=== PATIENT | male | born 1955 | race Caucasian/White ===

== ENCOUNTER 2017-09-19 06:15 | Inpatient (IN) | payer MEDICAID ==
--- NOTE | 2016-12-07 23:18 | NUR ---
PATIENT PULLING AT IV'S AND TRACH TUBING, MITTENS WERE PLACED ON PATIENT AND THE PATIENT AND CONTINUED TO REMOVE THE MITTENS.
[2017-09-19] VITALS (48 sets, daily range): BP systolic 52–162; BP diastolic 26–112
[~2017-09-19] VITALS: Ht 182.9 cm; Wt 149.9 kg
--- NOTE | 2017-09-19 06:19 | NUR ---
PT PLACED IN BED 11 BY EMS.
--- NOTE | 2017-09-19 06:20 | NUR ---
PATIENT PRESENTS TO ED WITH SOB/DIFF. BREATHING . PER EMS VISIT TO HOUSE S/P FALL PT DENIED MEDICAL TX, 3HOURS AFTER EMS CALLED PT IN SAME CONDITION ACCOMPANIED BY SOB . DENIES N/V/D; SKIN IS PINK/COOL/DRY; AAOX4 ; LUNGS COURSE ON INSPIRATION AND EXPIRATION; PT DENIES ANY FEVER, OR CP; PATIENT DENIES ANY PAIN AT THIS TIME; PATIENT POSITIONED FOR COMFORT; HOB ELEVATED; BEDRAILS UP X2; BED DOWN. ER MD MADE AWARE OF PT STATUS.
--- NOTE | 2017-09-19 06:20 | NUR ---
Dr. Moore at bedside.
[2017-09-19] MEDS ORDERED: ALBUTEROL 0.083% 2.5 MG/3 ML NEBU INH ONE (06:35)
[2017-09-19] MEDS ORDERED: ALBUTEROL SULFATE/IPRATROPIU 3 ML SOL IH ONE (06:35)
--- NOTE | 2017-09-19 06:40 | NUR ---
RECEIVED PT ON 100% NON [id number] MASK WITH LABORED BREATHING PLACED PT ON BIPAP PER DR MINA IPAP [address] 14 FIO2 .50 PT AWAKE ALERT TULIO BIPAP OK AT THIS TIME ABG DRAWN BREATH SOUND PRESENT BILAT COARSE WILL CONTINUE TO MONITOR PT
[2017-09-19] MEDS ORDERED: MORPHINE SULFATE 4 MG/ML SYR IVP ONE (06:45)
[2017-09-19 06:47] LABS: HEMATOCRIT 50.9 % (36-52); HEMOGLOBIN 16.3 g/dL (12.0-18.0); MEAN CORPUSCULAR HEMOGLOBIN 36 pg (27-31); MEAN CORPUSCULAR HGB CONC 32 g/dL (33-37); MEAN CORPUSCULAR VOLUME 113 fL (80-94); PLATELET COUNT (AUTO) 189 K/uL (140-450); RED BLOOD CELL COUNT(AUTO) 4.53 MIL/uL (4.20-6.10); RED CELL DISTRIBUTION WIDTH 16.1 % (11.6-13.7); WHITE BLOOD COUNT (AUTO) 9.4 K/uL (4.8-10.8)
[2017-09-19 06:59] LABS: ANION GAP 6.9 (8-16); CREATININE 0.8 mg/dL (0.7-1.3); LYMPHOCYTES % (MANUAL) 6 % (20-46); MONOCYTES % (MANUAL) 9 % (5-12); POTASSIUM 3.9 mmol/L (3.5-5.1)
[2017-09-19 07:04] LABS: APPEARANCE,URINE SL CLOUDY (CLEAR); BILIRUBIN,URINE 2+ (NEGATIVE); COLOR,URINE BROWN (YELLOW); LEUKOCYTE ESTERASE ,URINE NEGATIVE (NEGATIVE); NITRITE, URINE POSITIVE (NEGATIVE); PH,URINE 5.5 (5.0-9.0); UGLUCOSE TRACE (NEGATIVE)
[2017-09-19 07:05] LABS: ALBUMIN 3.6 g/dL (3.4-5.0); TOTAL BILIRUBIN 2.3 mg/dL (0.0-1.0)
[2017-09-19 07:10] LABS: PROTHROMBIN TIME 13.3 secs (10.8-13.4)
[2017-09-19 07:15] LABS: RBC,URINE 3-10 (FEW) /HPF (0-5)
[2017-09-19 07:16] LABS: BLOOD, URINE 1+ (NEGATIVE); WBC,URINE 0-5 (RARE) /HPF (0-5)
--- NOTE | 2017-09-19 07:22 | NUR ---
REPORT GIVEN TO ROMERO VIEYRA
--- NOTE | 2017-09-19 07:23 | NUR ---
XRAY at bedside.
--- NOTE | 2017-09-19 07:26 | NUR ---
POST ABG RESULTS BIPAP CHANGES CHARTED PER DR KRISHNA WILL CONTINUE TO MONITOR PT ON BIPAP
--- NOTE | 2017-09-19 07:28 | NUR ---
PT RESTING ON BED;W/ BPAP;RT AT BEDSIDE.ALL MONITORS IN PLACED;WILL CONTINUE TO MONITOR PT.
--- NOTE | 2017-09-19 07:39 | NUR ---
RT AT BEDSIDE.
[2017-09-19] MEDS ORDERED: FUROSEMIDE 40 MG/4 ML VIAL IVP ONE (07:40)
[2017-09-19] MEDS ORDERED: NACL 0.9% 1,000 ML IV ONE ×2 (07:50→09:05)
[2017-09-19] MEDS ORDERED: VANCOMYCIN 1,000 MG in DEXTROSE 5% 250 ML IV ONE (07:50)
[2017-09-19] MEDS ORDERED: AMIODARONE 150 MG in DEXTROSE 5% 100 ML IV ONE (07:55)
[2017-09-19] MEDS ORDERED: AMIODARONE 150 MG/3 ML VIAL IV ONE (08:09)
[2017-09-19] MEDS ORDERED: VANCOMYCIN 1,000 MG VIAL ONE (08:27)
[2017-09-19] MEDS ORDERED: ACETAMINOPHEN 325 MG TAB PO PRN (08:35)
[2017-09-19] MEDS ORDERED: DOCUSATE SODIUM 100 MG GELCAP PO PRN (08:35)
[2017-09-19] MEDS ORDERED: HYDROcodone/APAP 7.5/325 MG 1 TAB PO PRN (08:35)
[2017-09-19] MEDS ORDERED: ZOLPIDEM 5 MG TAB PO PRN (08:35)
[2017-09-19] MEDS ORDERED: ONDANSETRON 4 MG/2 ML VIAL IM/IVP PRN (08:35)
[2017-09-19] MEDS ORDERED: LORazepam 0.5 MG TAB PO PRN (08:35)
[2017-09-19] MEDS ORDERED: MORPHINE SULFATE 2 MG/ML SYR IVP PRN (08:35)
[2017-09-19] MEDS ORDERED: ALBUTEROL SULFATE/IPRATROPIU 3 ML SOL IH PRN ×3 (08:45→11:45)
[2017-09-19] MEDS ORDERED: LEVOFLOXACIN 750 MG/D5W PREMIX 150 ML IV SCH ×2 (08:50→12:00)
[2017-09-19] MEDS: LACTOBACILLUS RHAMNOSUS GG 1 EACH CAP PO SCH (09:00)
--- NOTE | 2017-09-19 09:01 | NUR ---
Patient will be admitted to care of DR PEREZ. Admited to ICU. Will go to [facility] 1. Belongings list completed. Report to DANNA VIEYRA.
--- NOTE | 2017-09-19 09:08 | NUR ---
PATIENT HAS BEEN SCREENED AND CATEGORIZED HIGH NUTRITION RISK. PATIENT WILL BE SEEN WITHIN 1-2 DAYS OF ADMISSION. 09/19/17-09/20/[address]
[2017-09-19 09:18] LABS: CHOL/HDL RATIO 3.9 (1-4.5); FREE T4 (FREE THYROXINE) 0.82 ng/dL (0.76-1.46); MAGNESIUM 2.3 mg/dL (1.8-2.4); PHOSPHORUS 3.9 mg/dL (2.5-4.9); THYROID STIMULATING HORMONE 5.63 uIU/mL (0.34-3.74)
--- NOTE | 2017-09-19 09:44 | NUR ---
PT ARRIVED VIA GURNEY FROM ER. PT IS AAOX2, LETHARGIC, FOLLOWS SIMPLE COMMANDS. A. FIB ON MONITOR. PT IS ON BIPAP I/E: 16/7, FIO2 50%. NO SOB OR ACUTE DISTRESS AT THIS TIME. BILATERAL RHONCHI AUSCULTATED. ABDOMEN SOFT, ROUND, NON-TENDER. BOWEL SOUNDS PRESENT. PERIPHERAL IV #20G TO LEFT HAND PATENT AND INTACT, INFUSING ORDERED IV FLUID. SKIN TEAR TO LEFT FOREARM NOTED. DRESSING APPLIED. SCAB TO RIGHT FOREARM NOTED. BUE/ BLE EDEMA AND SCROTAL EDEMA NOTED. DRYNESS TO BILATERAL LOWER EXTREMITIES NOTED. ACOSTA CATH IN PLACE FLOWING URINE TO GRAVITY DRAINAGE BAG. ADMISSION ASSESSMENT COMPLETE. MRSA SWAB OBTAINED. FLACC 0. SAFETY MEASURES ENSURE. CALL LIGHT WITHIN REACH. WILL CONTINUE TO MONITOR.
--- NOTE | 2017-09-19 09:53 | NUR ---
PT TRANSPORTED TO ICU BED 3 VIA I00% NONBREATHING MASK PLACED PT ON BIPAP WITH SETTIHGS CHARTED WILL CONT TO MONITOR PT ON BIPAP
[2017-09-19] MEDS ORDERED: HEPARIN PER PHARMACY MC PRN ×2 (10:05→15:00)
[2017-09-19 10:47] LABS: BARBITURATE, URINE NEG. ng/ml (NEG <=200); BENZODIAZEPINE, URINE NEG. ng/mL (NEG <=200); CANNABINOID, URINE NEG. ng/mL (NEG <=50); COCAINE, URINE NEG. ng/mL (NEG <=300); OPIATE, URINE NEG. ng/mL (NEG <=2000); PHENCYCLIDINE SCREEN,URINE NEG. ng/mL (NEG <=25)
[2017-09-19] MEDS: NACL 0.9% 1,000 ML IV SCH ×2 (11:00→13:07)
[2017-09-19] MEDS ORDERED: METOPROLOL SUCCINATE 50 MG TABER PO SCH (11:00)
--- NOTE | 2017-09-19 11:00 | NUR ---
LIMITED ECHO DONE
[2017-09-19] MEDS: hePARIN / DEXT 5% PREMIX 250 ML IV SCH ×2 (11:22→18:33)
--- NOTE | 2017-09-19 11:30 | NUR ---
DECREASED FI02 TO .50 RN AWARE
--- NOTE | 2017-09-19 11:39 | NUR ---
PT TOLERATING THE BIPAP WELL. NO DISTRESS NOTED AT THIS TIME. NURSES AT BEDSIDE. WILL CONTINUE TO MONITOR.
--- NOTE | 2017-09-19 12:00 | NUR ---
UNABLE TO ADMINISTER PO METOPROLOL PT IS NOT AWAKE ENOUGH TO SAFELY SWALLOW. RECOMMENDED IV ROUTE FOR MEDS TO DR. GARCIA, WILL FOLLOW UP ON ORDERS.
[2017-09-19] MEDS: CLINDAMYCIN 600 MG in DEXTROSE 5% 50 ML IV SCH ×3 (12:09→23:55)
--- NOTE | 2017-09-19 12:35 | NUR ---
PT'S DAUGHTER LUKASZ CALLED. UPDATED ON PT'S CONDITION.
[2017-09-19] MEDS: ALBUTEROL SULFATE/IPRATROPIU 3 ML SOL IH SCH ×2 (13:00→19:29)
[2017-09-19] MEDS ORDERED: ALBUTEROL SULFATE/IPRATROPIU 3 ML SOL IH SCH (13:00)
[2017-09-19] MEDS: LEVOFLOXACIN 750 MG/D5W PREMIX 150 ML IV SCH (13:22)
--- NOTE | 2017-09-19 13:30 | NUR ---
PT BEING PRERRED FO INTUBATION
[2017-09-19] MEDS ORDERED: HYDROmorphone 1 MG/ML AMP IVP SCH (13:55)
[2017-09-19] MEDS ORDERED: ETOMIDATE 20 MG/10 ML VIAL IVP ONE ×2 (14:05→14:09)
[2017-09-19] MEDS ORDERED: ETOMIDATE 20 MG/10 ML VIAL IVP SCH (14:10)
--- NOTE | 2017-09-19 14:10 | NUR ---
DR. GIMENEZ CAME IN TO SEE PT. WILL FOLLOW UP WITH NEW ORDERS.
[2017-09-19] MEDS ORDERED: SUCCINYLCHOLINE CHLORIDE 200 MG/10 ML VIAL IVP SCH (14:15)
[2017-09-19] MEDS ORDERED: ROCURONIUM 50 MG/5 ML VIAL IV SCH (14:15)
--- NOTE | 2017-09-19 14:15 | NUR ---
PT INTUBATED ORDERED BY DR GARCIA PT INTUBATED BY DR KRISHNA ER PT PLACED ON VENT WITH SETTINGS CHARTED BREATH SOUNDS PRESENT BILAT COARSE SXN PT FOE C&S VENT PLUGGED INTO RED OUTLET X RAY DONE
--- NOTE | 2017-09-19 14:18 | NUR ---
PT WAS INTUBATED BY ER PHYSICIAN, DR. KRISHNA. RESPIRATORY THERAPISTS PRESENT AT BEDSIDE.
[2017-09-19] MEDS ORDERED: DEXTROSE 50% 50 ML SYR IVP PRN (14:20)
--- NOTE | 2017-09-19 14:26 | NUR ---
DR. GARCIA IN TO SEE PT. WILL FOLLOW UP ON ORDERS.
[2017-09-19] MEDS ORDERED: DILTIAZEM 25 MG/5 ML VIAL IVP SCH (14:30)
[2017-09-19] MEDS ORDERED: hePARIN / DEXT 5% PREMIX 250 ML IV SCH (15:00)
[2017-09-19] MEDS: PROPOFOL 1000 MG/100 ML PREMIX 100 ML IV PRN ×3 (15:03→22:48)
[2017-09-19] MEDS ORDERED: NACL 0.9% 1,000 ML IV SCH ×2 (15:10→15:30)
--- NOTE | 2017-09-19 15:20 | NUR ---
INCREASED FIO2 TO .80 RN AWARE
--- NOTE | 2017-09-19 15:21 | NUR ---
CHECKED BP: 52/38, NOTIFIED DR. GARCIA.
--- NOTE | 2017-09-19 15:28 | NUR ---
NEW ORDERS RECEIVED, RECHECKED BP: 117/71. WILL CONTINUE TO MONITOR.
[2017-09-19] MEDS ORDERED: COMMUNICATION ORDER MC SCH ×2 (15:45)
--- NOTE | 2017-09-19 16:00 | NUR ---
PT WISHES TO BE EXTUBATED, DR. GARCIA AT BEDSIDE TO ASSESS PT'S MENTAL STATUS TO MAKE HIS OWN DECISIONS. PT'S DAUGHTER, LUKASZ, NOTIFIED.
--- NOTE | 2017-09-19 16:17 | NUR ---
PER DR. GARCIA, PT TO REMAIN INTUBATED AFTER CONSULTING WITH DR. GIMENEZ PT MAY STILL BE CONFUSED DUE TO MEDICAL CONDITION. PT'S DAUGHTER, LUKASZ, UPDATED ON PT'S STATUS.
[2017-09-19] MEDS: BLOOD GLUCOSE MONITORING 1 DEV DEV FS SCH ×2 (16:30→21:41)
[2017-09-19] MEDS ORDERED: LORazepam 2 MG/ML VIAL IVP SCH (16:46)
--- NOTE | 2017-09-19 16:49 | NUR ---
PER DR. GARCIA, HOLD OGT INSERTION UNTIL AFTER CENTRAL LINE INSERTION.
--- NOTE | 2017-09-19 17:15 | NUR ---
CONTINUED TO MONITOR PT ON VENT WITH SETTINGS CHARTED BREATH SOUNDS PRESNT BILAT COARSE SXN PT WITH MIN TO MOD AMT OF WHITE SECS VENT PLUGGED INTO RED OUTLET AMBU BAG AT BEDSIDE
--- NOTE | 2017-09-19 17:20 | NUR ---
CENTRAL LINE INSERTION BEING PERFORMED BY DR. GARCIA. TIME OUT CALLED.
--- NOTE | 2017-09-19 17:40 | NUR ---
DR. REYNOLDS IN TO SEE PT. WILL FOLLOW UP ON ORDERS.
[2017-09-19] MEDS ORDERED: DILTIAZEM 60 MG TAB PO SCH (18:00)
--- NOTE | 2017-09-19 18:00 | NUR ---
NGT INSERTED TO LEFT NARE AND SECURED. CONFIRMED PLACEMENT WITH AUSCULTATION OF AIR BOLUS.
[2017-09-19] MEDS: FUROSEMIDE 40 MG/4 ML VIAL IVP SCH (18:01)
--- NOTE | 2017-09-19 18:02 | NUR ---
CHECKED BP: 80/51, NOTIFIED DR. GARCIA THAT LASIX WAS HELD.
--- NOTE | 2017-09-19 18:41 | NUR ---
NOTIFIED DR. GARCIA REGARDING HEMATURIA NOTED IN ACOSTA BAG.
[2017-09-19] MEDS: ACETYLCYSTEINE 10% (100 MG/ML) 100 MG/ML VIAL INH SCH ×2 (19:00→23:00)
--- NOTE | 2017-09-19 19:30 | NUR ---
REPORT GIVEN TO TITLE I PARAPROFESSIONAL RN FOR CONTINUITY OF CARE. PT IS ETT TO VENT, ON PROPOFOL AND HEPARIN DRIPS. NO ACUTE DISTRESS AT THIS TIME.
--- NOTE | 2017-09-19 19:30 | NUR ---
RECEIVED REPORT FROM AZALIA ESCOBAR AT BEDSIDE, PT IS SEDATED, RASS -3, ETT TO VENT WITH FIO2 100, RR 14, TV 650, PEEP 5. RHONCHI LUNG SOUNDS, NGT PLACED ON LEFT NARES, POSITIVE PLACEMENT WITH 30ML RESIDUES NOTED, CENTRAL LINE PLACED ON RIGHT IJ WITH TLC, NO BLOOD RETURN FROM EACH LUMEN, NOT CONFIRMED BY X-RAY, DR. GIMENEZ AT BEDSIDE, WILL REPLACE ANOTHER ONE. Fredrick FIB ON DIGITAL PRINT OPERATOR. LARGE SOFT ROUND ABDOMEN WITH ACTIVE BOWEL SOUNDS, ACOSTA CATHETER IN PLACE WITH LIGHT RED COLORED URINE NOTED, SCROTAL EDEMA NOTED. GENERALIZED WEAKNESS NOTED, GENERALIZED +3 PITTING EDEMA NOTED, PERIPHERAL IV LINE TO RIGHT FOREARM #22GA, RUNNING PROPOFOL AT 15MCG/MIN, IV LINE TO RIGHT UPPER ARM #22GA, RUNNING WITH NS @150ML/HR AND HEPARIN DRIP @ 1500 UNITS, SKIN IS WARM AND WEEPING, SKIN TEAR NOTED TO LEFT FOREARM AND SCAR WITH SCAB NOTED TO RIGHT FOREARM. SCD'S PLACED ON BLE FOR DVT PREVENTION. SAFETY MEASURE IN PLACE, HOB ELEVATED TO 30 DEGREES, WILL CONTINUE TO MONITOR. Addendum: 09/19/17 at 2312 by Terra Maldonado RN RESTRAIN ON CELESTINA. WRIST FOR PREVENTION OF PULLING TUBINGS.
--- NOTE | 2017-09-19 19:30 | NUR ---
RECIEVED REPORT FROM AZALIA LYNN AT BEDSIDE, PT ARRIVED VIA GURNEY FROM ER. PT IS AAOX2, LETHARGIC, FOLLOWS SIMPLE COMMANDS. A. FIB ON MONITOR. PT IS ON BIPAP I/E: 08/06, FIO2 50%. NO SOB OR ACUTE DISTRESS AT THIS TIME. BILATERAL RHONCHI AUSCULTATED. ABDOMEN SOFT, ROUND, NON-TENDER. BOWEL SOUNDS PRESENT. PERIPHERAL IV #20G TO LEFT HAND PATENT AND INTACT, INFUSING ORDERED IV FLUID. SKIN TEAR TO LEFT FOREARM NOTED. DRESSING APPLIED. SCAB TO RIGHT FOREARM NOTED. BUE/ BLE EDEMA AND SCROTAL EDEMA NOTED. DRYNESS TO BILATERAL LOWER EXTREMITIES NOTED. ACOSTA CATH IN PLACE FLOWING URINE TO GRAVITY DRAINAGE BAG. ADMISSION ASSESSMENT COMPLETE. MRSA SWAB OBTAINED. FLACC 0. SAFETY MEASURES ENSURE. CALL LIGHT WITHIN REACH. WILL CONTINUE TO MONITOR. Addendum: 09/19/17 at 2245 by Terra Maldonado RN WRONG DOCUMENTATION.
--- NOTE | 2017-09-19 19:45 | NUR ---
CONSENT SIGNED BY LUKASZ, PT'S DAUGHTER FOR CENTRAL LINE INSERTION.
--- NOTE | 2017-09-19 20:00 | NUR ---
TIME OFF FOR CENTRAL LINE PLACEMENT, DR. CHARLES AND DR. GIMENEZ WILL PROFORM THE PROCEDURE, AZALIA WATTS AT BEDSIDE FOR ASSISTANCE. Addendum: 09/20/17 at 0341 by Terra Maldonado RN TIME OUT NOT TIME OFF
[2017-09-19] MEDS ORDERED: NOREPINEPHRINE 4 MG/4 ML VIAL IV ONE (20:13)
[2017-09-19] MEDS: NOREPINEPHRINE 4 MG in DEXTROSE 5% 250 ML IV PRN (20:27)
[2017-09-19] MEDS: METOPROLOL 25 MG TAB PO SCH (21:00)
[2017-09-19] MEDS ORDERED: DOCUSATE SODIUM 100 MG GELCAP PO SCH (21:00)
[2017-09-19] MEDS: DEXT 5% /NACL 0.9% 1,000 ML IV SCH (21:30)
--- NOTE | 2017-09-19 21:30 | NUR ---
DR. GIMENEZ AND DR. CHARLES TRIED TWO TIMES TO INSERT CENTRAL LINE ON RIGHT IJ OR LEFT IJ, COULD NOT GET IT SUCCESSIVELY, EXPLAINED TO FAMILY MEMBER, LUKASZ, BY DR. GIMENEZ.
[2017-09-19] MEDS: PANTOPRAZOLE 40 MG INJ VIAL IVP SCH (21:41)
--- NOTE | 2017-09-19 22:14 | NUR ---
[address] TOBIN IN DOING A BRONCOSCOPY.
[2017-09-20] VITALS (82 sets, daily range): BP systolic 64–138; BP diastolic 26–92
--- NOTE | 2017-09-20 | NUR ---
NO CHANGE OF CONDITION AT THIS TIME, STILL ON PROPOFOL DRIP AND LEVOPHED DRIP, RASS -4.
--- NOTE | 2017-09-20 00:25 | NUR ---
0005 ATTEMPTED TO DO ABG. UNABLE TO GET AT THIS TIME. WILL TRY LATER
[2017-09-20] MEDS: ALBUTEROL SULFATE/IPRATROPIU 3 ML SOL IH SCH ×4 (01:00→19:00)
--- NOTE | 2017-09-20 01:26 | NUR ---
0125 UNABLE TO GIVE HHNTX HEART RATE IS ELAVATED 125HR
[2017-09-20] MEDS: PROPOFOL 1000 MG/100 ML PREMIX 100 ML IV PRN ×2 (02:48→06:39)
[2017-09-20] MEDS: METOPROLOL 25 MG TAB PO SCH ×3 (05:00→21:29)
[2017-09-20] MEDS: DEXT 5% /NACL 0.9% 1,000 ML IV SCH ×4 (05:20→23:15)
[2017-09-20] MEDS: CLINDAMYCIN 600 MG in DEXTROSE 5% 50 ML IV SCH ×3 (05:23→18:09)
--- NOTE | 2017-09-20 05:25 | NUR ---
POST ABG WAS DISCUSSED W/ DR. CHARLES, INCREASED RR TO 16BPM, INCREASED VT-650ML
[2017-09-20] MEDS: hePARIN / DEXT 5% PREMIX 250 ML IV SCH ×3 (06:38→22:03)
[2017-09-20] MEDS: BLOOD GLUCOSE MONITORING 1 DEV DEV FS SCH ×4 (06:43→21:30)
[2017-09-20 06:48] LABS: T4 (THYROXINE) 4.7 ug/dL (4.5-12.0)
[2017-09-20] MEDS: NOREPINEPHRINE 4 MG in DEXTROSE 5% 250 ML IV PRN (06:54)
[2017-09-20] MEDS: ACETYLCYSTEINE 10% (100 MG/ML) 100 MG/ML VIAL INH SCH ×3 (06:55→19:00)
--- NOTE | 2017-09-20 06:55 | NUR ---
REC'D PT ON CARESCAPE VENT SETTINGS AC16 VT 650 PEEP 10 FIO2 70% ALARMS ON AND FUNCTIONING PROPERLY, AMBU BAG AT SIDE OF VENT AND VENTILATOR IS PLUGGED INTO RED OUTLET, NO BREATHING TX GIVEN DUE TO HIGH HEART RATE OF 120 AND MUCOMYST IS NOT AVAILABLE, B\S ARE CRACKLES BILATERALLY, SXN PT MODERATE AMT OF THICK YELLOW SECRETIONS, PT IS ORALLY INTUBATED WITH 8.0 ET TUBE SECURED WITH ANCHOR FAST AT 23CM AT MIDLINE AND SKIN INTEGRITY IN INTACT, CUFF PRESSURE IS 30 CM H2O
[2017-09-20] MEDS ORDERED: NOREPINEPHRINE 4 MG/4 ML VIAL IV ONE (06:56)
[2017-09-20 07:03] LABS: HEMOGLOBIN 14.6 g/dL (12.0-18.0); MEAN CORPUSCULAR HEMOGLOBIN 37 pg (27-31); MEAN CORPUSCULAR HGB CONC 33 g/dL (33-37); MEAN CORPUSCULAR VOLUME 112 fL (80-94); PLATELET COUNT (AUTO) 151 K/uL (140-450); RED CELL DISTRIBUTION WIDTH 15.8 % (11.6-13.7); WHITE BLOOD COUNT (AUTO) 10.5 K/uL (4.8-10.8)
--- NOTE | 2017-09-20 07:23 | NUR ---
REPORT GIVEN TO AZALIA MANSFIELD AT BEDSIDE FOR CONTINUE OF CARE, PT IS IN STABLE CONDITION AT THIS TIME.
--- NOTE | 2017-09-20 07:30 | NUR ---
RECEIVED REPORT FROM AZALIA VILLANUEVA AT BEDSIDE, PT IS INTUBATED WITH PROPOFOL, ETT TO VENT WITH AC MODE FIO2 70, RR 16, TV 700, PEEP 10. RHONCHI LUNG SOUNDS, NGT PLACED ON LEFT NARES. A. FIB ON ACCOUNTS PAYABLE OR RECEIVABLE CLERK HEART RATE 123 WITH LEVOPHED. LARGE SOFT ROUND ABDOMEN WITH HYPOACTIVE BOWEL SOUNDS, ACOSTA CATHETER IN PLACE WITH BRIGHT ORANGE COLORED URINE NOTED, GENERALIZED +3 PITTING EDEMA NOTED, PERIPHERAL IV LINE TO RIGHT FOREARM #22GA, RUNNING PROPOFOL AT 19.99MCG/MIN,LEVOPHED 5MCG/MIN, IV LINE TO RIGHT UPPER ARM #22GA, RUNNING HEPARIN 1500UNIT/HR, D5NS 150ML/H. SKIN IS DRY, SCABS IN BILATERAL LOWER EXT.
[2017-09-20 07:40] LABS: ANION GAP 5.9 (8-16); CARBON DIOXIDE 34.7 mmol/L (21-32); CREATININE 0.7 mg/dL (0.7-1.3); POTASSIUM 3.6 mmol/L (3.5-5.1)
[2017-09-20 08:26] LABS: EOSINOPHILS % (MANUAL) 3 % (0-4); LYMPHOCYTES % (MANUAL) 4 % (20-46); MONOCYTES % (MANUAL) 4 % (5-12)
[2017-09-20] MEDS: PANTOPRAZOLE 40 MG INJ VIAL IVP SCH ×2 (08:54→21:30)
[2017-09-20] MEDS: FUROSEMIDE 40 MG/4 ML VIAL IVP SCH ×2 (08:54→16:44)
--- NOTE | 2017-09-20 08:57 | NUR ---
VENT CHECK, NO SXN REQUIRED AT THIS TIME, AIRWAY IS PATENT AND PT IS RESTING WITH NO SIGNS OF DISTRESS NOTED
[2017-09-20] MEDS ORDERED: METOPROLOL SUCCINATE 50 MG TABER PO SCH (09:00)
[2017-09-20] MEDS: LACTOBACILLUS RHAMNOSUS GG 1 EACH CAP PO SCH (09:14)
--- NOTE | 2017-09-20 09:41 | NUR ---
PT SEEN BY AND IN BEDSIDE. ORDER RECEIVED DECREASE LEVOPHED 3MCG/MIN.
[2017-09-20] MEDS ORDERED: DOCUSATE 100 MG/10 ML UDC GT SCH (10:30)
[2017-09-20] MEDS ORDERED: LEVOFLOXACIN 750 MG/D5W PREMIX 150 ML IV SCH (10:30)
--- NOTE | 2017-09-20 10:40 | NUR ---
PT SEEN BY ,. RECEIVED D/C LEVOPHED, D/C PROPOFOL ORDER NOTED.
--- NOTE | 2017-09-20 11:17 | NUR ---
VENT CHECK, SXN PT SMALL AMT OF YELLOW SECRETIONS, AIRWAY IS PATENT
--- NOTE | 2017-09-20 12:03 | NUR ---
*09/20/17 RD INITIAL ASSESSMENT COMPLETED. PLEASE REFER TO NUTRITIONAL ASSESSMENT UNDER CARE ACTIVITY FOR ESTIMATED NUTRITIONAL NEEDS. RD RECOMMENDATIONS: 1- RECOMMEND CONTINUE NPO DIET UNTIL PT IS MEDICALLY CLEARED FOR NUTRITION SUPPORT. 2- F/U 2-3 DAYS; HIGH RISK. IVETTE GRAHAM MBA, RD
--- NOTE | 2017-09-20 12:17 | NUR ---
VENT CHECK, I\L TX GIVEN WITH DUONEB 3ML AND 1CC 10% MUCOMYST WITH NO ADVERSE REACTION POST TX
[2017-09-20] MEDS: LEVOFLOXACIN 750 MG/D5W PREMIX 150 ML IV SCH ×2 (13:00→13:57)
[2017-09-20] MEDS ORDERED: fentaNYL 1 MG in NACL 0.9% 80 ML IV PRN (13:40)
--- NOTE | 2017-09-20 14:00 | NUR ---
PT SEEN BY AND IN BEDSIDE. ORDER RECEIVED, NACL 0.9% 500ML BOLUS 1TIME NOTED. OBTAINED TELEPHONE CONSENT BY WITNESS BY RN FROM FAMILY MEMBER LUKASZ SHAFFER.
[2017-09-20] MEDS ORDERED: NACL 0.9% 500 ML IV SCH (14:20)
[2017-09-20] MEDS ORDERED: NACL 0.9% 500 ML IV ONE (14:20)
--- NOTE | 2017-09-20 14:20 | NUR ---
TALKED TO LISHA FOR INSERTION OF PICC LINE
--- NOTE | 2017-09-20 14:30 | NUR ---
RECEIVED TELEPHONE ORDER FROM STAT CHEST X-RAY NOTED.
--- NOTE | 2017-09-20 14:58 | NUR ---
VENT CHECK, NO SXN REQUIRED AT THIS TIME, AIRWAY IS PATENT PT RESTING
--- NOTE | 2017-09-20 16:45 | NUR ---
VENT CHECK, SXN PT SMALL AMT OF YELLOW SECRETIONS, AIRWAY IS PATENT AND PT IS RESTING
--- NOTE | 2017-09-20 18:45 | NUR ---
VENT CK DONE, UNABLE TO GAVE PT TX, NOT ONLY HR WAS 142 TO 149, BUT PT HAVE A PROCEDURE DONE AT BED SIDE
--- NOTE | 2017-09-20 19:30 | NUR ---
REPORT RECEIVED FROM MORNING NURSEDONAL RN. EYES CLOSED AND PERRL. PICC LINE NURSE IS AT BED SIDE PERFORMING PICC LINE INSERTION. THE PT IS SEDATED WITH ATIVAN DRIP AND ETT TO VENT DUE TO RESPIRATORY FAILURE. VENT SETTING AC 16. FIO2 70, TV 650, PEEP 100. BILATERAL LUNG SOUNDS WITH RHOCHI. HEPARIN DRIP FOR INCREASED TROPONIN LEVELS AND NEW AFIB WITH RVR. ON CONTINUOUS CARDIAC MONITORING. PERIPHERAL IV LINES TO RIGHT FOREARM 22g AND RIGHT UPPER ARM 22g. ALL IV LINES PATENT AND ASYMPTOMATIC. ACOSTA CATHETER DRAINING VIA GRAVITY WITH CLEAR YELLOW URINE. BOWEL SOUNDS ACTIVE. ENLARGED SCROTUM SWELLING AND EDEMA NOTED. SKIN TEAR NOTED TO LEFT FOREARM AND SCATTERED DRY SCABS TO RIGHT FOREARM AND BILATERAL LOWER LEGS. SKIN IS WARM BUT VERY MOIST. NOTED FLUIDS SIPPING OUT OF BILATERAL UPPER EXTREMITIES. PLACED EXTRA LINENS AND PILLOWS UNDER THE ARMS. +3 PITTING EDEMA NOTED TO UPPER AND LOWER EXTREMITIES. OFF LOADED HEELS WITH PILLOWS. BILATERAL SOFT WRIST RESTRAINTS NOTED. OPEN AND RELEASED FOR SKIN CHECK AND CIRCULATION. PT NOTED TRYING TO REACH THE ETT TUBE WITH HANDS. REORIENTATIONS AND DISTRACTIONS PROVIDED. UNSUCCESSFUL. PLACED THE SOFT WRIST RESTRAINTS BACK ON. WILL CONTINUE TO MONITOR. Addendum: 09/21/17 at 0117 by Cassia Tavares RN ALL SAFETY PRECAUTIONS ARE IN PLACE. CALL LIGHT IN REACH. BED IS TO THE LOWEST POSITION.
--- NOTE | 2017-09-20 19:38 | NUR ---
DR. CHARLES MADE AWARE OF THE PICC LINE INSERTION BY THE PICC LINE NURSE AND XRAY TAKEN. WILL FOLLOW UP WITH ANY ORDERS.
--- NOTE | 2017-09-20 20:20 | NUR ---
DR. CHARLES AT BED SIDE AT THIS TIME.
[2017-09-20 20:25] LABS: PROTHROMBIN TIME 15.9 secs (10.8-13.4)
--- NOTE | 2017-09-20 20:25 | NUR ---
DAUGHTER AT BED SIDE.
--- NOTE | 2017-09-20 20:40 | NUR ---
aPTT RESULT=81.5. HEPARIN DRIP RATE ADJUSTED PER PROTOCOL.
[2017-09-20] MEDS: DOCUSATE 100 MG/10 ML UDC GT SCH (21:30)
[2017-09-21] VITALS (59 sets, daily range): BP systolic 79–153; BP diastolic 44–110
[2017-09-21] MEDS: CLINDAMYCIN 600 MG in DEXTROSE 5% 50 ML IV SCH ×5 (00:06→23:42)
--- NOTE | 2017-09-21 00:23 | NUR ---
ABG ORDER BY DR ARACELI DEAN, UNABLE TO OBTAIN, ATTEMPTED THREE TIMES, RN AT BED SIDE..
--- NOTE | 2017-09-21 00:25 | NUR ---
DR. CHARLES MADE AWARE OF UNSUCCESSFUL ABG BY RT.
[2017-09-21] MEDS: ALBUTEROL SULFATE/IPRATROPIU 3 ML SOL IH SCH ×4 (01:20→19:38)
[2017-09-21] MEDS: ACETYLCYSTEINE 10% (100 MG/ML) 100 MG/ML VIAL INH SCH ×4 (01:21→19:38)
--- NOTE | 2017-09-21 01:30 | NUR ---
VENT CK DONE, HHN IN LINE WITH DUONEB AND 10% MUCOMIST IN LINE WITH THE VENT, STEEL HR IN HIGH, NO DISTRESS NOTED
--- NOTE | 2017-09-21 01:53 | NUR ---
PT CONTINUING WITH CONTINUOS CARDIAC MONITORING. ON ATIVAN DRIP WITH RASS -4 AND HEPARIN DRIP PER PROTOCOL. ETT TO VENT AC16. FIO2 60, TV 650, PEEP 10. NO ACUTE DISTRESS NOTED. ALL SAFETY PRECAUTIONS IN PLACE. WILL CONTINUE TO MONITOR.
[2017-09-21] MEDS: METOPROLOL 25 MG TAB PO SCH ×3 (05:13→21:04)
--- NOTE | 2017-09-21 05:38 | NUR ---
EVARISTO DONE, DR NOTIFIED, HE WILL CALL VICK IF HE WANTS TO CHANGE SETTINGS. CHANGED HME AND OSULLIVAN, SX MOD CLOUDY WITH PINK SECRETION,
[2017-09-21] MEDS: DEXT 5% /NACL 0.9% 1,000 ML IV SCH ×2 (05:49→14:59)
--- NOTE | 2017-09-21 06:05 | NUR ---
DR. GARCIA AT BED SIDE. UPDATED HIM WITH THE PT'S CONDITION. WILL FOLLOW UP WITH ANY ORDERS.
--- NOTE | 2017-09-21 06:53 | NUR ---
RECEIVED PT ON CARESCAPE ON A/C 16 VT650 PEEP 10 FIO2 60 ALARMS ARE ON AND FUNCTIONAL PTS ET TUBE SIZE 8.0 IS SECURE ANCHOR FAST IN PLACE 23CM CUFF PRESSURE 22 CM BS COARSE I\L LAVAGE AND SX LG YELLOW HHN GIVEN I\L WITH 3 MG DUONEB AND 1ML MUCOMYST BMV HOB PT IN HF ASLEEP VENT PLUGGED INTO RED OUTLET Addendum: 09/21/17 at 0739 by Dafne Armenta RT 10% MUCOMYST
[2017-09-21 07:00] LABS: HEMATOCRIT 43.2 % (36-52); HEMOGLOBIN 14.3 g/dL (12.0-18.0); MEAN CORPUSCULAR HEMOGLOBIN 37 pg (27-31); MEAN CORPUSCULAR HGB CONC 33 g/dL (33-37); MEAN CORPUSCULAR VOLUME 111 fL (80-94); PLATELET COUNT (AUTO) 133 K/uL (140-450); RED CELL DISTRIBUTION WIDTH 15.5 % (11.6-13.7); WHITE BLOOD COUNT (AUTO) 9.6 K/uL (4.8-10.8)
[2017-09-21 07:13] LABS: ANION GAP 6.9 (8-16); CARBON DIOXIDE 39.2 mmol/L (21-32); CREATININE 0.8 mg/dL (0.7-1.3); POTASSIUM 3.1 mmol/L (3.5-5.1)
--- NOTE | 2017-09-21 07:16 | NUR ---
REPORT GIVEN TO THE MORNING RNLAWANDA FOR CONTINUITY OF CARE. VS STABLE AT THIS TIME. ALL SAFETY PRECAUTIONS ARE IN PLACE.
[2017-09-21] MEDS: BLOOD GLUCOSE MONITORING 1 DEV DEV FS SCH ×4 (07:30→21:03)
--- NOTE | 2017-09-21 07:30 | NUR ---
REPORT RECEIVED FROM NIGHT NURSE, AZALIA GARZA. PT EYES CLOSED AND PERRL. THE PT IS SEDATED WITH ATIVAN DRIP AND ETT TO VENT DUE TO RESPIRATORY FAILURE. VENT SETTING AC 16. FIO2 60, TV 650, PEEP 10.LEFT LUNG SOUNDS WITH CLEAR AND RIGHT SIDE WITH RHONCHI. HEPARIN DRIP FOR INCREASED TROPONIN LEVELS AND AFIB. ON CONTINUOUS CARDIAC MONITORING. PICC LINE ON RIGHT UPPER ARM WITH 3 LUMENS. ACOSTA CATHETER DRAINING VIA GRAVITY WITH DARK ORANGE COLOR URINE. BOWEL SOUNDS ACTIVE. ENLARGED SCROTUM EDEMA NOTED. SKIN TEAR NOTED TO RIGHT FOREARM AND SCATTERED DRY SCABS BILATERAL LOWER LEGS. SKIN IS WARM AND MOIST. NOTED FLUIDS SIPPING OUT OF BILATERAL UPPER EXTREMITIES. PLACED EXTRA LINENS AND PILLOWS UNDER THE ARMS. +3 PITTING EDEMA NOTED TO UPPER AND LOWER EXTREMITIES.
[2017-09-21 08:01] LABS: BASOPHILS % (MANUAL) 0 % (0-2); EOSINOPHILS % (MANUAL) 3 % (0-4); LYMPHOCYTES % (MANUAL) 10 % (20-46); MONOCYTES % (MANUAL) 6 % (5-12)
--- NOTE | 2017-09-21 08:31 | NUR ---
VENT CHECK BS COARSE I\L LAVAGE AND WSX MOD YELLOW PT HANDS RESTRAINED
--- NOTE | 2017-09-21 09:05 | NUR ---
DR MCDONNELL AND DR GARCIA EVALUATING PT AT BEDSIDE. MADE DR. MCDONNELL AWARE OF TROPONIN I: 0.110 RESULT WAS THREADING DOWN FROM PREVIOUS RESULT
[2017-09-21] MEDS: DOCUSATE 100 MG/10 ML UDC GT SCH ×2 (09:10→21:04)
[2017-09-21] MEDS: PANTOPRAZOLE 40 MG INJ VIAL IVP SCH ×2 (09:11→21:04)
[2017-09-21] MEDS: FUROSEMIDE 40 MG/4 ML VIAL IVP SCH ×2 (09:12→17:32)
[2017-09-21] MEDS: LACTOBACILLUS RHAMNOSUS GG 1 EACH CAP PO SCH (09:13)
--- NOTE | 2017-09-21 10:26 | NUR ---
DR. SCHROEDER, DR. MCDONNELL, AND DR. GARCIA ROUNDED ON PT. INFORMED TO DR. GARCIA THAT DUE 0800 PTT: 45.2. PER DR. GARCIA, HE WILL ORDER NEXT PTT PER HEPARIN PROTOCOL.
[2017-09-21] MEDS ORDERED: KCL 20 MEQ/WATER INJ PREMIX 200 ML IV SCH (10:30)
--- NOTE | 2017-09-21 10:56 | NUR ---
VENT CHECK BS COARSE I\L LAVAGE AND SX LG YELLOW
[2017-09-21] MEDS ORDERED: PROBIOTIC SCREEN 1 EA MISC MC PRN (11:35)
--- NOTE | 2017-09-21 12:30 | NUR ---
PT ON CONTINUOS CARDIAC MONITORING, ON ATIVAN, FENTANYL DRIPS WITH RASS -4. NO ACUTE DISTRESS NOTED. ETT TO VENT WITH AC MODE RATE 16, VT 650, FIO2 60, PEEP 10 SETTING. HEPARIN DRIP PER PROTOCOL. ALL SAFETY PRECAUTIONS IN PLACE. CONTINUE TO MONITOR.
--- NOTE | 2017-09-21 12:49 | NUR ---
VENT CHECK BS COARSE I\L LAVAGE AND SX SM YELLOW HHN WITHHELD DUE TO HIGH PULSE
--- NOTE | 2017-09-21 14:30 | NUR ---
RECEIVED PHONE CALL FROM DAUGHTER, EXPLAINED ABOUT PT'S CONDITION. SHE TOLD ME SHE WILL COME TONIGHT. PT IS SEDATED WITH RASS -4 ON ATIVAN AND FENTANYL DRIPS. ORAL CARE GIVEN EVERY 4HRS. NO ACUTE DISTRESS NOTED
--- NOTE | 2017-09-21 14:51 | NUR ---
VENT CHECK BS COARSE AIRWAY IS PATENT
--- NOTE | 2017-09-21 15:03 | NUR ---
DR. GIMENEZ IN TO SEE PT. UPDATED TO DR. GIMENEZ WITH PT'S CURRENT STATUS AND CONDITION. NO NEW ORDERS AT THIS TIME.
[2017-09-21] MEDS: hePARIN / DEXT 5% PREMIX 250 ML IV SCH (15:37)
[2017-09-21] MEDS: LORazepam 50 MG in NACL 0.9% 25 ML IV PRN (15:42)
[2017-09-21 15:48] LABS: PROTHROMBIN TIME 16.7 secs (10.8-13.4)
--- NOTE | 2017-09-21 17:03 | NUR ---
VENT CHECK BS COARSE I\L LAVAGE AND SX SM YELLOW
--- NOTE | 2017-09-21 18:30 | NUR ---
AT BEDSIDE AT THIS TIME, CHECKING PT'S CONDITION AND IV DRIPS.
[2017-09-21] MEDS: LEVOFLOXACIN 750 MG/D5W PREMIX 150 ML IV SCH (18:32)
--- NOTE | 2017-09-21 19:30 | NUR ---
REPORT GIVEN TO EARTH SCIENCE PROFESSOR RNKAYLA FOR CONTINUITY CARE. VS IS STABLE, NO ACUTE DISTRESS AT THIS TIME. ALL SAFETY PRECAUTIONS ARE IN PLACE.
--- NOTE | 2017-09-21 19:30 | NUR ---
RECEIVED REPORT FROM MORNING NURSE, LAWANDA RN. PT EYES CLOSED AND SEDATED WITH ATIVAN AND FETANYL DRIPS WITH RASS -4. HEPARIN DRIP PER PROTOCOL. NEXT PTT SCHEDULED FOR 2029. ETT TO VENT AC16 FIO2 60, TV 650, PEEP 10. BILATERAL LUNG SOUNDS DIMINISHED. PICC LINE WITH 2 LUMENS ON THE RIGHT UPPER ARM. PATENT AND ASYMPTOMATIC. NG TUBE TO THE LEFT NOSTRIL. NOTED NPO EXCEPT MEDS. PLACEMENT CHECKED. NO GASTRIC RESIDUAL NOTED. HYPO BOWEL SOUNDS HEARD FROM ALL QUADS. BILATERAL SOFT WRIST RESTRAINTS ARE IN PLACE AT THIS TIME. RELEASED TO CHECK THE CIRCULATION AND SKIN INTEGRITY. SWOLLEN SCROTUM NOTED WITH ACOSTA CATHETER DRAINING VIA GRAVITY WITH CLEAR LIGHT LUKASZ COLOR URINE. PT SKIN NOTED WARM AND MOIST. NOTED BILATERAL UPPER AND LOWER EXTREMITIES +3 PITTING EDEMA. AFIB NOTED ON THE MONITOR WITH NO ACUTE DISTRESS. FLACC=0. CALL LIGHT IN REACH. BED IS TO THE LOWEST. ALL SAFETY PRECAUTIONS ARE IN PLACE. WILL CONTINUE TO MONITOR.
--- NOTE | 2017-09-21 19:45 | NUR ---
VENT CK DONE, HHN WITH DUONEB AND MUCOMIST IN LINE OF VENT, SX MOD CLOUDY ZAMAN TICK SECRETION, BS ARE BILAT DIMINISHED, HR IS HIGH BEFORE AND AFTER TX.
--- NOTE | 2017-09-21 23:00 | NUR ---
PT VS STABLE AND NO ACUTE DISTRESS NOTED. CONTINUING WITH CARDIAC MONITORING AND HEPARIN, ATIVAN, AND FENTANYL DRIP WITH RASS OF -4. ALL SAFETY PRECAUTIONS ARE IN PLACE. WILL CONTINUE TO MONITOR.
[2017-09-22] VITALS (86 sets, daily range): BP systolic 71–116; BP diastolic 31–92
[2017-09-22] MEDS: ALBUTEROL SULFATE/IPRATROPIU 3 ML SOL IH SCH ×4 (00:40→18:46)
[2017-09-22] MEDS: ACETYLCYSTEINE 10% (100 MG/ML) 100 MG/ML VIAL INH SCH ×4 (00:40→18:50)
--- NOTE | 2017-09-22 02:12 | NUR ---
VS STABLE AND NO S/SX OF ACUTE DISTRESS NOTED. ALL SAFETY PRECAUTIONS ARE IN PLACE. WILL CONTINUE TO MONITOR.
--- NOTE | 2017-09-22 03:20 | NUR ---
VENT CK DONE, SPUTUM ORDER AND COLLECTED AND GAVE TO THE RN
--- NOTE | 2017-09-22 04:30 | NUR ---
PT SEDATED WITH RASS -4. V/S STABLE. NO ACUTE DISTRESS NOTED AT THIS TIME. ALL SAFETY PRECAUTIONS IN PLACE. WILL CONTINUE TO MONITOR.
[2017-09-22] MEDS: METOPROLOL 25 MG TAB PO SCH ×2 (05:11→12:46)
[2017-09-22] MEDS: CLINDAMYCIN 600 MG in DEXTROSE 5% 50 ML IV SCH ×4 (05:11→23:47)
[2017-09-22] MEDS: DEXT 5% /NACL 0.9% 1,000 ML IV SCH (05:12)
--- NOTE | 2017-09-22 05:18 | NUR ---
VENT CK DONE, NO DISTRESS NOTED AT THIS TIME
[2017-09-22] MEDS: LORazepam 50 MG in NACL 0.9% 25 ML IV PRN ×2 (05:22→17:10)
[2017-09-22 05:45] LABS: BASOPHILS # (AUTO) 0.2 K/uL (0.00-0.22); BASOPHILS % (AUTO) 1.6 % (0.0-2.0); EOSINOPHILS # (AUTO) 0.5 K/uL (0-0.4); EOSINOPHILS % (AUTO) 5.1 % (0.0-4.0); HEMATOCRIT 42.3 % (36-52); HEMOGLOBIN 13.8 g/dL (12.0-18.0); LYMPHOCYTES # (AUTO) 0.6 K/uL (2.0-11.5); LYMPHOCYTES % (AUTO) 6.5 % (20.5-51.1); MEAN CORPUSCULAR HEMOGLOBIN 36 pg (27-31); MEAN CORPUSCULAR HGB CONC 33 g/dL (33-37); MEAN CORPUSCULAR VOLUME 110 fL (80-94); MONOCYTES # (AUTO) 0.9 K/uL (0.8-1.0); MONOCYTES % (AUTO) 8.9 % (1.7-9.3); NEUTROPHILS # (AUTO) 7.6 K/uL (1.8-7.7); NEUTROPHILS % (AUTO) 77.9 % (42.2-75.2); PLATELET COUNT (AUTO) 125 K/uL (140-450); RED BLOOD CELL COUNT(AUTO) 3.84 MIL/uL (4.20-6.10); RED CELL DISTRIBUTION WIDTH 15.7 % (11.6-13.7); WHITE BLOOD COUNT (AUTO) 9.8 K/uL (4.8-10.8)
--- NOTE | 2017-09-22 05:50 | NUR ---
DR. GARCIA AT BED SIDE. WILL FOLLOW UP WITH ANY ORDERS.
[2017-09-22 06:51] LABS: ANION GAP 8.2 (8-16); CARBON DIOXIDE 38.8 mmol/L (21-32); CREATININE 0.8 mg/dL (0.7-1.3)
[2017-09-22] MEDS: BLOOD GLUCOSE MONITORING 1 DEV DEV FS SCH ×4 (06:54→23:49)
--- NOTE | 2017-09-22 06:58 | NUR ---
REC'D PT ON CARESCAPE VENT SETTINGS AC16 VT 650 PEEP 10 FIO2 60% ALARMS ON AND FUNCTIONING PROPERLY AMBU BAG AT SIDE OF VENT AND VENTILATOR IS PLUGGED INTO RED OUTLET, I\L TX GIVEN WITH DUONEB 3ML AND 1CC MUCOMYST 10% WITH NO ADVERSE REACTION POST TX, B\S ARE COARSE BILATERALLY, SXN PT MODERATE AMT OF THICK CREAM COLOR SECRETIONS, PT IS ORALLY INTUBATED WITH 8.0 ET TUBE SECURED WITH ANCHOR FAST AT 23 CM AT MIDLINE AND CUFF PRESSURE 22 CM H20 PT IS RESTING WITH NO SIGNS OF DISTRESS NOTED PT IS RESTRAINED BY BOTH WRIST WITH SOFT RESTRAINS
--- NOTE | 2017-09-22 07:10 | NUR ---
REPORT GIVEN TO AZALIA CHILDRESS FOR CONTINUITY OF CARE. V/S STABLE AND NO ACUTE DISTRESS NOTED. ALL PRECAUTIONS ARE IN PLACE.
--- NOTE | 2017-09-22 07:30 | NUR ---
RECEIVED A REPORT FROM KAYLA ARTEAGA RN. PT CLOSED EYES AND SEDATED, NONVERBAL AND UNABLE TO FOLLOW COMMANDS. ETT TO VENT AND SETTING AT FiO2 60, TV 650, AC 16, PEEP 10. A-FIB ON THE MONITOR. ABDOMEN SOFT AND ROUND, NONTENDER. ACOSTA CATHETER DRAINING BLOODY URINE. NGT IN PLACE, PATENT AND INTACT. PICC LINE TO RT UPPER ARM [id number], PATENT AND INTACT. GENERALIZED BODY EDEMATOUS, SKIN WARM TO TOUCH. ON CONTINUOUS DRIP OF HEPARIN, FENTANYL AND ATIVAN ORDERED PER PROTOCOL. SAFETY PRECAUTION, BED IN LOW POSITION, CALL LIGHT WITHIN REACH. WILL CONTINUE TO MONITOR.
[2017-09-22] MEDS: fentaNYL 1 MG in NACL 0.9% 80 ML IV PRN ×2 (07:42→15:28)
--- NOTE | 2017-09-22 08:00 | NUR ---
RESIDENT GROUP IN TO SEE PT AND AWARE OF HEMATURIA AND EPISODES OF DECREASING SBP 80-90. WILL FOLLOW UP ON ORDERS.
--- NOTE | 2017-09-22 08:10 | NUR ---
PT'S DAUGHTER, LUKASZ CALLED AND WAS UPDATED OF PT'S CURRENT CONDITION. SHE STATED THAT SHE WILL BE IN TO VISIT THE PT TODAY.
[2017-09-22] MEDS: DOCUSATE 100 MG/10 ML UDC GT SCH ×2 (08:14→20:18)
[2017-09-22] MEDS: LACTOBACILLUS RHAMNOSUS GG 1 EACH CAP PO SCH (08:14)
[2017-09-22] MEDS: PANTOPRAZOLE 40 MG INJ VIAL IVP SCH ×2 (08:14→20:18)
[2017-09-22] MEDS: FUROSEMIDE 100 MG/10 ML VIAL IV SCH (08:17)
[2017-09-22] MEDS: hePARIN / DEXT 5% PREMIX 250 ML IV SCH (08:40)
--- NOTE | 2017-09-22 09:00 | NUR ---
PT TOLERATED MEDICATIONS WELL. WILL CONTINUE TO MONITOR.
[2017-09-22 09:18] LABS: PROTHROMBIN TIME 14.4 secs (10.8-13.4)
--- NOTE | 2017-09-22 09:18 | NUR ---
VENT CHECK, NO SXN REQUIRED AT THIS TIME AIRWAY IS PATENT PT IS RESTING
--- NOTE | 2017-09-22 09:40 | NUR ---
DR. COBB IN TO SEE PT. WILL FOLLOW UP ON ORDERS.
--- NOTE | 2017-09-22 09:41 | NUR ---
STARTED AMIODARONE DOSE ORDERED PER PROTOCOL. WILL CONTINUE TO MONITOR
[2017-09-22] MEDS ORDERED: AMIODARONE 150 MG in DEXTROSE 5% 100 ML IV SCH (09:45)
[2017-09-22] MEDS: AMIODARONE 450 MG in DEXTROSE 5% 250 ML IV SCH ×2 (10:02→18:17)
--- NOTE | 2017-09-22 10:37 | NUR ---
DR. GARCIA AWARE OF SODIUM LEVEL 149 AND POTASSIUM LEVEL 3.0 TODAY. WILL FOLLOW UP ON ORDERS.
--- NOTE | 2017-09-22 10:40 | NUR ---
DR. GARCIA WAS INFORMED OF DECREASING BP 80/55 AND MAP 71 NOTED AT THIS TIME AND PER DR. GARCIA, CONTINUE TO MONITOR FOR THE LOW BP HOWEVER LET HIM KNOW IF MAP IS BELOW 65. WILL FOLLOW UP ON ORDERS.
[2017-09-22] MEDS: DEXT 5% / NACL 0.45% 1,000 ML IV SCH ×2 (10:53→20:38)
[2017-09-22] MEDS ORDERED: KCL 20 MEQ/WATER INJ PREMIX 200 ML IV SCH (11:00)
--- NOTE | 2017-09-22 11:18 | NUR ---
VENT CHECK, SXN PT MODERATE AMT OF CREAM COLOR SECRETIONS AIRWAY IS PATENT
--- NOTE | 2017-09-22 11:20 | NUR ---
BP 85/44 [address] GARCIA[address] WILL FOLLOW UP ON ORDERS
[2017-09-22] MEDS ORDERED: NACL 0.9% 500 ML IV SCH (11:30)
--- NOTE | 2017-09-22 11:58 | NUR ---
DR. GIMENEZ IN TO SEE PT. WILL FOLLOW UP ON ORDERS. STARTED ON NS 550ML BOLUS ORDERED AND BP 88/51, MAP 69 NOTED AT THIS TIME
--- NOTE | 2017-09-22 12:04 | NUR ---
PT'S SISTER, THOMSA CALLED AND WAS UPDATED OF PT'S MEDICAL CONDITION.
--- NOTE | 2017-09-22 12:23 | NUR ---
09/22/17 RD FOLLOW-UP ASSESSMENT COMPLETED PLEASE REFER TO NUTRITION ASSESSMENT UNDER CARE ACTIVITY FOR ESTIMATED NUTRITIONAL NEEDS. 1. IF PATIENT TO REMAIN INTUBATED CONSIDER INITIATING ENTERAL NUTRITION SUPPORT VIA NGT - FIBERSOURCE HN TO START AT 30 ML/HR, ADVANCE 10 ML Q8H TO A GOAL RATE OF 75 ML/HR + PROSOURCE BID. IF NEEDED, 200 ML FREE WATER Q6H. (THIS WILL PROVIDE 2280 KCAL, 127G PROTEIN, 2254 ML FREE WATER - MEETS 100% KCAL + 85% PROTEIN ESTIMATED NEEDS) 2. RD TO FOLLOW-UP 2-3 DAYS, HIGH RISK KATHRYN KRISHNA RD
--- NOTE | 2017-09-22 12:54 | NUR ---
PT STABLE AND NO S/SX OF ACUTE RESPIRATORY DISTRESS NOTED. WILL CONTINUE TO MONITOR.
--- NOTE | 2017-09-22 12:56 | NUR ---
INFORMED DR. GARCIA ABOUT RD RECOMMENDATION. WILL FOLLOW UP ON ORDERS.
--- NOTE | 2017-09-22 13:14 | NUR ---
VENT CHECK, SXN PT SMALL AMT OF CREAM COLOR SECRETIONS, B\S ARE COARSE AND AIRWAY IS PATENT NO BREATHING TXS GIVEN DUE TO HIGH HEART RATE OF 123 BPM AND AZALIA REAL NOTIFIED Addendum: 09/22/17 at 1340 by Windy Mendieta RT 10% MUCOMYST 1 CC WASTED DUE TO HIGH HEART RATE
--- NOTE | 2017-09-22 14:50 | NUR ---
DR. REYNOLDS IN TO SEE PT AND STATED THAT CONTINUE TO MONITOR FOR LOW BP FAR MAP IS ABOVE 60. WILL FOLLOW UP ON ORDERS.
--- NOTE | 2017-09-22 14:52 | NUR ---
DR. GARCIA IN TO SEE PT AND AWARE OF NO BM FOR LAST 3DAYS(LAST BM ON 09/19/17). NO NEW ORDER AT THIS TIME DUE TO PT HAS BEEN ON NPO. PER DR. GARCIA , INFORM HIM IF MAP IS BELOW 60. WILL FOLLOW UP ON ORDERS.
--- NOTE | 2017-09-22 15:15 | NUR ---
VENT CHECK SXN PT SMALL AMT OF CREAM COLOR SECRETIONS, AIRWAY IS PATENT
[2017-09-22] MEDS: LEVOFLOXACIN 750 MG/D5W PREMIX 150 ML IV SCH (15:23)
--- NOTE | 2017-09-22 16:30 | NUR ---
FLACC 0 AND NO S/SX OF ACUTE RESPIRATORY DISTRESS NOTED. WILL CONTINUE TO MONITOR.
[2017-09-22] MEDS ORDERED: WARFARIN 5 MG TAB NG SCH (17:00)
[2017-09-22] MEDS ORDERED: WARFARIN 5 MG TAB PO SCH (17:00)
--- NOTE | 2017-09-22 17:00 | NUR ---
STARTED TUBE FEEDING VIA NGT ORDERED. NO RESIDUAL NOTED. WILL CONTINUE TO MONITOR
--- NOTE | 2017-09-22 17:12 | NUR ---
VENT CHECK, NO SXN REQUIRED AT THIS TIME, AIRWAY IS PATENT INCREASED FIO2 TO 80% DUE TO LOW SAT OF 90%
--- NOTE | 2017-09-22 18:12 | NUR ---
PT STABLE. CONTINUE ON ATIVAN DRIP, FENTANYL DRIP AND AMIODARONE DRIP ORDERED PER PROTOCOL. WILL CONTINUE TO MONITOR.
--- NOTE | 2017-09-22 19:15 | NUR ---
RECEIVED REPORT FROM MORNING NURSEMONROE. PT IS IN BED SEDATED WITH ATIVAN DRIP WITH RASS -4. NGT TO TUBE FEEDING. TUBE IN PLACE AND PATENT. GASTRIC RESIDUAL NOTED 10ML. ETT TO VENT AC16, FIO2 80, TV 650, PEEP 10. PICC LINE TO RIGHT UPPER ARM WITH 2 LUMENS. LEFT HAND 20G. PATENT AND ASYMPTOMATIC. LUNG SOUNDS DIMINISHED ON THE LOWER LOBES. NOTED GENERALIZED EDEMA IN THE BODY. BILATERAL UPPER ARMS NOTED WITH PITTING EDEMA +3. BOWEL SOUNDS HEARD FROM ALL QUADS. SCABS AND SKIN TEARS NOTED ON THE UPPER ARMS. SCATTERED DRY SCABS NOTED ON THE LOWER EXTREMITIES. SCROTAL EDEMA NOTED. ACOSTA CATH DRAINING VIA GRAVITY WITH LUKASZ COLOR URINE. FLACC=0. ON CONTINUOUS CARDIAC MONITORING AND ON AMIODARONE DRIP. CALL LIGHT IN REACH AND HOB ELEVATED TO 30 DEGREES. BED IS TO THE LOWEST POSITION. WILL CONTINUE TO MONITOR.
--- NOTE | 2017-09-22 19:23 | NUR ---
REPORT GIVEN AND ENDORSED CARE TO KAYLA ARTEAGA RN. PT STABLE.
[2017-09-22] MEDS: FUROSEMIDE 40 MG/4 ML VIAL IVP SCH (20:19)
--- NOTE | 2017-09-22 22:12 | NUR ---
DR. CHARLES AT BED SIDE AT THIS TIME.
[2017-09-23] VITALS (105 sets, daily range): BP systolic 64–130; BP diastolic 32–79
--- NOTE | 2017-09-23 | NUR ---
MED ADMINISTERED ORDERED. PICC LINE TO MOE WITH 2 LUMENS ALL PATENT AND ASYMPTOMATIC. FLACC=0. NO ACUTE DISTRESS NOTED. ALL SAFETY PRECAUTIONS ARE IN PLACE. WILL CONTINUE TO MONITOR.
[2017-09-23] MEDS: ALBUTEROL SULFATE/IPRATROPIU 3 ML SOL IH SCH ×4 (00:24→18:52)
[2017-09-23] MEDS: ACETYLCYSTEINE 10% (100 MG/ML) 100 MG/ML VIAL INH SCH ×4 (01:00→18:52)
--- NOTE | 2017-09-23 02:16 | NUR ---
PT NOTED WITH RASS -3. INCREASED ATIVAN DRIP TO 5.5 MG/HR TO MEET RASS -4. FLACC=1 NOTED. INCREASED FENTANYL TO 20.5 MCG/KG/HR. WILL CONTINUE MONITOR AND RE-EVALUATE THE EFFECTIVENESS. ALL SAFETY PRECAUTIONS ARE IN PLACE AT THIS TIME.
--- NOTE | 2017-09-23 03:00 | NUR ---
PT RASS -4. NO ACUTE DISTRESS NOTED. ALL SAFETY PRECAUTIONS ARE IN PLACE. WILL CONTINUE TO MONITOR.
--- NOTE | 2017-09-23 05:00 | NUR ---
PT NOTED WITH RASS -3. INCREASED ATIVAN DRIP TO 6 MG/HR. NO ACUTE DISTRESS NOTED. WILL RE-EVALUATE THE EFFECTIVENESS.
[2017-09-23] MEDS: BLOOD GLUCOSE MONITORING 1 DEV DEV FS SCH ×3 (05:12→18:02)
[2017-09-23] MEDS: CLINDAMYCIN 600 MG in DEXTROSE 5% 50 ML IV SCH ×3 (05:12→18:03)
--- NOTE | 2017-09-23 05:30 | NUR ---
RASS -4. CONTINUING WITH ATIVAN DRIP 6 MG/HR. NO ACUTE DISTRESS NOTED. WILL CONTINUE TO MONITOR.
[2017-09-23 05:40] LABS: HEMATOCRIT 24.3 % (36-52); MEAN CORPUSCULAR HEMOGLOBIN 31 pg (27-31); MEAN CORPUSCULAR HGB CONC 33 g/dL (33-37); MEAN CORPUSCULAR VOLUME 94 fL (80-94); PLATELET COUNT (AUTO) 343 K/uL (140-450); RED BLOOD CELL COUNT(AUTO) 2.59 MIL/uL (4.20-6.10); RED CELL DISTRIBUTION WIDTH 15.9 % (11.6-13.7); WHITE BLOOD COUNT (AUTO) 8.3 K/uL (4.8-10.8)
[2017-09-23] MEDS: LORazepam 50 MG in NACL 0.9% 25 ML IV PRN ×3 (05:46→21:57)
[2017-09-23 05:49] LABS: CREATININE 0.6 mg/dL (0.7-1.3)
[2017-09-23 05:53] LABS: PROTHROMBIN TIME 9.8 secs (10.8-13.4)
--- NOTE | 2017-09-23 05:55 | NUR ---
DR. GARCIA AT BED SIDE AT THIS TIME.
[2017-09-23 06:41] LABS: EOSINOPHILS % (MANUAL) 5 % (0-4); LYMPHOCYTES % (MANUAL) 14 % (20-46); MONOCYTES % (MANUAL) 7 % (5-12)
--- NOTE | 2017-09-23 06:42 | NUR ---
RECEIVED PT ON [place] ON A/C16 VT650 PEEP 10 FIO2 80 ALARMS ARE ON AND FUNCTIONAL BMV HOB PTS EET TUBE IS SECURE 23 CM ANCH[address] FAST IN PLACE BS COARSE I\L LAVAGE AND SX MOD CREAMY PT IN HF QUIET VENT PLUGGED INTO RED OUTLET HHN GIVEN I\L NO APPARENT DISTRESS Addendum: 09/23/17 at 1710 by Dafne Armenta RT CUFF PRESSURE 24 CM H20
[2017-09-23] MEDS: DEXT 5% / NACL 0.45% 1,000 ML IV SCH ×2 (07:07→16:02)
--- NOTE | 2017-09-23 07:25 | NUR ---
GAVE REPORT TO MORNING NURSELUZ FOR CONTINUITY OF CARE. VS STABLE AND ALL SAFETY PRECAUTIONS ARE IN PLACE.
--- NOTE | 2017-09-23 07:26 | NUR ---
RECEIVED REPORT FROM AZALIA GARZA. NO SIGNS OF ACUTE DISTRESS AT THIS TIME, FLACC 0. PT IS SEDATED ON FENTANYL DRIP. PICC LINE TO RIGHT UPPER ARM X2 LUMEN. PT IS ON ATIVAN AND AMIODARONE DRIPS. PT IS ETT TO VENT. FIO2: 80%, AC: 16, TV: 650, PEEP: 10. NGT TO LEFT NARE TO TUBE FEEDING, NO RESIDUAL NOTED. SKIN TEAR TO LEFT FOREARM AND RIGHT FOREARM WITH SCAB TO RIGHT FOREARM, DRESSING DRY AND INTACT. DRY SCABS TO BILATERAL LOWER EXTREMITIES. ACOSTA CATHETER IN PLACE DRAINING TO GRAVITY DRAINAGE BAG. SCROTAL EDEMA NOTED. PT IS CURRENTLY A FIB ON THE MONITOR. ACOSTA CATHETER IN PLACE DRAINING TO GRAVITY DRAINAGE BAG. SAFETY PRECAUTIONS IN PLACE WITH BED IN LOWEST POSITION AND SIDE RAILS UP X2. CALL LIGHT WITHIN REACH. WILL CONTINUE TO MONITOR.
--- NOTE | 2017-09-23 07:45 | NUR ---
DR. SCHROEDER' GROUP IN TO SEE PT. WILL FOLLOW UP ON ORDERS.
[2017-09-23] MEDS: DOCUSATE 100 MG/10 ML UDC GT SCH ×2 (08:13→21:32)
[2017-09-23] MEDS: LACTOBACILLUS RHAMNOSUS GG 1 EACH CAP PO SCH (08:14)
[2017-09-23] MEDS: PANTOPRAZOLE 40 MG INJ VIAL IVP SCH ×2 (08:14→21:33)
[2017-09-23] MEDS: FUROSEMIDE 100 MG/10 ML VIAL IV SCH (08:14)
--- NOTE | 2017-09-23 08:23 | NUR ---
PT TOLERATED MEDS WELL.
--- NOTE | 2017-09-23 09:45 | NUR ---
DR. COBB IN TO SEE PT. WILL FOLLOW UP ON ORDERS.
--- NOTE | 2017-09-23 09:45 | NUR ---
HELIX COIL WINDER, RICH, IN TO SEE PT.
[2017-09-23] MEDS: AMIODARONE 450 MG in DEXTROSE 5% 250 ML IV SCH (10:13)
[2017-09-23] MEDS ORDERED: SKINTEGRITY HYDROGEL TP PRN (10:40)
[2017-09-23] MEDS ORDERED: HYDRAGUARD CREAM TP PRN (10:40)
--- NOTE | 2017-09-23 11:02 | NUR ---
VENT CHECK BS DIMINISHED I\L LAVAGE AND SX SM CREAMY DECREASED FIO2 TO 70
--- NOTE | 2017-09-23 11:10 | NUR ---
DR. GIMENEZ IN TO SEE PT. WILL FOLLOW UP ON ORDERS.
--- NOTE | 2017-09-23 11:13 | NUR ---
DR. REYNOLDS IN TO SEE PT. WILL FOLLOW UP ON ORDERS.
--- NOTE | 2017-09-23 11:45 | NUR ---
CHECKED BP: 79/53. NOTIFIED DR. GARCIA, INFORMED TO MAINTAIN MAP ABOVE 60. WILL CONTINUE TO MONITOR
[2017-09-23] MEDS ORDERED: NACL 0.9% 500 ML IV SCH (11:50)
[2017-09-23] MEDS ORDERED: CLINDAMYCIN 600 MG in DEXTROSE 5% 50 ML IV SCH (12:00)
[2017-09-23] MEDS: HYDRAGUARD CREAM TP SCH (12:11)
[2017-09-23] MEDS: SKINTEGRITY HYDROGEL TP SCH (12:11)
[2017-09-23 12:18] LABS: HEMATOCRIT 40.6 % (36-52); HEMOGLOBIN 13.3 g/dL (12.0-18.0); MEAN CORPUSCULAR HEMOGLOBIN 36 pg (27-31); MEAN CORPUSCULAR HGB CONC 33 g/dL (33-37); MEAN CORPUSCULAR VOLUME 109 fL (80-94); PLATELET COUNT (AUTO) 96 K/uL (140-450); RED BLOOD CELL COUNT(AUTO) 3.72 MIL/uL (4.20-6.10); RED CELL DISTRIBUTION WIDTH 15.7 % (11.6-13.7); WHITE BLOOD COUNT (AUTO) 10.1 K/uL (4.8-10.8)
--- NOTE | 2017-09-23 12:37 | NUR ---
PT TOLERATED MEDS WELL.
--- NOTE | 2017-09-23 12:37 | NUR ---
CHECKED BP: 95/53, WILL CONTINUE TO MONITOR.
--- NOTE | 2017-09-23 13:10 | NUR ---
VENT CHECK BS DIMINISHED HHN GIVEN I\L I\L SX MOD CREAMY Addendum: 09/23/17 at 1322 by Dafne Armenta RT DECREASE FIO2 TO 65 SPO2 95
--- NOTE | 2017-09-23 13:22 | NUR ---
WOUND CARE EVALUATION NOTES: REASON FOR EVALUATION: MULTIPLE WOUNDS PT. WAS SEEN THIS AM WITH COMPLETE SKIN ASSESSMENT DONE ON THIS 62 Y/O MALE PATIENT TO [facility], WITH INITIAL DIAGNOSIS OF SOB. PAST MEDICAL HISTORY INCLUDE ASTHMA, DIABETES, HYPERTENSION AND MORBIDLY OBESITY. ALL ABOVE INFORMATION WAS OBTAINED FROM THE ADMISSION H&P. LABS ARE WBC 8.3, H/H 8.0/24.3, GLUCOSE 100, ALBUMIN 3.6, RT/INR 9.8/1.0 PTT 50.3. CURRENT MEDS INCLUDE LEVOFLOXACIN, AMIODARONE, WARFARIN AND FUROSEMIDE. PATIENT IS SEDATED. SKIN WARM TO TOUCH, THICKENED TOENAILS, +3EDEMA, NO HAIR GROWTH AND BILATERAL PEDAL PULSES UNABLE TO ASSESS DUE TO EDEMA . RIGHT I J CENTRAL LINE PATENT AND INTACT. PLAN OF CARE DISCUSSED WITH PRIMARY RN. INTEGUMENTARY: TRACH. STOMA SITE MOIST AND CLEAN UPPER EXTREMITIES SKIN IS THIN, FRAGILE AND MOIST, WEEPING WITH ERYTHREDEMA, MULTIPLE SKIN TEAR WITH LARGEST MEASURES 2X4CM ON RIGHT UPPER ARM AND SMALLEST ON LEFT ELBOW 1X1.5CM AREAS ARE CLEAN RIGHT FOREARM OPEN WOUND CELLULITIS LIKE 9X8CM PERIWOUND WARM AND RED, SMALL AMOUNT SANGUINOUS DRAINAGE SCROTAL EDEMA LOWER EXTREMITIES SKIN IS WARM AND FLAKY DRY WITH REDNESS AND +3 EDEMA BILATERAL HEELS BLANCHABLE REDNESS RECOMMENDATIONS: -CLEANSE MULTIPLE SKIN TEARS TO BUE WITH NS. PAT DRY, APPLY ADAPTIC DRESSING AND COVER WITH DRY DRESSING AND KERLIX CHANGE QD AND PRN IF SOILING -CLEANSE RIGHT FOREARM ARM CELLULITIS LIKE OPEN WOUND WITH NS. PAT DRY, APPLY HYDROGEL AND ADAPTIC DRESSING AND COVER WITH DRY DRESSING AND KERLIX CHANGE QD AND PRN IF SOILING -APPLY HYDRAGUARD TO BLE DRYNESS AREA BID AND CAMP[place] -CLEANSE SCROTAL EDEMA WITH SOAP AND WATER, PAT DRY, QD SUPPORT/ ELEVATED WITH PILLOW CASE -TURN AND REPOSITION PATIENT Q2H TO LEFT AND RIGHT SIDE ONLY TO OFFLOAD SACRALCOCCYX -ASSESS AND MONITOR SKIN CONDITION DURING POSITION CHANGE, PLEASE PAY ATTENTION TO SACRALCOCCYX AND HEELS -OFFLOAD BILATERAL HEELS BY PLACING PILLOWS UNDER CALVES AT ALL TIMES, UNLESS OTHERWISE CONTRAINDICATED -PRESSURE REDISTRIBUTION SURFACE THERAPY -VENOUS AND ARTERIAL DOPPLER U/S RESULT PENDING -KEEP SKIN CLEAN AND DRY AT ALL TIMES. RECOMMENDATIONS DISCUSSED WITH PRIMARY RN AND DR. GARCIA WILL FOLLOW UP PATIENT Q 7 -10 DAYS AND PRN. PLEASE CONTACT WOUND CARE NURSE FOR ANY CONCERNS AND CHANGES IN WOUND CONDITION
[2017-09-23 13:37] LABS: EOSINOPHILS % (MANUAL) 6 % (0-4); LYMPHOCYTES % (MANUAL) 15 % (20-46); MONOCYTES % (MANUAL) 4 % (5-12)
--- NOTE | 2017-09-23 14:15 | NUR ---
PT SEDATED, NO ACUTE DISTRESS NOTED, CHECKED BP 96/50, PROVIDED SUCTION SMALL AMOUNT CLEAR SECRETION NOTED, CONTINUE TO MONITOR.
--- NOTE | 2017-09-23 15:21 | NUR ---
VENT CHECK BS DIMINISHED I\L LAVAGE AND SX SM CREAMY DECREASE FIO2 TO 60
[2017-09-23] MEDS: fentaNYL 1 MG in NACL 0.9% 80 ML IV PRN (15:45)
[2017-09-23] MEDS: LEVOFLOXACIN 750 MG/D5W PREMIX 150 ML IV SCH (16:01)
--- NOTE | 2017-09-23 16:15 | NUR ---
PT SEDATED WITH NO ACUTE DISTRESS, CHECKED BP 129, BP 93/52. PROVIDED ORAL CARE TOLERATED WELL, STARTED ABX BY IVPB TOLERATED WELL. WILL CONTINUE TO MONITOR.
--- NOTE | 2017-09-23 17:05 | NUR ---
VENT CHECK BS DIMINISHED AIRWAY IS PATENT
[2017-09-23] MEDS: WARFARIN 5 MG TAB PO SCH (17:34)
--- NOTE | 2017-09-23 18:15 | NUR ---
PT SEDATED WITH NO ACUTE DISTRESS, CHECKED HR116, BP70/47. THE DAUGHTER IS BED SIDE AT THIS TIME, NURSE LET HER KNOW THE PT'S CONDITION , STARTED ABX BY IVPB TOLERATED WELL. INCREASED FEEDING RATE TO 60ML/HR TOLERATED WELL. WILL CONTINUE TO MONITOR.
--- NOTE | 2017-09-23 19:15 | NUR ---
GAVE REPORT TO OIL PAINT SHADER NURSERICH FOR CONTINUITY OF CARE. VS STABLE AND ALL SAFETY PRECAUTIONS ARE IN PLACE.
--- NOTE | 2017-09-23 19:16 | NUR ---
RECEIVED REPORT FROM AZALIA SANDOVAL AND LUZ RN AT BEDSIDE, PT IS SEDATED, RASS -3, ETT TO VENT WITH FIO2 60, RR 16, TV 650, PEEP 10, RHONCHI LUNG SOUNDS, NGT PLACED ON LEFT NARES, POSITIVE PLACEMENT WITH 0ML RESIDUES NOTED, FEEDING WITH FIBERSOURCE AT 60ML/HR. A. FIB ON MEDICAID BUSINESS ANALYST. LARGE SOFT ROUND ABDOMEN WITH ACTIVE BOWEL SOUNDS, ACOSTA CATHETER IN PLACE WITH LUKASZ COLORED URINE NOTED, SCROTAL EDEMA NOTED. GENERALIZED WEAKNESS NOTED, GENERALIZED +3 PITTING EDEMA NOTED, PICC LINE TO RIGHT UPPER ARM WITH DOUBLE LUMEN WITH GOOD BLOOD RETURN, RUNNING D51/2NS AT 100ML/HR, ATIVAN AT 6MG/HR, FENTANYL AT 50MCG/MIN, AMIODARON DRIP AT 0.5MG/MIN, PERIPHERAL IV LINE TO LEFT HAND #20GA, PATENT AND SL. SKIN IS WARM AND WEEPING ON CELESTINA. FOREARM, SKIN TEAR NOTED TO CELESTINA. FOREARM AND SCAR WITH SCAB NOTED TO RIGHT FOREARM, DRY SKIN TO BLE. SAFETY MEASURE IN PLACE, HOB ELEVATED TO 30 DEGREES, WILL CONTINUE TO MONITOR.
--- NOTE | 2017-09-23 19:40 | NUR ---
PT'S BP DROP TO 66/47, STARTED LEVOPHED DRIP ORDERED.
[2017-09-23] MEDS: NOREPINEPHRINE 4 MG in DEXTROSE 5% 250 ML IV PRN (19:41)
[2017-09-23] MEDS ORDERED: NOREPINEPHRINE 4 MG/4 ML VIAL IV ONE (19:45)
[2017-09-23] MEDS ORDERED: AMIODARONE 200 MG TAB PO SCH (21:00)
[2017-09-23] MEDS: FUROSEMIDE 40 MG/4 ML VIAL IVP SCH (21:33)
--- NOTE | 2017-09-23 22:00 | NUR ---
NO CHANGE OF CONDITION AT THIS TIME, VSS, POSITION CHANGED FOR OFF LOAD PRESSURE.
[2017-09-24] VITALS (102 sets, daily range): BP systolic 65–135; BP diastolic 33–97
--- NOTE | 2017-09-24 | NUR ---
NO S/S OF DISTRESS, VSS, ORAL CARE PROVIDED, POSITION CHANGED FOR OFF LOAD PRESSURE.
[2017-09-24] MEDS: ALBUTEROL SULFATE/IPRATROPIU 3 ML SOL IH SCH ×4 (00:21→19:22)
[2017-09-24] MEDS: ACETYLCYSTEINE 10% (100 MG/ML) 100 MG/ML VIAL INH SCH ×4 (00:23→19:22)
[2017-09-24] MEDS: DEXT 5% / NACL 0.45% 1,000 ML IV SCH ×3 (00:38→22:59)
[2017-09-24] MEDS: BLOOD GLUCOSE MONITORING 1 DEV DEV FS SCH ×4 (00:38→17:37)
[2017-09-24] MEDS: CLINDAMYCIN 600 MG in DEXTROSE 5% 50 ML IV SCH ×5 (00:38→23:58)
--- NOTE | 2017-09-24 02:00 | NUR ---
NO CHANGE OF CONDITION AT THIS TIME, VSS, POSITION CHANGED FOR OFF LOAD PRESSURE.
[2017-09-24] MEDS: NOREPINEPHRINE 4 MG in DEXTROSE 5% 250 ML IV PRN ×3 (02:32→23:02)
[2017-09-24] MEDS ORDERED: NOREPINEPHRINE 4 MG/4 ML VIAL IV ONE (02:34)
[2017-09-24] MEDS: AMIODARONE 450 MG in DEXTROSE 5% 250 ML IV SCH (02:34)
--- NOTE | 2017-09-24 04:00 | NUR ---
PT IS WAKING UP BY PULLING TUBES,INCREASED FENTANYL DRIP. AM CARE PROVIDED, ACOSTA CATHETER CARE PROVIDED, ORAL CARE PROVIDED, POSITION CHANGED FOR OFF LOAD PRESSURE.
[2017-09-24 05:12] LABS: HEMATOCRIT 41.2 % (36-52); HEMOGLOBIN 13.6 g/dL (12.0-18.0); MEAN CORPUSCULAR HEMOGLOBIN 36 pg (27-31); MEAN CORPUSCULAR HGB CONC 33 g/dL (33-37); MEAN CORPUSCULAR VOLUME 109 fL (80-94); PLATELET COUNT (AUTO) 121 K/uL (140-450); RED BLOOD CELL COUNT(AUTO) 3.77 MIL/uL (4.20-6.10); RED CELL DISTRIBUTION WIDTH 15.4 % (11.6-13.7); WHITE BLOOD COUNT (AUTO) 10.3 K/uL (4.8-10.8)
[2017-09-24 05:31] LABS: EOSINOPHILS % (MANUAL) 3 % (0-4); LYMPHOCYTES % (MANUAL) 6 % (20-46); MONOCYTES % (MANUAL) 6 % (5-12)
[2017-09-24 05:45] LABS: ALBUMIN 2.3 g/dL (3.4-5.0); BILIRUBIN,DIRECT 1.4 mg/dL (0.0-0.3); TOTAL BILIRUBIN 2.4 mg/dL (0.0-1.0)
[2017-09-24 05:54] LABS: ANION GAP 6.3 (8-16); CARBON DIOXIDE 38.8 mmol/L (21-32); CREATININE 0.9 mg/dL (0.7-1.3); POTASSIUM 3.1 mmol/L (3.5-5.1)
--- NOTE | 2017-09-24 06:00 | NUR ---
NO CHANGE OF CONDITION AT THIS TIME, VSS, POSITION CHANGED FOR OFF LOAD PRESSURE.
--- NOTE | 2017-09-24 07:23 | NUR ---
REPORT GIVEN TO AZALIA SANDOVAL AND LUZ RN AT BEDSIDE FOR CONTINUE OF CARE, PT IS IN STABLE CONDITION, VSS.
--- NOTE | 2017-09-24 07:30 | NUR ---
RECEIVED REPORT FROM AZALIA VILLANUEVA .PT SEDATED WITH FENTANYL, ATIVAN DRIPS. RASS-4. NO ACUTE DISTRESS NOTED, PICC LINE TO RIGHT UPPER ARM X2 LUMENS, PATENT AND INTACT. PT IS ON AMIODARONE, LEVOPHED DRIPS. PT IS ETT TO VENT. FIO2:60%, AC:16, VT:650, PEEP:10. NGT TO LEFT NARE TO TUBE FEEDING, NO RESIDUAL AND TUBE IS IN PLACE NOTED. SKIN TEAR TO LEFT AND RIGHT FOREARMS, SCAB TO RIGHT FOREARM, DRESSING DRY AND INTACT. DRY SCABS TO BILATERAL LOWER LEGS. ACOSTA CATH IN PLACE DRAINING TO GRAVITY DRAINAGE BAG. SCROTAL EDEMA NOTED. A FIB ON THE MONITOR. SAFETY PRECAUTIONS IN PLACE WITH SIDE RAILS UP, PT IS ON MITTENS TO PREVENT PULLING OUT THE TUBES. CALL LIGHT WITHIN REACH. WILL CONTINUE TO MONITOR.
[2017-09-24] MEDS ORDERED: KCL 20 MEQ/WATER INJ PREMIX 200 ML IV SCH (08:15)
[2017-09-24] MEDS: LORazepam 50 MG in NACL 0.9% 25 ML IV PRN ×2 (08:21→15:09)
[2017-09-24] MEDS: FUROSEMIDE 100 MG/10 ML VIAL IV SCH (08:39)
[2017-09-24] MEDS: DOCUSATE 100 MG/10 ML UDC GT SCH ×2 (08:39→20:50)
[2017-09-24] MEDS: PANTOPRAZOLE 40 MG INJ VIAL IVP SCH ×2 (08:40→20:49)
[2017-09-24] MEDS: LACTOBACILLUS RHAMNOSUS GG 1 EACH CAP PO SCH (08:40)
[2017-09-24] MEDS: AMIODARONE 200 MG TAB PO SCH ×2 (08:40→20:50)
--- NOTE | 2017-09-24 08:40 | NUR ---
STARTED KCL DRIP, PT TOLERATED WELL. NO ACUTE DISTRESS NOTED.
[2017-09-24] MEDS: fentaNYL 1 MG in NACL 0.9% 80 ML IV PRN ×2 (09:14→23:41)
--- NOTE | 2017-09-24 09:25 | NUR ---
GIVEN MEDICATIONS BY NGT ORDERED.PT TOLERATED WELL. NO RESIDUAL NOTED, NGT IN PLACE. DR. COBB HERE TO CHECK THE PT, WILL FOLLOW UP WITH ORDER.
--- NOTE | 2017-09-24 09:59 | NUR ---
DROPPED PEEP TO 8. PATIENT WAS TOLERATING FINE. SATING 96% Addendum: 09/24/17 at 1002 by Omer Ramey RT PLACED BACK ON PEEP OF 10. WILL CONSULT DR GIMENEZ FOR ANY CHANGES.
--- NOTE | 2017-09-24 11:07 | NUR ---
CHANGED ANCHORFAST WITH NO INCIDENCE.
--- NOTE | 2017-09-24 12:30 | NUR ---
GIVEN MEDICATION AND WOUND TX, PT TOLERATED WELL. NO ACUTE DISTRESS NOTED.
[2017-09-24] MEDS: HYDRAGUARD CREAM TP SCH (12:33)
[2017-09-24] MEDS: SKINTEGRITY HYDROGEL TP SCH (12:33)
--- NOTE | 2017-09-24 13:20 | NUR ---
TITRATED FI02 TO 50%. TOLERATING WELL. SATING 96%. PATIENT IS STABLE
--- NOTE | 2017-09-24 14:15 | NUR ---
PT SEDATED WITH ATIVAN, FENTANYL DRIPS RASS -4. NO ACUTE DISTRESS, VITAL SIGNS STABLE NOTED. WILL CONTINUE TO MONITOR.
--- NOTE | 2017-09-24 15:14 | NUR ---
TITRATING PATIENTS FI02 TO 45%. PATIENT TOLERATING WELL. 02 SAT IS 95%.
--- NOTE | 2017-09-24 16:10 | NUR ---
DR. GIMENEZ WAS HERE TO CHECK THE PT'S CONDITION. WILL FOLLOW UP WITH ORDERS. GIVEN IV ABX, PT TOLERATED WELL, NO ACUTE DISTRESS NOTED.
[2017-09-24] MEDS: LEVOFLOXACIN 750 MG/D5W PREMIX 150 ML IV SCH (16:19)
[2017-09-24] MEDS: WARFARIN 5 MG TAB PO SCH (17:30)
--- NOTE | 2017-09-24 17:31 | NUR ---
CHECKED THE INR 1.4, PER TATA PRADO TO GIVE COUMADIN.
--- NOTE | 2017-09-24 18:10 | NUR ---
PT SEDATED, GIVEN IV ABX, NO ACUTE DISTRESS NOTED. GIVEN ORAL CARE WITH SMALL AMOUNT OF CLEAR SECRETION NOTED. WILL CONTINUE TO MONITOR.
--- NOTE | 2017-09-24 19:12 | NUR ---
GAVE REPORT TO CLINICAL DATA ABSTRACTOR NURSERICH FOR CONTINUITY OF CARE. VS STABLE AND ALL SAFETY PRECAUTIONS ARE IN PLACE.
--- NOTE | 2017-09-24 19:20 | NUR ---
RECEIVED REPORT FROM MORNING RNJAIME/LUZ FOR CONTINUITY OF CARE. VS STABLE. FLACC 0. PT SEDATED. AFIB ON MONITOR. ETT TO VENT AC16, FIO2 50, TV 650. NO S/S ACUTE DISTRESS. RHONCHI IN ALL BLAKE OF LUNGS. NO COUGHING NOTED. NGT TO FEEDING PUMP RUNNING AT 75ML/HR CONTINUOUSLY. CONFIRMED PLACEMENT. NGT SECURED IN PLACE. NO RESIDUAL NOTED. TOLERATING FEEDING WELL. MOE PICC LINE FLUSHED AND PATENT. D5W 0.45 NS RUNNING AT 100ML/HR, LEVOPHED AT 6MCG/MIN, ATIVAN 6MG/HR, AND ATIVAN 6MG/HR. PICC LINE DRESSING DRY AND INTACT. BUE DRESSING CHANGED. LINENS CHANGED. ACOSTA CATHETER DRAINING BY GRAVITY. URINE YELLOW, CLEAR, NO ODOR NOTED. ACOSTA CATHETER SECURED WITH STATLOCK. SAFETY PRECAUTION IN PLACE. WILL CONTINUE TO MONITOR PT.
[2017-09-24] MEDS: FUROSEMIDE 40 MG/4 ML VIAL IVP SCH (20:50)
--- NOTE | 2017-09-24 20:55 | NUR ---
SCHEDULED MEDICATIONS FOR 2100 ADMINISTERED. PT TOLERATED WELL. NO RESIDUAL FROM NGT. PICC LINE FLUSHING WELL AND PATENT. DRESSING STILL INTACT. HOB KEPT AT 30 DEGREES. SAFETY PRECAUTION IN PLACE. WILL CONTINUE TO MONITOR.
--- NOTE | 2017-09-24 21:39 | NUR ---
INCREASED FIO2 TO 60%.
--- NOTE | 2017-09-24 22:05 | NUR ---
PT TURNED AND REPOSITIONED. NO SOB NOTED. VS CURRENTLY STABLE. AFIB ON MONITOR. NO SOB NOTED. FEEDING RUNNING AT 75ML/HR. TOLERATING WELL. HOB AT 30 DEGREES. ATIVAN, LEVOPHED AND FENTANYL DRIPS RUNNING CONTINUOUSLY. SAFETY PRECAUTION IN PLACE. CALL LIGHT WITHIN REACH. WILL CONTINUE TO MONITOR.
[2017-09-25] VITALS (106 sets, daily range): BP systolic 78–131; BP diastolic 23–93
[2017-09-25] MEDS: BLOOD GLUCOSE MONITORING 1 DEV DEV FS SCH ×5 (00:07→23:39)
--- NOTE | 2017-09-25 00:17 | NUR ---
NO CHANGE OF CONDITION. VS STABLE. AFIB ON MONITOR. ORAL CARE PROVIDED. PT TOLERATED WELL. SCHEDULED MEDICATIONS ADMINISTERED. SAFETY PRECAUTIONS IN PLACE. WILL CONTINUE TO MONITOR.
[2017-09-25] MEDS: LORazepam 50 MG in NACL 0.9% 25 ML IV PRN ×3 (00:32→16:34)
--- NOTE | 2017-09-25 00:32 | NUR ---
PT SEDATED. NEW ATIVAN BAG HANGED. RASS SCORE -4. NO CHANGE IN CONDITION NOTED. VS STABLE. NO SOB. FIO2 CURRENTLY AT 60%. TOLERATING FEEDING WELL. HOB ELEVATED AT 30 DEGREES. ACOSTA CATHETER DRAINING BY GRAVITY. SAFETY PRECAUTION IN PLACE.
[2017-09-25] MEDS: ACETYLCYSTEINE 10% (100 MG/ML) 100 MG/ML VIAL INH SCH ×4 (01:21→18:59)
[2017-09-25] MEDS: ALBUTEROL SULFATE/IPRATROPIU 3 ML SOL IH SCH ×4 (01:21→18:56)
--- NOTE | 2017-09-25 02:15 | NUR ---
VS CURRENTLY STABLE. FIO2 AT 60%. NO SOB NOTED. PT ON LEVOPHED, ATIVAN, AND FENTANYL DRIP. RASS -4. ACOSTA CATHETER EMPTIED AND CURRENT OUTPUT 2700ML. NO GRIMACING NOTED. HOB ELEVATED AT LEAST 30 DEGREES. PT TURNED AND REPOSITIONED. WILL CONTINUE TO MONITOR.
--- NOTE | 2017-09-25 03:05 | NUR ---
PT'S DAUGHTER, LUKASZ, CALLED AND SPOKE WITH SENIOR SYSTEMS PROGRAMMER TO GET AN UPDATE REGARDING PT CURRENT STATE.
--- NOTE | 2017-09-25 03:30 | NUR ---
NEW FEEDING BAG HANG. RUNNING AT 75ML/HR. FLUSH SET AT 200ML EVERY 6 HOURS. PT TOLERATING WELL. NO RESIDUAL NOTED. KEPT HOB AT 30 DEGREES. CALL LIGHT WITHIN REACH. BED AT LOW POSITION.
--- NOTE | 2017-09-25 04:16 | NUR ---
ACOSTA CATHETER CARE PROVIDED. PT EYES CLOSED. NO GRIMACING NOTED. RASS -4. ORAL CARE PROVIDED. AFEBRILE. TURNED AND REPOSITIONED. PADS CHANGED. SAFETY PRECAUTION IN PLACE.
[2017-09-25] MEDS: CLINDAMYCIN 600 MG in DEXTROSE 5% 50 ML IV SCH ×4 (05:15→23:32)
--- NOTE | 2017-09-25 05:27 | NUR ---
SCHEDULED MEDICATIONS ADMINISTERED. PT EYES CLOSED. NO S/S DISTRESS NOTED. VS STABLE. NO SOB NOTED. O2 SAT ABOVE 90%. CALL LIGHT WITHIN REACH. BED AT LOWEST. SAFETY PRECAUTION IN PLACE. WILL CONTINUE TO MONITOR.
--- NOTE | 2017-09-25 05:30 | NUR ---
DR. FIGUEROA AT BEDSIDE ASSESSING PT.
--- NOTE | 2017-09-25 06:17 | NUR ---
PT EYES CLOSED. NOT NOTED WITH ANY DISTRESS. ACOSTA CATHETER EMPTIED. NO FOUL ODOR NOTED. URINE YELLOW AND CLEAR. BLOOD SUGAR 121. NO S/S HYPO/HYPERGLYCEMIA. CURRENTLY TOLERATING FEEDING WELL. IV FLUID D5W 0.45 NS RUNNING AT 100ML/HR. ON LEVOPHED, ATIVAN, AND FENTANYL DRIP. VS WNL. AFEBRILE. MAP BETWEEN 60S TO 70S. NO GRIMACING OR GUARDING NOTED. RASS -4. SAFETY PRECAUTION IN PLACE. CALL LIGHT WITHIN REACH.
--- NOTE | 2017-09-25 07:11 | NUR ---
GAVE REPORT TO MORNING RNMONROE, FOR CONTINUITY OF CARE. VS STABLE. NO S/S DISTRESS NOTED.
--- NOTE | 2017-09-25 07:20 | NUR ---
RECEIVED A REPORT FROM AZALIA THOMPSON. PT SEDATED RASS -4 WITH ATIVAN DRIP AND FENTANYL DRIP ORDERED PER PROTOCOL. FLACC 0. ETT TO VENT AND SETTING AT FiO2 60, TV 650, AC 16, PEEP 10. A-FIB ON THE MONITOR. ON CONTINUOUS DRIP FOR LEVOPHED FOR LOW BP, NGT IN PLACE WITH FIBERSOURCE AT 75ML/H. ACOSTA CATHETER DRAINING CLEAR YELLOW URINE. PICC LINE TO RT UPPER ARM, PATENT AND INTACT. SKIN WARM TO TOUCH AND GENERALIZED BODY EDEMATOUS NOTED. WILL CONTINUE TO MONITOR. SAFETY PRECAUTION, BED IN LOW POSITION, CALL LIGHT WITHIN REACH. RESIDENT GROUP IN TO SEE PT. WILL FOLLOW UP ON ORDERS. Addendum: 09/25/17 at 1434 by Terry Gómez RN DRESSING IN PLACE TO RIGHT, LEFT ARMS AND RIGHT KNEE.
--- NOTE | 2017-09-25 07:30 | NUR ---
ZOEY, DAUGHTER OF PT CALLED AND WAS UPDATED OF PT'S CONDITION.
[2017-09-25] MEDS: PANTOPRAZOLE 40 MG INJ VIAL IVP SCH ×2 (08:05→20:35)
[2017-09-25] MEDS: FUROSEMIDE 100 MG/10 ML VIAL IV SCH (08:05)
[2017-09-25] MEDS: LACTOBACILLUS RHAMNOSUS GG 1 EACH CAP PO SCH (08:06)
[2017-09-25] MEDS: AMIODARONE 200 MG TAB PO SCH ×2 (08:06→20:35)
[2017-09-25] MEDS: DEXT 5% / NACL 0.45% 1,000 ML IV SCH ×2 (08:40→12:00)
[2017-09-25] MEDS: DOCUSATE 100 MG/10 ML UDC GT SCH ×2 (08:41→20:35)
--- NOTE | 2017-09-25 08:41 | NUR ---
PT TOLERATED MEDICATIONS WELL. WILL CONTINUE TO MONITOR
--- NOTE | 2017-09-25 09:14 | NUR ---
DR. COBB IN TO SEE PT. WILL FOLLOW UP ON ORDERS
[2017-09-25 09:42] LABS: HEMATOCRIT 42.2 % (36-52); HEMOGLOBIN 13.7 g/dL (12.0-18.0); MEAN CORPUSCULAR HEMOGLOBIN 36 pg (27-31); MEAN CORPUSCULAR HGB CONC 33 g/dL (33-37); MEAN CORPUSCULAR VOLUME 109 fL (80-94); PLATELET COUNT (AUTO) 125 K/uL (140-450); RED BLOOD CELL COUNT(AUTO) 3.86 MIL/uL (4.20-6.10); RED CELL DISTRIBUTION WIDTH 15.4 % (11.6-13.7); WHITE BLOOD COUNT (AUTO) 9.4 K/uL (4.8-10.8)
[2017-09-25 09:55] LABS: LYMPHOCYTES % (MANUAL) 11 % (20-46); MONOCYTES % (MANUAL) 6 % (5-12)
[2017-09-25 09:56] LABS: EOSINOPHILS % (MANUAL) 8 % (0-4)
[2017-09-25 09:58] LABS: ALBUMIN 2.3 g/dL (3.4-5.0); ANION GAP 7.1 (8-16); CARBON DIOXIDE 36.1 mmol/L (21-32); CREATININE 0.8 mg/dL (0.7-1.3); MAGNESIUM 1.6 mg/dL (1.8-2.4); POTASSIUM 3.2 mmol/L (3.5-5.1)
[2017-09-25] MEDS: NOREPINEPHRINE 4 MG in DEXTROSE 5% 250 ML IV PRN ×2 (10:30→21:16)
[2017-09-25 10:33] LABS: PROTHROMBIN TIME 16.5 secs (10.8-13.4)
--- NOTE | 2017-09-25 10:34 | NUR ---
PT STABLE. FLACC O, NO S/SX OF ACUTE RESPIRATORY DISTRESS NOTED. WILL CONTINUE TO MONITOR.
--- NOTE | 2017-09-25 10:54 | NUR ---
OBTAINED LAB RESULT AND RECEIVED ORDERS FOR POTASSIUM 3.2 AND MG 1.6. WILL FOLLOW UP ON ORDERS.
[2017-09-25] MEDS ORDERED: KCL 20 MEQ/WATER INJ PREMIX 200 ML IV SCH (11:00)
--- NOTE | 2017-09-25 11:36 | NUR ---
DR. GIMENEZ IN TO SEE PT AND WAS INFORMED OF LAST BM ON 09/19/17, PT IS ON COLACE ROUTINELY. PT EYES CLOSED AND NONVERBAL, RESPONDS TO SIMPLE COMMANDS AT TIMES TO DR. GIMENEZ. SLIGHTLY SEDATED, RASS -2 WITH ATIVAN DRIP. PER DR. GIMENEZ, CONTINUE TO MONITOR FOR BM AND NO NEED TO INCREASE ATIVAN DRIP AT THIS TIME DUE TO PT IS CALM. WILL CONTINUE TO MONITOR AND FOLLOW UP ON ORDERS.
--- NOTE | 2017-09-25 11:45 | NUR ---
PER DR. GIMENEZ PT DOES NOT NEED DAILY SEDATION VACATION TODAY.
[2017-09-25] MEDS: fentaNYL 1 MG in NACL 0.9% 80 ML IV PRN (12:20)
--- NOTE | 2017-09-25 12:45 | NUR ---
09/25/17 RD FOLLOW UP ASSESSMENT COMPLETED PLEASE REFER TO NUTRITION ASSESSMENT UNDER CARE ACTIVITY FOR ESTIMATED NUTRITIONAL NEEDS. 1. CONTINUE NUTRITION SUPPORT FIBERSOURCE HN AT 75 ML/HR TOLERATED, WITH 200 ML FREE WATER FLUSH Q6H WITH PROSOURCE BID VIA NGTUBE. 2. SHOULD PT NOT BE ABLE TO BE WEANED FROM VENTILATOR SUPPORT, CONSIDER GTUBE PLACEMENT FOR FPC NUTRITION NEEDS 3. SHOULD PT BE ABLE TO BE WEANED FROM VENTILATOR SUPPORT CONSIDER ADVANCING DIET TO REGULAR DIET TOLERATED. 4. RD TO FOLLOW-UP 2-3 DAYS, HIGH RISK PAUL MARR RD
[2017-09-25] MEDS: HYDRAGUARD CREAM TP SCH (13:00)
[2017-09-25] MEDS: SKINTEGRITY HYDROGEL TP SCH (13:00)
--- NOTE | 2017-09-25 13:00 | NUR ---
PT'S WOUND REASSESSED AND MULTIPLE SKIN TEARS TO RIGHT, LEFT ARM AND RIGHT KNEE NOTED. SPOKE TO WOUND CARE NURSE FOR THE REASSESSMENT.
--- NOTE | 2017-09-25 14:47 | NUR ---
PT SEDATED, RASS -3. APPLIED BILATERAL SOFT MITTENS FOR SAFETY PRECAUTION DUE TO EPISODES OF ATTEMPTING TO MOVE HIS HANDS TO THE INVASIVE DEVICE(SUCH ETT TO VENT, NGT). NO S/SX OF ACUTE RESPIRATORY DISTRESS AND FLACC 0. DR. GIMENEZ AWARE OF IT AND WILL CONTINUE TO MONITOR.
[2017-09-25] MEDS: LEVOFLOXACIN 750 MG/D5W PREMIX 150 ML IV SCH (15:17)
--- NOTE | 2017-09-25 15:23 | NUR ---
INFORMED DR. FIGUEROA ABOUT RD RECOMMENDATION. WILL FOLLOW UP ON ORDERS
[2017-09-25] MEDS ORDERED: MAG SULF 2000 MG/WATER PREMIX 50 ML IV SCH (16:00)
[2017-09-25] MEDS: WARFARIN 5 MG TAB PO SCH (16:44)
--- NOTE | 2017-09-25 17:05 | NUR ---
PT STABLE AND TOLERATED MEDICATION WELL. CHECK RESIDUAL PRIOR TO ADMINISTERED MEDICATION AND 130ML NOTED. RESUMED NGT FEEDING ORDERED AND WILL CONTINUE TO MONITOR.
--- NOTE | 2017-09-25 17:40 | NUR ---
PT'S SISTER, KELSEY CALLED AND GAVE A UPDATE OF PT'S CONDITION.
--- NOTE | 2017-09-25 18:07 | NUR ---
PT'S DAUGHTER, ZOEY CALLED AND GAVE A UPDATE OF PT'S CONDITION.
--- NOTE | 2017-09-25 19:08 | NUR ---
REPORT GIVEN AND ENDORSED CARE TO AZALIA MOORE. PT STABLE.
--- NOTE | 2017-09-25 19:10 | NUR ---
RECEIVED REPORT FROM MONROE RN AT BEDSIDE, PT IS SEDATED, RASS -3, ETT TO VENT WITH FIO2 60, RR 16, TV 650, PEEP 10, RHONCHI LUNG SOUNDS, NGT PLACED ON LEFT NARES, POSITIVE PLACEMENT WITH 30ML RESIDUES NOTED, FEEDING WITH FIBERSOURCE AT 75ML/HR. A. FIB ON BREAD ICER. LARGE SOFT ROUND ABDOMEN WITH ACTIVE BOWEL SOUNDS, ACOSTA CATHETER IN PLACE WITH LUKASZ COLORED URINE NOTED, SCROTAL EDEMA NOTED. GENERALIZED WEAKNESS NOTED, GENERALIZED +3 PITTING EDEMA NOTED, PICC LINE TO RIGHT UPPER ARM WITH DOUBLE LUMEN WITH GOOD BLOOD RETURN, RUNNING D51/2NS AT 100ML/HR, ATIVAN AT 6MG/HR, FENTANYL AT 80 MCG/MIN, LEVOPHED AT 6MCG/MIN. SKIN IS WARM AND WEEPING ON CELESTINA. FOREARM, SKIN TEAR NOTED TO CELESTINA. FOREARM AND SCAR WITH SCAB NOTED TO RIGHT FOREARM, DRY SKIN TO BLE. VSS, FLACC 0. SAFETY MEASURE IN PLACE, HOB ELEVATED TO 30 DEGREES, WILL CONTINUE TO MONITOR.
--- NOTE | 2017-09-25 20:00 | NUR ---
NO CHANGE OF CONDITION, VSS, POSITION CHANGED FOR OFF LOAD PRESSURE, ORAL CARE PROVIDED, PT TOLERATED WELL.
[2017-09-25] MEDS: FUROSEMIDE 40 MG/4 ML VIAL IVP SCH (20:35)
--- NOTE | 2017-09-25 22:00 | NUR ---
PT IS AWAKE, TRYING TO PULL OUT THE TUBES WITH HANDS, EXPLAINED THE RISK AND BENEFIT OF NGT AND ETT, PT WAS CALM, AND RELAXED. RT AT BEDSIDE, POSITION CHANGED FOR OFF LOAD PRESSURE. VSS.
[2017-09-26] VITALS (107 sets, daily range): BP systolic 77–139; BP diastolic 44–91
--- NOTE | 2017-09-26 | NUR ---
NO S/S OF DISTRESS, POSITION CHANGED FOR OFF LOAD PRESSURE, ORAL CARE PROVIDED. VSS.
[2017-09-26] MEDS: DEXT 5% / NACL 0.45% 1,000 ML IV SCH ×3 (00:52→23:45)
[2017-09-26] MEDS: LORazepam 50 MG in NACL 0.9% 25 ML IV PRN ×3 (00:53→18:40)
[2017-09-26] MEDS: fentaNYL 1 MG in NACL 0.9% 80 ML IV PRN ×3 (00:57→18:42)
[2017-09-26] MEDS: ALBUTEROL SULFATE/IPRATROPIU 3 ML SOL IH SCH ×4 (01:06→18:46)
[2017-09-26] MEDS: ACETYLCYSTEINE 10% (100 MG/ML) 100 MG/ML VIAL INH SCH ×4 (01:06→18:48)
--- NOTE | 2017-09-26 02:00 | NUR ---
NO CHANGE OF CONDITION AT THIS TIME, POSITION CHANGED FOR OFF LOAD PRESSURE. VSS.
--- NOTE | 2017-09-26 04:00 | NUR ---
VSS, AM CARE PROVIDED, ORAL CARE PROVIDED, ACOSTA CATHETER CARE PROVIDED, POSITION CHANGED FOR OFF LOAD PRESSURE, PT IS AWAKE, TRYING TO PULL OUT THE TUBES, INCREASED FENTANYL DOSAGE, WILL CONTINUE TO MONITOR.
[2017-09-26 04:59] LABS: BASOPHILS # (AUTO) 0.1 K/uL (0.00-0.22); BASOPHILS % (AUTO) 1.3 % (0.0-2.0); EOSINOPHILS # (AUTO) 0.6 K/uL (0-0.4); EOSINOPHILS % (AUTO) 5.3 % (0.0-4.0); HEMATOCRIT 42.6 % (36-52); HEMOGLOBIN 13.8 g/dL (12.0-18.0); LYMPHOCYTES # (AUTO) 0.5 K/uL (2.0-11.5); LYMPHOCYTES % (AUTO) 4.4 % (20.5-51.1); MEAN CORPUSCULAR HEMOGLOBIN 36 pg (27-31); MEAN CORPUSCULAR HGB CONC 32 g/dL (33-37); MEAN CORPUSCULAR VOLUME 110 fL (80-94); MONOCYTES # (AUTO) 1.3 K/uL (0.8-1.0); MONOCYTES % (AUTO) 11.7 % (1.7-9.3); NEUTROPHILS # (AUTO) 8.7 K/uL (1.8-7.7); NEUTROPHILS % (AUTO) 77.3 % (42.2-75.2); PLATELET COUNT (AUTO) 108 K/uL (140-450); RED BLOOD CELL COUNT(AUTO) 3.86 MIL/uL (4.20-6.10); RED CELL DISTRIBUTION WIDTH 16.2 % (11.6-13.7); WHITE BLOOD COUNT (AUTO) 11.2 K/uL (4.8-10.8)
[2017-09-26 05:15] LABS: ANION GAP 4.7 (8-16); CARBON DIOXIDE 38.1 mmol/L (21-32); CREATININE 0.8 mg/dL (0.7-1.3); POTASSIUM 3.8 mmol/L (3.5-5.1)
[2017-09-26 05:19] LABS: MAGNESIUM 1.9 mg/dL (1.8-2.4); PHOSPHORUS 3.1 mg/dL (2.5-4.9)
[2017-09-26] MEDS: CLINDAMYCIN 600 MG in DEXTROSE 5% 50 ML IV SCH ×4 (05:26→23:45)
[2017-09-26] MEDS: BLOOD GLUCOSE MONITORING 1 DEV DEV FS SCH ×4 (05:34→23:45)
--- NOTE | 2017-09-26 06:00 | NUR ---
NO CHANGE OF CONDITION AT THIS TIME, VSS, RASS -3, POSITION CHANGED FOR OFF LOAD PRESSURE.
--- NOTE | 2017-09-26 07:22 | NUR ---
RECIVED PT ON VENT WITH SETTINGS CHARTED BREATH SOUNDS PRESENT BLAT COARSE SXN PT WITH MIN AMT OFF WHITE SECS AMBU BAG AT BEDSIDE
--- NOTE | 2017-09-26 07:26 | NUR ---
RECEIVED REPORT FROM LINE LOCATOR RN. PT IS SEDATED WITH ATIVAN AND FENTANYL DRIPS ORDERED. CURRENTLY RASS -4. A. FIB ON MONITOR. PT IS ETT TO VENT: AC 16, FIO2 60%, VT 650, PEEP 10. LUNGS CLEAR BILATERALLY. PICC LINE TO RIGHT UPPER ARM PATENT AND INTACT. PT ALSO ON LEVOPHED DRIP FOR LOW BP. NGT IN PLACE, RECEIVING FIBERSOURCE AT 75 ML/HR. GENERALIZED EDEMA NOTED. ACOSTA CATH IN PLACE GRAINING URINE TO GRAVITY DRAINAGE BAG. BED IN LOW POSITION AND CALL LIGHT WITHIN REACH. WILL CONTINUE TO MONITOR.
--- NOTE | 2017-09-26 07:28 | NUR ---
REPORT GIVEN TO AZALIA PHELPS AT BEDSIDE FOR CONTINUE OF CARE, PT IS IN STABLE CONDITION AT THIS TIME.
--- NOTE | 2017-09-26 07:30 | NUR ---
DR. SCHROEDER AND RESIDENT GROUP IN TO SEE PT. WILL FOLLOW UP ON ORDERS.
--- NOTE | 2017-09-26 08:14 | NUR ---
RECEIVED A CALL FROM DAUGHTER LUKASZ. GAVE UPDATE ON PT.
--- NOTE | 2017-09-26 08:20 | NUR ---
PT'S DAUGHTER, ZOEY, CALLED AND WAS UPDATED ON PT.
[2017-09-26] MEDS: FUROSEMIDE 40 MG/4 ML VIAL IVP SCH ×2 (08:29→21:11)
[2017-09-26] MEDS: PANTOPRAZOLE 40 MG INJ VIAL IVP SCH ×2 (08:29→21:11)
[2017-09-26] MEDS: DOCUSATE 100 MG/10 ML UDC GT SCH ×2 (08:36→21:11)
[2017-09-26] MEDS: AMIODARONE 200 MG TAB PO SCH ×2 (08:36→21:12)
[2017-09-26] MEDS: LACTOBACILLUS RHAMNOSUS GG 1 EACH CAP PO SCH (08:36)
[2017-09-26] MEDS ORDERED: FUROSEMIDE 100 MG/10 ML VIAL IV SCH (09:00)
[2017-09-26] MEDS: NOREPINEPHRINE 4 MG in DEXTROSE 5% 250 ML IV PRN ×2 (09:04→18:17)
--- NOTE | 2017-09-26 09:28 | NUR ---
DR. COBB IN TO SEE PT. WILL FOLLOW UP ON ORDERS.
--- NOTE | 2017-09-26 09:30 | NUR ---
PT TOLERATED MEDICATIONS WELL. WILL CONTINUE TO MONITOR.
--- NOTE | 2017-09-26 09:45 | NUR ---
RASS -4. DECREASED ATIVAN DRIP RATE FROM 6 MG/HR TO 5.5 MG/HR. WILL CONTINUE TO MONITOR.
[2017-09-26] MEDS ORDERED: methylPREDNISolone SS 125 MG/2 ML VIAL IVP SCH (09:55)
--- NOTE | 2017-09-26 10:52 | NUR ---
DR. GIMENEZ CAME IN TO SEE PT. PER DR. GIMENEZ, PT DOES NOT NEED SEDATION VACATION TODAY. CURRENTLY AT PASS -4. WILL FOLLOW UP WITH NEW ORDERS.
--- NOTE | 2017-09-26 11:45 | NUR ---
CURRENT RASS IS -4. DECREASED ATIVAN DRIP RATE FROM 5.5 MG/HR TO 5 MG/HR. WILL CONTINUE TO MONITOR.
--- NOTE | 2017-09-26 12:00 | NUR ---
PT IS STABLE. FLACC 0. NO SIGNS OF ACUTE DISTRESS NOTED AT THIS TIME. SAFETY MEASURES ENSURE. WILL CONTINUE TO MONITOR.
--- NOTE | 2017-09-26 13:00 | NUR ---
WOUND ASSESSMENT DONE. MULTIPLE SKIN TEARS TO BILATERAL UPPER EXTREMITIES AND RIGHT KNEE NOTED. DRESSING TO SACROCOCCYX AREA CLEAN, DRY AND INTACT.
[2017-09-26] MEDS: HYDRAGUARD CREAM TP SCH (13:45)
[2017-09-26] MEDS: SKINTEGRITY HYDROGEL TP SCH (13:46)
--- NOTE | 2017-09-26 13:56 | NUR ---
DR. REYNOLDS IN TO SEE PT. PER DR. REYNOLDS, MONITOR BP AND KEEP MAP ABOVE 60. NOTED AND WILL FOLLOW UP WITH NEW ORDERS.
[2017-09-26] MEDS ORDERED: ZOLPIDEM 5 MG TAB PO PRN (14:45)
[2017-09-26] MEDS ORDERED: HYDROcodone/APAP 7.5/325 MG 1 TAB PO PRN (14:45)
[2017-09-26] MEDS ORDERED: LORazepam 0.5 MG TAB PO PRN (14:45)
--- NOTE | 2017-09-26 14:45 | NUR ---
ORDERS FOR FENTANYL AND ATIVAN DRIPS WERE DISCONTINUED, AND NEW ORDERS FOR SAME DRIPS WERE PUT IN. PHARMACY MADE AWARE.
[2017-09-26] MEDS: LEVOFLOXACIN 750 MG/D5W PREMIX 150 ML IV SCH (15:50)
--- NOTE | 2017-09-26 16:00 | NUR ---
PT'S RASS IS -4. DECREASED ATIVAN DRIP RATE FROM 5 MG/HR TO 4.5 MG/HR. NO SIGNS OF ACUTE DISTRESS NOTED. WILL CONTINUE TO MONITOR.
[2017-09-26] MEDS ORDERED: WARFARIN 5 MG, WARFARIN 2 MG PO SCH ×2 (17:00)
--- NOTE | 2017-09-26 17:16 | NUR ---
CONTINUED TO MONITOR PT ON VENT WITH SETTINGS CHARTED BREATH SOUNDS PRESENT BILAT DIMINISHED SXN PT WITH MIN AMT OFF WHITE SECS VENT PLUGGED INTO RED OUTLET AMBU BAG AT BEDSIDE
--- NOTE | 2017-09-26 17:30 | NUR ---
NO CHANGE OF CONDITION AT THIS TIME. VS STABLE. NO S/SX OF ACUTE DISTRESS NOTED. HOB 30 DEGREES. BED IN LOW POSITION AND CALL LIGHT WITHIN REACH. WILL CONTINUE TO MONITOR.
--- NOTE | 2017-09-26 19:11 | NUR ---
REPORT GIVEN TO BIOMETRICS CONSULTANT RN FOR CONTINUITY OF CARE. PT IN STABLE CONDITION.
--- NOTE | 2017-09-26 19:30 | NUR ---
assumed care of pt.initial assessment completed,pt sedated.afib on monitor.with picc line to bita intact with good blood return to both ports.infusing ordered ivf.ativan drip at 4.5ml/hr;fentanyl drip at 120mcg/hr and levophed drip 4mg in 250ml d5w at 8mcg/min.w/ngt to lt nares intact.placement checked.30ml residuals noted.on fibersource at 75ml/hr with 200ml q6hrs water flush.w/multiple skin tears to bue and rle.with dressing in place.w/martinez catheter to bsd draining adequate amt of yellow urine.flacc 0.on rotating bed.
--- NOTE | 2017-09-26 20:00 | NUR ---
oral care using vap kit rendered/pt on daily protonix for gi prophylaxis and coumadin for dvt prophylaxis.repositioned.
--- NOTE | 2017-09-26 23:56 | NUR ---
DR. SIU INFORMED THAT PATIENT IS AGITATED, AWAKE, HR ON 130-138, KEEPS ON MOVING BUE, INFORMED THAT ATIVAN DRIP IS ALREADY ON 6 MG/HR, FENTANYL DRIP ON 135 MCG/HR, DR. SIU TO PUT IN NEW ORDER.
[2017-09-27] VITALS (105 sets, daily range): BP systolic 88–140; BP diastolic 40–96
[2017-09-27] MEDS ORDERED: MORPHINE SULFATE 4 MG/ML SYR IVP SCH
[2017-09-27] MEDS ORDERED: MORPHINE SULFATE 4 MG/ML SYR ONE (00:25)
[2017-09-27] MEDS: ALBUTEROL SULFATE/IPRATROPIU 3 ML SOL IH SCH ×4 (01:05→18:49)
[2017-09-27] MEDS: ACETYLCYSTEINE 10% (100 MG/ML) 100 MG/ML VIAL INH SCH (01:07)
--- NOTE | 2017-09-27 01:30 | NUR ---
phone call from pts daughter Jovana; updated on pts present condition.questions answered.
--- NOTE | 2017-09-27 01:33 | NUR ---
pt appears calm at this time.hr 90.flacc 0.
[2017-09-27] MEDS: NOREPINEPHRINE 4 MG in DEXTROSE 5% 250 ML IV PRN (02:03)
[2017-09-27] MEDS ORDERED: NOREPINEPHRINE 4 MG/4 ML VIAL IV ONE (02:06)
--- NOTE | 2017-09-27 03:17 | NUR ---
pts condition remains unchanged.still on levophed; fentany and ativan drips.ett to vent same vent settings.flacc 0
[2017-09-27] MEDS: fentaNYL 1 MG in NACL 0.9% 80 ML IV PRN ×3 (03:29→19:36)
--- NOTE | 2017-09-27 05:00 | NUR ---
pt asleep;no signs of distress noted.flacc 0.
[2017-09-27] MEDS: CLINDAMYCIN 600 MG in DEXTROSE 5% 50 ML IV SCH ×4 (05:28→23:25)
[2017-09-27] MEDS: BLOOD GLUCOSE MONITORING 1 DEV DEV FS SCH ×4 (05:28→23:25)
[2017-09-27] MEDS: LORazepam 50 MG in NACL 0.9% 25 ML IV PRN ×2 (05:32→14:39)
[2017-09-27 06:00] LABS: PROTHROMBIN TIME 18.2 secs (10.8-13.4)
--- NOTE | 2017-09-27 06:56 | NUR ---
RECIVED PT ON VENT WITH SETTINGS CHARTED BREATH SOUNDS PRESENT BILAT COARSE SXN PT WITH MIN AMT WHITE SECS VENT PLUGGED INTO RED OUTLET AMBU BAG AT BEDSIDE
--- NOTE | 2017-09-27 07:20 | NUR ---
RECEIVED REPORT FROM YOUTH LIAISON OFFICER RN. PT IS SEDATED. Sandy. FIB ON MONITOR. PT IS ETT TO VENT. VENT SETTING: AC 16, FIO2 60%, VT 650, PEEP 10. BILATERAL RHONCHI AUSCULTATED. PICC LINE TO RIGHT UPPER ARM PATENT AND INTACT WITH GOOD BLOOD RETURN, FLOWING ORDERED IV FLUID, ATIVAN DRIP AT 6 MCG/HR, FENTANYL AT 135 MCG/HR, AND LEVOPHED AT 8 MCG/MIN. NGT TO LEFT NARE INTACT, RECEIVING TUBE FEEDING OF FIBERSOURCE AT 75 ML/HR AND WATER FLUSH 200 ML Q6HR. ABDOMEN ROUND, SOFT, BOWEL SOUNDS PRESENT. ACOSTA CATH IN PLACE DRAINING URINE TO GRAVITY DRAINAGE BAG. BLE/BUE AND SCROTAL EDEMA NOTED. PT IS ON ROTATING BED. BED IN LOW POSITION AND CALL LIGHT WITHIN REACH. WILL CONTINUE TO MONITOR.
[2017-09-27] MEDS: methylPREDNISolone SS 125 MG/2 ML VIAL IVP SCH (08:28)
[2017-09-27] MEDS: PANTOPRAZOLE 40 MG INJ VIAL IVP SCH ×2 (08:28→20:41)
[2017-09-27] MEDS: DOCUSATE 100 MG/10 ML UDC GT SCH ×2 (08:28→20:40)
[2017-09-27] MEDS: FUROSEMIDE 40 MG/4 ML VIAL IVP SCH ×2 (08:29→20:41)
[2017-09-27] MEDS: AMIODARONE 200 MG TAB PO SCH ×2 (08:29→20:40)
[2017-09-27] MEDS: LACTOBACILLUS RHAMNOSUS GG 1 EACH CAP PO SCH (08:29)
--- NOTE | 2017-09-27 08:47 | NUR ---
MEDS ADMINISTERED. PT TOLERATED WELL.
[2017-09-27 10:32] LABS: BASOPHILS # (AUTO) 0.3 K/uL (0.00-0.22); BASOPHILS % (AUTO) 2.9 % (0.0-2.0); EOSINOPHILS # (AUTO) 0.6 K/uL (0-0.4); EOSINOPHILS % (AUTO) 5.9 % (0.0-4.0); HEMATOCRIT 42.5 % (36-52); HEMOGLOBIN 13.7 g/dL (12.0-18.0); LYMPHOCYTES # (AUTO) 0.6 K/uL (2.0-11.5); LYMPHOCYTES % (AUTO) 6.1 % (20.5-51.1); MEAN CORPUSCULAR HEMOGLOBIN 35 pg (27-31); MEAN CORPUSCULAR HGB CONC 32 g/dL (33-37); MEAN CORPUSCULAR VOLUME 109 fL (80-94); MONOCYTES # (AUTO) 0.3 K/uL (0.8-1.0); MONOCYTES % (AUTO) 3.2 % (1.7-9.3); NEUTROPHILS # (AUTO) 7.8 K/uL (1.8-7.7); NEUTROPHILS % (AUTO) 81.9 % (42.2-75.2); PLATELET COUNT (AUTO) 130 K/uL (140-450); RED BLOOD CELL COUNT(AUTO) 3.89 MIL/uL (4.20-6.10); RED CELL DISTRIBUTION WIDTH 15.6 % (11.6-13.7)
[2017-09-27 10:45] LABS: WHITE BLOOD COUNT (AUTO) 9.6 K/uL (4.8-10.8)
[2017-09-27 10:49] LABS: ANION GAP 7.2 (8-16); CARBON DIOXIDE 34.6 mmol/L (21-32); CREATININE 0.8 mg/dL (0.7-1.3); POTASSIUM 3.8 mmol/L (3.5-5.1)
--- NOTE | 2017-09-27 11:00 | NUR ---
DR. COBB IN TO SEE PT. WILL FOLLOW UP ON ORDERS.
[2017-09-27] MEDS: NOREPINEPHRINE 8 MG in DEXTROSE 5% 250 ML IV PRN (11:18)
[2017-09-27] MEDS: DEXT 5% / NACL 0.45% 1,000 ML IV SCH ×2 (11:30→20:40)
--- NOTE | 2017-09-27 11:50 | NUR ---
DAUGHTER, LUKASZ, CALLED AND WAS UPDATED ON PT. LUKASZ REQUESTS TO SPEAK WITH DR. GIMENEZ WHEN HE COMES.
--- NOTE | 2017-09-27 11:52 | NUR ---
09/27/17 RD FOLLOW UP COMPLETED REFER TO NUTRITION PROGRESS NOTE UNDER CARE ACTIVITY FOR ESTIMATED NEEDS. RD RECOMMENDATIONS: 1. CONTINUE NUTRITION SUPPORT FIBERSOURCE HN AT 75 ML/HR TOLERATED, WITH 200 ML FREE WATER FLUSH Q6H WITH PROSOURCE BID VIA NG-TUBE. 2. SHOULD PT NOT BE ABLE TO BE WEANED FROM VENTILATOR SUPPORT, CONSIDER PEG-TUBE PLACEMENT FOR BORDER MEASURER AND CUTTER NUTRITION NEEDS. 3. MAY NEED TO CONSIDER ADDING A MORE AGGRESSIVE BOWEL REGIMEN IF PT CONTINUES WITHOUT BM. LAST BM NOTED ON 09/[address] TO FOLLOW-UP 2-3 DAYS, HIGH RISK ASHOK NDIAYE RD
--- NOTE | 2017-09-27 12:00 | NUR ---
DR. ERIVN MADE AWARE THAT PT HAD ONLY ONE BOWEL MOVEMENT ON 09/22/17 SINCE ADMISSION. WILL FOLLOW UP ON ORDERS.
[2017-09-27] MEDS: INSULIN LISPRO SLIDING SCALE 100 UNITS/ML VIAL SUBQ PRN ×3 (12:34→23:27)
[2017-09-27] MEDS: SKINTEGRITY HYDROGEL TP SCH (13:00)
[2017-09-27] MEDS: HYDRAGUARD CREAM TP SCH (13:00)
--- NOTE | 2017-09-27 13:00 | NUR ---
KUB DONE. PT BECOMES RESTLESS WHEN STIMULATED. VITAL SIGNS STABLE. WILL CONTINUE TO MONITOR.
--- NOTE | 2017-09-27 15:10 | NUR ---
CHECKED ON PT. NO SOB OR OTHER SIGNS OF ACUTE DISTRESS NOTED AT THIS TIME. VS STABLE. FLACC 0. HOB 30 DEGREES. BED IN LOW POSITION AND CALL LIGHT WITHIN REACH. WILL CONTINUE TO MONITOR.
[2017-09-27] MEDS ORDERED: SIMETHICONE 40 MG/0.6 ML PO PRN (15:20)
[2017-09-27] MEDS: LEVOFLOXACIN 750 MG/D5W PREMIX 150 ML IV SCH (15:34)
--- NOTE | 2017-09-27 16:12 | NUR ---
LEVOPHED DRIP RATE DECREASED FROM 8 MCG/MIN TO 5 MCG/MIN. BP 136/82. WILL CONTINUE TO MONITOR.
[2017-09-27] MEDS ORDERED: WARFARIN 2.5 MG TAB PO SCH (17:00)
--- NOTE | 2017-09-27 18:15 | NUR ---
DR. MOTT CAME TO SEE PT. WILL FOLLOW UP ON ORDERS. MADE DR. MOTT AWARE THAT PT'S DAUGHTER, LUKASZ, REQUESTED TO TALK TO HER.
--- NOTE | 2017-09-27 19:28 | NUR ---
REPORT GIVEN TO DIGITAL STRATEGY DIRECTOR RN FOR CONTINUITY OF CARE. PT IS IN STABLE CONDITION.
--- NOTE | 2017-09-27 19:30 | NUR ---
RT DRAWN BLOOD FOR ABG. HANG NEW GT FEEDING BAG AND WATER . FENTANIL DRIP HANG ORDER.
--- NOTE | 2017-09-27 19:30 | NUR ---
RECEIVED PT FROM AM SHIFT , PT IS SEDATED. RESPOND TO PAIN. CONT ON ETT TO VENT. VENT SETTING IS PRESSURE CONTROL 18,RESP 14, FIO2 60. NO S/S OF RESP DISTRESS,NO SOB AT THIS TIME. HOB UP 30-45 DEGREE AT ALL THE TIMES. RHONCHI TO CELESTINA LUNGS. 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 PICC LINE TO MOE DOUBLE LUMEN ,PORT INTACT WELL.NO REDNESS NOTED ON AREA. CONT ON IV D5 IN 1/2 NS AT 100 CC/HR,ON CONTINUOS DRIPS ATIVAN AT 6MCG/HR,FENTANIL AT 135 MCG/HR AND LEVOPHED AT 5 MCG/HR. NGT TO LEFT NARES WITH POSITIVE PLACEMENT. RESIDUAL 5 CC NOTED. ON FIBERSOURCE AT 75 CC/HR AND H2O AT 200 CC Q 6 HRS TULIO WELL. NO NAUSEA/VOMITING NOTED. SKIN NON INTACT BUE SKIN TEAR,RIGHT KNEE SKIN TEAR,EDEMA TO BUE AND BLE PITTING +3, AND EDEMA TO SCROTAL AREA NON PITTING.F/C INPLACE WITH YELLOW CLEAR URINE DRAIN BY GRAVITY.PT ON ROTATING BED. KEPT CLEAN AND DRY. CALL LIGHT BETWEEN REACH. Addendum: 09/28/17 at 0605 by Yi Marquis RN ATIVAN DRIP IS 6 MG/HR AND LEVOPHED 5 MCG/MIN
--- NOTE | 2017-09-27 21:00 | NUR ---
NIGHT MED GIVEN ANS ORDER. LEVOPHED TITRATE TO 4 CC/HR CONT TO MONITOR PT CLOSELY.
--- NOTE | 2017-09-27 22:00 | NUR ---
NO S/S OF RESP DISTRESS,NO SOB.PT IS SEDATED RASS -4.
[2017-09-28] VITALS (106 sets, daily range): BP systolic 74–127; BP diastolic 46–95
[2017-09-28] MEDS: DEXT 5% / NACL 0.45% 1,000 ML IV SCH ×3 (00:09→23:10)
--- NOTE | 2017-09-28 00:19 | NUR ---
CLEOCIN ABT GIVEN ORDER. BLOOD SUGAR CHECK DONE WITH RESULT 180, 2 UNITS INSULIN GIVEN SUBCUTANEOUSLY TO LEFT ARM. URINARY BAG EMPTIED WITH 2200 ML OF YELLOW CLEAR URINE NOTED. HANG NEW BAG OF IV DEX 5 % IN 1/2 NS ORDER. KEPT PT CLEAN AND DRY.
[2017-09-28] MEDS: LORazepam 50 MG in NACL 0.9% 25 ML IV PRN ×4 (00:51→23:27)
[2017-09-28] MEDS: ALBUTEROL SULFATE/IPRATROPIU 3 ML SOL IH SCH ×4 (01:30→18:57)
--- NOTE | 2017-09-28 02:00 | NUR ---
PT SEDATED.NO S/S OF RESP.DISTRESS,NO SOB.KEPT CLEAN AND DRY.
[2017-09-28] MEDS: fentaNYL 1 MG in NACL 0.9% 80 ML IV PRN ×3 (02:26→16:42)
--- NOTE | 2017-09-28 04:00 | NUR ---
NO S/S OF PAIN,NO RESP DISTRESS,NO SOB.PT SEDATED. CONTINUE ON ATIVAN, FENTANIL AND LEVOPHED DRIPS TOLERATED WELL. RASS -4.
[2017-09-28] MEDS: CLINDAMYCIN 600 MG in DEXTROSE 5% 50 ML IV SCH ×4 (05:01→23:25)
[2017-09-28] MEDS: BLOOD GLUCOSE MONITORING 1 DEV DEV FS SCH ×4 (05:01→23:32)
--- NOTE | 2017-09-28 05:21 | NUR ---
IV ABT CLEOCIN GIVEN ORDER.BLOOD SUGAR 134 NO INSULIN COVERAGE NEEDED. URINE 300 CC DARK YELLOW COLOR. F/C CARE GIVEN. AM CARE GIVEN.KEPT CLEAN AND DRY.
--- NOTE | 2017-09-28 06:01 | NUR ---
BLOOD DRAWN FROM PICC LINE FOR PT/INR,CBC AND BMP.
[2017-09-28 06:11] LABS: BASOPHILS # (AUTO) 0.1 K/uL (0.00-0.22); BASOPHILS % (AUTO) 0.6 % (0.0-2.0); EOSINOPHILS % (AUTO) 0.3 % (0.0-4.0); HEMATOCRIT 42.6 % (36-52); HEMOGLOBIN 13.7 g/dL (12.0-18.0); LYMPHOCYTES # (AUTO) 0.4 K/uL (2.0-11.5); LYMPHOCYTES % (AUTO) 3.9 % (20.5-51.1); MEAN CORPUSCULAR HEMOGLOBIN 35 pg (27-31); MEAN CORPUSCULAR HGB CONC 32 g/dL (33-37); MEAN CORPUSCULAR VOLUME 109 fL (80-94); MONOCYTES # (AUTO) 0.7 K/uL (0.8-1.0); MONOCYTES % (AUTO) 6.5 % (1.7-9.3); NEUTROPHILS # (AUTO) 10.2 K/uL (1.8-7.7); NEUTROPHILS % (AUTO) 88.7 % (42.2-75.2); PLATELET COUNT (AUTO) 147 K/uL (140-450); RED BLOOD CELL COUNT(AUTO) 3.93 MIL/uL (4.20-6.10); RED CELL DISTRIBUTION WIDTH 15.5 % (11.6-13.7)
[2017-09-28 06:17] LABS: ANION GAP 5.7 (8-16); CARBON DIOXIDE 36.5 mmol/L (21-32); CREATININE 0.7 mg/dL (0.7-1.3); POTASSIUM 4.2 mmol/L (3.5-5.1)
[2017-09-28 06:35] LABS: WHITE BLOOD COUNT (AUTO) 11.4 K/uL (4.8-10.8)
[2017-09-28 07:08] LABS: PROTHROMBIN TIME 16.8 secs (10.8-13.4)
--- NOTE | 2017-09-28 07:15 | NUR ---
REPORT GIVEN TO AM SHIFT. PT IS SEDATED,NO S/S OF RESP DISTRESS,NO SBO.
--- NOTE | 2017-09-28 07:21 | NUR ---
RECEIVED PT STABLE ON VENT SUPPORT AT DOCUMENTED SETTINGS, SXN'D SCANT CLEAR WHITE THIN SECRETIONS, NO RESP DISTRESS OR SOB NOTED, 8.0 ETT SECURED WITH ANCHORFAST AT 24 CM AT THE LIP, ALARMS SET AND AUDIBLE, VENT PLUGGED INTO RED OUTLET, AMBU BAG BEDSIDE, WILL CONTINUE TO MONITOR
--- NOTE | 2017-09-28 07:26 | NUR ---
RECEIVED REPORT FROM ANTENNA ENGINEER RN. PT IS SEDATED. RASS -4 AT THIS TIME. FLACC 0. A. FIB ON MONITOR. ETT TO VENT. VENT SETTING IS PRESSURE CONTROL 18, FIO2 60%, RR 14, PEEP 10, I TIME 1.1. NO SOB NOTED. BILATERAL LUNGS CLEAR UPON AUSCULTATION. HOB AT 30 DEGREES. PICC LINE TO RIGHT UPPER ARM PATENT AND INTACT, RECEIVING IV FLUID ORDERED. ALSO ON CONTINUOUS DRIPS OF ATIVAN AT 6 MCG/ HR, FENTANYL AT 135 MCG/HR, LEVOPHED AT 5 MCG/MIN. NGT IN PLACE, ON TUBE FEEDING OF FIBERSOURCE AT 75 ML/HR AND H2O FLUSH 200 ML Q6HR,, RESIDUAL 10 ML NOTED. ABD SOFT, ROUND, NONTENDER. SKIN TEAR TO BLUE, RIGHT KNEE- DRESSING CLEAN AND INTACT. EDEMA TO ALL EXTREMITIES AND SCROTAL AREA NOTED. ACOSTA CATH IN PLACE DRAINING CLEAR YELLOW URINE TO GRAVITY DRAINAGE BAG. BED IN LOW POSITION AND CALL LIGHT WITHIN REACH. PT IS ON ROTATING BED. WILL CONTINUE TO MONITOR.
--- NOTE | 2017-09-28 07:45 | NUR ---
DR. ERVIN IN TO SEE PT AND SPOKE WITH DAUGHTER, LUKASZ. WILL FOLLOW UP ON ORDERS.
--- NOTE | 2017-09-28 08:19 | NUR ---
SPOKE WITH DAUGHTER, ZOEY, AND GAVE UPDATE ON PT.
[2017-09-28] MEDS: PANTOPRAZOLE 40 MG INJ VIAL IVP SCH ×2 (08:29→20:52)
[2017-09-28] MEDS: methylPREDNISolone SS 125 MG/2 ML VIAL IVP SCH (08:29)
[2017-09-28] MEDS: DOCUSATE 100 MG/10 ML UDC GT SCH ×2 (08:29→20:52)
[2017-09-28] MEDS: FUROSEMIDE 40 MG/4 ML VIAL IVP SCH ×2 (08:29→20:52)
[2017-09-28] MEDS: AMIODARONE 200 MG TAB PO SCH ×2 (08:29→20:52)
[2017-09-28] MEDS: LACTOBACILLUS RHAMNOSUS GG 1 EACH CAP PO SCH (08:30)
--- NOTE | 2017-09-28 09:00 | NUR ---
MEDICATIONS ADMINISTERED. PT TOLERATED WELL.
--- NOTE | 2017-09-28 10:00 | NUR ---
TUBE FEEDING HELD PER DR. MORRISON.
[2017-09-28] MEDS ORDERED: BISACODYL 10 MG SUPP RC SCH (10:15)
--- NOTE | 2017-09-28 11:22 | NUR ---
DR. REYNOLDS IN TO SEE PT. WILL FOLLOWUP ON ORDERS.
[2017-09-28] MEDS: NOREPINEPHRINE 8 MG in DEXTROSE 5% 250 ML IV PRN (11:25)
--- NOTE | 2017-09-28 12:05 | NUR ---
DR. COBB IN TO SEE PT. WILL FOLLOW UP ON ORDERS.
--- NOTE | 2017-09-28 12:15 | NUR ---
ABDOMINAL X-RAY TAKEN. PT TOLERATED WELL.
--- NOTE | 2017-09-28 12:40 | NUR ---
DR. VILLARREAL CAME IN TO SEE PT. SPOKE WITH DAUGHTER, LUKASZ AND OBTAINED CONSENT FOR TRACH PLACEMENT. PER DR. VILLARREAL, HOLD COUMADIN FROM NOW ON. DR. ERVIN MADE AWARE. WILL FOLLOW UP ON ORDERS.
[2017-09-28] MEDS: HYDRAGUARD CREAM TP SCH (13:00)
[2017-09-28] MEDS: SKINTEGRITY HYDROGEL TP SCH (13:00)
[2017-09-28] MEDS ORDERED: HEPARIN PER PHARMACY MC PRN (13:35)
[2017-09-28] MEDS ORDERED: MINERAL OIL 135 ML ENEM RC SCH (14:50)
[2017-09-28] MEDS: hePARIN / DEXT 5% PREMIX 250 ML IV SCH (15:34)
--- NOTE | 2017-09-28 15:34 | NUR ---
FLEET ENEMA GIVEN. PT TOLERATED WELL. WILL CONTINUE TO MONITOR.
--- NOTE | 2017-09-28 16:30 | NUR ---
PT IS STABLE. NO CHANGE OF CONDITION. FLACC 0. NO SOB OR S/SX ACUTE DISTRESS NOTED AT THIS TIME. HOB 30 DEGREES. SAFETY MEASURES ENSURE. WILL CONTINUE TO MONITOR.
[2017-09-28] MEDS: LEVOFLOXACIN 750 MG/D5W PREMIX 150 ML IV SCH (16:32)
--- NOTE | 2017-09-28 18:10 | NUR ---
CHECKED ON PT. VS STABLE. NO SIGNS OF ACUTE DISTRESS. WILL CONTINUE TO MONITOR.
--- NOTE | 2017-09-28 18:10 | NUR ---
DR. ERVIN AND DR. SIU IN TO SEE AND EXAMINE PT. WILL FOLLOW UP ON ORDERS.
[2017-09-28] MEDS ORDERED: MAGNESIUM CITRATE 300 ML BTL GT SCH (18:40)
--- NOTE | 2017-09-28 18:45 | NUR ---
DR. MOTT IN TO SEE PT. WILL FOLLOW UP ON ORDERS.
--- NOTE | 2017-09-28 19:30 | NUR ---
REPORT GIVEN TO INSIDE TESTER RN FOR CONTINUITY OF CARE. PT IS STABLE.
--- NOTE | 2017-09-28 19:30 | NUR ---
RECEIVED REPORT FROM AZALIA PHELPS AT BEDSIDE, PT IS SEDATED, RASS -3, ETT TO VENT WITH FIO2 55, RR 14, TV 650, PEEP 10, RHONCHI LUNG SOUNDS, NGT PLACED ON LEFT NARES, POSITIVE PLACEMENT WITH 0ML RESIDUES NOTED, FEEDING HELD AT THIS TIME ORDERED. 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 LARGE SOFT ROUND ABDOMEN WITH ACTIVE BOWEL SOUNDS, ACOSTA CATHETER IN PLACE WITH LUKASZ COLORED URINE NOTED, GENERALIZED +3 PITTING EDEMA NOTED AND SCROTAL EDEMA NOTED, BEDBOUND. PICC LINE TO RIGHT UPPER ARM WITH DOUBLE LUMEN WITH GOOD BLOOD RETURN, RUNNING D51/2NS AT 100ML/HR, ATIVAN AT 6MG/HR, FENTANYL AT 135MCG/MIN, HEPARIN DRIP AT 1500 UNIT/HR. SKIN IS WARM AND WEEPING ON CELESTINA. FOREARM, SKIN TEAR NOTED TO BACK AND CELESTINA. FOREARM, CELLULITIS TO BLE WITH SCAB. VSS, FLACC 0. SAFETY MEASURE IN PLACE, HOB ELEVATED TO 30 DEGREES, WILL CONTINUE TO MONITOR.
--- NOTE | 2017-09-28 20:00 | NUR ---
NO CHANGE OF CONDITION, VSS, POSITION CHANGED FOR OFF LOAD PRESSURE, ORAL CARE PROVIDED.
--- NOTE | 2017-09-28 22:00 | NUR ---
NO S/S OF DISTRESS, VSS, FLACC 0, POSITION CHANGED FOR OFF LOAD PRESSURE.
[2017-09-28 22:07] LABS: PROTHROMBIN TIME 16.6 secs (10.8-13.4)
--- NOTE | 2017-09-28 23:00 | NUR ---
LAB RESULT OF APTT 60.9, WITHIN THERAPEUTIC LEVEL, NO CHANGE OF HEPARIN DRIP AT THIS TIME, WILL CONTINUE TO MONITOR.
[2017-09-28] MEDS: INSULIN LISPRO SLIDING SCALE 100 UNITS/ML VIAL SUBQ PRN (23:38)
--- NOTE | 2017-09-28 23:48 | NUR ---
ACCU CHECK WITH RESULT 160MG/DL, GIVE 2 UNITS OF HUMALOG ORDERED.
[2017-09-29] VITALS (83 sets, daily range): BP systolic 78–141; BP diastolic 27–97
[2017-09-29] MEDS: ALBUTEROL SULFATE/IPRATROPIU 3 ML SOL IH SCH ×4 (01:12→18:38)
[2017-09-29] MEDS: fentaNYL 1 MG in NACL 0.9% 80 ML IV PRN ×3 (01:31→16:55)
--- NOTE | 2017-09-29 02:00 | NUR ---
NO CHANGE OF CONDITION AT THIS TIME, VSS, POSITION CHANGED FOR OFF LOAD PRESSURE.
--- NOTE | 2017-09-29 04:00 | NUR ---
VSS, AM CARE PROVIDED, ORAL CARE PROVIDED, ACOSTA CATHETER CARE PROVIDED, POSITION CHANGED FOR OFF LOAD PRESSURE, PT TOLERATED WELL. STILL NO BM AT THIS TIME.
[2017-09-29 05:06] LABS: BASOPHILS # (AUTO) 0.1 K/uL (0.00-0.22); BASOPHILS % (AUTO) 0.6 % (0.0-2.0); EOSINOPHILS % (AUTO) 0.3 % (0.0-4.0); HEMATOCRIT 40.4 % (36-52); HEMOGLOBIN 13.2 g/dL (12.0-18.0); LYMPHOCYTES # (AUTO) 0.5 K/uL (2.0-11.5); LYMPHOCYTES % (AUTO) 4.9 % (20.5-51.1); MEAN CORPUSCULAR HEMOGLOBIN 35 pg (27-31); MEAN CORPUSCULAR HGB CONC 33 g/dL (33-37); MEAN CORPUSCULAR VOLUME 108 fL (80-94); MONOCYTES % (AUTO) 10.3 % (1.7-9.3); NEUTROPHILS % (AUTO) 83.9 % (42.2-75.2); PLATELET COUNT (AUTO) 156 K/uL (140-450); RED BLOOD CELL COUNT(AUTO) 3.72 MIL/uL (4.20-6.10); RED CELL DISTRIBUTION WIDTH 15.3 % (11.6-13.7); WHITE BLOOD COUNT (AUTO) 9.6 K/uL (4.8-10.8)
[2017-09-29 05:24] LABS: ANION GAP 3.5 (8-16); CARBON DIOXIDE 38.5 mmol/L (21-32); CREATININE 0.8 mg/dL (0.7-1.3)
[2017-09-29 05:29] LABS: MAGNESIUM 2.4 mg/dL (1.8-2.4); PHOSPHORUS 3.4 mg/dL (2.5-4.9)
[2017-09-29] MEDS: BLOOD GLUCOSE MONITORING 1 DEV DEV FS SCH ×4 (05:49→23:35)
[2017-09-29] MEDS: CLINDAMYCIN 600 MG in DEXTROSE 5% 50 ML IV SCH ×4 (05:50→23:29)
--- NOTE | 2017-09-29 05:50 | NUR ---
LAB RESULT OF APTT 65.0, WITHIN THERAPEUTIC LEVEL, NO CHANGE OF HEPARIN DRIP AT THIS TIME, WILL CONTINUE TO MONITOR.
--- NOTE | 2017-09-29 06:00 | NUR ---
ACCU CHECK WITH RESULT OF 122 MG/DL, NO INSULIN COVERAGE AT THIS TIME, VSS, POSITION CHANGED FOR OFF LOAD PRESSURE.
--- NOTE | 2017-09-29 07:15 | NUR ---
REPORT GIVEN TO AZALIA SANDOVAL AND AZALIA MANSFIELD AT BEDSIDE FOR CONTINUE OF CARE, PT IS IN STABLE CONDITION AT THIS TIME.
--- NOTE | 2017-09-29 07:26 | NUR ---
RECEIVED INTUBATED PT WITH 8.0 ETT @24 TEETH/GUM ON VENT. SETTINGS PC PINSP 18, R 14, PEEP 10, I TIME 1.1 AND FIO2 50%. PT SUCTIONED OBTAINED SMALL AMOUNT OF THICK YELLOW SECRETIONS, AIRWAY IS PATENT ETT IS SECURE. NO BITING OR KINKING OF ETT. VENT IS PLUGGED INTO RED OUTLET WITH ALARMS ON AND FUNCTIONING. WILL CONTINUE TO MONITOR.
--- NOTE | 2017-09-29 07:30 | NUR ---
RECEIVED REPORT FROM VP STRATEGY RICH VIEYRA. PT IS SEDATED. RASS -4 AT THIS TIME. FLACC 0. A. FIB ON MONITOR. ETT TO VENT. VENT SETTING PRESSURE CONTROL 18, FIO2 50%, RR 14, PEEP 10, NO SOB NOTED. BILATERAL LUNGS CLEAR UPON AUSCULTATION. HOB AT 30 DEGREES. PICC LINE TO RIGHT UPPER ARM PATENT AND INTACT, RECEIVING IV CONTINUOUS DRIPS OF ATIVAN AT 6 ML/HR, FENTANYL AT 135 MCG/HR, LEVOPHED AT 3MCG/MIN AND D5 1/2NS 100ML/HR. NGT IN PLACE, NO RESIDUAL NOTED. ABD SOFT, ROUND, NONTENDER. SKIN TEAR TO BLUE AND RIGHT KNEE- DRESSING CLEAN AND INTACT. EDEMA TO ALL EXTREMITIES AND SCROTAL AREA NOTED. ACOSTA CATH IN PLACE DRAINING LUKASZ COLORED URINE TO GRAVITY DRAINAGE BAG. BED IN LOW POSITION AND CALL LIGHT WITHIN REACH. PT IS ON ROTATING BED. WILL CONTINUE TO MONITOR.
--- NOTE | 2017-09-29 08:30 | NUR ---
IN BEDSIDE TO CHECK THE PT. WILL FOLLOW THE ORDER. ORAL CARE PROVIDED, PT TOLERATED WELL. CLEAR SECRETION NOTED. NO ACUTE DISTRESS NOTED.
[2017-09-29] MEDS: hePARIN / DEXT 5% PREMIX 250 ML IV SCH (08:37)
[2017-09-29] MEDS ORDERED: CLINICAL MONITORING MC SCH (09:00)
[2017-09-29] MEDS: PANTOPRAZOLE 40 MG INJ VIAL IVP SCH (09:21)
[2017-09-29] MEDS: methylPREDNISolone SS 125 MG/2 ML VIAL IVP SCH (09:21)
[2017-09-29] MEDS: FUROSEMIDE 40 MG/4 ML VIAL IVP SCH ×2 (09:22→20:21)
[2017-09-29] MEDS: LACTOBACILLUS RHAMNOSUS GG 1 EACH CAP PO SCH (09:22)
[2017-09-29] MEDS: DOCUSATE 100 MG/10 ML UDC GT SCH (09:22)
[2017-09-29] MEDS: LORazepam 50 MG in NACL 0.9% 25 ML IV PRN ×2 (09:27→23:28)
[2017-09-29] MEDS: AMIODARONE 200 MG TAB PO SCH ×2 (09:27→20:21)
--- NOTE | 2017-09-29 09:30 | NUR ---
GIVEN MEDICATIONS TOLERATED WELL. NO ACUTE DISTRESS NOTED. PT SEDATED RASS -4 WITH ATIVAN, FENTANYL DRIPS.
[2017-09-29] MEDS: DEXT 5% / NACL 0.45% 1,000 ML IV SCH ×2 (11:22→17:10)
--- NOTE | 2017-09-29 12:00 | NUR ---
GIVEN ABX IVPB, TOLERATED WELL. NO ACUTE DISTRESS NOTED.
--- NOTE | 2017-09-29 12:30 | NUR ---
FIO2 INCREASED TO 60% DUE TO PT DESATURATING TO 88%-89% SPO2. WILL CONTINUE TO MONITOR.
[2017-09-29] MEDS: SKINTEGRITY HYDROGEL TP SCH (13:00)
--- NOTE | 2017-09-29 13:50 | NUR ---
IS AT BEDSIDE AT THIS TIME TO CHECK PT, WILL FOLLOW THE ORDER. PROVIDED WOUND CARE, CHANGED DRESSING, MINIMAL SEROUS DRAINAGE FROM BILATERAL ARMS SKIN TEARS NOTED. CONTINUE TO MONITOR.
[2017-09-29] MEDS: HYDRAGUARD CREAM TP SCH (13:59)
[2017-09-29] MEDS ORDERED: PANTOPRAZOLE 40 MG INJ VIAL IVP SCH (14:00)
--- NOTE | 2017-09-29 14:00 | NUR ---
TALK TO LUKASZ ON THE PHONE SHE WILL COME TO SIGN THE CONSENT TOMORROW AT 11AM.
--- NOTE | 2017-09-29 14:16 | NUR ---
VENT CHECK COMPLETED. ETT REMAINS SECURE. PT SUCTIONED OBTAINED SMALL AMOUNT OF THICK SECRETIONS, AIRWAY IS PATENT. WILL CONTINUE TO MONITOR.
--- NOTE | 2017-09-29 16:00 | NUR ---
GIVEN ABX IVPB, PT TOLERATED WELL. PROVIDED ORAL CARE, CLEAR SECRETION NOTED. PT SEDATED RASS -4 WITH ATIVAN 4.5ML/HR AND FENTANYL 11.5ML/HR. VS STABLE. NO ACUTE DISTRESS NOTED.
[2017-09-29] MEDS: LEVOFLOXACIN 750 MG/D5W PREMIX 150 ML IV SCH (16:07)
[2017-09-29] MEDS: METOCLOPRAMIDE 10 MG/2 ML INJ VIAL IVP SCH (16:46)
[2017-09-29] MEDS: SENNA 8.6 MG TAB PO SCH (17:37)
--- NOTE | 2017-09-29 17:52 | NUR ---
LUKASZ IS UNABLE TO COME TO SIGN THE CONSENT , TELEPHONE CONSENT OBTAINED,
--- NOTE | 2017-09-29 17:54 | NUR ---
PT REMAINS ON DOCUMENTED SETTINGS, NO CHANGES MADE AT THIS TIME. PT IS IN BED RESTING NO SOB AND NO RESPIRATORY DISTRESS NOTED AT THIS TIME. VENT ALARMS REMAIN ON AND FUNCTIONING. PT SUCTIONED OBTAINED SCANT AMOUNT OF THICK SECRETIONS. AIRWAY IS PATENT AND TRACH IS SECURE.
--- NOTE | 2017-09-29 18:00 | NUR ---
BS CHECKED 142 NOTED, NO INSULIN COVERAGE NEEDED. IV ABX GIVEN, TOLERATED WELL. NO ACUTE DISTRESS NOTED. VS SIGNS IS STABLE. CONTINUE TO MONITOR.
--- NOTE | 2017-09-29 19:00 | NUR ---
REPORT GIVEN TO AZALIA GARZA AT BEDSIDE FOR CONTINUE OF CARE, PT IS IN STABLE CONDITION AT THIS TIME.
--- NOTE | 2017-09-29 19:30 | NUR ---
REPORT RECEIVED FROM MORNING NURSE, AZALIA RODRIGES. PT IS SEDATED WITH ATIVAN DRIP WITH RASS -4. ALSO NOTED ON HEPARIN DRIP AND FENTANYL DRIP ORDERED. REPORT RECEIVED THAT LEVOPHED WAS DISCONTINUED IN THE PRIOR SHIFT. PT ETT TO VENT: PRESSURE CONTROL 18, RR 14, FIO2 60, PEEP 5. NG-TUBE TO LEFT NOSTRIL AND TUBE FEEDING IS BOLUS. NEXT SCHEDULED AT 2200. PT WILL HAVE TRACHEOSTOMY SURGERY TOMORROW MORNING @0830 SO NPO AFTER MIDNIGHT AND HEPARIN TO STOP @2200 TONIGHT. VERBAL CONSENT SIGNED BY 2 RNS DUE TO LUKASZ, DAUGHTER UNABLE TO COME AND SIGN BEFORE THE SCHEDULE SURGERY TIME TOMORROW. BILATERAL LUNGS SOUND DIMINISHED AND BOWEL SOUNDS ACTIVE X4 QUADS. SKIN NOTED PITTING EDEMA +3 TO BUE AND BLE. BUE NOTED VERY MOIST AND FLUID SEEPING OUT OF THE SKIN. MULTIPLE SKIN TEARS NOTED ON THE BUE, R KNEE, AND THE BACK. EDEMATOUS SCROTUM NOTED. ACOSTA CATHETER DRAINING CLEAR YELLOW URINE VIA GRAVITY. RFA PICC LINE WITH 2 LUMENS. ALL PATENT AND ASYMPTOMATIC. ON CONTINUOS CARDIAC MONITORING AND PT HAS NO ACUTE DISTRESS. FLACC=0. CALL LIGHT IN REACH AND BED IS KEPT TO THE LOWEST. WILL CONTINUE TO MONITOR.
[2017-09-29] MEDS: MIDODRINE 5 MG TAB PO SCH (19:35)
--- NOTE | 2017-09-29 19:40 | NUR ---
DR. VILLARREAL AT BED SIDE AND ORDERED TO STOP HEPARIN DRIP AT 2200 TODAY AND TO OBTAIN PTT @0600 TOMORROW IN PREPARATION OF TRACHEOSTOMY OPERATION TOMORROW.
--- NOTE | 2017-09-29 20:05 | NUR ---
DR. SOLANO, ANESTHESIOLOGIST CALLED AND ORDERED TO DO THE STAT EKG, NPO AFTER MIDNIGHT EXCEPT MEDS IN PREPARATION OF TRACH SURGERY TOMORROW MORNING. NOTIFIED DR. SOLANO THAT DR. VILLARREAL ALREADY ORDERED TO STOP HEPARIN DRIP AT 2200 TONIGHT. WILL CARRY OUT THE ORDERS
--- NOTE | 2017-09-29 20:26 | NUR ---
EKG IS BEING TAKEN AT BED SIDE.
--- NOTE | 2017-09-29 22:00 | NUR ---
HEPARIN DRIP STOPPED AT THIS TIME ORDERED.
[2017-09-30] VITALS (56 sets, daily range): BP systolic 79–113; BP diastolic 51–80
--- NOTE | 2017-09-30 | NUR ---
PT NPO EXCEPT MEDS AT THIS TIME. NG TUBE DISCONNECTED FROM THE FEEDING FORMULA. GASTRIC RESIDUAL NOTED 5ML. CONTINUING WITH ATIVAN AND FENTANYL DRIPS WITH RASS -4. NO ACUTE DISTRESS NOTED. ALL SAFETY PRECAUTIONS ARE IN PLACE. WILL CONTINUE TO MONITOR.
[2017-09-30] MEDS: ALBUTEROL SULFATE/IPRATROPIU 3 ML SOL IH SCH ×4 (01:11→18:50)
--- NOTE | 2017-09-30 02:00 | NUR ---
NO ACUTE DISTRESS NOTED. CONTINUING WITH ATIVAN DRIP AND FENTANYL DRIP. FLACC=0. WILL CONTINUE TO MONITOR.
[2017-09-30] MEDS: fentaNYL 1 MG in NACL 0.9% 80 ML IV PRN ×2 (02:20→16:59)
--- NOTE | 2017-09-30 04:08 | NUR ---
PT NOTED WITH SMALL SOFT BOWEL MOVEMENT. INCONTINENCE CARE AND SKIN CARE PROVIDED. PT TOLERATED FAIRLY.
[2017-09-30 04:45] LABS: BASOPHILS # (AUTO) 0.1 K/uL (0.00-0.22); BASOPHILS % (AUTO) 0.7 % (0.0-2.0); EOSINOPHILS # (AUTO) 0.1 K/uL (0-0.4); EOSINOPHILS % (AUTO) 0.9 % (0.0-4.0); HEMATOCRIT 39.6 % (36-52); HEMOGLOBIN 12.8 g/dL (12.0-18.0); LYMPHOCYTES # (AUTO) 0.4 K/uL (2.0-11.5); LYMPHOCYTES % (AUTO) 5.2 % (20.5-51.1); MEAN CORPUSCULAR HEMOGLOBIN 35 pg (27-31); MEAN CORPUSCULAR HGB CONC 32 g/dL (33-37); MEAN CORPUSCULAR VOLUME 109 fL (80-94); MONOCYTES # (AUTO) 0.9 K/uL (0.8-1.0); MONOCYTES % (AUTO) 12.6 % (1.7-9.3); NEUTROPHILS # (AUTO) 5.9 K/uL (1.8-7.7); NEUTROPHILS % (AUTO) 80.6 % (42.2-75.2); PLATELET COUNT (AUTO) 172 K/uL (140-450); RED BLOOD CELL COUNT(AUTO) 3.64 MIL/uL (4.20-6.10); RED CELL DISTRIBUTION WIDTH 15.3 % (11.6-13.7)
[2017-09-30] MEDS: CLINDAMYCIN 600 MG in DEXTROSE 5% 50 ML IV SCH ×4 (05:27→23:22)
[2017-09-30 05:34] LABS: CREATININE 0.8 mg/dL (0.7-1.3)
[2017-09-30] MEDS: BLOOD GLUCOSE MONITORING 1 DEV DEV FS SCH ×4 (05:34→23:22)
[2017-09-30] MEDS: LEVOTHYROXINE 0.075 MG TAB PO SCH (05:36)
[2017-09-30 05:38] LABS: MAGNESIUM 2.6 mg/dL (1.8-2.4); PHOSPHORUS 3.7 mg/dL (2.5-4.9)
[2017-09-30 05:43] LABS: ANION GAP 7.4 (8-16); CARBON DIOXIDE 35.7 mmol/L (21-32); POTASSIUM 4.1 mmol/L (3.5-5.1)
--- NOTE | 2017-09-30 05:45 | NUR ---
DR. FIGUEROA AT BED SIDE. WILL FOLLOW UP WITH ANY ORDERS.
[2017-09-30] MEDS: MIDODRINE 5 MG TAB PO SCH ×3 (06:10→18:35)
[2017-09-30 06:26] LABS: WHITE BLOOD COUNT (AUTO) 7.4 K/uL (4.8-10.8)
--- NOTE | 2017-09-30 06:36 | NUR ---
RECEIVED PT ON [place] ON PCV 18 ITIME 1:1 RR 14 FIO2 60 PEEP 10 BS DIMINISHED I\LL LAVAGE AND SX SM WHITE PT IN HF ASLEEP CUFF PRESSURE IS 28 CM H20 NO APPARENT DISTRESS VENT PLUGGED INTO RED OUTLET HHN GIVEN I\L WITH 3 MG DUONEB
--- NOTE | 2017-09-30 07:00 | NUR ---
LUKASZ, DAUGHTER MADE AWARE THAT THE PT IS GOING TO BE TRANSFERRED TO OR FOR TRACHEOSTOMY SURGERY ANY TIME SOON THIS MORNING.
--- NOTE | 2017-09-30 07:10 | NUR ---
REPORT RECEIVED FROM MORNING NURSE, AZALIA GARZA. PT IS SEDATED WITH ATIVAN DRIP WITH RASS -4. ALSO NOTED ON FENTANYL DRIP ORDERED. PT ETT TO VENT: PRESSURE CONTROL 18, RR 14, FIO2 60, PEEP 5. NG-TUBE TO LEFT NOSTRIL AND TUBE FEEDING IS HOLD FOR TRACHEOSTOMY PLACEMENT. THE SURGERY SCHEDULED THIS MORNING. NPO FROM YESTERDAY MIDNIGHT AND HEPARIN TO STOP @2200 09/29/17. BILATERAL LUNGS SOUND DIMINISHED AND BOWEL SOUNDS HYPOACTIVE X4 QUADS. SKIN NOTED PITTING EDEMA +3 TO BILATERAL UPPER AND LOWER EXTREMITIES. MULTIPLE SKIN TEARS NOTED ON THE RIGHT FOREARM, UPPERARM AND LEFT FOREARM, RIGHT KNEE, AND THE BACK. EDEMATOUS SCROTUM NOTED. ACOSTA CATHETER DRAINING LUKASZ COLORED URINE VIA GRAVITY. RFA PICC LINE WITH 2 LUMENS, INTACT AND PATENT. ON CONTINUOS CARDIAC MONITORING WITH A FIB. PT HAS NO ACUTE DISTRESS. FLACC=0. WILL CONTINUE TO MONITOR. Addendum: 09/30/17 at 0821 by Steve Tavares RN VENT SETTING PRESSURE CONTROL 18, RR14 FIO2 60%, PEEP 10. CHARTING MISTAKE.
--- NOTE | 2017-09-30 07:17 | NUR ---
REPORT GIVEN TO MORNING NURSE, LAWANDA RN FOR CONTINUITY OF CARE. PT HAS NO ACUTE DISTRESS NOTED. ALL SAFETY PRECAUTIONS ARE IN PLACE.
[2017-09-30] MEDS: METOCLOPRAMIDE 10 MG/2 ML INJ VIAL IVP SCH ×3 (07:29→16:27)
--- NOTE | 2017-09-30 07:37 | NUR ---
UNABLE TO OBTAIN ABG ATTEMPTED BY 2 RTS
--- NOTE | 2017-09-30 07:45 | NUR ---
AND RESIDENTS HERE AT THE BEDSIDE TO EVALUATE THE PT. WILL FOLLOW THE ORDER.
[2017-09-30] MEDS ORDERED: ESMOLOL 100 MG/10 ML VIAL IV ONE (08:23)
[2017-09-30] MEDS ORDERED: HYDROGEN PEROXIDE 3% 240 ML BTL TP ONE (08:29)
--- NOTE | 2017-09-30 08:30 | NUR ---
HERE TO CHECK THE PT BEFORE THE TRACHEOSTOMY SURGERY. WILL FOLLOW THE ORDER.
--- NOTE | 2017-09-30 08:31 | NUR ---
VENT CHECK BS DIMINISHED AIRWAY IS PATENT
[2017-09-30] MEDS ORDERED: LIDOCAINE 1% 50 ML ONE (08:44)
[2017-09-30] MEDS ORDERED: BUPIVACAINE-MPF 0.25% 30 ML VIAL INJ ONE (08:45)
--- NOTE | 2017-09-30 08:53 | NUR ---
PT TRANSPORTED TO OR W\O INCIDENT VIA BMV FIO2 [address] AT 10
[2017-09-30] MEDS ORDERED: KETAMINE 500 MG/5 ML VIAL ONE (08:55)
--- NOTE | 2017-09-30 08:55 | NUR ---
PT TRANSFER TO OR WITH RT AND PRIMARY NURSE, OR NURSE IN STABLE CONDITION.
[2017-09-30] MEDS ORDERED: methylPREDNISolone SS 40 MG/ML VIAL IVP SCH (09:00)
[2017-09-30] MEDS: AMIODARONE 200 MG TAB PO SCH ×2 (09:00→21:10)
[2017-09-30] MEDS: methylPREDNISolone SS 40 MG/ML VIAL IVP SCH (09:00)
[2017-09-30] MEDS: SPIRONOLACTONE 25 MG TAB PO SCH (09:00)
[2017-09-30] MEDS: SENNA 8.6 MG TAB PO SCH ×3 (09:00→16:31)
[2017-09-30] MEDS: PANTOPRAZOLE 40 MG INJ VIAL IVP SCH (09:00)
[2017-09-30] MEDS: FUROSEMIDE 40 MG/4 ML VIAL IVP SCH (09:00)
[2017-09-30] MEDS: LACTOBACILLUS RHAMNOSUS GG 1 EACH CAP PO SCH (09:00)
--- NOTE | 2017-09-30 09:14 | NUR ---
SCHEDULED MORNING MEDICATIONS ARE NOT GIVEN AT THIS TIME DUE TO PT IN OR FOR PROCEDURE.
--- NOTE | 2017-09-30 10:23 | NUR ---
PT RETURNED FROM OR PLACED ON CARESCAPE WITH PREVIOUS SETTINGS SIZE [address] SECURE
--- NOTE | 2017-09-30 10:30 | NUR ---
PT CAME BACK TO ICU BED 3 FROM OR WITH TRACHEOSTOMY SIZE 8 SHILEY XLT CUFFED. RECEIVED REPORT FROM OR NURSE TO BEN. VIEYRA AND YOOSEOB. VIEYRA. PT'S VS IS STABLE. NO ACUTE RESPIRATORY DISTRESS NOTED. TRACH CARE PROVIDED BY RT. MINIMAL BLEEDING FROM TRACH NOTED. NO FEVER, FLACC 0. A FIB ON CORPORATE LAW ASSISTANT
--- NOTE | 2017-09-30 10:40 | NUR ---
VENT CHECK BS DIMINISHED ICE LAVAGE PLACED AT BEDSIDE I\L LAVAGE AND SX LG BLOODY SECRETION SHILEY 8 XLT IS SECURE
--- NOTE | 2017-09-30 11:45 | NUR ---
AT BEDSIDE TO CHECK THE PT, WILL FOLLOW THE ORDER.
--- NOTE | 2017-09-30 11:50 | NUR ---
AT BEDSIDE TO CHECK THE PT, WILL FOLLOW THE ORDER.
--- NOTE | 2017-09-30 12:10 | NUR ---
GIVEN IV ABX, PT SEDATED, NO ACUTE DISTRESS NOTED. ORAL CARE PROVIDED, TOLERATED WELL. SMALL AMOUNT OF BLOODY SECRETION NOTED. CONTINUE TO MONITOR.
--- NOTE | 2017-09-30 12:40 | NUR ---
09/30/17 RD INITIAL ASSESSMENT COMPLETED PLEASE REFER TO NUTRITION ASSESSMENT UNDER CARE ACTIVITY FOR ESTIMATED NUTRITIONAL NEEDS. RD RECOMMENDATIONS: 1. CONSIDER NUTRITION SUPPORT: NUTREN PULMONARY AT 60 ML/HR WITH PROSOURCE TID WHEN APPROPRIATE TO ADVANCE TUBE FEEDINGS. --THIS WILL PROVIDE 100% OF PT ESTIMATED KCAL AND PROTEIN NEEDS 2. RD TO FOLLOW-UP 2-3 DAYS, HIGH RISK PAUL MARR, AURA
--- NOTE | 2017-09-30 13:13 | NUR ---
VENT CHECK BS DIMINISHED I\L LAVAGE AND SX SM BLOODY SECRETIONS HHN GIVEN I\L WITH 3 MG DUONEB FIO2 DECREASED TO 55 DR MOTT AT BEDSIDE
[2017-09-30] MEDS: FUROSEMIDE 20 MG/2 ML VIAL IVP SCH ×2 (13:41→21:10)
[2017-09-30] MEDS: HYDRAGUARD CREAM TP SCH (13:53)
[2017-09-30] MEDS: SKINTEGRITY HYDROGEL TP SCH (13:54)
--- NOTE | 2017-09-30 14:00 | NUR ---
AT BEDSIDE TO CHECK THE PT, WILL FOLLOW THE ORDERS. PT SEDATED, RASS -4, ON ATIVAN AND FENTANYL DRIPS. NO ACUTE DISTRESS NOTED.
--- NOTE | 2017-09-30 16:00 | NUR ---
GIVEN IV ABX, TOLERATED WELL. TP SEDATED, RASS -4 ON ATIVAN AND FENTANYL DRIPS. ORAL CARE PROVIDED, SMALL AMOUNT BLOODY SECRETION NOTED. NO ACUTE DISTRESS NOTED. CONTINUE TO MONITOR.
[2017-09-30] MEDS: LEVOFLOXACIN 750 MG/D5W PREMIX 150 ML IV SCH (16:27)
[2017-09-30] MEDS: LORazepam 50 MG in NACL 0.9% 25 ML IV PRN ×2 (16:52→19:55)
--- NOTE | 2017-09-30 17:14 | NUR ---
VENT CHECK BS DIMINISHED AIRWAY IS PATENT
--- NOTE | 2017-09-30 18:52 | NUR ---
RECEIVED PT ON THE SAME VENT SETTINGS, PC 18, PEEP 10, FIO2 55%, PT JUST HAVE TRACH DONE TODAY. SX SMALL AMOUNT OF BLOOD, PT SEDATED DUE TO PROCEDURE, VITALS STABLE, NO DISTRESS NOTED
--- NOTE | 2017-09-30 19:10 | NUR ---
REPORT GIVEN TO RENDERING EQUIPMENT TENDER NURSE, AZALIA PANTOJA FOR CONTINUITY OF CARE. PT HAS NO ACUTE DISTRESS NOTED. ALL SAFETY PRECAUTIONS ARE IN PLACE
--- NOTE | 2017-09-30 19:30 | NUR ---
RECEIVED PT FROM AM SHIFT. PT IS SEDATED.PT S/P TRACHEOSTOMY. MILD SMALL AMOUNT BLOOD NOTED ON TRACH AREA.TRACH SIZE 8 SHILEY EXTRA LENGHT TO VENT WITH SETTING PRESSURE CONTROL 18,RATE 14,FIO2 55%,PEEP 10 .NO DISTRESS,NO SOB NOTED AT THIS TIME. GENERALIZED EDEMA.EDEMA TO BUE +3 PITTING AND BLE +3 PITTING.SKIN TEAR TO BUE COVERED WITH DRESSING ,SKIN TEAR TO RIGHT KNEE DRESSING INTACT WELL.PICC LINE TO MOE WITH DOUBLE LUMEN,INTACT WELL. CONT ON IV D5 1/2 NS AT 10 CC/HR. CONTINUE ON FENTANYL DRIP AT 85MCG/MIN TOLERATED WELL.ABD SOFT NON DISTENDED,POSITIVE BOWEL SOUNDS TO ALL QUADRANTS. NGT TO LEFT NARES. FEEDING NUTREN PULMONARY AT 150 CC Q 4HRS AND H2O AT 20 CC Q 4HRS VIA NGT. NO RESIDUAL NOTED. PER AM SHIFT LAST GIVEN AT 5 PM. F/C IN PLACE WITH DARK LUKASZ COLOR DRAIN BY GRAVITY TO URINARY BAG.
--- NOTE | 2017-09-30 19:45 | NUR ---
DR.CALDERILLA VILLEDA IS AT BED SIDE.PER TO CONT THE ATIVAN DRIPS.
--- NOTE | 2017-09-30 19:54 | NUR ---
START ATIVAN DRIP ORDERED
--- NOTE | 2017-09-30 21:20 | NUR ---
NIGHT MEDICATION GIVEN VIA NGT TOLERATED WELL.
--- NOTE | 2017-09-30 22:00 | NUR ---
NGT TO TUBE FEEDING,FEEDING WAS GIVEN 150 CC NUTREN PULMONARY AND 20 CC H2O TOLERATED WELL.
[2017-10-01] VITALS (57 sets, daily range): BP systolic 81–112; BP diastolic 51–79
--- NOTE | 2017-10-01 | NUR ---
IV ABT GIVEN ORDER. BLOOD SUGAR IS 85 NO NEED COVERAGE AT THIS TIME. 800 ML DARK LUKASZ COLOR URINE NOTED.
[2017-10-01] MEDS: ALBUTEROL SULFATE/IPRATROPIU 3 ML SOL IH SCH ×4 (01:23→20:00)
--- NOTE | 2017-10-01 01:30 | NUR ---
ATIVAN INCREASE TO 2 MG/HR D/T RESTLESS MEDICATION TOLERATED WELL.
--- NOTE | 2017-10-01 02:25 | NUR ---
NUTREN PULMONARY 150 CC AND H2O 20 CC GIVEN ORDER EVERY 4HRS AND TOLERATING WELL,NO RESIDUAL NOTED.
--- NOTE | 2017-10-01 03:25 | NUR ---
VENT CK DONE, CHANGED HME, OSULLIVAN, TRACH CARE DONE, SX SMALL BLOODY SECRETION, NO DISTRESS NOTED
--- NOTE | 2017-10-01 04:00 | NUR ---
AM CARE GIVEN,NO S/S OF RESP DISTRESS,NO SOB. TRACH CARE DONE BY RT.PICC LINE DRESSING CHANGE DONE TO MOE PICC LINE DOUBLE LUMEN,NO S/S OF INFECTION ON THE SITE,PORT INTACT WELL.
[2017-10-01] MEDS: FUROSEMIDE 20 MG/2 ML VIAL IVP SCH ×3 (05:07→23:56)
[2017-10-01] MEDS: CLINDAMYCIN 600 MG in DEXTROSE 5% 50 ML IV SCH (05:07)
[2017-10-01] MEDS: BLOOD GLUCOSE MONITORING 1 DEV DEV FS SCH ×3 (05:09→17:39)
--- NOTE | 2017-10-01 05:50 | NUR ---
ABG WAS DONE AWARE THE RESULT.
[2017-10-01] MEDS: fentaNYL 1 MG in NACL 0.9% 80 ML IV PRN ×2 (05:54→18:15)
[2017-10-01] MEDS: LEVOTHYROXINE 0.075 MG TAB PO SCH (05:54)
--- NOTE | 2017-10-01 05:57 | NUR ---
ABG DONE, PH 7.512, CO2 38.6, PO2 63.2, HCO3 30.3, BE 6.9, SO2 92.5, DR FIGUEROA COME IN THE MORNING AND HE WAS TOLD ABOUT ABG.
--- NOTE | 2017-10-01 05:58 | NUR ---
AM MEDS GIVEN TOLERATED WELL
--- NOTE | 2017-10-01 06:38 | NUR ---
REC'D PT ON CARESCAPE VENT SETTINGS AC\PC 18 RR 14 ITIME 1.1 PEEP 10 FIO2 55% ALARMS ON AND FUNCTIONING PROPERLY, AMBU BAG AT SIDE OF VENTILATOR AND VENTILATOR IS PLUGGED INTO RED OUTLET, I\L TX GIVEN WITH DUONEB 3ML WITH NO ADVERSE REACTION, B\S ARE DIMINISHED BILATERALLY, PT IS TRACH WITH SHILEY XLT 8 WITH STITCHES STILL IN PLACED ON BOTH SIDES OF TRACH, SXN PT SMALL AMT OF [place] SECRETIONS, PT IS RESTING WITH NO SIGNS OF DISTRESS NOTED AT THIS TIME
--- NOTE | 2017-10-01 07:17 | NUR ---
REPORT GIVEN TO MONROE VIEYRA AM SHIFT,PT IS STABLE AT THIS TIME,NO S/S OF RESP.DISTRESS,NO SOB.
--- NOTE | 2017-10-01 07:25 | NUR ---
RECEIVED A REPORT FROM AZALIA PANTOJA. PT CLOSED EYES AND NONVERBAL, UNABLE TO FOLLOW COMMANDS. FLACC 0. NO S/SX OF RESPIRATORY DISTRESS NOTED. TRACH TO VENT AND SETTING AT [id number], AC 14, PEEP 10. A-FIB ON THE MONITOR. SKIN WARM TO TOUCH. ON ATIVAN DRIP AND FENTANYL DRIP ORDERED PER PROTOCOL. PICC LINE X2 LUMENS TO RT UPPER ARM, PATENT AND INTACT. NGT IN PLACE AND ACOSTA CATHETER DRAINING CLEAR YELLOW URINE. GENERALIZED BODY EDEMATOUS AND MULTIPLE DRESSING IN PLACE TO SKIN TEAR AREA NOTED. SAFETY PRECAUTION, BED IN LOW POSITION, CALL LIGHT WITHIN REACH. WILL CONTINUE TO MONITOR.
[2017-10-01] MEDS: MIDODRINE 5 MG TAB PO SCH ×3 (07:40→18:14)
[2017-10-01] MEDS: METOCLOPRAMIDE 10 MG/2 ML INJ VIAL IVP SCH ×3 (07:40→16:21)
[2017-10-01] MEDS: DEXT 5% / NACL 0.45% 1,000 ML IV SCH (07:53)
--- NOTE | 2017-10-01 08:00 | NUR ---
RESIDENT GROUP IN TO SEE PT AND INFORMED DR. TATE ABOUT PT IS NOT ON ANY ANTICOAGULANT TX. WILL FOLLOW UP ON ORDERS. Addendum: 10/01/17 at 1112 by Terry Gómez RN PER PHARMACIST, CLINDAMYCIN AND LEVAQUIN ANTIBIOTIC ORDERS AND INFORMED DR. TATE.
[2017-10-01] MEDS: PANTOPRAZOLE 40 MG INJ VIAL IVP SCH (08:09)
[2017-10-01] MEDS: LACTOBACILLUS RHAMNOSUS GG 1 EACH CAP PO SCH (08:10)
[2017-10-01] MEDS: SENNA 8.6 MG TAB PO SCH ×3 (08:10→16:21)
[2017-10-01] MEDS: AMIODARONE 200 MG TAB PO SCH ×2 (08:10→20:51)
[2017-10-01] MEDS: methylPREDNISolone SS 40 MG/ML VIAL IVP SCH (08:10)
[2017-10-01] MEDS: SPIRONOLACTONE 25 MG TAB PO SCH (08:11)
[2017-10-01] MEDS: LORazepam 50 MG in NACL 0.9% 25 ML IV PRN (08:21)
--- NOTE | 2017-10-01 08:27 | NUR ---
PT TOLERATED MEDICATIONS WELL. WILL CONTINUE TO MONITOR.
[2017-10-01] MEDS ORDERED: HEPARIN PER PHARMACY MC PRN (08:40)
--- NOTE | 2017-10-01 08:45 | NUR ---
LUKASZ, DAUGHTER OF THE PT CALLED AND WAS GIVEN AN UPDATED OF PT'S CONDITION.
--- NOTE | 2017-10-01 09:53 | NUR ---
DR. COBB IN TO SEE PT. WILL FOLLOW UP ON ORDERS.
[2017-10-01 09:58] LABS: BASOPHILS # (AUTO) 0.1 K/uL (0.00-0.22); BASOPHILS % (AUTO) 1.4 % (0.0-2.0); EOSINOPHILS # (AUTO) 0.4 K/uL (0-0.4); EOSINOPHILS % (AUTO) 4.4 % (0.0-4.0); HEMOGLOBIN 12.9 g/dL (12.0-18.0); LYMPHOCYTES # (AUTO) 0.8 K/uL (2.0-11.5); LYMPHOCYTES % (AUTO) 8.7 % (20.5-51.1); MEAN CORPUSCULAR HEMOGLOBIN 35 pg (27-31); MEAN CORPUSCULAR HGB CONC 33 g/dL (33-37); MEAN CORPUSCULAR VOLUME 107 fL (80-94); MONOCYTES # (AUTO) 1.1 K/uL (0.8-1.0); MONOCYTES % (AUTO) 12.1 % (1.7-9.3); NEUTROPHILS # (AUTO) 6.7 K/uL (1.8-7.7); NEUTROPHILS % (AUTO) 73.4 % (42.2-75.2); PLATELET COUNT (AUTO) 176 K/uL (140-450); RED BLOOD CELL COUNT(AUTO) 3.66 MIL/uL (4.20-6.10); RED CELL DISTRIBUTION WIDTH 15.3 % (11.6-13.7); WHITE BLOOD COUNT (AUTO) 9.1 K/uL (4.8-10.8)
[2017-10-01 10:00] LABS: ANION GAP 6.5 (8-16); CREATININE 0.9 mg/dL (0.7-1.3); POTASSIUM 3.5 mmol/L (3.5-5.1)
--- NOTE | 2017-10-01 10:03 | NUR ---
PER DR. BARRON, HOLD NGT FEEDING FROM NOW FOR PEG PLACEMENT THIS AFTERNOON. WILL FOLLOW UP ON ORDERS.
--- NOTE | 2017-10-01 10:08 | NUR ---
PER DR. FIGUEROA, HOLD FEEDING EXCEPT MEDICATIONS FOR PEG PLACEMENT THIS AFTERNOON.
--- NOTE | 2017-10-01 10:52 | NUR ---
DR. REYNOLDS IN TO SEE PT. WILL FOLLOW UP ON ORDERS Addendum: 10/01/17 at 1059 by Terry Gómez RN PER DR. REYNOLDS, START COUMADIN INSTEAD OF HEPARIN.
[2017-10-01] MEDS ORDERED: hePARIN / DEXT 5% PREMIX 250 ML IV SCH (11:00)
--- NOTE | 2017-10-01 11:00 | NUR ---
INFORMED DR. LEDBETTER ABOUT CALCIUM LEVEL 7.[address] REYNOLDS'S STATEMENT REGARDING COUMADIN ORDER.
--- NOTE | 2017-10-01 11:11 | NUR ---
VENT CHECK NO SX REQUIRED AT THIS TIME, PT RESTING COMFORTABLY ON PREVIOUS SETTING WITHOUT ANY DISTRESS NOTED AT THIS TIME.
--- NOTE | 2017-10-01 11:13 | NUR ---
PER DR. FIGUEROA, NO ORDER FOR LOW CALCIUM LEVEL AND WILL CONTINUE TO MONITOR AT THIS TIME.
--- NOTE | 2017-10-01 11:28 | NUR ---
WOUND CARE RE-EVAL. PENDING, PT HAS ON GOING BEDSIDE PROCEDURE, WILL REVISIT WHEN PT. CONDITION STABLE.
[2017-10-01] MEDS ORDERED: MIDAZOLAM 2 MG/2 ML VIAL ONE (11:44)
[2017-10-01] MEDS ORDERED: fentaNYL 0.05 MG/ML VIAL ONE (11:44)
--- NOTE | 2017-10-01 11:47 | NUR ---
DR. BARRON WITH EGD TEAM HERE FOR PEG PLACEMENT AT BEDSIDE.
[2017-10-01 12:18] LABS: PROTHROMBIN TIME 13.9 secs (10.8-13.4)
--- NOTE | 2017-10-01 12:20 | NUR ---
PER DR. BARRON, IT WAS UNSUCCESSFUL TO PUT PEG PLACEMENT AT THIS TIME AND RESUME PREVIOUS NGT FEEDING ORDER.
--- NOTE | 2017-10-01 12:25 | NUR ---
DR. MOTT IN TO SEE PT AND CHANGED FiO2 TO [address] MOTT, ONCE PT IS STABLE, CHANGE BACK TO 55% AND RT AWARE OF IT. WILL FOLLOW UP ON ORDERS.
--- NOTE | 2017-10-01 12:35 | NUR ---
INFORMED DR. LEDBETTER IF DR. FIGUEROA CAN CALL PT'S FAMILY MEMBER TO UPDATE OF UNSUCCESSFUL PEG PLACEMENT PER FAMILY REQUEST.
--- NOTE | 2017-10-01 13:00 | NUR ---
LUKASZ AND ZOEY(DAUGHTER OF THE PT) CALLED AND GAVE AN UPDATE OF PT'S CONDITION. PER DR. FIGUEROA, HE WILL CALL THEM TO GIVE AN UPDATE EITHER.
[2017-10-01] MEDS: HYDRAGUARD CREAM TP SCH (13:23)
[2017-10-01] MEDS: SKINTEGRITY HYDROGEL TP SCH (13:24)
[2017-10-01] MEDS ORDERED: fentaNYL 0.05 MG/ML VIAL IVP ONE (13:30)
[2017-10-01] MEDS ORDERED: MIDAZOLAM 2 MG/2 ML VIAL IVP ONE (13:30)
--- NOTE | 2017-10-01 13:49 | NUR ---
PT STABLE AND TOLERATES TUBE FEEDING WELL. FLACC 0 AND NO S/SX OF RESPIRATORY DISTRESS, CHANGED FiO2 TO 55% BY RT.
--- NOTE | 2017-10-01 16:16 | NUR ---
CONTINUE ON ATIVAN DRIP AND FENTANYL DRIP ORDERED PER PROTOCOL. PT STABLE AND RASS -3. SAME SETTING OF VENTILATOR AND NO S/SX OF ACUTE RESPIRATORY FAILURE.
--- NOTE | 2017-10-01 17:08 | NUR ---
PT RESTING COMFORTABLY WITHOUT DISTRESS NOTED AT THIS TIME.
--- NOTE | 2017-10-01 17:42 | NUR ---
ON NGT FEEDING ORDERED AND TOLERATING WELL. NOTED WITH NO RESIDUAL PRIOR TO FEEDING STARTED. WILL CONTINUE TO MONITOR.
[2017-10-01] MEDS ORDERED: WARFARIN 2.5 MG TAB PO SCH (18:07)
--- NOTE | 2017-10-01 19:06 | NUR ---
REPORT GIVEN AND ENDORSED CARE TO AZALIA ESCOBAR. PT LEON.
--- NOTE | 2017-10-01 19:20 | NUR ---
RECEIVED REPORT FROM AZALIA CHILDRESS. PT EYES CLOSED. LAYING COMFORTABLE IN BED. AFEBRILE. TRACH TO VENT. NO SOB NOTED. NO SIGNS OF DISTRESS. MOE PICC LINE WITH D5W 0.45 NS AT 10ML/HR. PICC LINE DRESSING LAST CHANGED 10/01/17. DRESSING DRY AND INTACT. ATIVAN RUNNING AT 2MLS/HR AND FENTANYL AT 8.5 MLS/HR. VS STABLE AT THIS TIME. AFIB ON MONITOR. NGT SECURED. PLACEMENT CONFIRMED. ACOSTA CATHETER IN PLACE. DRAINING VIA GRAVITY. URINE YELLOW AND CLEAR. NO ODOR NOTED. CALL LIGHT WITHIN REACH. SAFETY PRECAUTION IN PLACE. WILL CONTINUE TO MONITOR PT.
--- NOTE | 2017-10-01 20:25 | NUR ---
RECEIVED PT ON VENT, PIP 20[AZALIA ESCOBAR CALL ME TO ASK , WHY IS PIP 20}, AND I NEVER SAW NO NOTES FOR CHANGE, AND IN THE MORNING REPORT THE ABG TO AM STUFF AND REPORTED TO THE RESIDENT FOR DECREASED THE PIP TO 16 FROM 18 ,DUE TO PCO2 LOW OF 38.6, PH 7.51, AND, AT 1930 PM , PT WAS IN [address] SYKES FOR VERIFIED AND WE CHANGED THE PIP TO 16, PEEP 8, DUE TO VT HIGH OVER 900. PT IS STABLE AT THIS TIME.
--- NOTE | 2017-10-01 21:06 | NUR ---
SCHEDULED MEDICATION ADMINISTERED. PT TOLERATED WELL. NGT CONNECTED TO FEEDING 150ML AND TO RUN FOR ONE HOUR. HOB KEPT AT 30 DEGREES. NO SIGNS OF DISTRESS NOTED. SAFETY PRECAUTIONS IN PLACE. WILL CONTINUE TO MONITOR.
--- NOTE | 2017-10-01 22:03 | NUR ---
A-FIB ON MONITOR. PT REPOSITIONED. FEET ELEVATED. VITAL SIGNS STABLE AT THIS TIME. HOB ELEVATED AT 30 DEGREES. SAFETY PRECAUTIONS IN PLACE. CALL LIGHT WITHIN REACH. NO SIGNS OF DISTRESS NOTED. WILL CONTINUE TO MONITOR PT.
[2017-10-01] MEDS: MORPHINE SULFATE 4 MG/ML SYR IVP PRN (22:40)
--- NOTE | 2017-10-01 22:45 | NUR ---
DR. SIU AT BEDSIDE. INFORMED REGARDING FLUCTUATING HEART RATE. PER DR. SIU, PT HAD AN EPISODE LIKE THIS BEFORE. WILL CONTINUE TO MONITOR PT. ALL SAFETY PRECAUTIONS IN PLACE.
[2017-10-02] VITALS (46 sets, daily range): BP systolic 61–129; BP diastolic 44–77
[2017-10-02] MEDS: BLOOD GLUCOSE MONITORING 1 DEV DEV FS SCH ×4 (00:03→17:22)
--- NOTE | 2017-10-02 00:05 | NUR ---
PT TURNED AND REPOSITIONED. TOLERATED WELL. NGT SECURED. ACOSTA CATHETER DRAINING WELL. NO CHANGE IN ATIVAN AND FENTANYL DRIP RATE. RASS -3. AFIB ON MONITOR AT THIS TIME. WILL CONTINUE TO MONITOR FOR LOW BLOOD PRESSURE. ALL SAFETY PRECAUTION IN PLACE.
--- NOTE | 2017-10-02 01:00 | NUR ---
PT NGT CONNECTED TO FEEDING. FEEDING 150ML TO RUN FOR ONE HOUR. PT TOLERATING WELL. ALL SAFETY PRECAUTIONS IN PLACE.
[2017-10-02] MEDS: ALBUTEROL SULFATE/IPRATROPIU 3 ML SOL IH SCH ×4 (01:22→18:55)
--- NOTE | 2017-10-02 02:10 | NUR ---
PT IN BED. EYES CLOSED AND APPEARS TO BE COMFORTABLE. NO GRIMACING OR GUARDING NOTED. PT GIVEN SPONGE BATH AND LINENS CHANGED. PT TURNED AND REPOSITIONED. DRESSING ON LEFT ARM CHANGED. TOLERATED BEING TURNED WELL. FEET ELEVATED. HOB KEPT AT 30 DEGREES. SAFETY PRECAUTIONS IN PLACE. WILL CONTINUE TO MONITOR PT.
--- NOTE | 2017-10-02 03:34 | NUR ---
NO CHANGE IN CONDITION AT THIS TIME. PT EYES CLOSED. DOES NOT APPEAR TO BE IN ANY PAIN. FLACC 0. NO GRIMACING NOTED. NO SIGNS OF DISTRESS. CALL LIGHT WITHIN REACH. SAFETY PRECAUTION IN PLACE. WILL CONTINUE TO MONITOR.
--- NOTE | 2017-10-02 04:00 | NUR ---
FENTANYL DRIP DECREASED. NO SIGNS OF DISTRESS NOTED. CALL LIGHT WITHIN REACH. ALL SAFETY PRECAUTIONS IN PLACE. WILL CONTINUE TO MONITOR.
--- NOTE | 2017-10-02 04:34 | NUR ---
phone call to dr Plummer; updated on pts present condition.low bp since morphine was given last night.81/50 at tis time.MAP 63.no new orders, will continue to closely monitor pt.
[2017-10-02 05:04] LABS: HEMATOCRIT 38.9 % (36-52); HEMOGLOBIN 12.9 g/dL (12.0-18.0); MEAN CORPUSCULAR HEMOGLOBIN 36 pg (27-31); MEAN CORPUSCULAR HGB CONC 33 g/dL (33-37); MEAN CORPUSCULAR VOLUME 107 fL (80-94); PLATELET COUNT (AUTO) 168 K/uL (140-450); RED BLOOD CELL COUNT(AUTO) 3.63 MIL/uL (4.20-6.10); RED CELL DISTRIBUTION WIDTH 15.3 % (11.6-13.7); WHITE BLOOD COUNT (AUTO) 12.6 K/uL (4.8-10.8)
--- NOTE | 2017-10-02 05:05 | NUR ---
PT NGT CONNECTED TO FEEDING OF 150ML AND TO RUN FOR ONE HOUR. TOLERATING FEEDING WELL. HOB ELEVATED AT 30 DEGREES. NO SOB NOTED. VS STABLE AT THIS TIME. CALL LIGHT WITHIN REACH. SAFETY PRECAUTION IN PLACE. WILL CONTINUE TO MONITOR PT.
[2017-10-02 05:18] LABS: ANION GAP 9.8 (8-16); CARBON DIOXIDE 30.9 mmol/L (21-32); CREATININE 0.8 mg/dL (0.7-1.3); POTASSIUM 3.7 mmol/L (3.5-5.1)
[2017-10-02 05:20] LABS: EOSINOPHILS % (MANUAL) 5 % (0-4); LYMPHOCYTES % (MANUAL) 12 % (20-46); MONOCYTES % (MANUAL) 8 % (5-12)
[2017-10-02 05:21] LABS: MAGNESIUM 2.3 mg/dL (1.8-2.4); PHOSPHORUS 4.1 mg/dL (2.5-4.9)
[2017-10-02 05:23] LABS: PROTHROMBIN TIME 12.4 secs (10.8-13.4)
--- NOTE | 2017-10-02 05:45 | NUR ---
VENT CK DONE, NO CHANGED VENT SETTING DURING THE NIGHT. BLOOD PRESSURE LOW UNDER 90/50, CHANGED DRESING, HME AND OSULLIVAN, NO RESP DISTRESS NOTED
--- NOTE | 2017-10-02 05:50 | NUR ---
DR. FIGUEROA AT BEDSIDE TO SEE PT. WILL FOLLOW UP WITH NEW ORDERS.
[2017-10-02] MEDS: FUROSEMIDE 20 MG/2 ML VIAL IVP SCH ×3 (06:00→17:25)
--- NOTE | 2017-10-02 06:10 | NUR ---
phone call made to dr pa, made aware that lasix not given; pt has low bp.no new orders
[2017-10-02] MEDS: LEVOTHYROXINE 0.075 MG TAB PO SCH (06:16)
[2017-10-02] MEDS: MIDODRINE 5 MG TAB PO SCH ×3 (06:17→17:25)
[2017-10-02] MEDS: METOCLOPRAMIDE 10 MG/2 ML INJ VIAL IVP SCH ×3 (06:36→16:31)
--- NOTE | 2017-10-02 07:08 | NUR ---
REPORT GIVEN TO AZALIA CHILDRESS FOR CONTINUITY OF CARE. VITAL SIGNS STABLE AT THIS TIME. NO SIGNS OF DISTRESS NOTED ON PT.
--- NOTE | 2017-10-02 07:10 | NUR ---
RECEIVED A REPORT FROM AZALIA THOMPSON. PT CLOSED EYES AND SEDATED WITH ATIVAN DRIP. UNABLE TO FOLLOW UP COMMANDS AND RASS -3 AT THIS TIME. FLACC 0 WITH FENTANYL DRIP. TRACH TO VENT AND SETTING AT AC/PC FiO2 55%, PEEP 8. NO S/SX OF ACUTE RESPIRATORY DISTRESS. A-FIB ON THE MONITOR. NGT IN PLACE AND ACOSTA CATHETER DRAINING CLEAR YELLOW URINE. GENERALIZED BODY EDEMATOUS AND SKIN WARM TO TOUCH. PICC LINE [id number] TO RT UPPER ARM, PATENT AND INTACT. WILL CONTINUE TO MONITOR. SAFETY PRECAUTION, BED IN LOW POSITION, CALL LIGHT WITHIN REACH.
[2017-10-02] MEDS: fentaNYL 1 MG in NACL 0.9% 80 ML IV PRN ×2 (07:14→18:42)
--- NOTE | 2017-10-02 07:15 | NUR ---
RECEIVED PT STABLE ON VENT SUPPORT AT DOCUMENTED SETTINGS, SXN'D SMALL THIN CLEAR WHITE BLOOD TINGED SECRETIONS, HHN TX GIVEN, TOLERATED WELL, NO RESP DISTRESS OR SOB NOTED, SHILEY 8 XLT TRACH SECURED/MIDLINE/PATENT, ALARMS SET AND AUDIBLE, VENT PLUGGED INTO RED OUTLET, AMBU BAG AT BEDSIDE, WILL CONTINUE TO MONITOR.
[2017-10-02] MEDS: DEXT 5% / NACL 0.45% 1,000 ML IV SCH (07:30)
--- NOTE | 2017-10-02 07:50 | NUR ---
RESIDENT GROUP IN TO SEE PT AND AWARE OF LOW SBP 70-80's. PER DR. TATE, RESUME METOPROLOL AND ALDACTONE SCHEDULED IN THE MORNING LONG MAP IS ABOVE 60. WILL FOLLOW UP ON ORDERS.
[2017-10-02] MEDS ORDERED: HEPARIN PER PHARMACY MC PRN (08:05)
[2017-10-02] MEDS: AMIODARONE 200 MG TAB PO SCH ×2 (08:14→20:21)
[2017-10-02] MEDS: SPIRONOLACTONE 50 MG TAB PO SCH (08:14)
[2017-10-02] MEDS: methylPREDNISolone SS 40 MG/ML VIAL IVP SCH (08:14)
[2017-10-02] MEDS: SENNA 8.6 MG TAB PO SCH ×3 (08:14→16:31)
[2017-10-02] MEDS: METOPROLOL 25 MG TAB PO SCH ×3 (08:15→16:31)
[2017-10-02] MEDS: PANTOPRAZOLE 40 MG INJ VIAL IVP SCH (08:15)
[2017-10-02] MEDS: LACTOBACILLUS RHAMNOSUS GG 1 EACH CAP PO SCH (08:16)
--- NOTE | 2017-10-02 08:38 | NUR ---
PT TOLERATED MEDICATIONS WELL. WILL CONTINUE TO MONITOR
[2017-10-02] MEDS ORDERED: POTASSIUM CHLORIDE 20% 40 MEQ/15 ML UDC GT SCH (09:00)
--- NOTE | 2017-10-02 09:10 | NUR ---
RECEIVED AN ORDER FOR DC ATIVAN DRIP AND CHANGED TO ATIVAN IVP PRN. STARTED TITRATING ATIVAN DOSE BY 0.5MG/HR. APPLIED BILATERAL MITTENS FOR SAFETY PRECAUTION AT THIS TIME AND WILL CONTINUE TO MONITOR CLOSELY.
--- NOTE | 2017-10-02 09:47 | NUR ---
DR. COBB IN TO SEE PT. WILL FOLLOW UP ON ORDERS
--- NOTE | 2017-10-02 10:40 | NUR ---
COMPLETED ATIVAN DRIP ORDERED AT THIS TIME. PT STABLE AND CALM. NONVERBAL, UNABLE TO FOLLOW COMMANDS. NO S/SX OF RESPIRATORY DISTRESS NOTED. WILL CONTINUE TO MONITOR.
--- NOTE | 2017-10-02 11:05 | NUR ---
PT IS AWAKE AND ABLE TO FOLLOW SIMPLE COMMANDS. CALM AND DENIES ANY PAIN AT THIS TIME. WILL CONTINUE TO MONITOR
--- NOTE | 2017-10-02 12:00 | NUR ---
PT'S DAUGHTER, LUKASZ CALLED AND GIVEN AN UPDATE OF PT'S CONDITION.
[2017-10-02] MEDS: SKINTEGRITY HYDROGEL TP SCH (12:21)
[2017-10-02] MEDS: HYDRAGUARD CREAM TP SCH (12:21)
--- NOTE | 2017-10-02 12:37 | NUR ---
PT TOLERATED MEDICATIONS WELL. WILL CONTINUE TO MONITOR.
--- NOTE | 2017-10-02 13:07 | NUR ---
PT'S DAUGHTER, ZOEY CALLED AND GIVEN AN UPDATED OF PT'S CONDITION.
--- NOTE | 2017-10-02 13:51 | NUR ---
DR. MOTT IN TO SEE PT AND DECREASED FENTANYL TO 70MCG/HR AND FiO2 [address] MOTT[address] WILL CONTINUE TO MONITOR.
--- NOTE | 2017-10-02 13:54 | NUR ---
DR MOTT AT BEDSIDE, TITRATED FIO2 TO 45%, IF TOLERATING WELL TITRATE PEEP TO PEEP OF [address] MOTT, WILL CONTINUE TO MONITOR
--- NOTE | 2017-10-02 15:05 | NUR ---
DR. REYNOLDS IN TO SEE PT. WILL FOLLOW UP ON ORDERS. PT STABLE AND CALM. FLACC O
--- NOTE | 2017-10-02 15:45 | NUR ---
DR. FIGUEROA IN TO SEE PT. WILL FOLLOW UP ON ORDERS. NO CHANGE OF CONDITION AT THIS TIME.
--- NOTE | 2017-10-02 16:00 | NUR ---
PT'S DAUGHTER, LUKASZ CALLED AND GIVEN AN UPDATE OF PT'S CONDITION.
--- NOTE | 2017-10-02 16:55 | NUR ---
PT TOLERATED MEDICATIONS WELL. CONTINUE ON FENTANYL DRIP AND FLACC 0. CALM AND UNABLE TO FOLLOW COMMANDS AT THIS TIME. RESUME SAME SETTING OF VENTILATOR AND NO S/SX OF ACUTE RESPIRATORY DISTRESS NOTED. WILL CONTINUE TO MONITOR.
[2017-10-02] MEDS ORDERED: WARFARIN 2.5 MG TAB PO SCH (17:00)
[2017-10-02] MEDS: INSULIN LISPRO SLIDING SCALE 100 UNITS/ML VIAL SUBQ PRN (17:26)
--- NOTE | 2017-10-02 18:12 | NUR ---
DECREASED FENTANYL DRIP TO 60MCG/HR AND FLACC 0. PT CALM AND STABLE. UNABLE TO FOLLOW COMMANDS AT THIS TIME. WILL CONTINUE TO MONITOR.
--- NOTE | 2017-10-02 19:08 | NUR ---
REPORT GIVEN AND ENDORSED CARE TO AZALIA MOORE. PT STABLE.
--- NOTE | 2017-10-02 19:10 | NUR ---
RECEIVED REPORT FROM MONROE RN AT BEDSIDE, PT IS SEDATED, RASS -3, TRACH TO VENT WITH FIO2 45, RR 14, PEEP 8, WHEEZING LUNG SOUNDS, NGT PLACED ON LEFT NARES, POSITIVE PLACEMENT WITH 0ML RESIDUES NOTED, FEEDING WITH NUTREN PULMONARY AT 150ML Q4HR AT THIS TIME ORDERED. A. FIB ON LEVELER HELPER. LARGE SOFT ROUND ABDOMEN WITH ACTIVE BOWEL SOUNDS, ACOSTA CATHETER IN PLACE WITH YELLOW COLORED URINE NOTED, GENERALIZED +2 PITTING EDEMA NOTED AND SCROTAL EDEMA NOTED, BEDBOUND. PICC LINE TO RIGHT UPPER ARM WITH DOUBLE LUMEN WITH GOOD BLOOD RETURN, RUNNING D51/2NS AT 10ML/HR, FENTANYL AT 60MCG/MIN. SKIN IS WARM AND WEEPING ON CELESTINA. FOREARM, SKIN TEAR NOTED TO BACK AND CELESTINA. FOREARM, CELLULITIS TO BLE WITH SCAB. VSS, FLACC 0. SAFETY MEASURE IN PLACE, HOB ELEVATED TO 30 DEGREES, WILL CONTINUE TO MONITOR.
--- NOTE | 2017-10-02 20:00 | NUR ---
PT IS COUGHING, SUCTION PROVIDED, WHITE CREAMY MUCOUS NOTED. ORAL CARE PROVIDED, POSITION CHANGED FOR OFF LOAD PRESSURE.
[2017-10-02] MEDS: LACTULOSE 20 GM/30 ML UDC PO SCH (20:21)
[2017-10-02] MEDS: POTASSIUM CHLORIDE 20% 40 MEQ/15 ML UDC GT SCH (20:21)
--- NOTE | 2017-10-02 22:00 | NUR ---
PT IS AWAKE AND COUGHING, SUCTION PROVIDED, POSITION CHANGED FOR OFF LOAD PRESSURE.
[2017-10-02] MEDS: MORPHINE SULFATE 4 MG/ML SYR IVP PRN (22:32)
--- NOTE | 2017-10-02 22:40 | NUR ---
PT IS AWAKE, COUGHING, WAVE ARMS, SUCTION PROVIDED, ASKED PT IF HE IS IN PAIN, PT KNOCKED HEAD YES, MORPHINE GIVEN. VSS. WILL CONTINUE TO MONITOR.
[2017-10-03] VITALS (29 sets, daily range): BP systolic 73–138; BP diastolic 42–91
--- NOTE | 2017-10-03 | NUR ---
VSS, NO CHANGE OF CONDITION AT THIS TIME, POSITION CHANGED FOR OFF LOAD PRESSURE, ORAL CARE PROVIDED.
[2017-10-03] MEDS: ALBUTEROL SULFATE/IPRATROPIU 3 ML SOL IH SCH ×4 (01:01→19:48)
[2017-10-03] MEDS: FUROSEMIDE 20 MG/2 ML VIAL IVP SCH ×5 (01:11→23:48)
--- NOTE | 2017-10-03 02:00 | NUR ---
NO CHANGE OF CONDITION AT THIS TIME, POSITION CHANGED FOR OFF LOAD PRESSURE.
--- NOTE | 2017-10-03 04:00 | NUR ---
AM CARE PROVIDED, ORAL CARE PROVIDED, ACOSTA CARE PROVIDED, POSITION CHANGED FOR OFF LOAD PRESSURE. VSS.
[2017-10-03] MEDS: MORPHINE SULFATE 4 MG/ML SYR IVP PRN ×2 (05:11→19:51)
--- NOTE | 2017-10-03 05:11 | NUR ---
PT IS AWAKE, RESTLESSNESS, AGITATED, ELEVATED HR, MORPHINE GIVEN, WILL CONTINUE TO MONITOR.
--- NOTE | 2017-10-03 06:00 | NUR ---
PT IS STILL RESTLESSNESS, ATIVAN GIVEN, DR. FIGUEROA MADE AWARE. VSS, POSITION CHANGED FOR OFF LOAD PRESSURE.
[2017-10-03] MEDS: LEVOTHYROXINE 0.075 MG TAB PO SCH (06:03)
[2017-10-03] MEDS: BLOOD GLUCOSE MONITORING 1 DEV DEV FS SCH ×5 (06:04→23:47)
[2017-10-03] MEDS: METOCLOPRAMIDE 10 MG/2 ML INJ VIAL IVP SCH ×3 (06:34→16:14)
[2017-10-03] MEDS: MIDODRINE 5 MG TAB PO SCH ×3 (06:34→18:28)
[2017-10-03] MEDS: LORazepam 2 MG/ML VIAL IVP PRN ×4 (06:39→21:33)
--- NOTE | 2017-10-03 06:59 | NUR ---
RECEIVED TRACH PT ON VENT EQUIPPED WITH SHILEY 8 XLT. VENT SETTINGS PC Pinsp 16, R 14, PEEP 5, 1.1 Tinsp AND FIO2 45%. PT SUCTIONED OBTAINED SCANT AMOUNT OF THIN CLEAR SECRETIONS. AIRWAY IS PATENT AND TRACH IS SECURE WITH SUTURES. PT IS NOT SOB AND NOT IN RESPIRATORY DISTRESS AT THIS TIME. VENT ALARMS ARE ON AND FUNCTIONING. VENT IS PLUGGED INTO RED OUTLET. WILL CONTINUE TO MONITOR.
--- NOTE | 2017-10-03 07:27 | NUR ---
RECEIVED REPORT FROM NIGHT NURSE. PT IS TRACH TO VENT: AC/PC 16, FIO2 45%, RR 14, PEEP 8. CLEAR LUNG SOUNDS AUSCULTATED BILATERALLY. A. FIB ON MONITOR. NGT PLACED ON LEFT NARES, POSITIVE PLACEMENT WITH LESS THAN 5 ML RESIDUALS NOTED. ON TUBE FEEDING ORDERED. PICC LINE TO RIGHT UPPER ARM PATENT AND INTACT, RUNNING ORDERED IV FLUID AND FENTANYL AT 60 MCG/ HR. ABDOMEN SOFT, ROUND, NONTENDER, WITH ACTIVE BOWEL SOUNDS. ACOSTA CATH IN PLACE, DRAINING URINE TO GRAVITY DRAINAGE BAG. BLE/ BUE EDEMA 2+ AND SCROTAL EDEMA NOTED. FLACC 0, RASS -3. VS STABLE. HOB 30 DEGREES AND BED IN LOW POSITION, CALL LIGHT WITHIN REACH. WILL CONTINUE TO MONITOR. Addendum: 10/03/17 at 1046 by Isabella Tena RN NGT TO RIGHT NARES
--- NOTE | 2017-10-03 07:29 | NUR ---
REPORT GIVEN TO AZALIA ALVARADO AT BEDSIDE FOR CONTINUE OF CARE, PT IS IN STABLE CONDITION AT THIS TIME, VSS.
--- NOTE | 2017-10-03 08:05 | NUR ---
DR. SCHROEDER AND RESIDENT GROUP IN TO SEE PT. WILL FOLLOW UP ON ORDERS.
[2017-10-03] MEDS: PANTOPRAZOLE 40 MG INJ VIAL IVP SCH (08:31)
[2017-10-03] MEDS: LACTULOSE 20 GM/30 ML UDC PO SCH ×2 (08:31→21:17)
[2017-10-03] MEDS: POTASSIUM CHLORIDE 20% 40 MEQ/15 ML UDC GT SCH ×2 (08:31→21:17)
[2017-10-03] MEDS: SPIRONOLACTONE 50 MG TAB PO SCH (08:32)
[2017-10-03] MEDS: LACTOBACILLUS RHAMNOSUS GG 1 EACH CAP PO SCH (08:32)
[2017-10-03] MEDS: METOPROLOL 25 MG TAB PO SCH ×2 (08:33→21:17)
[2017-10-03] MEDS: SENNA 8.6 MG TAB PO SCH ×3 (08:33→16:14)
--- NOTE | 2017-10-03 09:25 | NUR ---
ADMINISTERED MEDS ORDERED. PT TOLERATED WELL. WILL CONTINUE TO MONITOR.
--- NOTE | 2017-10-03 09:30 | NUR ---
DR. COBB IN TO SEE PT. WILL FOLLOW UP ON ORDERS.
--- NOTE | 2017-10-03 10:00 | NUR ---
WOUND CARE RE-EVALUATION NOTES: REASON FOR EVALUATION: MULTIPLE WOUNDS PT. WAS SEEN THIS AM WITH COMPLETE SKIN ASSESSMENT DONE ON THIS 62 Y/O MALE PATIENT TO [facility], WITH INITIAL DIAGNOSIS OF SOB. PAST MEDICAL HISTORY INCLUDE ASTHMA, DIABETES, HYPERTENSION AND MORBIDLY OBESITY. ALL ABOVE INFORMATION WAS OBTAINED FROM THE ADMISSION H&P. LABS ARE WBC 12.6, H/H 12.9/38.9, GLUCOSE 104, ALBUMIN 2.3 RT/INR 11.0/1.1. CURRENT MEDS INCLUDE AMIODARONE, WARFARIN AND FUROSEMIDE. TF WITH FWF ORDERED, PATIENT IS SEDATED. SKIN WARM TO TOUCH, THICKENED TOENAILS, +3EDEMA, NO HAIR GROWTH AND BILATERAL PEDAL PULSES PRESENT. RIGHT UPPER ARM PICC LINE PATENT AND INTACT. PLAN OF CARE DISCUSSED WITH PRIMARY RN. INTEGUMENTARY: TRACH. STOMA SITE MOIST AND CLEAN UPPER EXTREMITIES SKIN IS THIN, FRAGILE WITH MULTIPLE OLD SKIN TEARS, LARGEST MEASURES 1X3CM ON RIGHT UPPER ARM AND LEFT ELBOW OLD SKIN TEAR HEALED RIGHT FOREARM OPEN WOUND CELLULITIS LIKE 3X4CM, 100% GRANULATING TISSUE, PERIWOUND PINK, SMALL AMOUNT SANGUINOUS DRAINAGE SCROTAL EDEMA LOWER EXTREMITIES SKIN IS WARM AND FLAKY DRY WITH REDNESS AND +3 EDEMA BILATERAL HEELS BLANCHABLE REDNESS RECOMMENDATIONS: -CLEANSE MULTIPLE DRY SKIN TEARS TO BUE AND KNEES WITH NS. PAT DRY, APPLY ADAPTIC DRESSING AND COVER WITH DRY DRESSING AND KERLIX CHANGE QD AND PRN IF SOILING -CLEANSE RIGHT FOREARM ARM CELLULITIS LIKE OPEN WOUND WITH NS. 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 RECOMMENDATIONS DISCUSSED WITH PRIMARY RN WILL FOLLOW UP PATIENT Q 7 -10 DAYS AND PRN. PLEASE CONTACT WOUND CARE NURSE FOR ANY CONCERNS AND CHANGES IN WOUND CONDITION Addendum: 10/03/17 at 1115 by Teodoro Almonte RN (Grace) POSTERIOR SKIN ASSESSMENT NOT DONE AT THIS TIME, PER PRIMARY RN AND CHARGE NURSES , NO NEW SKIN PROBLEMS, AND OLD SKIN TEARS HEALING IN PROGRESS. Addendum: 10/03/17 at 1146 by Teodoro Almonte RN (Grace) POSTERIOR SKIN ASSESSMENT DONE, NO REDNESS, NO NEW SKIN TEARS, UPPER BACK ST HEALED, MILD BACK OLD ST DRY, NO S/S OF INFECTION. SACRALCOCCYX BLANCHABLE REDNESS. ALL AREAS OPTIFORM IN PLACE CDI PREVENTIVE MEASUREMENT.
--- NOTE | 2017-10-03 10:00 | NUR ---
PT'S DAUGHTER, LUKASZ, CALLED AND WAS UPDATED ON PT.
--- NOTE | 2017-10-03 10:05 | NUR ---
RECEIVED A CALL FROM DAUGHTER, ZOEY. GAVE UPDATE ON PT.
--- NOTE | 2017-10-03 10:45 | NUR ---
NGT TO RIGHT CEBALLOS Addendum: 10/03/17 at 1047 by Isabella Tena RN NO RESIDUALS NOTED.
--- NOTE | 2017-10-03 12:20 | NUR ---
DR. FIGUEROA MADE AWARE OF PT'S BP 74/56 (MAP 62). PER DR. FIGUEROA, HOLD THE LASIX FOR 12:00.
[2017-10-03] MEDS: HYDRAGUARD CREAM TP SCH (12:36)
[2017-10-03] MEDS: SKINTEGRITY HYDROGEL TP SCH (12:36)
[2017-10-03] MEDS: DEXT 5% / NACL 0.45% 1,000 ML IV SCH ×2 (12:40→16:14)
--- NOTE | 2017-10-03 13:09 | NUR ---
10/03/17 RD FOLLOW UP COMPLETED PLEASE REFER TO NUTRITION PROGRESS NOTE UNDER CARE ACTIVITY FOR ESTIMATED NUTRITION NEEDS. 1. CONTINUE CURRENT NUTRITION SUPPORT REGIMEN OF NUTREN PULMONARY AT 150 ML Q4H VIA NGTUBE PER MD ORDERS. -- NOTE THIS ONLY PROVIDES 74% OF ESTIMATED KCAL NEEDS AND 45% OF ESTIMATED PROTEIN NEEDS 2. CONSIDER NUTRITION SUPPORT TO NUTREN PULMONARY AT 60 ML/HR WITH PROSOURCE TID WHEN APPROPRIATE TO ADVANCE TUBE FEEDINGS. --THIS WILL PROVIDE 100% OF PT ESTIMATED KCAL AND PROTEIN NEEDS 3. RD TO FOLLOW-UP 2-3 DAYS, HIGH RISK APUL MARR RD
--- NOTE | 2017-10-03 13:10 | NUR ---
DR. FIGUEROA IN ICU, MADE AWARE OF LOW BP 79/47 (MAP 59). ICU DIRECTOR CLARIFIED ORDER FOR LOPRESSOR PARAMETERS WITH DR. FIGUEROA. PER DR. FIGUEROA, TO HOLD LOPRESSOR IF MAP LESS THAN 60 AND/OR HR LESS THAN 60. NEW ORDER NOTED.
--- NOTE | 2017-10-03 13:43 | NUR ---
VENT CHECK COMPLETED. PT REMAINS ON DOCUMENTED SETTINGS. PT SUCTIONED OBTAINED SMALL AMOUNT OF THICK SECRETIONS. AIRWAY IS PATENT TRACH REMAINS SECURE WITH SUTURES. SMALL BLOOD TINGED DRAINAGE FROM AROUND STOMA CLEANED.
[2017-10-03] MEDS ORDERED: HYDROcodone/APAP 7.5/325 MG 1 TAB PO PRN (14:10)
[2017-10-03] MEDS ORDERED: MORPHINE SULFATE 4 MG/ML SYR IVP PRN (14:10)
--- NOTE | 2017-10-03 14:30 | NUR ---
FENTANYL TITRATED DOWN AND DISCONTINUED PER ORDER. WILL CONTINUE TO MONITOR.
--- NOTE | 2017-10-03 14:35 | NUR ---
DR. BARRON IN TO SEE PT. WILL FOLLOW UP ON ORDERS.
--- NOTE | 2017-10-03 15:10 | NUR ---
DR. MOTT IN TO SEE PT. WILL FOLLOW UP WITH NEW ORDERS.
--- NOTE | 2017-10-03 15:42 | NUR ---
FIO2 DECREASED TO 40%. STOMA SITE CLEANED, SWELLING AND REDNESS PRESENT. WILL CONTINUE TO MONITOR PT.
--- NOTE | 2017-10-03 15:50 | NUR ---
PT IS AWAKE AND ABLE TO FOLLOW SIMPLE COMMANDS. CALM AND DENIES PAIN AT THIS TIME. WILL CONTINUE TO CLOSELY MONITOR.
--- NOTE | 2017-10-03 17:02 | NUR ---
NO CHANGE OF CONDITION AT THIS TIME. VS STABLE. NO SIGNS OF ACUTE DISTRESS NOTED AT THIS TIME. SAFETY MEASURES ENSURE. WILL CONTINUE TO MONITOR.
--- NOTE | 2017-10-03 17:49 | NUR ---
VENT CHECK COMPLETED. PT REMAINS ON DOCUMENTED SETTINGS NO CHANGES MADE AT THIS TIME. PT IS AWAKE AND NOT IN RESPIRATORY DISTRESS. VENT ALARMS REMAIN ON AND FUNCTIONING. TRACH REMAIN SECURE WITH SUTURES. AREA AROUND STOMA CLEANED AND NEW DRESSING PLACED AROUND TRACH.
--- NOTE | 2017-10-03 18:00 | NUR ---
PT'S DAUGHTER, LUKASZ CALLED AND WAS UPDATED ON PT.
[2017-10-03] MEDS ORDERED: HALOPERIDOL IM 5 MG/ML VIAL IM SCH (19:15)
--- NOTE | 2017-10-03 19:27 | NUR ---
REPORT GIVEN TO NIGHT NURSE. PT IS AWAKE AND MOVES BOTH ARMS. NO S/SX OF ACUTE DISTRESS AT THIS TIME.
--- NOTE | 2017-10-03 19:30 | NUR ---
RECEIVED REPORT FROM AZALIA JARAMILLO AT BEDSIDE, PT IS AWAKE, NON-VERBAL, NOT ABLE TO FOLLOW COMMANDS, TRACH TO VENT WITH FIO2 40, RR 14, PEEP 5, CLEAR LUNG SOUNDS, NGT PLACED ON RIGHT NARES, POSITIVE PLACEMENT WITH 0ML RESIDUES NOTED, FEEDING WITH NUTREN PULMONARY AT 150ML Q4HR ORDERED. A. FIB ON SEWER HEAD. LARGE SOFT ROUND ABDOMEN WITH ACTIVE BOWEL SOUNDS, ACOSTA CATHETER IN PLACE WITH CLEAR YELLOW URINE NOTED, GENERALIZED +1 PITTING EDEMA NOTED AND SCROTAL EDEMA NOTED, BEDBOUND. PICC LINE TO RIGHT UPPER ARM WITH DOUBLE LUMEN WITH GOOD BLOOD RETURN, RUNNING D51/2NS AT 10ML/HR. SKIN IS WARM AND DRY TO TOUCH. SKIN TEAR NOTED TO BACK AND CELESTINA. FOREARM, CELLULITIS TO BLE WITH SCAB. VSS, FLACC 7. SAFETY MEASURE IN PLACE, HOB ELEVATED TO 30 DEGREES, WILL CONTINUE TO MONITOR.
--- NOTE | 2017-10-03 19:48 | NUR ---
RECEIVED ON A [employer] R860 VENTILATOR PLUGGED INTO RED OUTLET TOLERATING WELL WITHOUT ADVERSE REACTIONS NOTED TO A FLOLEY XLT #8 AIRWAY SECURED WITH A SUKUMAR TRACH TIE CUFF PRESSURE CHECKED AMBU BAG NOTED AT HOB LOC AWAKE SLIGHTLY AGITATED RN AWARE BREATH SOUNDS DIMINISHED BILATERAL WITH GOOD CHEST RISE AIRWAY PATENT
--- NOTE | 2017-10-03 19:50 | NUR ---
PT IS WAVING ARMS, TRYING TO SITTING UP, KICKING LEGS, NON-VERBAL, NOT FOLLOW COMMANDS, VSS, MORPHINE GIVEN, WILL CONTINUE TO MONITOR. PT REFUSED ORAL CARE AT THIS TIME.
--- NOTE | 2017-10-03 21:17 | NUR ---
AWAKE NO DISTRESS NOTED BREATH SOUNDS INSP CLEAR RIGHT SIDE TO DIMINISHED INSP/EXP LEFT SIDE CUFF PRESSURE CHECKED VIA MICK CUFFLATOR
--- NOTE | 2017-10-03 21:30 | NUR ---
PT IS AWAKE, KICKING, WAVING ARMS, VSS, ATIVAN GIVEN.
--- NOTE | 2017-10-03 22:30 | NUR ---
PT'S DAUGHTER, LUKASZ CALLED TO ASK PT'S CONDITION, INFORMATION GIVEN. ALSO SHE WOULD LIKE TO TALK TO THE DOCTOR, DR. SIU MADE AWARE, SHE SAID SHE WOULD CALL THE DAUGHTER.
--- NOTE | 2017-10-03 23:24 | NUR ---
ASLEEP RESTING COMFORTABLY NO EVIDENCE OF PULMONARY DISTRESS NOTED GOOD CHEST RISE DEEP TRACHEAL SUCTION FOR SMALL THIN BLOOD TINGE SECRETIONS SUCTIONED SMALL SEMI THICK BLOOD TINGE SECRETIONS FROM STOMA SITE SUTURES REMAIN INTACT AT TRACHEOSTOMY SITE
[2017-10-04] VITALS (24 sets, daily range): BP systolic 74–126; BP diastolic 52–99
[2017-10-04] MEDS: ALBUTEROL SULFATE/IPRATROPIU 3 ML SOL IH SCH ×4 (01:09→19:14)
--- NOTE | 2017-10-04 01:10 | NUR ---
NO SOB NOTED TOLERATING VENTILATORY SUPPORT WELL WITHOUT INCIDENT GOOD CHEST RISE
--- NOTE | 2017-10-04 02:00 | NUR ---
PT HAD A LARGE SOFT STOOL, KATELYN CARE PROVIDED, AM CARE PROVIDED, ACOSTA CATHETER CARE PROVIDED, PT TOLERATED WELL, VSS.
--- NOTE | 2017-10-04 03:01 | NUR ---
AWAKE STABLE NO APPARENT PULMONARY DISTRESS NOTED BREATH SOUNDS DECREASED BILATERAL GOOD CHEST RISE DEEP TRACHEAL SECRETIONS FOR SMALL THIN BROWNISH SECRETIONS AIRWAY PATENT
[2017-10-04] MEDS: MORPHINE SULFATE 4 MG/ML SYR IVP PRN ×2 (03:26→20:59)
--- NOTE | 2017-10-04 04:00 | NUR ---
NO CHANGE OF CONDITION AT THIS TIME, POSITION CHANGED FOR OFF LOAD PRESSURE.
[2017-10-04 04:50] LABS: HEMATOCRIT 40.8 % (36-52); HEMOGLOBIN 13.5 g/dL (12.0-18.0); MEAN CORPUSCULAR HEMOGLOBIN 36 pg (27-31); MEAN CORPUSCULAR HGB CONC 33 g/dL (33-37); MEAN CORPUSCULAR VOLUME 107 fL (80-94); PLATELET COUNT (AUTO) 195 K/uL (140-450); RED BLOOD CELL COUNT(AUTO) 3.81 MIL/uL (4.20-6.10); RED CELL DISTRIBUTION WIDTH 15.3 % (11.6-13.7); WHITE BLOOD COUNT (AUTO) 12.6 K/uL (4.8-10.8)
[2017-10-04 04:55] LABS: ANION GAP 3.4 (8-16); CARBON DIOXIDE 37.6 mmol/L (21-32); CREATININE 0.8 mg/dL (0.7-1.3)
[2017-10-04 05:32] LABS: PHOSPHORUS 4.9 mg/dL (2.5-4.9)
[2017-10-04] MEDS: LEVOTHYROXINE 0.075 MG TAB PO SCH (05:37)
[2017-10-04] MEDS: FUROSEMIDE 20 MG/2 ML VIAL IVP SCH ×3 (05:37→18:41)
[2017-10-04] MEDS: BLOOD GLUCOSE MONITORING 1 DEV DEV FS SCH ×3 (05:38→18:34)
--- NOTE | 2017-10-04 05:38 | NUR ---
NO EVIDENCE OF PULMONARY DISTRESS NOTED BREATH SOUNDS CLEAR BILATERAL WITH GOOD CHEST RISE AND AERATION AIRWAY PATENT SATURATION 95% ON FIO2 OF 40% TITRATED FIO2 TO 35% RICH/RN NOTIFIED
[2017-10-04 05:54] LABS: EOSINOPHILS % (MANUAL) 10 % (0-4); LYMPHOCYTES % (MANUAL) 9 % (20-46); MONOCYTES % (MANUAL) 2 % (5-12)
--- NOTE | 2017-10-04 06:00 | NUR ---
REST IN BED, VSS, NO S/S OF DISTRESS, POSITION CHANGED FOR OFF LOAD PRESSURE.
[2017-10-04] MEDS: MIDODRINE 5 MG TAB PO SCH ×3 (06:38→18:41)
[2017-10-04] MEDS: METOCLOPRAMIDE 10 MG/2 ML INJ VIAL IVP SCH ×3 (06:39→16:57)
--- NOTE | 2017-10-04 06:47 | NUR ---
RECEIVED PT ON CARESCAPE ON PC16 RR14 ITIME 1:1 PEEP5 FIO2 35 ALARMS ARE ON AND FUNCTIONAL PTS TRACH SHILEY XLT SIZE 8 IS SECURE BS DIMINISHED PT IN HF ASLEEP NO APPARENT DISTRESS HHN GIVEN I\L WITH 3 MG DUONEB VENT PLUGGED INTO RED OUTLET CUFF PRESSURE IS 24 CM H20
--- NOTE | 2017-10-04 07:10 | NUR ---
REPORT GIVEN TO SHANE RN AT BEDSIDE FOR CONTINUE OF CARE, PT IS IN STABLE CONDITION AT THIS TIME, VSS.
--- NOTE | 2017-10-04 07:30 | NUR ---
RECEIVED REPORT FROM RICH. RN AT BEDSIDE, PT IS IN SLEEP, NON-VERBAL, NOT ABLE TO FOLLOW COMMANDS, TRACH TO VENT WITH FIO2 35, RR 14, PEEP 5, LUNG SOUNDS ARE BILATERAL WHEEZING, NGT PLACED ON RIGHT NARES, POSITIVE PLACEMENT WITH NO RESIDUES NOTED, FEEDING WITH NUTREN PULMONARY AT 150ML Q4HR ORDERED. A. FIB ON HEMATOLOGIST ONCOLOGIST. LARGE SOFT ROUND ABDOMEN WITH ACTIVE BOWEL SOUNDS FROM ALL 4 QUADRANTS, 16FR ACOSTA CATHETER IN PLACE WITH CLEAR YELLOW URINE NOTED, GENERALIZED +1 PITTING EDEMA NOTED AND SCROTAL EDEMA NOTED, BEDBOUND. PICC LINE TO RIGHT UPPER ARM WITH DOUBLE LUMEN WITH GOOD BLOOD RETURN. PT ON D51/2NS AT 10ML/HR. SKIN IS WARM AND DRY TO TOUCH. NO FEVER NOTED. SKIN TEAR NOTED TO BILATERAL FOREARMS, LEFT UPPER BACK AND RIGHT KNEE, CELLULITIS TO BLE WITH SCAB. VITAL SIGNS ARE WITHIN NORMAL RANGE, FLACC 0, NO ACUTE DISTRESS AT THIS TIME. SAFETY MEASURE IN PLACE, HOB ELEVATED TO 30 DEGREES, WILL CONTINUE TO MONITOR. Addendum: 10/04/17 at 0816 by Steve Tavares RN NO CELLULITIS ON BLE, EDEMA ON BLE WITH DRY SCAB.
--- NOTE | 2017-10-04 09:03 | NUR ---
VENT CHECK BS DIMINISHED I\L LAVAGE AND SX SM YELLOW SECRETIONS PT WEARING SOFT MITTENS
[2017-10-04] MEDS: POTASSIUM CHLORIDE 20% 40 MEQ/15 ML UDC GT SCH ×2 (09:11→20:48)
[2017-10-04] MEDS: PANTOPRAZOLE 40 MG INJ VIAL IVP SCH (09:11)
[2017-10-04] MEDS: LACTOBACILLUS RHAMNOSUS GG 1 EACH CAP PO SCH (09:15)
[2017-10-04] MEDS: METOPROLOL 25 MG TAB PO SCH (09:15)
[2017-10-04] MEDS: SPIRONOLACTONE 50 MG TAB PO SCH (09:15)
[2017-10-04] MEDS: SENNA 8.6 MG TAB PO SCH ×3 (09:16→16:58)
--- NOTE | 2017-10-04 09:30 | NUR ---
GIVEN MEDICATIONS VIA NGT, TOLERATED WELL. NGT IS IN PLACE, NO RESIDUAL NOTED. 150ML Q4HR NUTREN PULMONARY TUBE FEEDING STARTED AT 0900. NO ACUTE DISTRESS NOTED.
[2017-10-04] MEDS: LACTULOSE 20 GM/30 ML UDC PO SCH ×2 (09:36→20:48)
--- NOTE | 2017-10-04 11:00 | NUR ---
PT'S DAUGHTER, LUKASZ CALLED AND GIVEN AN UPDATE OF PT'S CONDITION. NO ACUTE DISTRESS NOTED. CALL LIGHT WITHIN REACH. CONTINUE TO MONITOR.
--- NOTE | 2017-10-04 11:26 | NUR ---
VENT CHECK BS RHONCI I\L LAVAGE AND SX LG YELLOW SECRETIONS
--- NOTE | 2017-10-04 12:00 | NUR ---
PT AWAKE, OPEN HIS EYES, NON VERBAL, UNABLE TO FOLLOW COMMEND, MOVING HIS HANDS SLOWLY. NO EPISODE OF PULLING OUT THE TUBING. NO ACUTE DISTRESS NOTED. PROVIDED ORAL CARE, TOLERATED WELL, SMALL AMOUNT OF YELLOW THIN SECRETIONS SUCTIONED.
--- NOTE | 2017-10-04 12:52 | NUR ---
VENT CHECK BS RHONCI I\L LAVAGE AND SX LG YELLOW I\L HHN GIVEN WITH 3MG DUONEB
[2017-10-04] MEDS: HYDRAGUARD CREAM TP SCH (13:00)
[2017-10-04] MEDS: SKINTEGRITY HYDROGEL TP SCH (13:00)
--- NOTE | 2017-10-04 14:00 | NUR ---
PT IS AWAKE, NON VERBAL, UNABLE TO FOLLOW COMMEND. PT MOVES HIS ARMS SLOWLY. NO EPISODE OF TRYING TO FULL OUT THE TUBING. NO ACUTE DISTRESS NOTED.
--- NOTE | 2017-10-04 15:18 | NUR ---
VENT CHECK BS DIMINISHED CHANGE PT TO A/C14 VT650 PEEP5 FIO2 35 PT IRRITABLE INVERSE RATIOS ON PC PT AWAKE WEARING SOFT MITTENS
[2017-10-04] MEDS: DEXT 5% / NACL 0.45% 1,000 ML IV SCH (15:57)
--- NOTE | 2017-10-04 16:05 | NUR ---
AT BEDSIDE TO CHECK THE PT, WILL FOLLOW THE ORDER. ORAL CARE PROVIDED, TOLERATED WELL. NO ACUTE RESPIRATORY DISTRESS NOTED. CONTINUE TO MONITOR.
--- NOTE | 2017-10-04 16:45 | NUR ---
VEBT CHECK BS DIMINISHED AIRWAY IS PATENT
--- NOTE | 2017-10-04 17:30 | NUR ---
PT AWAKE, NON VERBAL, ABLE TO FOLLOW SIMPLE COMMEND. TRYING TO MOVE HIS ARMS AND UPPER BODY NOTED. NO ACUTE DISTRESS NOTED. NO EPISODE OF FULLING OUT THE TUBING.
--- NOTE | 2017-10-04 18:50 | NUR ---
HERE AT BEDSIDE AT THIS TIME, WILL FOLLOW THE ORDER. GIVEN MEDICATION, TOLERATED WELL. BS CHECKED, NO COVERAGE NEEDED. PT IS AWAKE, ABLE TO FOLLOW SIMPLE COMMANDS. NON VERBAL. TRYING TO MOVE UPPER BODY, NO EPISODE OF PULLING OUT THE TUBING. NO ACUTE DISTRESS NOTED.
--- NOTE | 2017-10-04 19:30 | NUR ---
RECEIVED REPORT FROM JAIME RN AND LUZ RN AT BEDSIDE, PT IS AWAKE, AGITATED, NON-VERBAL, NOT ABLE TO FOLLOW COMMANDS, WAVING ARMS, RESTLESSNESS, ATIVAN GIVEN. TRACH TO VENT WITH FIO2 35, RR 14, TV 650, PEEP 5, CLEAR LUNG SOUNDS, NGT PLACED ON RIGHT NARES, POSITIVE PLACEMENT WITH 0ML RESIDUES NOTED, FEEDING WITH NUTREN PULMONARY AT 250ML Q6HR ORDERED. A. 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 LARGE SOFT ROUND ABDOMEN WITH ACTIVE BOWEL SOUNDS, ACOSTA CATHETER IN PLACE WITH CLEAR YELLOW URINE NOTED, GENERALIZED +1 PITTING EDEMA NOTED AND SCROTAL EDEMA NOTED, BEDBOUND. PICC LINE TO RIGHT UPPER ARM WITH DOUBLE LUMEN WITH GOOD BLOOD RETURN, SL. SKIN IS WARM AND DRY TO TOUCH WITH SKIN TEAR NOTED TO BACK AND CELESTINA. FOREARM, CELLULITIS TO BLE WITH SCAB. VSS, FLACC 7. SAFETY PRECAUTION IN PLACE, HOB ELEVATED TO 30 DEGREES, ORAL CARE PROVIDED, POSITION CHANGED FOR OFF LOAD PRESSURE, WILL CONTINUE TO MONITOR.
--- NOTE | 2017-10-04 19:30 | NUR ---
REPORT GIVEN TO FINISHED CIGAR MAKER NURSE RICH. RN. PT'S VITAL SIGNS ARE STABLE. NO ACUTE DISTRESS.
[2017-10-04] MEDS: LORazepam 2 MG/ML VIAL IVP PRN (19:35)
[2017-10-04] MEDS: FAMOTIDINE 20 MG TAB PO SCH (20:48)
--- NOTE | 2017-10-04 22:00 | NUR ---
NO S/S OF DISTRESS, PT IS CLAM AND ASLEEP IN BED, VSS, POSITION CHANGED FOR OFF LOAD PRESSURE.
[2017-10-05] VITALS (24 sets, daily range): BP systolic 81–121; BP diastolic 35–72
--- NOTE | 2017-10-05 | NUR ---
NO CHANGED OF CONDITION AT THIS TIME, VSS, REFUSED ORAL CARE, POSITION CHANGED FOR OFF LOAD PRESSURE.
[2017-10-05] MEDS: BLOOD GLUCOSE MONITORING 1 DEV DEV FS SCH ×5 (00:18→23:10)
[2017-10-05] MEDS: FUROSEMIDE 20 MG/2 ML VIAL IVP SCH ×5 (00:19→23:03)
[2017-10-05] MEDS: ALBUTEROL SULFATE/IPRATROPIU 3 ML SOL IH SCH ×4 (01:17→19:14)
--- NOTE | 2017-10-05 02:00 | NUR ---
NO CHANGE OF CONDITION AT THIS TIME, VSS, POSITION CHANGED FOR OFF LOAD PRESSURE.
[2017-10-05] MEDS: LORazepam 2 MG/ML VIAL IVP PRN ×2 (02:35→19:59)
--- NOTE | 2017-10-05 04:00 | NUR ---
AM CARE AND ACOSTA CATHETER CARE PROVIDED, PT HAD A LARGE BROWN SOFT STOOL, KATELYN CARE PROVIDED, ORAL CARE PROVIDED, POSITION CHANGED FOR OFF LOAD PRESSURE.
[2017-10-05 05:21] LABS: HEMATOCRIT 42.2 % (36-52); HEMOGLOBIN 13.8 g/dL (12.0-18.0); MEAN CORPUSCULAR HEMOGLOBIN 35 pg (27-31); MEAN CORPUSCULAR HGB CONC 33 g/dL (33-37); MEAN CORPUSCULAR VOLUME 107 fL (80-94); PLATELET COUNT (AUTO) 209 K/uL (140-450); RED BLOOD CELL COUNT(AUTO) 3.96 MIL/uL (4.20-6.10); RED CELL DISTRIBUTION WIDTH 15.1 % (11.6-13.7); WHITE BLOOD COUNT (AUTO) 11.9 K/uL (4.8-10.8)
[2017-10-05 05:34] LABS: ANION GAP 8.5 (8-16); CARBON DIOXIDE 35.6 mmol/L (21-32); CREATININE 0.7 mg/dL (0.7-1.3); POTASSIUM 4.1 mmol/L (3.5-5.1)
[2017-10-05 05:38] LABS: PHOSPHORUS 4.1 mg/dL (2.5-4.9)
[2017-10-05 05:44] LABS: EOSINOPHILS % (MANUAL) 4 % (0-4); LYMPHOCYTES % (MANUAL) 12 % (20-46); MONOCYTES % (MANUAL) 5 % (5-12)
--- NOTE | 2017-10-05 06:00 | NUR ---
NO S/S OF DISTRESS, CLAM AND REST IN BED, VSS, POSITION CHANGED FOR OFF LOAD PRESSURE.
[2017-10-05] MEDS: LEVOTHYROXINE 0.075 MG TAB PO SCH (06:02)
[2017-10-05] MEDS: MIDODRINE 5 MG TAB PO SCH ×3 (06:02→18:40)
--- NOTE | 2017-10-05 06:39 | NUR ---
REC'D PT ON CARESCAPE VENT SETTINGS AC14 VT 650 PEEP 5 FIO2 35% ALARMS ON AND FUNCTIONING PROPERLY AMBU BAG AT SIDE OF VENT AND VENTILATOR IS PLUGGED INTO RED OUTLET, I\L TX GIVEN WITH DUONEB 3ML WITH NO ADVERSE REACTION POST TX, B\S WHEEZING BILATERALLY, SNX PT MODERATE AMT OF YELLOW SECRETIONS, SXN PT AROUND STOMA THICK WHITE SECRETIONS, PT'S SKIN INTEGRITY IS RED AROUND STOMA PT IS TRACH WITH SHIELY XTL 8 CUFF PRESSURE IS 30 CM H20 PT IS AGITATED AND HAS MITTENS ON BOTH HANDS.
--- NOTE | 2017-10-05 07:07 | NUR ---
REPORT GIVEN TO AZALIA SANDOVAL AT BEDSIDE, PT IS IN STABLE CONDITION AT THIS TIME, VSS.
--- NOTE | 2017-10-05 07:15 | NUR ---
RECEIVED REPORT FROM RICH. RN AT BEDSIDE, PT IS AWAKE, NON-VERBAL, ABLE TO FOLLOW SIMPLE COMMANDS, TRACH TO VENT WITH A/C MODE VT 650, FIO2 35, RR 14, PEEP 5, LUNG SOUNDS ARE BILATERAL WHEEZING, NGT PLACED ON RIGHT NARES, POSITIVE PLACEMENT WITH NO RESIDUES NOTED, FEEDING WITH NUTREN PULMONARY AT 250ML Q6HR ORDERED. 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 LARGE SOFT ROUND ABDOMEN WITH ACTIVE BOWEL SOUNDS FROM ALL 4 QUADRANTS, 16FR ACOSTA CATHETER IN PLACE WITH CLEAR YELLOW URINE NOTED, GENERALIZED +1 PITTING EDEMA NOTED AND SCROTAL EDEMA NOTED, BEDBOUND. PICC LINE TO RIGHT UPPER ARM WITH DOUBLE LUMEN WITH GOOD BLOOD RETURN. SKIN IS WARM AND DRY TO TOUCH. NO FEVER NOTED. SKIN TEAR NOTED TO BILATERAL FOREARMS, LEFT UPPER BACK AND RIGHT KNEE, BLE WITH SCAB. VITAL SIGNS ARE WITHIN NORMAL RANGE, FLACC 0, NO ACUTE DISTRESS AT THIS TIME. SAFETY MEASURE IN PLACE, HOB ELEVATED TO 30 DEGREES, WILL CONTINUE TO MONITOR.
--- NOTE | 2017-10-05 08:10 | NUR ---
ABG DRAWN ON LB WITHOUT INCIDENT AND AT [address] FIGUEROA WITH NO CHANGES MADE TO VENTILATOR
--- NOTE | 2017-10-05 08:10 | NUR ---
VENT CHECK, NO SXN REQUIRED AT THIS TIME, AIRWAY IS PATENT AND PT IS RESTING WITH NO SIGNS OF DISTRESS NOTED
--- NOTE | 2017-10-05 08:10 | NUR ---
PT AWAKE, NON VERBAL. VS STABLE. PROVIDED ORAL CARE AND ACOSTA CATH CARE. SMALL AMOUNT OF CLEAR THIN SECRETION NOTED. F/C IN PLACE, NO REDNESS, NO S/S OF INFECTION ON PERINEAL AREA. CONTINUE TO MONITOR
[2017-10-05] MEDS: METOCLOPRAMIDE 10 MG/10 ML SYRP UDC GT SCH ×3 (08:13→16:59)
[2017-10-05] MEDS: POTASSIUM CHLORIDE 20% 40 MEQ/15 ML UDC GT SCH ×2 (08:45→20:06)
[2017-10-05] MEDS: LACTULOSE 20 GM/30 ML UDC PO SCH ×2 (08:45→20:11)
[2017-10-05] MEDS: FAMOTIDINE 20 MG TAB PO SCH ×2 (08:47→20:12)
[2017-10-05] MEDS: SPIRONOLACTONE 50 MG TAB PO SCH (08:47)
[2017-10-05] MEDS: SENNA 8.6 MG TAB PO SCH ×3 (08:48→17:01)
[2017-10-05] MEDS: LACTOBACILLUS RHAMNOSUS GG 1 EACH CAP PO SCH (08:48)
--- NOTE | 2017-10-05 09:20 | NUR ---
GIVEN MEDICATIONS VIA NGT, TOLERATED WELL. NGT IS IN PLACE, NO RESIDUAL NOTED. NO ACUTE DISTRESS NOTED.
--- NOTE | 2017-10-05 10:37 | NUR ---
VENT CHECK, SXN PT LARGE AMT OF CLEAR THICK SECRETIONS FROM AROUND STOMA AND SMALL AMT FROM TRACH PT IS VERY AGITATED.
--- NOTE | 2017-10-05 11:10 | NUR ---
AT BEDSIDE TO CHECK THE PT, WILL FOLLOW THE ORDER. NUTREN PULMONARY 250ML Q6HR VIA NGT STARTED AT 1100, PT TOLERATE WELL. NO ACUTE DISTRESS AT THIS TIME. CONTINUE TO MONITOR.
[2017-10-05] MEDS ORDERED: METOPROLOL 25 MG TAB PO SCH (11:35)
--- NOTE | 2017-10-05 12:15 | NUR ---
PT AWAKE, OPEN HIS EYES, NON VERBAL, UNABLE TO FOLLOW COMMEND, MOVING HIS HANDS AND UPPER BODY. NO EPISODE OF PULLING OUT THE TUBING. NO ACUTE DISTRESS NOTED. NO AGITATION NOTED. PROVIDED ORAL CARE, TOLERATED WELL, SMALL AMOUNT OF CLEAR THIN SECRETIONS SUCTIONED.
[2017-10-05] MEDS: METOPROLOL 25 MG TAB PO SCH ×2 (13:00→17:01)
--- NOTE | 2017-10-05 13:00 | NUR ---
HELD LOPRESSOR 12.5MG VIA NGT AT 1300. LAST DOSE GIVEN AT 1200. NOTIFIED TO , HE STATED OK TO HOLD AND GIVE NEXT DOSE AT 1700.
[2017-10-05] MEDS: SKINTEGRITY HYDROGEL TP SCH (13:14)
[2017-10-05] MEDS: HYDRAGUARD CREAM TP SCH (13:14)
--- NOTE | 2017-10-05 13:42 | NUR ---
10/05/17 RD FOLLOW UP COMPLETED PLEASE REFER TO NUTRITION PROGRESS NOTE UNDER CARE ACTIVITY FOR ESTIMATED NUTRITION NEEDS. RD RECOMMENDATIONS: 1. CONTINUE NUTREN PULMONARY AT 250 ML Q6H VIA NG TUBE WITH 20 ML FREE WATER FLUSH TOLERATED AND PER MD DISCRETION. - NOTE THIS ONLY PROVIDES ~75% OF ESTIMATED KCAL NEEDS AND ~45% OF ESTIMATED PROTEIN NEEDS. 2. RECOMMEND ADDING PROSOURCE TID FOR AN ADDITIONAL 33 GM OF PROTEIN, 120 KCAL, AND 135 ML OF FLUID. -EACH PROSOUCE PROVIDES 11 GM OF PROTEIN, 40 KCAL, AND 45 ML OF FLUID. 3. CONSIDER INCREASING NUTRITION SUPPORT TO NUTREN PULMONARY AT 60 ML/HR WHEN MEDICALLY APPROPRIATE AND PER MD DISCRETION. --THIS WILL PROVIDE 100% OF PT ESTIMATED KCAL AND PROTEIN NEEDS. 4. RD WILL F/U 2-3 DAYS; HIGH RISK HARRY HARMAN, RD
--- NOTE | 2017-10-05 14:10 | NUR ---
PT IS AWAKE, NON VERBAL, UNABLE TO FOLLOW COMMEND. PT MOVES HIS ARMS AND LEGS. NO EPISODE OF TRYING TO FULL OUT THE TUBING. NO ACUTE DISTRESS NOTED. VS IS STABLE. CONTINUE TO MONITOR.
--- NOTE | 2017-10-05 15:16 | NUR ---
VENT CHECK, NO SXN REQUIRED AT THIS TIME B\S WHEEZING AND AIRWAY IS PATENT PT IS BEING REPOSITIONED AT THIS TIME
--- NOTE | 2017-10-05 15:20 | NUR ---
AT BEDSIDE TO CHECK THE PT, WILL FOLLOW THE ORDER.
--- NOTE | 2017-10-05 16:17 | NUR ---
FAMILY MEMBERS ZOEY DAUGHTER AND AT BEDSIDE TO VISIT THE PT AT THIS TIME. COMES TO EXPLAIN ABOUT PT'S CONDITION. PT IS STABLE, NO ACUTE DISTRESS NOTED.
--- NOTE | 2017-10-05 16:45 | NUR ---
VENT CHECK, SNX STOMA MODERATE AMT OF THICK WHITE SECRETIONS, B\S WHEEZING AND CHANGED TRACH AGAIN
--- NOTE | 2017-10-05 17:30 | NUR ---
GIVEN MEDICATION, TOLERATED WELL. PT AWAKE, NON VERBAL, ABLE TO FOLLOW SIMPLE COMMANDS. VS STABLE, NO ACUTE DISTRESS NOTED. CONTINUE TO MONITOR.
--- NOTE | 2017-10-05 17:45 | NUR ---
AT BEDSIDE TO CHECK THE PT, WILL FOLLOW THE ORDER.
[2017-10-05] MEDS: DEXT 5% / NACL 0.9% 500 ML IV SCH (18:51)
--- NOTE | 2017-10-05 19:00 | NUR ---
STARTED IV FLUID 500ML, D5NS 10ML/HR AT THIS TIME.
--- NOTE | 2017-10-05 19:15 | NUR ---
REPORT GIVEN AND ENDORSED KATLIN GARZA RN. PT IS IN ASLEEP. VS STABLE.
--- NOTE | 2017-10-05 19:30 | NUR ---
RECEIVED PT IN BED AWAKE AND ALERT X1. PERRL. NG TUBE TO LEFT NOSTRIL IN PLACE AND NO RESIDUAL NOTED. TRACH TO VENT AC12, FIO2-35, TV-650, PEEP-5. BILATERAL LUNG SOUNDS CLEAR. BOWEL SOUNDS HEARD FROM ALL 4 QUADS. HEART SOUNDS: S1 & S2 HEARD. PICC LINE WITH DOUBLE LUMEN TO RIGHT UPPER ARM. PATENT AND ASYMPTOMATIC. ACOSTA CATHETER DRAINING CLEAR YELLOW URINE VIA GRAVITY. SKIN TEARS TO RFA, LFA, RIGHT KNEE, AND LEFT UPPER BACK. PT ON CONTINUOS CARDIAC MONITORING. AFIB NOTED. PT DENIES PAIN OR DISCOMFORT. CALL LIGHT IN REACH. EXPLAINED THE PT HOW TO USE THE CALL LIGHT. BED IS TO THE LOWEST. WILL CONTINUE TO MONITOR. Addendum: 10/05/17 at 1953 by Cassia Tavares RN NG TUBE TO RIGHT NOSTRIL. NOT LEFT NOSTRIL.
--- NOTE | 2017-10-05 19:45 | NUR ---
DR. REYNOLDS AT BED SIDE. WILL FOLLOW UP WITH ANY ORDERS.
--- NOTE | 2017-10-05 20:00 | NUR ---
PT NOTED INCREASED AGITATION. DENIES PAIN. ASSISTED WITH REPOSITION. VS STABLE. STILL NOTED UNEASY. ATIVAN ADMINISTERED. WILL CONTINUE TO MONITOR.
--- NOTE | 2017-10-05 20:20 | NUR ---
MEDICATIONS ADMINISTERED ORDERED. NGT RESIDUAL NOTED ZERO. PT TOLERATED WELL. DENIES PAIN OR DISCOMFORT. VS STABLE. ALL SAFETY PRECAUTIONS ARE IN PLACE. WILL CONTINUE TO MONITOR.
--- NOTE | 2017-10-05 23:20 | NUR ---
MEDICATION ADMINISTERED ORDERED. PT TOLERATED WELL. FS=[id number]. NO COVERAGE NEEDED. VS STABLE. NO ACUTE DISTRESS NOTED. ALL SAFETY PRECAUTIONS ARE IN PLACE. WILL CONTINUE TO MONITOR.
[2017-10-06] VITALS (25 sets, daily range): BP systolic 87–116; BP diastolic 47–72
--- NOTE | 2017-10-06 00:08 | NUR ---
PT EYES CLOSED. EASILY ABUSABLE. VS STABLE. NO ACUTE DISTRESS NOTED. ALL SAFETY PRECAUTIONS ARE IN PLACE. WILL CONTINUE TO MONITOR.
[2017-10-06] MEDS: ALBUTEROL SULFATE/IPRATROPIU 3 ML SOL IH SCH ×4 (00:34→19:04)
--- NOTE | 2017-10-06 03:00 | NUR ---
PT EYES CLOSED AT THIS TIME. NO ACUTE DISTRESS NOTED. WILL CONTINUE TO MONITOR.
--- NOTE | 2017-10-06 04:51 | NUR ---
PT HAD LARGE BOWEL MOVEMENT. ASSISTED WITH INCONTINENCE CARE AND AM CARE. TOLERATED WELL.
--- NOTE | 2017-10-06 05:30 | NUR ---
DR. FIGUEROA AT BED SIDE. WILL FOLLOW UP WITH ANY ORDERS.
[2017-10-06] MEDS: LEVOTHYROXINE 0.075 MG TAB PO SCH (05:45)
[2017-10-06] MEDS: FUROSEMIDE 20 MG/2 ML VIAL IVP SCH ×4 (05:45→23:06)
[2017-10-06] MEDS: BLOOD GLUCOSE MONITORING 1 DEV DEV FS SCH ×4 (05:49→23:04)
[2017-10-06 06:36] LABS: HEMATOCRIT 40.5 % (36-52); HEMOGLOBIN 13.4 g/dL (12.0-18.0); MEAN CORPUSCULAR HEMOGLOBIN 35 pg (27-31); MEAN CORPUSCULAR HGB CONC 33 g/dL (33-37); MEAN CORPUSCULAR VOLUME 107 fL (80-94); PLATELET COUNT (AUTO) 156 K/uL (140-450); RED BLOOD CELL COUNT(AUTO) 3.79 MIL/uL (4.20-6.10); RED CELL DISTRIBUTION WIDTH 14.9 % (11.6-13.7); WHITE BLOOD COUNT (AUTO) 10.9 K/uL (4.8-10.8)
[2017-10-06 06:48] LABS: ANION GAP 9.5 (8-16); CARBON DIOXIDE 33.3 mmol/L (21-32); CREATININE 0.7 mg/dL (0.7-1.3); POTASSIUM 3.8 mmol/L (3.5-5.1)
[2017-10-06] MEDS: METOCLOPRAMIDE 10 MG/10 ML SYRP UDC GT SCH ×3 (06:53→16:38)
[2017-10-06] MEDS: MIDODRINE 5 MG TAB PO SCH ×3 (06:55→18:01)
--- NOTE | 2017-10-06 06:55 | NUR ---
RECEIVED PT ON CARESCAPE ON A/C 14 VT650 PEEP 5 FIO2 35 ALARMS ARE ON AND FUNCTIONAL BMV HOB PTS TRACH SHILEY 8 XLT IS SECURE PT HAS COPIOUS BROWN DRAINAGE FROM STOMA SITE CHANGE GAUZE BS DIMINISHED I\L LAVAGE AND SX SM BROWN PT IN HF AWOKE BRIEFLY NO APPARENT DISTRESS VENT PLUGGED INTO RED OUTLET HHN GIVEN I\L WITH 3 MG DUONEBCUFF PRESSURE IS 24 CM H20
[2017-10-06 07:00] LABS: EOSINOPHILS % (MANUAL) 5 % (0-4); LYMPHOCYTES % (MANUAL) 8 % (20-46); MONOCYTES % (MANUAL) 5 % (5-12)
--- NOTE | 2017-10-06 07:22 | NUR ---
REPORT GIVEN TO MORNING MONROE VIEYRA FOR CONTINUITY OF CARE. VS STABLE AT THIS TIME.
--- NOTE | 2017-10-06 07:30 | NUR ---
RECEIVED A REPORT FROM AZALIA GARZA. PT IS AWAKE AND NONVERBAL, ABLE TO FOLLOW SIMPLE COMMANDS. TRACH TO VENT AND SETTING AT FiO2 35, TV650, AC 14, PEEP 5. A-FIB ON THE MONITOR. FLACC 0 AND NO S/SX OF RESPIRATORY DISTRESS NOTED. NGT IN PLACE AND ACOSTA CATHETER DRAINING CLEAR YELLOW URINE. PICC LINE TO RIGHT UPPER ARM, PATENT AND INTACT. SKIN WARM TO TOUCH. SAFETY PRECAUTION, BED IN LOW POSITION, CALL LIGHT WITHIN REACH. WILL CONTINUE TO MONITOR.
--- NOTE | 2017-10-06 07:35 | NUR ---
RESIDENT GROUP IN TO SEE PT. WILL FOLLOW UP ON ORDERS.
--- NOTE | 2017-10-06 08:47 | NUR ---
VENT CHECK BS RHONCI I\L LAVAGE AND SX MOD BROWN SECRETIONS
[2017-10-06] MEDS: METOPROLOL 25 MG TAB PO SCH ×3 (08:54→16:39)
[2017-10-06] MEDS: LACTULOSE 20 GM/30 ML UDC PO SCH ×2 (08:54→20:21)
[2017-10-06] MEDS: POTASSIUM CHLORIDE 20% 40 MEQ/15 ML UDC GT SCH ×2 (08:55→20:21)
[2017-10-06] MEDS: FAMOTIDINE 20 MG TAB PO SCH ×2 (08:55→20:21)
[2017-10-06] MEDS: LACTOBACILLUS RHAMNOSUS GG 1 EACH CAP PO SCH (08:55)
[2017-10-06] MEDS: SPIRONOLACTONE 50 MG TAB PO SCH (08:55)
[2017-10-06] MEDS: SENNA 8.6 MG TAB PO SCH ×3 (08:55→16:38)
--- NOTE | 2017-10-06 09:01 | NUR ---
PT'S DAUGHTER, LUKASZ CALLED AND GIVEN AN UPDATE OF PT'S CONDITION. PT TOLERATED MEDICATIONS WELL. WILL CONTINUE TO MONITOR.
--- NOTE | 2017-10-06 10:23 | NUR ---
FAXED INQUIRY TO [facility], [facility] [place], [place], [facility] [place] AND [facility].
--- NOTE | 2017-10-06 10:57 | NUR ---
VENT CHECK BS DIMINISHED I\L LAVAGE AND SX LG YELLOW SECRETIONS
--- NOTE | 2017-10-06 11:00 | NUR ---
PT IS AWAKE AND NONVERBAL, ABLE TO FOLLOW SIMPLE COMMANDS. DENIES ANY PAIN. WILL CONTINUE TO MONITOR.
--- NOTE | 2017-10-06 12:13 | NUR ---
DR. BARRON IN TO SEE PT. WILL FOLLOW UP ON ORDERS.
[2017-10-06] MEDS: SKINTEGRITY HYDROGEL TP SCH (12:47)
[2017-10-06] MEDS: HYDRAGUARD CREAM TP SCH (12:47)
--- NOTE | 2017-10-06 12:53 | NUR ---
VENT CHECK BS RHONCI I\L LAVAGE AND SX MOD YELLOW HHN GIVEN I\L WITH 3MG DUONEB
--- NOTE | 2017-10-06 13:10 | NUR ---
VENT CHECK BS DIMINISHED I\L LAVAGE AND SX LG YELLOW\BROWN HHN GIVEN I\L WITH 3 MG DUONEB
--- NOTE | 2017-10-06 13:35 | NUR ---
RECEIVED CALL EARLIER FROM NAHID FROM [facility]. NO BEDS AT PRESENT, BUT CALL HER WHEN PATIENT IS READY FOR DISCHARGE.
--- NOTE | 2017-10-06 13:50 | NUR ---
DR. EVERETT IN TO SEE PT. WILL FOLLOW UP ON ORDERS
--- NOTE | 2017-10-06 14:10 | NUR ---
CHANGE INNER CANNULA FLOLEY XLT 8 W/O INCIDENT
--- NOTE | 2017-10-06 14:23 | NUR ---
DR. MOTT IN TO SEE PT. WILL FOLLOW UP ON ORDERS.
--- NOTE | 2017-10-06 14:25 | NUR ---
DR. MOTT PUT HIM ON CPAP/PS, FiO2 35% AT THIS TIME AND SPOKE TO ZOEY, DAUGHTER OF PT AND GAVE AN UPDATE OF PT'S CONDITION. Addendum: 10/06/17 at 1431 by Terry Gómez RN RT IS AT BEDSIDE AND AWARE OF NEW VENTILATOR SETTING BY DR. MOTT.
--- NOTE | 2017-10-06 14:25 | NUR ---
PT PLACED ON CPAP 5 PS 12 FIIO2 WEANING TRIAL BS DIMINISHED
--- NOTE | 2017-10-06 14:45 | NUR ---
PER RT, PT IS BACK ON AC SETTING AT FiO2 35, TV 500, AC 12, PEEP DUE TO RESPIRATION RATE WAS ONLY 9. WILL CONTINUE TO MONITOR.
--- NOTE | 2017-10-06 14:45 | NUR ---
PT RETURNED TO A/C WITH PREVIOUS SETTINGS RR DECREASED TO 8 ON CPAP
--- NOTE | 2017-10-06 15:17 | NUR ---
VENT CHECK BS DIMINISHED PT ASLEEP
--- NOTE | 2017-10-06 16:30 | NUR ---
PT IS SLEEPING AT THIS TIME. FLACC 0. RESPIRATION ARE EVEN AND UNLABORED. WILL CONTINUE TO MONITOR.
--- NOTE | 2017-10-06 17:17 | NUR ---
VENT CHECK BS DIMINSHED I\L LAVAGE AND SX SM YELLOW
--- NOTE | 2017-10-06 17:30 | NUR ---
RADIOLOGY DEPT CALLED AND STATED THAT PT IS OVER THE WEIGHT LIMIT FOR THE CT TABLE, MAX LIMIT IS 350LBS. NOTIFIED DR. SIU.
--- NOTE | 2017-10-06 17:46 | NUR ---
CALLED ZOEY, DAUGHTER OF THE PT AND OBTAINED THE CONSENT FOR OPEN GASTROSTOMY WITH PEG PLACEMENT.
--- NOTE | 2017-10-06 17:52 | NUR ---
LUKASZ, DAUGHTER OF THE PT CALLED AND WAS INFORMED OF NEW ORDER FOR OPEN GASTROSTOMY WITH PEG PLACEMENT.
--- NOTE | 2017-10-06 18:00 | NUR ---
PT TOLERATING NGT FEEDING WELL. WILL CONTINUE TO MONITOR.
[2017-10-06] MEDS: DEXT 5% / NACL 0.9% 500 ML IV SCH (18:20)
--- NOTE | 2017-10-06 18:48 | NUR ---
PT STABLE AND DENIES ANY PAIN AT THIS TIME. PT TOLERATED MEDICATIONS WELL. WILL CONTINUE TO MONITOR.
--- NOTE | 2017-10-06 18:52 | NUR ---
DR. REYNOLDS IN TO SEE PT. WILL FOLLOW UP ON ORDERS.
--- NOTE | 2017-10-06 18:55 | NUR ---
LUKASZ, PT'S DAUGHTER AT BEDSIDE.
--- NOTE | 2017-10-06 19:27 | NUR ---
FOUND TIDAL VOLUME AT 500ML DURING VENT CHECK, THERE WAS NO ORDER TO DECREASE TIDAL VOLUME, PLACE BACK TO 650ML PER ORDERS
--- NOTE | 2017-10-06 19:28 | NUR ---
REPORT GIVEN AND ENDORSED CARE TO AZALIA GARZA. PT LEON.
--- NOTE | 2017-10-06 19:30 | NUR ---
REPORT RECEIVED FROM MORNING RNMONROE. PT IS AWAKE AND FOLLOWING SIMPLE COMMANDS. ACCORDING TO MORNING SHIFT, THE PT WAS TRIED WITH CPAP MODE FOR WEANING TRIAL BUT COULD NOT TOLERATE AND BACK TO TRACH TO VENT AC12, FIO2 35, TV 650, PEEP 5. NG-TUBE TO RIGHT NARE, PATENT AND IN PLACE. LEFT LUNG DIMINISHED. RIGHT LUNG WITH CRACKLES. SUCTIONED AND MODERATE AMOUNT OF CLEAR AND WHITE SECRETION NOTED. PT SATING 95% AT THIS TIME. S1 AND S2 HEARD. PICC LINE TO RIGHT UPPER ARM PATENT AND ASYMPTOMATIC. ACTIVE BOWEL SOUNDS HEARD FROM ALL QUADS. PT CAN MOVE BILATERAL UPPER EXTREMITIES BUT NOTED HAVING WEAKNESS. DRESSINGS ARE DRY AND INTACT TO MULTIPLES SKIN TEARS TO RFA, R KNEE, AND THE UPPER BACK. GENERALIZED PITTING EDEMA NOTED TO +1 TO UPPER EXTREMITIES, +2 TO LOWER EXTREMITIES, AND NON PITTING EDEMA TO SCROTUM. ACOSTA CATHETER DRAINING CLEAR YELLOW URINE VIA GRAVITY. PT DENIES PAIN OF DISCOMFORT AT THIS TIME. BED KEPT TO THE LOWEST. CALL LIGHT IN REACH. ALL SAFETY PRECAUTIONS ARE IN PLACE. WILL CONTINUE TO MONITOR.
[2017-10-06] MEDS: LORazepam 2 MG/ML VIAL IVP PRN (21:35)
--- NOTE | 2017-10-06 21:40 | NUR ---
PT NOTED REACHING FOR SOMETHING THAT IS NOT THERE AND BEING ANXIOUS. WHEN ASKED, PT COULD NOT TELL WHAT IS IT. PT CLEAN AND DRY AT THIS TIME. VS STABLE. SUCTIONED AND O2 SAT STABLE. DENIES PAIN OR DISCOMFORT. ATIVAN ADMINISTERED ORDERED. WILL CONTINUE TO MONITOR.
--- NOTE | 2017-10-06 23:23 | NUR ---
MEDICATION ADMINISTERED ORDERED. TOLERATED WELL. DENIES PAIN OR DISCOMFORT. NO ACUTE DISTRESS NOTED. ALL SAFETY PRECAUTIONS ARE IN PLACE. WILL CONTINUE TO MONITOR.
[2017-10-07] VITALS (24 sets, daily range): BP systolic 89–131; BP diastolic 50–105
[2017-10-07] MEDS: NICOTINE TRANSD SYS 7 MG/24 HR PATCH TD SCH ×2 (00:20→09:26)
[2017-10-07] MEDS: ALBUTEROL SULFATE/IPRATROPIU 3 ML SOL IH SCH ×4 (01:09→18:55)
--- NOTE | 2017-10-07 01:35 | NUR ---
PT ASLEEP. NO ACUTE DISTRESS NOTED. NO S/SX OF PAIN OR DISCOMFORT NOTED. ALL SAFETY PRECAUTIONS ARE IN PLACE. WILL CONTINUE TO MONITOR.
--- NOTE | 2017-10-07 04:30 | NUR ---
PT NOTED WITH LARGE BOWEL MOVEMENT. ASSISTED WITH INCONTINENCE CARE AND SKIN CARE. TOLERATED WELL.
[2017-10-07] MEDS: BLOOD GLUCOSE MONITORING 1 DEV DEV FS SCH ×3 (05:39→17:51)
[2017-10-07] MEDS: FUROSEMIDE 20 MG/2 ML VIAL IVP SCH ×3 (05:40→18:09)
[2017-10-07] MEDS: LEVOTHYROXINE 0.075 MG TAB PO SCH (05:41)
--- NOTE | 2017-10-07 05:45 | NUR ---
DR. FIGUEROA AT BED SIDE. WILL FOLLOW UP WITH ANY ORDERS.
[2017-10-07 06:19] LABS: ANION GAP 8.5 (8-16); CARBON DIOXIDE 33.7 mmol/L (21-32); CREATININE 0.7 mg/dL (0.7-1.3); POTASSIUM 4.2 mmol/L (3.5-5.1)
[2017-10-07 06:28] LABS: MAGNESIUM 2.1 mg/dL (1.8-2.4)
[2017-10-07 06:29] LABS: HEMATOCRIT 41.7 % (36-52); HEMOGLOBIN 13.7 g/dL (12.0-18.0); MEAN CORPUSCULAR HEMOGLOBIN 36 pg (27-31); MEAN CORPUSCULAR HGB CONC 33 g/dL (33-37); MEAN CORPUSCULAR VOLUME 108 fL (80-94); PLATELET COUNT (AUTO) 228 K/uL (140-450); RED BLOOD CELL COUNT(AUTO) 3.87 MIL/uL (4.20-6.10); RED CELL DISTRIBUTION WIDTH 15.5 % (11.6-13.7); WHITE BLOOD COUNT (AUTO) 11.5 K/uL (4.8-10.8)
[2017-10-07] MEDS: MIDODRINE 5 MG TAB PO SCH ×3 (06:39→18:09)
--- NOTE | 2017-10-07 06:48 | NUR ---
REC'D PT ON CARESCAPE VENT SETTINGS AC 14 VT650 PEEP 5 FIO2 35% ALARMS ON AND FUNCTIONING PROPERLY, AMBU BAG AT SIDE OF VENT AND VENTILATOR IS PLUGGED INTO RED OUT LET, I\L TX GIVEN WITH DUONEB 3ML WITH NO ADVERSE REACTION POST TX, B\S ARE DIMINISHED BILATERALLY, SXN PT SMALL AMT OF CLEAR SECRETIONS FROM TRACH AND STOMA, SKIN INTEGRITY IS INTACT, PT IS TRACH WITH SHILEY XLT #8 CUFF PRESSURE IS 26CM H2O AND PT IS AWAKE WITH NO SIGNS OF DISTRESS NOTED AT THIS TIME
[2017-10-07 06:59] LABS: EOSINOPHILS % (MANUAL) 5 % (0-4); LYMPHOCYTES % (MANUAL) 15 % (20-46); MONOCYTES % (MANUAL) 11 % (5-12)
--- NOTE | 2017-10-07 07:22 | NUR ---
REPORT GIVEN TO MORNING NURSEMONROE RN FOR CONTINUITY OF CARE. VS STABLE AT THIS TIME.
--- NOTE | 2017-10-07 07:25 | NUR ---
RECEIVED A REPORT FROM AZALIA GARZA. PT IS AWAKE AND ABLE TO FOLLOW SIMPLE COMMANDS. DENIES ANY PAIN AND RESPIRATION ARE EVEN AND UNLABORED. TRACH TO VENT AND SETTING AT FiO2 35, TV 650, AC 14, PEEP 5. A-FIB ON THE MONITOR. SKIN WARM TO TOUCH. PICC LINE TO RT UPPER ARM, PATENT AND INTACT. NGT IN PLACE AND ACOSTA CATHETER DRAINING YELLOW URINE. SAFETY PRECAUTION, BED IN LOW POSITION, CALL LIGHT WITHIN REACH. WILL CONTINUE TO MONITOR.
--- NOTE | 2017-10-07 07:35 | NUR ---
RESIDENT GROUP IN TO SEE PT. WILL FOLLOW UP ON ORDERS.
[2017-10-07] MEDS: METOCLOPRAMIDE 10 MG/10 ML SYRP UDC GT SCH ×3 (08:10→16:50)
[2017-10-07] MEDS: POTASSIUM CHLORIDE 20% 40 MEQ/15 ML UDC GT SCH ×2 (08:10→21:14)
[2017-10-07] MEDS: LACTOBACILLUS RHAMNOSUS GG 1 EACH CAP PO SCH (08:11)
[2017-10-07] MEDS: FAMOTIDINE 20 MG TAB PO SCH ×2 (08:11→21:15)
[2017-10-07] MEDS: METOPROLOL 25 MG TAB PO SCH ×3 (08:11→16:50)
[2017-10-07] MEDS: LACTULOSE 20 GM/30 ML UDC PO SCH ×2 (08:11→21:00)
[2017-10-07] MEDS: SPIRONOLACTONE 50 MG TAB PO SCH (08:11)
[2017-10-07] MEDS: SENNA 8.6 MG TAB PO SCH ×3 (08:25→16:50)
--- NOTE | 2017-10-07 08:44 | NUR ---
VENT CHECK, NO SXN REQUIRED AT THIS TIME, B\S ARE DIMINISHED AND AIRWAY IS PATENT CHANGED VENT SETTINGS TO CPAP5 PS12 PT IS DOING GOOD ON THIS MODE AZALIA Aguilar NOTIFIED OF CHANGES MADE TO VENT
--- NOTE | 2017-10-07 09:27 | NUR ---
PT STABLE AND TOLERATED MEDICATIONS WELL. WILL CONTINUE TO MONITOR.
--- NOTE | 2017-10-07 10:50 | NUR ---
VENT CHECK, NO SXN REQUIRED AT THIS TIME, AIRWAY IS PATENT
--- NOTE | 2017-10-07 11:54 | NUR ---
PT HAD AN MEDIUM AMOUNT OF SOFT BROWN BOWEL MOVEMENT. KEPT CLEAN AND DRY. WILL CONTINUE TO MONITOR.
--- NOTE | 2017-10-07 12:04 | NUR ---
LUKASZ, DAUGHTER OF THE PT CALLED AND GIVEN AN UPDATE OF PT'S CONDITION.
--- NOTE | 2017-10-07 12:35 | NUR ---
CALLED TO ICU 3 DUE TO PT HAVING DIFFICULTLY BREATHING PLACED ON 100% FIO2 BY RN LUZ Aguilar AT [address] DELIVERY DRIVER CALLED DUE TO PT TURNING BLUE STARTED TO BAG PT WITH 100% FIO2 PT WAS HAVING LARGE AMT OF WHITE AND CLEAR SECRETIONS FROM BOTH MOUTH AND TRACH PT WAS SXN AND AFTER A FEW MINUTES COLOR RETURNED AND PT WAS PLACED BACK ON VENT WITH SETTINGS AC14 VT 650 P33P FIO2 OF 35%
--- NOTE | 2017-10-07 12:40 | NUR ---
PT FOUND TO BE IN RESPIRATORY DISTRESS. CHECKED O2 SAT: 78%, PT APPEARED TO BE CYANOTIC. SUCTIONED PT, HYPEROXYGENATED. CALLED RT AND INITIATED THE RAPID RESPONSE TEAM.
--- NOTE | 2017-10-07 12:42 | NUR ---
RT AND RAPID RESPONSE PRESENT AT BEDSIDE. PT'S SKIN IS NOW PINK AND PT IS NO LONGER IN ACUTE DISTRESS. CHECKED O2: 95%. WILL CONTINUE TO MONITOR.
--- NOTE | 2017-10-07 12:52 | NUR ---
ABG DRAWN ON RB WITHOUT INCIDENT AND RESULTS WERE GIVEN TO AZALIA Schulte Addendum: 10/07/17 at 1439 by Windy Mendieta RT AT 1340 ABG RESULTS WERE GIVEN TO DR. THOMPSON WITH NO CHANGES MADE TO VENTILATOR
[2017-10-07] MEDS: HYDRAGUARD CREAM TP SCH (13:03)
[2017-10-07] MEDS: SKINTEGRITY HYDROGEL TP SCH (13:04)
--- NOTE | 2017-10-07 13:12 | NUR ---
VENT CHECK, SXN PT MODERATE AMT OF CLEAR SECRETIONS, B\S ARE DIMINISHED I\L TX GIVEN WITH DUONEB 3ML WITH NO ADVERSE REACTION POST TX, PT HAS SOME REDNESS AROUND STOMA PT IS RESTING NOW WITH NO SIGNS OF DISTRESS NOTED AT THIS TIME
--- NOTE | 2017-10-07 13:51 | NUR ---
PT TOLERATED MEDICATIONS AND NG TUBE FEEDING WELL. CONTINUE ON SAME VENTILATOR SETTING. RESPIRATION ARE EVEN AND UNLABORED. NO S/SX OF RESPIRATORY DISTRESS NOTED. PT IS AWAKE AND ABLE TO FOLLOW SIMPLE COMMANDS. WILL CONTINUE TO MONITOR.
--- NOTE | 2017-10-07 15:19 | NUR ---
VENT CHECK, SXN PT SMALL AMT CLEAR SECRETIONS, B\S DIMINISHED PT IS RESTING
--- NOTE | 2017-10-07 16:00 | NUR ---
PT HAD LARGE AMOUNT OF SOFT BROWN BOWEL MOVEMENT. PROVIDED SKIN CARE, KEPT CLEAN AND DRY. NO S/SX OF ACUTE RESP DISTRESS NOTED. WILL CONTINUE TO MONITOR.
--- NOTE | 2017-10-07 17:26 | NUR ---
VENT CHECK, SXN PT MODERATE AMT OF CLEAR SECRETIONS, B\S ARE DIMINISHED AND TRACH CARE DONE : CHANGED TRACH GAUZE PT IS RESTING
--- NOTE | 2017-10-07 17:52 | NUR ---
PT AWAKE, NON VERBAL, ABLE TO FOLLOW COMMANDS. PROVIDED ORAL CARE, SMALL AMOUNT WHITE THIN SECRETIONS NOTED. NO S/SX OF ACUTE RESPIRATORY DISTRESS NOTED. WILL CONTINUE TO MONITOR.
[2017-10-07] MEDS: DEXT 5% / NACL 0.9% 500 ML IV SCH (18:52)
--- NOTE | 2017-10-07 18:55 | NUR ---
RECEIVED PT ON THE SAME VENT SETTINGS, MED NEB IN LINE, SX SMALL ZAMAN THIN SECRETION. PT IS AGITATED , HE WANTS TO GET UP, PULLING EVERY THING OFF.
--- NOTE | 2017-10-07 19:21 | NUR ---
REPORT GIVEN AND ENDORSED CARE TO AZALIA PAT.
--- NOTE | 2017-10-07 19:22 | NUR ---
RECEIVED REPORT FROM MONROE VIEYRA
--- NOTE | 2017-10-07 19:27 | NUR ---
PATIENT IN BED, NO SIGNS OF ACUTE DISTRESS. PATIENT ABLE TO FOLLOW SIMPLE COMMANDS. AWAKE AND ALERT. PATIENT CAN BE AGITATED AT TIMES. PATIENT DOES NOT COMPLAIN OF PAIN. NG TUBE IN PLACE IN THE RIGHT NARES. PATENT. RESPIRATION ARE EVEN AND LABORED. HARSH BREATH SOUNDS IN UPPER LUNGS BILATERALLY. DIMINISHED BREATH SOUNDS IN LOWER LOBES BILATERALLY. TRACH TO VENT AND SETTING AT FiO2 35, TV 650, RATE 14, PEEP 5. A-FIB ON THE MONITOR. ACTIVE BOWEL SOUNDS. ACOSTA CATHETER IN PLACE. PICC LINE TO RT UPPER ARM, PATENT AND INTACT, NO TENDERNESS OR SWELLING. BED IN LOW POSITION, CALL LIGHT WITHIN REACH. WILL CONTINUE TO MONITOR.
--- NOTE | 2017-10-07 21:45 | NUR ---
PATIENT HAD A LARGE LOOSE BOWEL MOVEMENT. PATIENT WAS CLEANED AND ALL LINENS WERE CHANGED.
--- NOTE | 2017-10-07 22:41 | NUR ---
PATIENT IN BED, RESTING, NO SIGN OF DISTRESS. ALL ALARMS CHECK AND VENT SETTINGS CHECKED. PATIENT VOIDED 1000ML OF YELLOW URINE.
--- NOTE | 2017-10-07 23:15 | NUR ---
PATIENT AGITATED, PLACED MITTENS ON PATIENT TO STOP HIM FROM PULLING OUT TRACHEOSTOMY.
[2017-10-08] VITALS (24 sets, daily range): BP systolic 87–136; BP diastolic 34–85
[2017-10-08] MEDS: FUROSEMIDE 20 MG/2 ML VIAL IVP SCH ×4 (00:05→20:38)
[2017-10-08] MEDS: BLOOD GLUCOSE MONITORING 1 DEV DEV FS SCH ×4 (00:09→18:21)
--- NOTE | 2017-10-08 00:12 | NUR ---
PATIENT IN BED RESTING, NO SIGNS OF DISTRESS. ALL ALARMS CHECKED
--- NOTE | 2017-10-08 00:30 | NUR ---
PATIENT HAD BOLUS TUBE FEEDING AND TOLERATED WELL. THERE WAS 0 RESIDUAL.
[2017-10-08] MEDS: LORazepam 2 MG/ML VIAL IVP PRN ×2 (01:13→08:08)
--- NOTE | 2017-10-08 01:13 | NUR ---
PATIENT GIVEN ATIVAN FOR AGITATION. PATIENT KEEPS PULING OFF MITTENS.
[2017-10-08] MEDS: ALBUTEROL SULFATE/IPRATROPIU 3 ML SOL IH SCH ×4 (01:14→18:53)
--- NOTE | 2017-10-08 01:45 | NUR ---
VENT CK DONE, MED NEB IN LINE, PT STILL AWAKE, CHANGED DRESSING, NO RESP DISTRESS NOTED
--- NOTE | 2017-10-08 01:50 | NUR ---
PATIENT PULLING AT TRACHEOSTOMY TUBING AND AGITATED.
--- NOTE | 2017-10-08 01:54 | NUR ---
SOFT WRIST RESTRAINTS INITIATED, DR. SIU WAS CALLED AND INFORMED. PATIENT WILL BE PLACED ON BILATERAL SOFT WRIST RESTRAINTS.
--- NOTE | 2017-10-08 02:30 | NUR ---
COVERING FOR PRIMARY NURSE ADILIA. PATIENT KEEPS ON SLIDING DOWN ON HIS BED, TRIED TO GET UP AND ABLE TO REMOVED SOFT RESTRAINT FROM HIS RIGHT WRIST, PATIENT TRIED TO REMOVED PULSE OXIMETER FROM HIS RIGHT INDEX FINGER AND TRIED TO REACH HIS NGT AND TRACHE. EXPLAINED TO THE PATIENT THE RISK FOR INJURY OR FALLS BUT PATIENT NOT FOLLOWING INSTRUCTIONS AT ALL. WILL MONITOR CLOSELY.
--- NOTE | 2017-10-08 03:17 | NUR ---
PATIENT ABLE TO GET HOLD OF HIS ACOSTA CATHETER TUBING AND TRIED TO PULL IT OUT, RESTRAINTS SECURED, WILL CONTINUE TO MONITOR CLOSELY.
--- NOTE | 2017-10-08 04:25 | NUR ---
PATIENT VOIDED 1400ML OF YELLOW URINE.
--- NOTE | 2017-10-08 04:30 | NUR ---
PATIENT HAD ANOTHER LARGE LOOSE BOWEL MOVEMENT. PATIENT WAS CLEANED AND ALL LINENS WERE CHANGED.
--- NOTE | 2017-10-08 04:30 | NUR ---
PATIENT CONTINUES TO TRY AND GET OUT OF BED, PATIENT KEEPS SAYING HE WANTS TO GET UP AND ATTEMPTING TO DO SO. PATIENT HAS NOT SLEPT ALL NIGHT. PATIENT WAS GIVEN MORPHINE 4MG IV.
[2017-10-08] MEDS: MORPHINE SULFATE 4 MG/ML SYR IVP PRN ×3 (04:33→14:28)
--- NOTE | 2017-10-08 05:30 | NUR ---
PATIENT HAS CALMED DOWN BUT STILL REACHES FOR TUBING. RESTRAINTS STILL IN PLACE. SKIN CHECKED, NO SKIN IMPAIRMENT UNDER RESTRAINTS
--- NOTE | 2017-10-08 05:50 | NUR ---
VENT CK DONE, TRACH CARE DONE, CHANGED HME, NO RESP DISTRESS AT THIS TIME.
[2017-10-08 05:53] LABS: ANION GAP 10.7 (8-16); CARBON DIOXIDE 33.4 mmol/L (21-32); CREATININE 0.7 mg/dL (0.7-1.3); POTASSIUM 4.1 mmol/L (3.5-5.1)
[2017-10-08 05:57] LABS: HEMATOCRIT 44.3 % (36-52); HEMOGLOBIN 14.4 g/dL (12.0-18.0); MEAN CORPUSCULAR HEMOGLOBIN 35 pg (27-31); MEAN CORPUSCULAR HGB CONC 33 g/dL (33-37); MEAN CORPUSCULAR VOLUME 107 fL (80-94); PLATELET COUNT (AUTO) 272 K/uL (140-450); RED BLOOD CELL COUNT(AUTO) 4.13 MIL/uL (4.20-6.10); RED CELL DISTRIBUTION WIDTH 14.7 % (11.6-13.7); WHITE BLOOD COUNT (AUTO) 12.4 K/uL (4.8-10.8)
[2017-10-08 05:58] LABS: MAGNESIUM 2.1 mg/dL (1.8-2.4); PHOSPHORUS 3.2 mg/dL (2.5-4.9)
--- NOTE | 2017-10-08 06:20 | NUR ---
SPOKE WITH PATIENT'S DAUGHTER LUKASZ, INFORMED THAT BILATERAL SOFT WRIST RESTRAINTS WERE INITIATED AT 0200 BECAUSE PATIENT WAS SO AGITATED, TRIED TO PULL OUT TRACHE TUBING, NGT, AND REMOVED PULSE OX AND TRIED SEVERAL TIMES TO GET OUT OF BED. LUKASZ DIDN'T VERBALIZE ANY OBJECTION ON THE RESTRAINTS APPLICATION, REASSURED THAT PATIENT WILL BE CLOSELY MONITORED TO PREVENT ANY INJURY OR FALLS.
[2017-10-08 06:21] LABS: EOSINOPHILS % (MANUAL) 5 % (0-4); LYMPHOCYTES % (MANUAL) 12 % (20-46); MONOCYTES % (MANUAL) 8 % (5-12)
--- NOTE | 2017-10-08 06:30 | NUR ---
PATIENT TOLERATED TUBE FEEDING, RESIDUAL WAS 0.
[2017-10-08] MEDS: METOCLOPRAMIDE 10 MG/10 ML SYRP UDC GT SCH ×3 (06:58→18:21)
[2017-10-08] MEDS: LEVOTHYROXINE 0.075 MG TAB PO SCH (06:59)
[2017-10-08] MEDS: MIDODRINE 5 MG TAB PO SCH ×3 (07:02→18:36)
--- NOTE | 2017-10-08 07:25 | NUR ---
DR. MOTT AT BEDSIDE EXAM PT. WILL TALK TO THE RESIDENT.
--- NOTE | 2017-10-08 07:45 | NUR ---
SEEN BY DR. TATE AND HIS RESIDENT TEAM.
[2017-10-08] MEDS: METOPROLOL 25 MG TAB PO SCH ×3 (08:08→18:23)
--- NOTE | 2017-10-08 08:08 | NUR ---
PT. AWAKE ALERT AND GETTING RESTLESS HR INCREASE TO 130/MIN MEDICATION GIVEN ORDERED.
[2017-10-08] MEDS: SENNA 8.6 MG TAB PO SCH ×3 (08:47→18:22)
[2017-10-08] MEDS: LACTOBACILLUS RHAMNOSUS GG 1 EACH CAP PO SCH (08:47)
[2017-10-08] MEDS: FAMOTIDINE 20 MG TAB PO SCH ×2 (08:49→20:36)
[2017-10-08] MEDS: LACTULOSE 20 GM/30 ML UDC PO SCH (09:00)
[2017-10-08] MEDS: SPIRONOLACTONE 50 MG TAB PO SCH (09:03)
[2017-10-08] MEDS: NICOTINE TRANSD SYS 7 MG/24 HR PATCH TD SCH (09:06)
[2017-10-08] MEDS: POTASSIUM CHLORIDE 20% 40 MEQ/15 ML UDC GT SCH ×2 (09:32→20:36)
--- NOTE | 2017-10-08 10:30 | NUR ---
SEEN BY DR GAGANDEEP CRENSHAW.
--- NOTE | 2017-10-08 12:00 | NUR ---
DR. EVERETT AT BEDSIDE HE EXAM THE PATIENT AND CALL DAUGHTER LUKASZ REGARDING GT PLACEMENT. CONSENT OBTAINED.
[2017-10-08] MEDS: HYDRAGUARD CREAM TP SCH (13:00)
[2017-10-08] MEDS: SKINTEGRITY HYDROGEL TP SCH (13:00)
--- NOTE | 2017-10-08 14:25 | NUR ---
SUTURE AT THE TRACH SITE REMOVED BY RT MADRIGAL. THERE IS UNHEAL SURGICAL WOUND ANTERIOR OF THE NECK 0.6X3.[address] FIGUEROA AWARE WILL SEE THE PATIENT.
--- NOTE | 2017-10-08 14:53 | NUR ---
PMV PLACED ON PT ON AC FOR 10 MINUTES AND CPAP X 15 MINUTES PT SEEMS TO GET IN RESP DISTRESS STOPPED PMV TRIAL FOR NOW PT ABLE TO TALK A LITTLE REMOVED STICHES FROM TRACHCOLLAR PT WITH SURGICAL WOUND ABLE TO P[LACE DRAIN SPONGE ALSO REPLACED TRACH TIE RN DONAL AWARE
--- NOTE | 2017-10-08 15:24 | NUR ---
10/08/17 RD FOLLOW UP COMPLETED PLEASE REFER TO NUTRITION PROGRESS NOTE UNDER CARE ACTIVITY FOR ESTIMATED NUTRITION NEEDS. 1. CONTINUE NUTRITION SUPPORT: NUTREN PULMONARY AT 250 ML Q6H VIA NG TUBE WITH 20 ML FREE WATER FLUSH WITH PROSOURCE TID TOLERATED AND PER MD DISCRETION. 2. SHOULD PT PASS A SWALLOW EVALUATION, CONSIDER ADVANCING DIET SLOWLY AND TOLERATED, TO CCHO 60 GM 3. SHOULD PT REQUIRE BULK SEALER OPERATOR NUTRITION SUPPORT, CONSIDER NUTREN PULMONARY AT 60 ML/HR X24 HOURS. --THIS WILL PROVIDE 100% OF PT ESTIMATED KCAL AND PROTEIN NEEDS. 4. RD WILL F/U 2-3 DAYS; HIGH RISK PAUL MARR RD
--- NOTE | 2017-10-08 16:10 | NUR ---
PT TEAM AT BED SIDE GIVE PATIENT HIS PT. PT WAS VERY SLEEPY AT THE TIME.
--- NOTE | 2017-10-08 17:02 | NUR ---
S.T. NOTES RECEIVED ORDER FOR SWALLOW EVAL AFTER PMV USE. THIS P.T. SPOKE WITH DR. DONIS THAT FROM [employer]LECTR[employer] AND [employer]SE[employer] SWALLOW EVAL IS ONLY TO BE INITIATED AFTER PT DEMONSTRATES USE OF PMV FOR AT LEAST 3 EPISODES OF 60 MINUTE USE AND EXHIBITING TOLERANCE AND NO SIGNS OF DISTRESS. COORDINATED WITH CARDIOPLUMO THEY WILL INITIATE PMV TRIAL. DR. DONIS STATES HE WILL CANCEL ORDER UNTIL PMV USE IS STABLE. NURSE MADE AWARE WELL. WHO STATED PT WILL BE POSSIBLY HAVE PEG PLACEMENT TOMORROW. PVE
[2017-10-08] MEDS: DEXT 5% / NACL 0.9% 500 ML IV SCH (18:33)
--- NOTE | 2017-10-08 19:30 | NUR ---
RECEIVED PT FROM AM SHIFT, PT IS SLEEPING AT THIS TIME, EASY TO AWAKE WHEN CALLING HIS NAME,AND TO LIGHT PAIN. PT ABLE TO GIVE SIGN YES BY NODDING HIS HEAD TO SIMPLE QUESTION.TRACH TO VENT WITH SETTING AC/VC 14, TV 650 FIO2 35 AND PEEP 5 TOLERATE WELL,NO S/S OF RESP DISTRESS,NO SOB AT THIS TIME. RHONCHI TO BILATERAL LUNGS. HOB UP 30-45 DEGREE ALL THE TIMES. A.FIB ON MONITOR. PICC LINE DOUBLE LUMEN TO MEO. INTACT WELL,NO S/S OF INFECTION. IV D5 WITH NS AT 10 CC/HR. NGT TO RIGHT NOSTRIL INTACT WELL WITH FEEDING 250 ML NUTREN PULMONARY Q 6 HRS AND WATER ORDERED. NO RESIDUAL NOTED. ACTIVE BOWEL SOUNDS TO ALL QUADRANT. ABD ROUND SOFT NON DISTENDED. EDEMA ON BUE/BLE PITTING +1. SOFT RESTRAIN TO BUE. SKIN INTACT NO DISCOLORATION NOTED.RELEASE 15 MINUTES Q 2 HRS[address] F/C INPLACE WITH YELLOW CLEAR COLOR.KEPT PT CLEAN AND DRY. CALL LIGHT BETWEEN REACH.
--- NOTE | 2017-10-08 20:15 | NUR ---
VAP ORAL CARE GIVEN TOLERATED WELL.SUCTION GIVEN PRN. SMALL WHITE THIN SECRETION NOTED.KEPT AIR WAY CLEAR.
--- NOTE | 2017-10-08 21:00 | NUR ---
NIGHT MEDS GIVEN TOLERATED WELL.
--- NOTE | 2017-10-08 22:30 | NUR ---
LUKASZ DAUGHTER CALLING,UP DATE PT STATUS TO HER.
--- NOTE | 2017-10-08 23:30 | NUR ---
GT FEEDING GIVEN PER ORDER,BLOOD SUGAR 94 NO NEED INSULIN COVER. VAP ORAL CARE GIVEN TOLERATED WELL.
[2017-10-09] VITALS (24 sets, daily range): BP systolic 84–119; BP diastolic 45–110
[2017-10-09] MEDS: BLOOD GLUCOSE MONITORING 1 DEV DEV FS SCH ×4 (00:09→17:17)
--- NOTE | 2017-10-09 00:10 | NUR ---
PT START NPO ORDER FOR PRE-PEG PLACEMENT.
[2017-10-09] MEDS: ALBUTEROL SULFATE/IPRATROPIU 3 ML SOL IH SCH ×4 (01:20→19:02)
--- NOTE | 2017-10-09 02:30 | NUR ---
SLEEP EASILY TO AWAKE . CONT NPO.
--- NOTE | 2017-10-09 04:00 | NUR ---
PT AWAKE,ALERT,ORIENTED. PT TRYING TO TALK AND TRYING TO WRITING . ABLE TO HOLD THE PEN WELL. PT DENIES PAIN. FOLLOW ALL COMMANDS. STOP THE CELESTINA SOFT WRIST RESTRAIN AT THIS TIME. NO EPISODE OF RESTLESS NOTED.WILL CONTINUE MONITOR.
[2017-10-09 04:51] LABS: BASOPHILS # (AUTO) 0.2 K/uL (0.00-0.22); EOSINOPHILS # (AUTO) 0.8 K/uL (0-0.4); LYMPHOCYTES # (AUTO) 1.2 K/uL (2.0-11.5)
--- NOTE | 2017-10-09 05:42 | NUR ---
AM CARE GIVEN,SPONGE BATH AND F/C CARE GIVEN. PICC LINE DRESSING DONE. NO S/S OF INFECTION ON THE SITE. KEPT CLEAN AND DRY.
[2017-10-09 05:54] LABS: ANION GAP 7.1 (8-16); CARBON DIOXIDE 33.1 mmol/L (21-32); CREATININE 0.8 mg/dL (0.7-1.3); POTASSIUM 4.2 mmol/L (3.5-5.1)
[2017-10-09 05:57] LABS: PHOSPHORUS 3.7 mg/dL (2.5-4.9)
[2017-10-09 06:00] LABS: BASOPHILS % (AUTO) 1.9 % (0.0-2.0); EOSINOPHILS % (AUTO) 7.9 % (0.0-4.0); HEMATOCRIT 43.4 % (36-52); LYMPHOCYTES % (AUTO) 12.3 % (20.5-51.1); MEAN CORPUSCULAR HEMOGLOBIN 34 pg (27-31); MEAN CORPUSCULAR HGB CONC 32 g/dL (33-37); MEAN CORPUSCULAR VOLUME 106 fL (80-94); MONOCYTES # (AUTO) 1.2 K/uL (0.8-1.0); MONOCYTES % (AUTO) 12.2 % (1.7-9.3); NEUTROPHILS # (AUTO) 6.3 K/uL (1.8-7.7); NEUTROPHILS % (AUTO) 65.7 % (42.2-75.2); PLATELET COUNT (AUTO) 244 K/uL (140-450); RED BLOOD CELL COUNT(AUTO) 4.08 MIL/uL (4.20-6.10); RED CELL DISTRIBUTION WIDTH 14.5 % (11.6-13.7); WHITE BLOOD COUNT (AUTO) 9.7 K/uL (4.8-10.8)
[2017-10-09] MEDS: FUROSEMIDE 20 MG/2 ML VIAL IVP SCH ×3 (06:11→20:51)
[2017-10-09] MEDS: MIDODRINE 5 MG TAB PO SCH ×3 (06:12→18:25)
[2017-10-09] MEDS: LEVOTHYROXINE 0.1 MG TAB PO SCH (06:12)
--- NOTE | 2017-10-09 06:15 | NUR ---
LUKASZ DAUGHTER CALLING AND UP DATE PT STATUS,THAT PT IS AWAKE,FOLLOW COMMANDS,WATCHING TV,NO EPISODE RESTLESS AND RESTRAIN IS OFF.
--- NOTE | 2017-10-09 06:15 | NUR ---
DR THOMPSON COME AND CHANGE THE DIFLUCAN ORDER TO IV. MED GIVEN ORDER. GT FEEDING GIVEN FOR 6 AM DIABETIC SOURCE 230 CC AND H20 ORDER TOLERATED WELL,NO RESIDUAL NOTED. Addendum: 10/09/17 at 0642 by Yi Marquis RN ERROR ENTER WRONG PT.
--- NOTE | 2017-10-09 07:14 | NUR ---
REPORT GIVEN TO MATTIE VIEYRA,PT IS AWAKE AND STABLE. PT IS NPO FOR PRE PEG TUBE PLACEMENT.
--- NOTE | 2017-10-09 07:29 | NUR ---
RECEIVED REPORT FROM NIGHT NURSE. PT IS ASLEEP, EASILY AROUSABLE TO LIGHT SHAKING. A. FIB ON MONITOR. PT IS TRACH TO VENT: AC 14, FIO2 35%, TV 650, PEEP 5. BILATERAL LUNGS SOUND CLEAR AT THIS TIME. NGT TO RIGHT NOSTRIL IN PLACE, NO RESIDUALS NOTED. PT HAS BEEN NPO AFTER MIDNIGHT. PICC LINE TO RIGHT UPPER ARM PATENT AND INTACT, RECEIVING ORDERED IV FLUID. ABDOMEN SOFT, ROUND, NONTENDER. BOWEL SOUNDS PRESENT. ACOSTA CATH IN PLACE, DRAINING CLEAR YELLOW URINE. HOB 30 DEGREES. BED IN LOW POSITION AND CALL LIGHT WITHIN REACH. NO S/SX OF ACUTE DISTRESS NOTED AT THIS TIME. WILL CONTINUE TO MONITOR.
[2017-10-09] MEDS: METOCLOPRAMIDE 10 MG/10 ML SYRP UDC GT SCH ×3 (07:30→16:45)
--- NOTE | 2017-10-09 08:13 | NUR ---
DR. SCHROEDER AND RESIDENT GROUP IN TO SEE PT. WILL FOLLOW UP ON ORDERS.
[2017-10-09] MEDS: NICOTINE TRANSD SYS 7 MG/24 HR PATCH TD SCH (08:48)
[2017-10-09] MEDS: METOPROLOL 25 MG TAB PO SCH ×3 (09:00→16:45)
[2017-10-09] MEDS: SPIRONOLACTONE 50 MG TAB PO SCH (09:00)
[2017-10-09] MEDS: FAMOTIDINE 20 MG TAB PO SCH ×2 (09:00→20:50)
[2017-10-09] MEDS: SENNA 8.6 MG TAB PO SCH ×3 (09:00→16:44)
[2017-10-09] MEDS: LACTOBACILLUS RHAMNOSUS GG 1 EACH CAP PO SCH (09:00)
[2017-10-09] MEDS: LACTULOSE 20 GM/30 ML UDC PO SCH (09:00)
[2017-10-09] MEDS: POTASSIUM CHLORIDE 20% 40 MEQ/15 ML UDC GT SCH ×2 (09:00→20:50)
--- NOTE | 2017-10-09 10:17 | NUR ---
PT IS RESTING COMFORTABLY AND WATCHING TV. NO SIGNS OF ACUTE DISTRESS OR DISCOMFORT NOTED AT THIS TIME. WILL CONTINUE TO MONITOR.
--- NOTE | 2017-10-09 11:00 | NUR ---
RECEIVED A CALL FROM DAUGHTERLUKASZ. UPDATED ON PT'S CONDITION.
[2017-10-09] MEDS: MORPHINE SULFATE 4 MG/ML SYR IVP PRN ×2 (11:02→19:23)
--- NOTE | 2017-10-09 12:05 | NUR ---
CALLED OR TO FOLLOW UP WITH SCHEDULED EGD.
--- NOTE | 2017-10-09 12:20 | NUR ---
OR STAFFS IN FOR SCHEDULED EGD. AWAITING DR. BARRON'S ARRIVAL.
[2017-10-09] MEDS ORDERED: MIDAZOLAM 2 MG/2 ML VIAL ONE ×2 (12:36→12:37)
[2017-10-09] MEDS ORDERED: fentaNYL 0.05 MG/ML VIAL ONE (12:36)
--- NOTE | 2017-10-09 12:50 | NUR ---
DR. FIGUEROA AT BEDSIDE, EXPLAINED THE PROCEDURE OF EGD WITH PEG PLACEMENT TO PT. PT AGREED TO GET PROCEDURE DONE.
[2017-10-09] MEDS: HYDRAGUARD CREAM TP SCH (13:00)
[2017-10-09] MEDS: SKINTEGRITY HYDROGEL TP SCH (13:00)
--- NOTE | 2017-10-09 13:20 | NUR ---
DR. BARRON OBTAINED TELEPHONE INFORMED CONSENT FROM DAUGHTER, LUKASZ, FOR EGD WITH PEG. WITNESSED BY TWO RNS.
--- NOTE | 2017-10-09 13:30 | NUR ---
IVETTE HELD FOR LOW BLOOD PRESSURE.
--- NOTE | 2017-10-09 14:05 | NUR ---
EGD WITH PEG PLACEMENT DONE. PT TOLERATED WELL. VS STABLE. WILL CONTINUE TO MONITOR.
--- NOTE | 2017-10-09 14:19 | NUR ---
Left a message to Chadd in [facility] regarding bed availability for Mr. Alexander.
[2017-10-09] MEDS ORDERED: diphenhydrAMINE 50 MG/ML VIAL ONE (14:24)
--- NOTE | 2017-10-09 14:26 | NUR ---
LUKASZ EMMANUEL, CALLED AND WAS UPDATED ON PT.
[2017-10-09] MEDS ORDERED: diphenhydrAMINE 50 MG/ML VIAL IVP ONE (14:30)
[2017-10-09] MEDS ORDERED: fentaNYL 0.05 MG/ML VIAL IVP ONE (14:30)
[2017-10-09] MEDS ORDERED: MIDAZOLAM 2 MG/2 ML VIAL IVP ONE (14:30)
--- NOTE | 2017-10-09 14:30 | NUR ---
Marv from [facility] called and no male bed available at this time. [facility] called and no male bed available as well.
--- NOTE | 2017-10-09 15:10 | NUR ---
CM NOTE LEONA Horta/ [facility] FROM [facility] BED PLACEMENT. PATIENT INFORMATION FAXED TO [employer] / FAX# [phone], ATTN: BRANDIE #[phone] PATIENT INFORMATION FAXED TO [facility] / FAX# [phone], ATTN: BRIGIDO #[phone]
[2017-10-09] MEDS ORDERED: FUROSEMIDE 20 MG TAB PO SCH (15:30)
--- NOTE | 2017-10-09 17:15 | NUR ---
ADMINISTERED MEDICATIONS. PT TOLERATED WELL. PT IS ALERT AND ORIENTED. FOLLOWS COMMANDS AND COOPERATIVE. ABLE TO MAKE NEEDS KNOWN. HOB 30 DEGREES AND SAFETY MEASURES ENSURED. WILL CONTINUE TO MONITOR.
[2017-10-09] MEDS: DEXT 5% / NACL 0.9% 500 ML IV SCH (17:18)
--- NOTE | 2017-10-09 17:50 | NUR ---
PT NOTES Patient s/p PEG placement around 1400 per RN, hold PT until cleared to resume by MD with new order. Nursing aware and was able to f/u with MD received new order and will re-assess tomorrow. Nursing aware.
--- NOTE | 2017-10-09 17:51 | NUR ---
DR. GIMENEZ IN TO SEE PT. WILL FOLLOW UP ON ORDERS.
--- NOTE | 2017-10-09 18:30 | NUR ---
PT IS WATCHING TV AT THIS TIME. ALERT AND ORIENTED. FOLLOWS COMMANDS. ABLE TO MAKE NEEDS KNOWN. NO C/O PAIN OR DISCOMFORT. NO SIGNS OF ACUTE DISTRESS NOTED.
--- NOTE | 2017-10-09 19:25 | NUR ---
REPORT GIVEN TO NIGHT NURSE FOR CONTINUITY OF CARE. PT IS IN STABLE CONDITION.
--- NOTE | 2017-10-09 19:26 | NUR ---
RECEIVED REPORT FROM AZALIA ALVARADO AT BEDSIDE, PT IS AAOX4, NON-VERBAL, ABLE TO FOLLOW COMMANDS. TRACH TO VENT WITH FIO2 35, RR 14, TV 650, PEEP 5, CLEAR LUNG SOUNDS, A. FIB ON LOIN PULLER. LARGE SOFT ROUND ABDOMEN WITH ACTIVE BOWEL SOUNDS, GT IN PLACE, FEEDING WITH NUTREN PULMONARY AT 250ML Q4HR ORDERED. ACOSTA CATHETER IN PLACE WITH CLEAR YELLOW URINE NOTED, ABLE TO MOVE ALL EXTREMITIES, GENERALIZED WEAKNESS NOTED. PICC LINE TO RIGHT UPPER ARM WITH DOUBLE LUMEN WITH GOOD BLOOD RETURN, SL. SKIN IS WARM AND DRY TO TOUCH WITH SKIN TEAR NOTED TO BACK AND RIGHT FOREARM, CELLULITIS TO BLE WITH SCAB. VSS, C/O PAIN TO TRACH SITE, 09/02, MORPHINE GIVEN. SAFETY PRECAUTION IN PLACE, HOB ELEVATED TO 30 DEGREES, REFUSED ORAL CARE, POSITION CHANGED FOR OFF LOAD PRESSURE, WILL CONTINUE TO MONITOR.
--- NOTE | 2017-10-09 21:00 | NUR ---
LASIX HELD DUE TO BP LOW, OTHER SCHEDULED MEDICATION GIVEN VIA GT, PT TOLERATED WELL.
--- NOTE | 2017-10-09 22:00 | NUR ---
NO CHANGE OF CONDITION AT THIS TIME, PT IS ASLEEP IN BED, VSS, POSITION CHANGED FOR OFF LOAD PRESSURE.
[2017-10-10] VITALS (23 sets, daily range): BP systolic 80–100; BP diastolic 37–63
--- NOTE | 2017-10-10 | NUR ---
PT IS ASLEEP IN BED, NO S/S OF DISTRESS, VSS, ORAL CARE PROVIDED AND POSITION CHANGED FOR OFF LOAD PRESSURE.
[2017-10-10] MEDS: BLOOD GLUCOSE MONITORING 1 DEV DEV FS SCH ×4 (00:01→17:55)
[2017-10-10] MEDS: ALBUTEROL SULFATE/IPRATROPIU 3 ML SOL IH SCH ×4 (01:04→19:29)
--- NOTE | 2017-10-10 02:00 | NUR ---
PT IS AWAKE, WATCHING TV, VSS, POSITION CHANGED FOR OFF LOAD PRESSURE.
--- NOTE | 2017-10-10 04:00 | NUR ---
AM CARE AND ACOSTA CARE PROVIDED, ORAL CARE PROVIDED, POSITION CHANGED FOR OFF LOAD PRESSURE. VSS.
[2017-10-10] MEDS: FUROSEMIDE 20 MG/2 ML VIAL IVP SCH ×3 (04:52→21:14)
--- NOTE | 2017-10-10 05:00 | NUR ---
PT'S BP 92/67, LASIX HELD DUE TO LOW BP, DR. FIGUEROA MADE AWARE. OK TO HOLD IT.
[2017-10-10 05:08] LABS: ANION GAP 9.2 (8-16); CARBON DIOXIDE 27.3 mmol/L (21-32); CREATININE 0.8 mg/dL (0.7-1.3); POTASSIUM 4.5 mmol/L (3.5-5.1)
[2017-10-10 05:11] LABS: MAGNESIUM 2.3 mg/dL (1.8-2.4); PHOSPHORUS 3.9 mg/dL (2.5-4.9)
--- NOTE | 2017-10-10 06:00 | NUR ---
PT IS AWAKE, WATCHING TV, BP IS LOW, LASIX HELD, DR. FIGUEROA MADE AWARE. POSITION CHANGED FOR OFF LOAD PRESSURE.
[2017-10-10] MEDS: LEVOTHYROXINE 0.1 MG TAB PO SCH (06:28)
[2017-10-10] MEDS: MIDODRINE 5 MG TAB PO SCH ×3 (06:28→18:07)
[2017-10-10] MEDS: METOCLOPRAMIDE 10 MG/10 ML SYRP UDC GT SCH ×3 (06:35→16:41)
[2017-10-10 07:19] LABS: HEMATOCRIT 41.1 % (36-52); HEMOGLOBIN 13.8 g/dL (12.0-18.0); MEAN CORPUSCULAR HEMOGLOBIN 35 pg (27-31); MEAN CORPUSCULAR HGB CONC 34 g/dL (33-37); MEAN CORPUSCULAR VOLUME 104 fL (80-94); PLATELET COUNT (AUTO) 254 K/uL (140-450); RED BLOOD CELL COUNT(AUTO) 3.95 MIL/uL (4.20-6.10); RED CELL DISTRIBUTION WIDTH 14.3 % (11.6-13.7); WHITE BLOOD COUNT (AUTO) 9.4 K/uL (4.8-10.8)
--- NOTE | 2017-10-10 07:25 | NUR ---
RECEIVED TRACH PT WITH SHILEY 8 XLT ON VENT. SETTINGS AC 14, VT 650, PEEP 5 AND FIO2 35%. PT SUCTIONED OBTAINED MODERATE AMOUNT OF THICK YELLOW SECRETIONS, AIRWAY IS PATENT AND TRACH IS SECURE. PT IS AWAKE WATCHING TV AND NODS TO QUESTIONS WHEN ASKED. VENT IS PLUGGED INTO RED OUTLET WITH ALARMS ARE ON AND FUNCTIONING. WILL CONTINUE TO MONITOR.
--- NOTE | 2017-10-10 07:35 | NUR ---
RECEIVED REPORT FROM NIGHT RN FOR CONTINUITY OF CARE. PATIENT IS AO X4, ABLE TO MOUTH WORDS. ON TRACH TO VENT. ABLE TO FOLLOW SIMPLE COMMANDS. SKIN WARM TO TOUCH WNL, TOENAILS WNL, NO EDEMA, WITH BROWN SCABBING NOTED ON RLE AND +2 BILATERAL PEDAL PULSES. MOE PICC LINE NOTED WITH DRESSING DRY AND INTACT RUNNING TO D5NS AT 10ML/H. LUQ G TUBE PATENT AND INTACT TO NUTREN PULMONARY 250 BOLUS Q4H, PATIENT TOLERATING FEEDING WELL. NO RESIDUAL NOTED. FC 16FR PATENT AND INTACT TO LUKASZ COLORED URINE IN MODERATE AMOUNT. MADE COMFORTABLE IN BED. CALL LIGHT WITHIN REACH.
--- NOTE | 2017-10-10 07:35 | NUR ---
REPORT GIVEN TO AZALIA CR AT BEDSIDE FOR CONTINUE OF CARE, PT IS IN STABLE CONDITION AT THIS TIME.
[2017-10-10 07:50] LABS: EOSINOPHILS % (MANUAL) 8 % (0-4); LYMPHOCYTES % (MANUAL) 19 % (20-46); MONOCYTES % (MANUAL) 13 % (5-12)
--- NOTE | 2017-10-10 07:55 | NUR ---
DR SCHROEDER AND GROUP ROUNDING ON PATIENT. WILL FOLLOW UP WITH NEW ORDERS.
--- NOTE | 2017-10-10 08:10 | NUR ---
RT AT BEDSIDE PLACING PATIENT ON PMV. PATIENT TOLERATED PROCEDURE WELL.
[2017-10-10 08:39] LABS: PROTHROMBIN TIME 11.4 secs (10.8-13.4)
[2017-10-10] MEDS: METOPROLOL 25 MG TAB PO SCH ×3 (09:00→16:42)
[2017-10-10] MEDS: NICOTINE TRANSD SYS 7 MG/24 HR PATCH TD SCH (09:00)
[2017-10-10] MEDS: LACTOBACILLUS RHAMNOSUS GG 1 EACH CAP PO SCH (09:21)
[2017-10-10] MEDS: POTASSIUM CHLORIDE 20% 40 MEQ/15 ML UDC GT SCH (09:21)
[2017-10-10] MEDS: LACTULOSE 20 GM/30 ML UDC PO SCH (09:21)
[2017-10-10] MEDS: FAMOTIDINE 20 MG TAB PO SCH ×2 (09:24→21:14)
[2017-10-10] MEDS: SENNA 8.6 MG TAB PO SCH ×3 (09:25→16:42)
--- NOTE | 2017-10-10 09:31 | NUR ---
RESIDENT PHYSICIAN, DR. FIGUEROA MADE AWARE OF PATIENT'S BLOOD PRESSURE 83/55 MMHG, WILL HOLD LOPRESSOR AT THIS TIME.
[2017-10-10] MEDS: SPIRONOLACTONE 50 MG TAB PO SCH (09:40)
[2017-10-10] MEDS: CYCLOBENZAPRINE 10 MG TAB PO SCH ×3 (10:00→16:41)
--- NOTE | 2017-10-10 11:13 | NUR ---
PATIENT IS RESTING QUIETLY AT THIS TIME. NO S/S OF DISTRESS NOTED.
[2017-10-10] MEDS: HYDRAGUARD CREAM TP SCH (13:03)
[2017-10-10] MEDS: SKINTEGRITY HYDROGEL TP SCH (13:04)
--- NOTE | 2017-10-10 13:20 | NUR ---
IVTETE HELD AT THIS TIME DUE TO LOW BP, RESIDENT PHYSICIAN DR. FIGUEROA MADE AWARE.
--- NOTE | 2017-10-10 14:02 | NUR ---
PT IN BED WATCHING TV NO SIGNS OF RESPIRATORY DISTRESS AT THIS TIME. WILL CONTINUE TO MONITOR.
--- NOTE | 2017-10-10 14:30 | NUR ---
DR. REYNOLDS IN AND SEEN PATIENT. MADE AWARE OF LOPRESSOR BEING HELD THIS MORNING. NO NEW ORDERS MADE AT THIS TIME.
--- NOTE | 2017-10-10 16:04 | NUR ---
PATIENT IS RESTING COMFORTABLE AT THIS TIME Addendum: 10/10/17 at 1605 by Samantha Cisneros RN "COMFORTABLY"
--- NOTE | 2017-10-10 16:30 | NUR ---
PM CARE, CATHETER CARE RENDERED. PATIENT TOLERATED WELL. MADE COMFORTABLE IN BED.
[2017-10-10] MEDS: WARFARIN 5 MG, WARFARIN 2.5 MG PO SCH ×2 (16:45)
[2017-10-10] MEDS ORDERED: WARFARIN 5 MG TAB PO SCH (17:00)
--- NOTE | 2017-10-10 17:10 | NUR ---
RECEIVED THE CALL FROM HIS BROTHER ROBERTO . HE SAID HE RECEIVED A CALL FROM DR. DONIS REGARDING MARIA DEL ROSARIO IN THIS HOSPITAL..HESAID HE IS UNABLE TO COME IN AT THIS TIME BECAUSE OF HIS HEALTH. WILL TRY TO SEE HIM WHEN HE IS IN BETTER HEALTH.
[2017-10-10] MEDS: DEXT 5% / NACL 0.9% 500 ML IV SCH (18:05)
--- NOTE | 2017-10-10 18:15 | NUR ---
DR BARRON IN AND SEEN PATIENT. WILL FOLLOW UP WITH NEW ORDERS.
--- NOTE | 2017-10-10 19:15 | NUR ---
RECEIVED PT ON THE SAME VR=ENT SETTINGS, VENT CK DONE, MED NEB IN LINE, SX MOD WHITE THIN SECRETION, NO DISTRESS NOTED
--- NOTE | 2017-10-10 19:20 | NUR ---
RECEIVED REPORT FROM AZALIA DUNHAM AT BEDSIDE, PT IS AAOX4, NON-VERBAL, ABLE TO FOLLOW COMMANDS. TRACH TO VENT WITH FIO2 35, RR 14, TV 650, PEEP 5, CLEAR LUNG SOUNDS, A. FIB ON DECKHAND TUNA BOAT. LARGE SOFT ROUND ABDOMEN WITH ACTIVE BOWEL SOUNDS, GT IN PLACE, FEEDING WITH NUTREN PULMONARY AT 350ML Q6HR ORDERED. ACOSTA CATHETER IN PLACE WITH CLEAR LUKASZ COLORED URINE NOTED, ABLE TO MOVE ALL EXTREMITIES, GENERALIZED WEAKNESS NOTED. PICC LINE TO RIGHT UPPER ARM WITH DOUBLE LUMEN, NO BLOOD RETURN NOTED, BUT ABLE TO FLUSH WITH NS, RUNNING D21/2 NS AT 10ML/HR. SKIN IS WARM AND DRY TO TOUCH WITH SKIN TEAR NOTED TO BACK AND RIGHT FOREARM, CELLULITIS TO BLE WITH SCAB. BP LOW, MD AWARE, DENIES PAIN. SAFETY PRECAUTION IN PLACE, HOB ELEVATED TO 30 DEGREES, REFUSED ORAL CARE, POSITION CHANGED FOR OFF LOAD PRESSURE, WILL CONTINUE TO MONITOR.
--- NOTE | 2017-10-10 22:00 | NUR ---
PT IS ASLEEP IN BED, NO S/S OF DISTRESS, VSS, POSITION CHANGED FOR OFF LOAD PRESSURE.
--- NOTE | 2017-10-10 23:30 | NUR ---
PT SUCTION LARGE WHITE SECRETION, CHANGE HME , CLEAN TRACH CARE AREA
[2017-10-11] VITALS (17 sets, daily range): BP systolic 74–102; BP diastolic 49–73
--- NOTE | 2017-10-11 | NUR ---
PT IS ASLEEP, NO S/S OF DISTRESS, VSS, REFUSED ORAL CARE, POSITION CHANGED FOR OFF LOAD PRESSURE.
[2017-10-11] MEDS: BLOOD GLUCOSE MONITORING 1 DEV DEV FS SCH ×4 (00:24→18:27)
[2017-10-11] MEDS: ALBUTEROL SULFATE/IPRATROPIU 3 ML SOL IH SCH ×4 (01:40→20:11)
--- NOTE | 2017-10-11 02:00 | NUR ---
VSS, NO CHANGE OF CONDITION AT THIS TIME, POSITION CHANGED FOR OFF LOAD PRESSURE.
--- NOTE | 2017-10-11 04:00 | NUR ---
AM CARE AND F/C CARE PROVIDED, ORAL CARE PROVIDED, POSITION CHANGED FOR OFF LOAD PRESSURE, VSS.
[2017-10-11 05:09] LABS: HEMATOCRIT 45.4 % (36-52); HEMOGLOBIN 14.8 g/dL (12.0-18.0); MEAN CORPUSCULAR HEMOGLOBIN 35 pg (27-31); MEAN CORPUSCULAR HGB CONC 33 g/dL (33-37); MEAN CORPUSCULAR VOLUME 106 fL (80-94); PLATELET COUNT (AUTO) 234 K/uL (140-450); RED BLOOD CELL COUNT(AUTO) 4.29 MIL/uL (4.20-6.10); RED CELL DISTRIBUTION WIDTH 14.8 % (11.6-13.7)
--- NOTE | 2017-10-11 05:26 | NUR ---
TRACH CARE DONE AGAIN, CHANGED DRESSING ANG CHANGED HME AND SUCTION LARGE WHITE FROTHY SECRETION
[2017-10-11 05:27] LABS: ANION GAP 13.4 (8-16); CARBON DIOXIDE 27.7 mmol/L (21-32); CREATININE 0.7 mg/dL (0.7-1.3); POTASSIUM 4.1 mmol/L (3.5-5.1)
[2017-10-11 05:30] LABS: BASOPHILS % (MANUAL) 1 % (0-2); EOSINOPHILS % (MANUAL) 6 % (0-4); LYMPHOCYTES % (MANUAL) 15 % (20-46); MONOCYTES % (MANUAL) 8 % (5-12)
[2017-10-11 05:43] LABS: MAGNESIUM 1.9 mg/dL (1.8-2.4); PHOSPHORUS 4.9 mg/dL (2.5-4.9)
--- NOTE | 2017-10-11 06:00 | NUR ---
PT IS AWAKE, WATCHING TV, NO S/S OF DISTRESS, VSS, POSITION CHANGED FOR OFF LOAD PRESSURE.
[2017-10-11] MEDS: LEVOTHYROXINE 0.1 MG TAB PO SCH (06:35)
[2017-10-11] MEDS: METOCLOPRAMIDE 10 MG/10 ML SYRP UDC GT SCH ×3 (06:35→16:21)
[2017-10-11] MEDS: MIDODRINE 5 MG TAB PO SCH ×3 (06:35→18:29)
--- NOTE | 2017-10-11 07:20 | NUR ---
RECEIVED REPORT FROM NOC SHIFT. PT ON TRACH TO VENT ON SETTING FIO2 35 RR 14 TV 650 PEEP 5. NO ACUTE DISTRESS. SKIN DRY AND WARM TO TOUCH. PT AO X4. REORIENTED TO TIME, PLACE AND PERSON. MOE PICC LINE DOUBLE LUMEN FUNCTIONING. SKIN OPENING NOTED ON RIGHT ARM. DISCOLORATION ON BUE. GTUBE IN PLACE. ACOSTA'S CATH IN PLACE DRAINING MOD AMOUNT OF URINE.
--- NOTE | 2017-10-11 07:28 | NUR ---
REPORT GIVEN TO AZALIA CR AT BEDSIDE FOR CONTINUE OF CARE, PT IS IN STABLE CONDITION AT THIS TIME.
--- NOTE | 2017-10-11 07:28 | NUR ---
RECEIVED REPORT FROM NIGHT RN FOR CONTINUITY OF CARE. PATIENT IS AWAKE, ORIENTED X4. TRACH TO VENT, ABLE TO MOUTH WORDS. ABLE TO MAKE HIS NEEDS KNOWN. MOE PICC LINE PATENT AND INTACT, FLUSHES GOOD. SKIN WARM TO TOUCH WNL, TOENAILS ARE SLIGHTLY THICKENED, NO EDEMA, NO HAIR GROWTH, DRY AND FLAKY AND +1 BILATERAL PEDAL PULSES. FC IN PLACE TO LUKASZ URINE WITH SEDIMENTS IN MODERATE AMOUNT. MADE COMFORTABLE IN BED. CALL LIGHT WITHIN REACH. WILL CONTINUE TO MONITOR PATIENT.
--- NOTE | 2017-10-11 07:50 | NUR ---
RCV'D PT ON MECHANICAL VENTILATION AC 14,650,35%,+5. PT IS TRACHED WITH SHILEY 8 XLT. TRACH IS IN PLACE AND SECURED. VENT IS CONNECTED TO RED OUTLET. ALARMS ARE AUDIBLE. AMBU BAG AT BEDSIDE. SXN'D SML AMT OF THIN WHITE FROTHY SECRETIONS. HME AND T PIECE CHANGED. HHN TX OF [place] GIVEN. NO SOB OR DISTRESS NOTED. WILL CONTINUE TO MONITOR.
--- NOTE | 2017-10-11 08:10 | NUR ---
PATIENT HAD A LARGE SOFT BM, CLEANED AND REPOSITIONED. MADE COMFORTABLE IN BED. CALL LIGHT WITHIN REACH.
--- NOTE | 2017-10-11 08:10 | NUR ---
REPOSITIONING DONE. KEPT PT CLEAN AND DRY. PT RESTING IN BED COMFORTABLY.
--- NOTE | 2017-10-11 08:32 | NUR ---
GOT CALL BACK FROM DR BOYD AND GAVE ABG RESULTS. NO CHANGE OF ORDERS. Addendum: 10/11/17 at 0833 by Abdiel Macdonald RT DISCARD.
[2017-10-11 09:00] LABS: PROTHROMBIN TIME 11.2 secs (10.8-13.4)
[2017-10-11] MEDS: FUROSEMIDE 20 MG/2 ML VIAL IVP SCH ×2 (09:26→20:37)
[2017-10-11] MEDS: SPIRONOLACTONE 50 MG TAB PO SCH (09:27)
[2017-10-11] MEDS: LACTULOSE 20 GM/30 ML UDC PO SCH (09:27)
[2017-10-11] MEDS: LACTOBACILLUS RHAMNOSUS GG 1 EACH CAP PO SCH (09:27)
[2017-10-11] MEDS: POTASSIUM CHLORIDE 20% 40 MEQ/15 ML UDC GT SCH (09:28)
[2017-10-11] MEDS: METOPROLOL 25 MG TAB PO SCH ×3 (09:28→16:22)
[2017-10-11] MEDS: FAMOTIDINE 20 MG TAB PO SCH ×2 (09:28→20:36)
[2017-10-11] MEDS: SENNA 8.6 MG TAB PO SCH ×2 (09:29→20:37)
[2017-10-11] MEDS: NICOTINE TRANSD SYS 7 MG/24 HR PATCH TD SCH (09:31)
--- NOTE | 2017-10-11 12:00 | NUR ---
DR. REYNOLDS IN TO SEE PT. WILL FOLLOW UP ON ORDERS.
[2017-10-11] MEDS: HYDRAGUARD CREAM TP SCH (13:00)
[2017-10-11] MEDS: SKINTEGRITY HYDROGEL TP SCH (13:00)
--- NOTE | 2017-10-11 14:23 | NUR ---
10/11/17 RD FOLLOW UP COMPLETED PLEASE REFER TO NUTRITION PROGRESS NOTE UNDER CARE ACTIVITY FOR ESTIMATED NUTRITION NEEDS. RD RECOMMENDATIONS: 1. CONTINUE NUTREN PULMONARY AT 350 ML Q6H VIA G TUBE WITH 30 ML FREE WATER FLUSH TOLERATED AND PER MD DISCRETION. -THIS IS MEETING 100% OF ESTIMATED KCAL NEEDS (ADEQUATE) AND ~64% OF ESTIMATED PROTEIN NEEDS (INADEQUATE) 2. RECOMMEND ADDING PROSOURCE TID FOR AN ADDITIONAL 33 GM OF PROTEIN, 120 KCAL, AND 135 ML OF FLUID. -THIS WILL HELP PT MEET ~86% OF ESTIMATED PROTEIN NEEDS. 3. SHOULD PT PASS A SWALLOW EVALUATION, CONSIDER ADVANCING DIET SLOWLY AND TOLERATED, TO CCHO 60 GM. 4. SHOULD PT REQUIRE HALF-WAY NUTRITION SUPPORT, CONSIDER NUTREN PULMONARY AT 60 ML/HR X24 HOURS. --THIS WILL PROVIDE 100% OF PT ESTIMATED KCAL AND PROTEIN NEEDS. 5. RD WILL F/U 2-3 DAYS; HIGH RISK HARRY HARMAN, RD
[2017-10-11] MEDS: WARFARIN 5 MG, WARFARIN 2.5 MG PO SCH ×2 (16:28)
--- NOTE | 2017-10-11 17:25 | NUR ---
PT RESTING IN BED COMFORTABLY. NO ACUTE DISTRESS.
--- NOTE | 2017-10-11 18:00 | NUR ---
PICC LINE DRESSING CHANGED. INTACT PICC LINE.
--- NOTE | 2017-10-11 18:03 | NUR ---
CALLED PT'S DAUGHTER, LUKASZ, AND UPDATED HER THAT PT WILL BE TRANSFERRED TO TELEMETRY SHORTLY.
--- NOTE | 2017-10-11 18:30 | NUR ---
PATIENT WILL BE TRANSFERRED TO TELEMETRY RM 122A. REPORT GIVEN TO ERIN VIEYRA.
--- NOTE | 2017-10-11 18:45 | NUR ---
PATIENT'S DAUGHTER ZOEY UPDATED OF PATIENT BEING TRANSFERRED TO TELEMETRY UNIT.
--- NOTE | 2017-10-11 19:00 | NUR ---
REPORT GIVEN TO [employer] GRADER NURSE. AWAITING PT FROM ICU
--- NOTE | 2017-10-11 19:15 | NUR ---
PT CAME FROM ICU ASSISTED BY ICU RNS. PT AWAKE, ALERT ORIENTEDX4. NO SOB NOTED. ON TRACH VENT. DENIES ANY SIGNS AND SYMPTOMS OF ACUTE PAIN OR DISCOMFORT NOTED AT THIS TIME.PT ON BED BOUND. VITAL SIGNS TAKEN AND RECORDED. SAFETY PRECAUTION IN PLACE. CALL LIGHT WITHIN REACH. PT CAME ON [facility]OME BED.
--- NOTE | 2017-10-11 19:20 | NUR ---
TRANSFERRED TO TELEMETRY UNIT ROOM 122 A VIA HOSPITAL BED. PATIENT IN STABLE CONDITION. NIGHT RN RAFFY AT BEDSIDE DURING TRANSFER. UPDATED OF PATIENT'S CONDITION.
--- NOTE | 2017-10-11 19:20 | NUR ---
TRANSFER PT TO [facility], VIA AMBUBAG, PLACE PT ON THE VENT, VENT CK DONE, CHANGED HME AMD DRESSING, NO RESP DISTRESS NOTED
--- NOTE | 2017-10-11 19:34 | NUR ---
RECEIVED FROM AM RN INBED AWAKE AND ABLE TO MOUTH WORDS AND USES EYES TO POINT AT SOMETHING. GT IN PLACE AND FED WITH NUTREN PULMONARY Q 6H BOLUS 350 ML. TRACH TO VENT AND PICC LINE TO MOE/2 PORTS. ACOSTA CATHETER IN PLACE AND DRAINING WELL WITH YELLOW URINE. OBESE MALE AND ASSISTED WITH ADLS. CALL LIGHT WITH IN REACH . TELEMETRY MONITORING.
--- NOTE | 2017-10-11 21:26 | NUR ---
PT. TURNED TO SIDES. SUCTIONED BY MOUTH REQUESTED BY PT. BREATHING TREATMENT GIVEN BY RT. PT. HAD A SMALL BM. KEPT CLEAN AND DRY. CALL LIGHT BESIDE HIM WITH IN REACH. ENCOURAGED TO CALL FOR ANY HELP HE MAY NEED OR IF IN PAIN. MOUTHED "OK".
--- NOTE | 2017-10-11 22:30 | NUR ---
PT. SLEEPING. NO RESTLESSNESS NOTED. DAUGHTER CALLED EARLIER. NO COMPLAINTS DONE.
[2017-10-12] VITALS (8 sets, daily range): BP systolic 97–120; BP diastolic 58–74
[2017-10-12] MEDS: BLOOD GLUCOSE MONITORING 1 DEV DEV FS SCH ×5 (00:38→23:44)
[2017-10-12] MEDS: ALBUTEROL SULFATE/IPRATROPIU 3 ML SOL IH SCH ×4 (00:48→19:30)
--- NOTE | 2017-10-12 00:56 | NUR ---
RESPIRATORY THERAPIST IN HERE TO GIVE TREATMENTS. NO COMPLAINTS DONE. MOUTHS NEEDS. USES HANDS TO POINT AT SOMETHING. ACOSTA CATHETER IN PLACE AND PICC LINE FLUSHED WITH 10 ML NS INTO TWO PORTS. PATENT AND NO RESISTANCE.
--- NOTE | 2017-10-12 02:10 | NUR ---
PT. SLEEPING. NO SOB. NO RESTLESSNESS NOTED. TELEMETRY MONITORING. CALL LIGHT WITH IN REACH.
--- NOTE | 2017-10-12 03:59 | NUR ---
PT. SUCTIONED RT COUGHING. WHITISH OUTPUT NOTED IN SMALLL AMOUNT . TRACH TO VENT. TOTAL CARE.
--- NOTE | 2017-10-12 05:26 | NUR ---
RESPIRATORY THERAPIST IN HERE TO CHANGE TUBINGS OF VENT. SUCTIONED TO A SMALL AMOUNT OF WHITISH MUCUS.
[2017-10-12] MEDS: LEVOTHYROXINE 0.1 MG TAB PO SCH (06:15)
[2017-10-12] MEDS: MIDODRINE 5 MG TAB PO SCH ×3 (06:16→18:20)
[2017-10-12] MEDS: METOCLOPRAMIDE 10 MG/10 ML SYRP UDC GT SCH ×3 (06:16→17:06)
--- NOTE | 2017-10-12 06:42 | NUR ---
PT. NEEDS ANTICIPATED. KEPT DRY AND CLEAN. NO COMPLAINTS OF PAIN DONE. TELEMETRY MONITORING.
--- NOTE | 2017-10-12 07:25 | NUR ---
RECEIVED TRACH PT WITH SHILEY 8 XLT. VENT SETTINGS AC 14, VT 650, PEEP 5 AND FIO2 35%. PT SUCTIONED OBTAINED SMALL AMOUNT OF THICK WHITE SECRETIONS, AIRWAY IS PATENT AND TRACH IS SECURE. PT IS NOT SOB AND NOT IN RESPIRATORY DISTRESS AT THIS TIME. PT IS AWAKE WATCHING TV AND NODS YES OR NO TO ANSWERS. VENT IS PLUGGED INTO RED OUTLET WITH ALARMS ON AND FUNCTIONING. WILL CONTINUE TO MONITOR.
--- NOTE | 2017-10-12 07:30 | NUR ---
RECEIVED REPORT FROM PM NURSE. PT A/O X4. BILATERAL PERRLA OBSERVED. NONVERBAL BUT ABLE TO ANSWER YES/NO QUESTIONS. DENIES PAIN. DENIES SOB. TRACH TO VENT. TOLERATING WELL. AIRWAY IS PATENT. EQUAL, UNLABORED BREATH OBSERVED. VITALS WITHIN NORMAL. BOWEL SOUND PRESENT X 4 QUADRANT. ABDOMEN SOFT, NONTENDER. GTUBE NOTED. MINIMAL RESIDUAL OBSERVED. SKIN NONINTACT, WARM, DRY. WOUND ON R FOREARM OBSERVED. DRESSING C/D/I. ABLE TO MOVE BILATERAL UPPER EXTREMITY. REQUIRE 2 PERSON ASSIST WITH ADLS. ACOSTA CATHETER OBSERVED. DRAINING CLEAR, YELLOW URINE. R UPPER ARM PICC NOTED. INTACT AND PATENT. NO S/SX OF ACUTE DISTRESS NOTED. FALL AND SAFETY PRECAUTION MAINTAINED. BED AT LOWEST SETTING. CALL LIGHT WITHIN REACH. WILL CONTINUE TO MONITOR FOR CHANGES.
[2017-10-12 08:05] LABS: BASOPHILS # (AUTO) 0.1 K/uL (0.00-0.22); BASOPHILS % (AUTO) 1.5 % (0.0-2.0); EOSINOPHILS # (AUTO) 0.6 K/uL (0-0.4); EOSINOPHILS % (AUTO) 6.4 % (0.0-4.0); HEMATOCRIT 44.9 % (36-52); HEMOGLOBIN 14.8 g/dL (12.0-18.0); LYMPHOCYTES # (AUTO) 1.3 K/uL (2.0-11.5); MEAN CORPUSCULAR HEMOGLOBIN 35 pg (27-31); MEAN CORPUSCULAR HGB CONC 33 g/dL (33-37); MEAN CORPUSCULAR VOLUME 105 fL (80-94); NEUTROPHILS # (AUTO) 5.8 K/uL (1.8-7.7); NEUTROPHILS % (AUTO) 66.1 % (42.2-75.2); PLATELET COUNT (AUTO) 275 K/uL (140-450); RED BLOOD CELL COUNT(AUTO) 4.27 MIL/uL (4.20-6.10); RED CELL DISTRIBUTION WIDTH 14.1 % (11.6-13.7)
[2017-10-12 08:06] LABS: CREATININE 0.7 mg/dL (0.7-1.3)
[2017-10-12] MEDS: LACTULOSE 20 GM/30 ML UDC PO SCH (08:10)
[2017-10-12] MEDS: SENNA 8.6 MG TAB PO SCH ×2 (08:10→20:28)
[2017-10-12] MEDS: SPIRONOLACTONE 50 MG TAB PO SCH (08:10)
[2017-10-12] MEDS: POTASSIUM CHLORIDE 20% 40 MEQ/15 ML UDC GT SCH (08:10)
[2017-10-12] MEDS: FAMOTIDINE 20 MG TAB PO SCH ×2 (08:11→20:28)
[2017-10-12] MEDS: METOPROLOL 25 MG TAB PO SCH ×3 (08:11→17:06)
[2017-10-12] MEDS: LACTOBACILLUS RHAMNOSUS GG 1 EACH CAP PO SCH (08:11)
[2017-10-12] MEDS: FUROSEMIDE 20 MG/2 ML VIAL IVP SCH ×2 (08:12→20:28)
[2017-10-12 08:21] LABS: PROTHROMBIN TIME 11.5 secs (10.8-13.4)
[2017-10-12 08:24] LABS: WHITE BLOOD COUNT (AUTO) 8.8 K/uL (4.8-10.8)
[2017-10-12] MEDS: NICOTINE TRANSD SYS 7 MG/24 HR PATCH TD SCH (08:31)
--- NOTE | 2017-10-12 08:45 | NUR ---
PAST NICOTINE PATCH REMOVED. SKIN INTACT, WARM, DRY
--- NOTE | 2017-10-12 08:45 | NUR ---
0 RESIDUAL IN GTUBE. MEDICATION ADMINISTERED ORDERED. TOLERATED WELL.
--- NOTE | 2017-10-12 09:51 | NUR ---
VENT CHECK COMPLETED. PT SUCTIONED OBTAINED MODERATE AMOUNT OF THICK WHITE SECRETIONS. TUBING CLEARED OF SECRETIONS. AIRWAY IS PATENT. PT IS IN BED WATCHING TV AND IS SHOWING NO SIGNS OF RESPIRATORY DISTRESS. WILL CONTINUE TO MONITOR.
--- NOTE | 2017-10-12 10:00 | NUR ---
PT FOUND AT EDGE OF FOOT OF BED. PER PT, HE WAS TRYING TO ADJUST BED BY HIMSELF. REPOSITIONED PT COMFORTABLE. REEDUCATE PT TO NOT USE TO BED CONTROL AND TO ASK FOR HELP. PT VERBALIZE UNDERSTANDING. BED CONTROL FUNCTION LOCKED FOR SAFETY.
--- NOTE | 2017-10-12 10:30 | NUR ---
MODERATE BM NOTED. SOFT, NOT FORMED. KATELYN CARE GIVEN. TOLERATED WELL.
[2017-10-12] MEDS: SKINTEGRITY HYDROGEL TP SCH (12:01)
[2017-10-12] MEDS: HYDRAGUARD CREAM TP SCH (12:01)
--- NOTE | 2017-10-12 12:17 | NUR ---
0 RESIDUAL NOTED IN GTUBE. MEDICATION GIVEN. TOLERATED WELL. TUBE FEEDING BOLUS STARTED. ORAL CARE PERFORMED. TOLERATED WELL,.
--- NOTE | 2017-10-12 14:01 | NUR ---
PT PLACED ON CPAP 5 PS 12 FIO2 35. PT IS IN BED WATCHING TV AT THIS TIME AND IS NOT IN RESPIRATORY DISTRESS. WILL CONTINUE TO MONITOR. Addendum: 10/12/17 at 1406 by Talon Holguin RT NURSE TUNG AWARE OF VENTILATOR CHANGE. ORDER PER REQUEST OF PHYSICIAN.
--- NOTE | 2017-10-12 15:24 | NUR ---
PT REMAINS ON CPAP SETTINGS TOLERATING WELL AT THIS TIME. PT IS NOT SOB AND NOT IN RESPIRATORY DISTRESS AT THIS TIME. WILL CONTINUE TO MONITOR.
[2017-10-12] MEDS ORDERED: WARFARIN 5 MG TAB PO SCH (17:00)
--- NOTE | 2017-10-12 17:10 | NUR ---
0 RESIDUAL NOTED IN GTUBE. MEDICATION GIVEN. TOLERATED WELL. TUBE FEEDING BOLUS STARTED. ORAL CARE PERFORMED. TOLERATED WELL,.
--- NOTE | 2017-10-12 17:21 | NUR ---
PT RETURNED TO ORIGINAL AC VENT SETTINGS. PT TOLERATED CPAP TRIAL WELL. VENT ALARMS REMAIN ON AND FUNCTIONING. PT IS AWAKE IN BED WITH NO SIGNS OF RESPIRATORY DISTRESS. AIRWAY IS PATENT AND TRACH IS SECURE.
--- NOTE | 2017-10-12 18:10 | NUR ---
DR. FERNANDEZ NOTIFIED OF WHITE SUBSTANCE THROUGHOUT THE ACOSTA CATHETER AND MINIMAL URINE. AWAITING NEW ORDERS.
[2017-10-12] MEDS ORDERED: NACL 0.9% 500 ML IV ONE (18:40)
--- NOTE | 2017-10-12 19:12 | NUR ---
REPORT GIVEN TO AZALIA VILLANUEVA.
--- NOTE | 2017-10-12 19:15 | NUR ---
RECEIVED REPORT FROM AM RN AT BEDSIDE, PT IS AAOX4, NON-VERBAL, ABLE TO FOLLOW COMMANDS. TRACH TO VENT WITH FIO2 35, RR 14, TV 650, PEEP 5, CLEAR LUNG SOUNDS, A. FIB ON OCCUPATIONAL HEALTH NURSE MANAGER. LARGE SOFT ROUND ABDOMEN WITH ACTIVE BOWEL SOUNDS, GT IN PLACE, FEEDING WITH NUTREN PULMONARY AT 350ML Q6HR ORDERED. ACOSTA CATHETER IN PLACE WITH WHITE SEDIMENT LUKASZ COLORED URINE NOTED, ABLE TO MOVE ALL EXTREMITIES, GENERALIZED WEAKNESS NOTED. PICC LINE TO RIGHT UPPER ARM WITH DOUBLE LUMEN, NO BLOOD RETURN NOTED, BUT ABLE TO FLUSH WITH NS, RUNNING NS AT 40ML/HR. SKIN IS WARM AND DRY TO TOUCH WITH SCAB TO BLE. VSS, DENIES PAIN. SAFETY PRECAUTION IN PLACE, HOB ELEVATED TO 30 DEGREES, REFUSED ORAL CARE, POSITION CHANGED FOR OFF LOAD PRESSURE, WILL CONTINUE TO MONITOR.
[2017-10-13] VITALS: BP 112/61
--- NOTE | 2017-10-13 | NUR ---
PT IS ASLEEP IN BED, NO S/S OF DISTRESS, VSS, POSITION CHANGED FOR OFF LOAD PRESSURE, ORAL CARE PROVIDED.
[2017-10-13] MEDS: ALBUTEROL SULFATE/IPRATROPIU 3 ML SOL IH SCH ×3 (01:44→13:18)
[2017-10-13 04:00] VITALS: BP 99/58
--- NOTE | 2017-10-13 04:00 | NUR ---
NO S/S OF DISTRESS, VSS, AM CARE AND ACOSTA CARE PROVIDED, PT HAD A LARGE AMOUNT OF BROWN STOOL, KATELYN CARE PROVIDED, ACOSTA CATHETER LEAKING NOTED.
[2017-10-13] MEDS: BLOOD GLUCOSE MONITORING 1 DEV DEV FS SCH ×3 (05:33→18:00)
[2017-10-13] MEDS: MIDODRINE 5 MG TAB PO SCH ×2 (06:19→12:34)
[2017-10-13] MEDS: LEVOTHYROXINE 0.1 MG TAB PO SCH (06:19)
[2017-10-13] MEDS: METOCLOPRAMIDE 10 MG/10 ML SYRP UDC GT SCH ×3 (06:19→16:59)
[2017-10-13 07:02] LABS: BASOPHILS # (AUTO) 0.2 K/uL (0.00-0.22); BASOPHILS % (AUTO) 2.1 % (0.0-2.0); EOSINOPHILS # (AUTO) 0.4 K/uL (0-0.4); EOSINOPHILS % (AUTO) 4.8 % (0.0-4.0); HEMATOCRIT 45.1 % (36-52); HEMOGLOBIN 15.2 g/dL (12.0-18.0); LYMPHOCYTES # (AUTO) 1.4 K/uL (2.0-11.5); MEAN CORPUSCULAR HEMOGLOBIN 35 pg (27-31); MEAN CORPUSCULAR HGB CONC 34 g/dL (33-37); MEAN CORPUSCULAR VOLUME 103 fL (80-94); MONOCYTES # (AUTO) 0.7 K/uL (0.8-1.0); MONOCYTES % (AUTO) 7.7 % (1.7-9.3); NEUTROPHILS % (AUTO) 69.4 % (42.2-75.2); PLATELET COUNT (AUTO) 269 K/uL (140-450); RED BLOOD CELL COUNT(AUTO) 4.37 MIL/uL (4.20-6.10); RED CELL DISTRIBUTION WIDTH 14.2 % (11.6-13.7)
--- NOTE | 2017-10-13 07:15 | NUR ---
RECEIVED PATIENT REPORT AT BEDSIDE. PATIENT AWAKE AND ALERT. PATIENT TRACH TO VENT WITH 35% FIO2. NO SOB NOTED. PATIENT ABLE TO FOLLOW COMMANDS BUT NONVERBAL. G-TUBE IN PLACE. ACOSTA CATHETER IN PLACE, DRAINING DARK LUKASZ URINE. DOUBLE LUMEN PICC LINE NOTED TO THE RIGHT ARM. NO BLOOD RETURN NOTED BUT IS ABLE TO FLUSH WITH NO RESISTANCE. PATIENT ON TELE MONITORING. BED LOWERED WITH CALL LIGHT WITHIN REACH. WILL CONTINUE TO MONITOR
--- NOTE | 2017-10-13 07:19 | NUR ---
REPORT GIVEN TO AM RN AT BEDSIDE FOR CONTINUE OF CARE, PT IS IN STABLE CONDITION AT THIS TIME.
[2017-10-13 07:42] LABS: PROTHROMBIN TIME 11.5 secs (10.8-13.4)
[2017-10-13 08:00] VITALS: BP 100/52
[2017-10-13 08:00] LABS: ANION GAP 11.8 (8-16); CARBON DIOXIDE 30.1 mmol/L (21-32); CREATININE 0.8 mg/dL (0.7-1.3); POTASSIUM 3.9 mmol/L (3.5-5.1)
--- NOTE | 2017-10-13 08:32 | NUR ---
LATE ENTRY FOR 10/10/17 1500 SUSAN FROM [facility] [phone] IN ICU EVALUATING PT. CALL LEFT FOR DAUGHTER LUKASZ REGARDING POTENTIAL TRANSFER AND REQUESTED CALL BACK.
--- NOTE | 2017-10-13 08:33 | NUR ---
CALL PLACED TO SUSAN AT [facility] AND SHE STATED THAT PT HAS BEEN ACCEPTED FOR ADMISSION. WILL ATTEMPT TO CONTACT DAUGHTER REGARDING TRANSFER.
[2017-10-13 09:02] LABS: WHITE BLOOD COUNT (AUTO) 8.7 K/uL (4.8-10.8)
[2017-10-13] MEDS: LACTULOSE 20 GM/30 ML UDC PO SCH (09:12)
[2017-10-13] MEDS: SENNA 8.6 MG TAB PO SCH (09:13)
[2017-10-13] MEDS: SPIRONOLACTONE 50 MG TAB PO SCH (09:13)
[2017-10-13] MEDS: LACTOBACILLUS RHAMNOSUS GG 1 EACH CAP PO SCH (09:13)
[2017-10-13] MEDS: METOPROLOL 25 MG TAB PO SCH ×3 (09:14→17:00)
[2017-10-13] MEDS: FAMOTIDINE 20 MG TAB PO SCH (09:15)
[2017-10-13] MEDS: POTASSIUM CHLORIDE 20% 40 MEQ/15 ML UDC GT SCH (09:16)
[2017-10-13] MEDS: FUROSEMIDE 20 MG/2 ML VIAL IVP SCH (09:16)
[2017-10-13] MEDS: NICOTINE TRANSD SYS 7 MG/24 HR PATCH TD SCH (09:16)
--- NOTE | 2017-10-13 09:36 | NUR ---
VENT CHECK COMPLETED. PT IN BED WATCHING TV NO SIGNS OF RESPIRATORY DISTRESS. NURSE IS BEDSIDE. WILL CONTINUE TO MONITOR.
[2017-10-13 12:00] VITALS: BP 90/70
[2017-10-13] MEDS: SKINTEGRITY HYDROGEL TP SCH (13:00)
--- NOTE | 2017-10-13 13:26 | NUR ---
BREATHING TX ADMINISTERED AND VENT CHECK COMPLETED. PT SLEEPING AT THIS TIME. NO RESPIRATORY DISTRESS NOTED. WILL CONTINUE TO MONITOR.
[2017-10-13] MEDS: HYDRAGUARD CREAM TP SCH (13:29)
--- NOTE | 2017-10-13 13:34 | NUR ---
2552. NO CALL BACK FROM LUKASZ. CALLED DAUGHTER ZOEY NEIL AND DISCUSSED DC PLAN. ZOEY IN AGREEMENT WITH TRANSFER AND PROVIDED HER WITH ADDRESS AND PHONE NUMBER OF [facility]. SPOKE WITH SUSAN AT [facility] [phone] AND INFORMED HER FAMILY AND PT IN AGREEMENT WITH TRANSFER. UPDATED INFORMATION WILL BE FAXED. PER SUSAN PT CAN GO TO ROOM 43A AND CALL REPORT TO [phone].
--- NOTE | 2017-10-13 15:20 | NUR ---
UPDATE PT WILL GO TO ROOM 42 A UNDER THE CARE OF DR DANIELLE. CALL REPORT TO [phone] AND ASK FOR BACK STATION.
[2017-10-13 16:00] VITALS: BP 94/44
[2017-10-13] MEDS ORDERED: FAMO20TA13 PO (16:35)
[2017-10-13] MEDS ORDERED: D50SYR IVP (16:35)
[2017-10-13] MEDS ORDERED: NICO1PAT64 TD (16:35)
[2017-10-13] MEDS ORDERED: LACT10CA PO (16:35)
[2017-10-13] MEDS ORDERED: WARF5TAB1 PO (16:35)
[2017-10-13] MEDS ORDERED: LACT10SO11 PO (16:35)
[2017-10-13] MEDS ORDERED: METO5SOL20 GT (16:35)
[2017-10-13] MEDS ORDERED: Hydraguard TP ×2 (16:35)
[2017-10-13] MEDS ORDERED: POTA40SO5 GT (16:35)
[2017-10-13] MEDS ORDERED: METO25TA PO (16:35)
[2017-10-13] MEDS ORDERED: SYN.1 PO (16:35)
[2017-10-13] MEDS ORDERED: SENN-89 PO (16:35)
[2017-10-13] MEDS ORDERED: ONDA2SOL45 IM/IVP (16:35)
[2017-10-13] MEDS ORDERED: HYDGEL TP ×2 (16:35)
[2017-10-13] MEDS ORDERED: SPIR50TA PO (16:35)
[2017-10-13] MEDS ORDERED: GLUC-805 FS (16:35)
[2017-10-13] MEDS ORDERED: PRO5 PO (16:35)
[2017-10-13] MEDS ORDERED: ACET-1182 PO (16:35)
[2017-10-13] MEDS ORDERED: LAS20I IVP (16:35)
[2017-10-13] MEDS ORDERED: HEPA500056 SUBQ (16:35)
[2017-10-13] MEDS ORDERED: IPRA3AMP IH ×2 (16:35)
[2017-10-13] MEDS ORDERED: WARFARIN 5 MG TAB PO SCH (17:00)
--- NOTE | 2017-10-13 17:42 | NUR ---
CALLED [facility] AND GAVE PATIENT REPORT TO YUE
--- NOTE | 2017-10-13 17:54 | NUR ---
AREA AROUND STOMA CLEANED OF DRAINAGE, NEW TRACH TIE AND DRESSING APPLIED. TRACH IS SECURE AND AIRWAY IS PATENT. PT NOT SOB AND NOT IN RESPIRATORY DISTRESS. VENT ALARMS REMAIN ON AND FUNCTIONING.
--- NOTE | 2017-10-13 18:15 | NUR ---
PATIENT DISCHARGED TO LOCATED WITHIN [facility]. PATIENT PICKED UP BY [facility]. PATIENT LEFT WITH ALL HIS BELONGINGS AND DISCHARGE PAPERS. PICC LINE ON THE RIGHT UPPER ARM LEFT INTACT. ACOSTA CATHETER IN PLACE. G-TUBE IN PLACE. PATIENT LEFT IN STABLE CONDITION
[2017-10-17 12:24] LABS: FOLIC ACID 7.2 ng/mL (>3.0)
== END 2017-10-13 18:15 | DRG 4 ==
LOC: MED 06:15 → MIC 08:39 → MTU 10-11 19:20
PROVIDERS: ADMIT Family Medicine; ATTEND Family Medicine
PROC: 5A1955Z Respiratory Ventilation, Greater than 96 Consecutive Hours (ICD-10-PCS; 2017-09-19)
PROC: 0BJ08ZZ Inspection of Tracheobronchial Tree, Via Natural or Artificial Opening Endoscopic (ICD-10-PCS; 2017-09-19)
PROC: 02HV33Z Insertion of Infusion Device into Superior Vena Cava, Percutaneous Approach (ICD-10-PCS; 2017-09-19)
PROC: B548ZZA Ultrasonography of Superior Vena Cava, Guidance (ICD-10-PCS; 2017-09-19)
PROC: 5A09357 Assistance with Respiratory Ventilation, Less than 24 Consecutive Hours, Continuous Positive Airway Pressure (ICD-10-PCS; 2017-09-19)
PROC: 0B113F4 Bypass Trachea to Cutaneous with Tracheostomy Device, Percutaneous Approach (ICD-10-PCS; 2017-10-09)
PROC: 0DH67UZ Insertion of Feeding Device into Stomach, Via Natural or Artificial Opening (ICD-10-PCS; principal; 2017-10-09 12:00)
DX: A41.9 Sepsis, unspecified organism (principal); N17.0 Acute kidney failure with tubular necrosis; R65.21 Severe sepsis with septic shock; J69.0 Pneumonitis due to inhalation of food and vomit; G93.40 Encephalopathy, unspecified; J96.21 Acute and chronic respiratory failure with hypoxia; E43 Unspecified severe protein-calorie malnutrition; I50.43 Acute on chronic combined systolic (congestive) and diastolic (congestive) heart failure; K56.0 Paralytic ileus; D68.59 Other primary thrombophilia; E87.2 Acidosis; N39.0 Urinary tract infection, site not specified; K70.30 Alcoholic cirrhosis of liver without ascites; F10.10 Alcohol abuse, uncomplicated; E11.9 Type 2 diabetes mellitus without complications; E66.2 Morbid (severe) obesity with alveolar hypoventilation; I25.10 Atherosclerotic heart disease of native coronary artery without angina pectoris; I42.9 Cardiomyopathy, unspecified; I48.0 Paroxysmal atrial fibrillation; I48.2 Chronic atrial fibrillation; I27.81 Cor pulmonale (chronic); J44.9 Chronic obstructive pulmonary disease, unspecified; J96.22 Acute and chronic respiratory failure with hypercapnia; D64.9 Anemia, unspecified; F17.210 Nicotine dependence, cigarettes, uncomplicated; N50.89 Other specified disorders of the male genital organs; R13.10 Dysphagia, unspecified; Z53.9 Procedure and treatment not carried out, unspecified reason; Z91.19 Patient's noncompliance with other medical treatment and regimen; Z99.11 Dependence on respirator [ventilator] status; Z88.1 Allergy status to other antibiotic agents; Z88.0 Allergy status to penicillin; Z68.41 Body mass index [BMI] 40.0-44.9, adult; Z79.01 Long term (current) use of anticoagulants; Z79.899 Other long term (current) drug therapy; Z79.4 Long term (current) use of insulin; Z28.21 Immunization not carried out because of patient refusal
CPT/HCPCS: 36415; 36600; 71010; 74000; 76604; 76700; 76770; 80048; 80053; 80076; 80305; 81001; 82150; 82550; 82553; 82607; 82746; 82803; 82948; 83036; 83605; 83690; 83735; 83880; 84100; 84436; 84439; 84443; 84479; 84484; 85025; 85610; 85730; 87040; 87070; 87081; 87086; 87205; 93005; 93308; 93925; 93970; 94002; 94003; 94640; 94660; 96361; 96365; 96367; 96375; 97110; 97116; 97140; 97530; 99291; A6248; C1751; C9113; G0482; J0282; J1200; J1630; J1642; J1644; J1815; J1940; J1956; J2001; J2060; J2250; J2270; J2704; J2765; J2920; J2930; J3010; J3370; J3475; J3480; J3490; J7030; J7042; J7060; J7613; J7620; J8597; Q0092

== ENCOUNTER 2021-12-08 12:52 | Inpatient (IN) | payer OTHER, MEDICAID, SELFPAY ==
[~2021-12-08] VITALS: Ht 188 cm; Wt 130.6 kg
[2021-12-08] MEDS: LEVOFLOXACIN 250 MG/D5 PREMIX 50 ML IV SCH (00:16)
[2021-12-08 12:52] VITALS: BP 122/67
[~2021-12-08 12:52] MED LIST: ACET-9525 PO; AMIO200T10 PO; APIX2.5 PO; CEFE1SOL IV; METR500T1 PO; ZOLP5TAB1 PO
--- NOTE | 2021-12-08 13:29 | NUR ---
Patient transported from [facility] onto bed 10.
--- NOTE | 2021-12-08 13:30 | NUR ---
66 y/o M BIBA from home c/o Rice catheter pain; pt also reports SOB testing + COVID 2 weeks ago. Has not been retested per EMS. Unable to obtain baseline SpO2 per EMS, pt on 15L by NRB @ SpO2 91%. Pt A&Ox4, normally on 5L by NC home O2. Rice catheter in place with yellow discharge and drainage around inguinal area. Pt reports pain around Rice site, 7/10, itching/constant, non-radiating pain. Pt reports difficulty urinating; "I last peed days ago." Lung sounds audible wheezes and crackles noted lower lobes. Pt placed on cardiac rehabilitation program director. Bed locked in lowest position, side rails x 2. PMH: DM, asthma, CHF, DM, HTN A: PCN, ampicillin Meds: unable to obtain
--- NOTE | 2021-12-08 13:40 | NUR ---
Dr. Armstrong is evaluating patient at bedside.
--- NOTE | 2021-12-08 13:41 | NUR ---
Patient removed from 15L by NRB and placed onto 5L by NC; SpO2 100%
[2021-12-08] MEDS ORDERED: NACL 0.9% 1,000 ML IV ONE (13:50)
[2021-12-08] MEDS ORDERED: cefTRIAXone 2,000 MG in DEXTROSE 5% 100 ML IV ONE (13:50)
[2021-12-08] MEDS ORDERED: ALBUTEROL SULFATE/IPRATROPIU 3 ML SOL IH ONE (13:50)
[2021-12-08] MEDS ORDERED: methylPREDNISolone SS 125 MG/2 ML VIAL IVP ONE (13:50)
--- NOTE | 2021-12-08 13:58 | NUR ---
RT at bedside for breathing tx
--- NOTE | 2021-12-08 14:02 | NUR ---
RAD at bedside
[2021-12-08] MEDS ORDERED: cefTRIAXone 2,000 MG VIAL ONE (14:15)
[2021-12-08 14:21] LABS: BASOPHILS % (AUTO) 0.1 % (0.0-2.0); EOSINOPHILS # (AUTO) 0.1 K/uL (0-0.4); EOSINOPHILS % (AUTO) 0.7 % (0.0-4.0); HEMOGLOBIN 12.8 g/dL (12.0-18.0); LYMPHOCYTES # (AUTO) 0.4 K/uL (2.0-11.5); LYMPHOCYTES % (AUTO) 2.1 % (20.5-51.1); MEAN CORPUSCULAR HEMOGLOBIN 28 pg (27-31); MEAN CORPUSCULAR HGB CONC 33 g/dL (33-37); MEAN CORPUSCULAR VOLUME 85.3 fL (80-94); MONOCYTES # (AUTO) 0.5 K/uL (0.8-1.0); MONOCYTES % (AUTO) 3.1 % (1.7-9.3); NEUTROPHILS # (AUTO) 15.7 K/uL (1.8-7.7); PLATELET COUNT (AUTO) 277 K/uL (140-450); RED BLOOD CELL COUNT(AUTO) 4.57 MIL/uL (4.20-6.10); RED CELL DISTRIBUTION WIDTH 16.3 % (11.6-13.7); WHITE BLOOD COUNT (AUTO) 16.7 K/uL (4.8-10.8)
[2021-12-08 14:45] LABS: ALBUMIN 2.5 g/dL (3.4-5.0); ANION GAP 28.7 (8-16); CARBON DIOXIDE 12.5 mmol/L (21-32); TOTAL BILIRUBIN 0.6 mg/dL (0.0-1.0)
--- NOTE | 2021-12-08 14:45 | NUR ---
# 16 FR Rice catheter with 10 ml utilizing sterile technique. Immediate return of 60 ml cloudy/yellow discharge/drainage urine noted. Bedside drainage bag placed below level of bladder. Urine sample collected and sent to lab. Pt tolerated procedure well.
[2021-12-08 14:49] LABS: POTASSIUM 7.2 mmol/L (3.5-5.1)
[2021-12-08 14:50] LABS: CREATININE 16.4 mg/dL (0.6-1.3)
[2021-12-08] MEDS ORDERED: ALBUTEROL 0.083% 2.5 MG/3 ML NEBU INH ONE (15:05)
[2021-12-08] MEDS ORDERED: CALCIUM GLUCONATE 10% 1000 MG/10 ML VIAL IVP ONE (15:05)
[2021-12-08] MEDS ORDERED: SODIUM BICARBONATE 8.4% PFS 50 MEQ/50 ML SYR IVP ONE (15:05)
[2021-12-08] MEDS ORDERED: SODIUM ZIRCONIUM CYCLOSILICATE 10 GM POWD.PACK PO ONE (15:05)
[2021-12-08] MEDS ORDERED: INSULIN REGULAR, HUMAN 100 UNIT/ML VIAL IVP ONE (15:05)
[2021-12-08] MEDS ORDERED: DEXTROSE 50% 50 ML SYR IVP ONE (15:20)
--- NOTE | 2021-12-08 15:38 | NUR ---
[facility]
--- NOTE | 2021-12-08 15:49 | NUR ---
RT at bedside while patient in CT. Advised to return in 5 min
--- NOTE | 2021-12-08 15:58 | NUR ---
Patient returned from CT and placed back onto traffic monitor specialist.
--- NOTE | 2021-12-08 15:58 | NUR ---
RT at bedside for neb tx
[2021-12-08] MEDS ORDERED: SODIUM PHOS / POTASSIUM PHOS 1 PKT PDR PO PRN (16:00)
[2021-12-08] MEDS ORDERED: POTASSIUM CHLORIDE 10 MEQ TABER PO PRN (16:00)
[2021-12-08 16:24] LABS: PROTHROMBIN TIME 10.2 secs (10.8-13.4)
[2021-12-08] MEDS: NACL 0.9% 1,000 ML IV SCH (17:31)
--- NOTE | 2021-12-08 17:38 | NUR ---
Spoke with Kiley (dialysis nurse) who states to recontact when patient is transferred to ICU and has Theo catheter procedure completed.
--- NOTE | 2021-12-08 18:25 | NUR ---
Consent signed for hemodialysis catheter.
--- NOTE | 2021-12-08 18:28 | NUR ---
Dr. Harris and US tech at bedside
[2021-12-08] MEDS ORDERED: DEXTROSE 50% 50 ML SYR IVP PRN (18:30)
[2021-12-08 19:33] LABS: ALBUMIN 2.4 g/dL (3.4-5.0); BILIRUBIN,DIRECT 0.2 mg/dL (0.0-0.3); TOTAL BILIRUBIN 0.5 mg/dL (0.0-1.0)
--- NOTE | 2021-12-08 19:33 | NUR ---
PT MOVED TO ER BED 1
--- NOTE | 2021-12-08 19:45 | NUR ---
Report and transfer of care endorsed to AZALIA Tse.
--- NOTE | 2021-12-08 20:43 | NUR ---
dialysis nursevikas at bedside for tx. requested labs and 2 ns 1000L
--- NOTE | 2021-12-08 20:47 | NUR ---
dailysis nurse stated to hold meds until dialysis is done.
[2021-12-08] MEDS: LORazepam 2 MG/ML VIAL IM/IVP PRN (22:00)
--- NOTE | 2021-12-08 22:04 | NUR ---
PT BECOMING ANXIOUS DURING DIALYSIS. HE STATES THIS IS HIS FIRST TX. O2 SAT FLUCTUATING FROM 87-95%. TOLD PT TO DEEP BREATH AND TRY TO RELAX. AZALIA CHAVARRIA TO ADMINSTER ATIVAN
--- NOTE | 2021-12-08 22:15 | NUR ---
DAUGHTER LUKASZ CALLED FOR UPDATE . WILL CALL FOR UPDATE AFTER TX. LUKASZ [phone]
[2021-12-08] MEDS: BLOOD GLUCOSE MONITORING 1 DEV DEV FS SCH (22:59)
[2021-12-08 23:26] LABS: THYROID STIMULATING HORMONE 5.49 uIU/mL (0.34-3.74)
--- NOTE | 2021-12-08 23:39 | NUR ---
CALLED CAREN TO REPORT BUN @193
--- NOTE | 2021-12-09 00:02 | NUR ---
Patient appears to be resting comfortably in bed. Vital Signs within normal limits. Respirations by mouth, slightly labored.
--- NOTE | 2021-12-09 01:11 | NUR ---
CALLED LIENT BACK AND INFORMED THAT FATHER WILL BE ADMITTED
--- NOTE | 2021-12-09 02:11 | NUR ---
Patient appears to be sleeping in bed. HOB elevated. Vital Signs within normal limits. Respirations by mouth, slightly labored.
--- NOTE | 2021-12-09 04:15 | NUR ---
Patient appears to be sleeping in bed. Vital Signs within normal limits. Respirations by mouth, slightly labored. lights turned off for comfort
--- NOTE | 2021-12-09 07:00 | NUR ---
lab at bedside. pt is now awake with no complaints.
[2021-12-09] MEDS: BLOOD GLUCOSE MONITORING 1 DEV DEV FS SCH ×4 (07:30→21:02)
--- NOTE | 2021-12-09 07:30 | NUR ---
REPORT RECEIVED FROM EMEKA CERDA FOR CONTINUITY OF CARE. PT IS A&OX2. ON NASAL CANNULA 5LPM. IV SITE LT HAND 22G, INTACT, PATENT, GOOD BLOOD RETURN, SALINE LOCKED. [facility] CHANA CATH IN PLACE. ACOSTA CATH IN PLACE. SKIN NON INTACT. SAFETY PRECAUTIONS IN PLACE. WILL CONTINUE TO MONITOR.
--- NOTE | 2021-12-09 07:58 | NUR ---
Pt report given to jonah. dela cruz. Transfer of care at this time.
--- NOTE | 2021-12-09 08:23 | NUR ---
DR GHOSH AT BEDSIDE EXAMINING PT
[2021-12-09] MEDS: DEXAMETHASONE 4 MG/ML VIAL IVP SCH (09:53)
[2021-12-09 10:16] LABS: BASOPHILS % (AUTO) 0.1 % (0.0-2.0); LYMPHOCYTES # (AUTO) 0.2 K/uL (2.0-11.5); MEAN CORPUSCULAR HEMOGLOBIN 28 pg (27-31); MEAN CORPUSCULAR HGB CONC 34 g/dL (33-37); MEAN CORPUSCULAR VOLUME 84.1 fL (80-94); MONOCYTES # (AUTO) 0.1 K/uL (0.8-1.0); NEUTROPHILS # (AUTO) 10.9 K/uL (1.8-7.7); PLATELET COUNT (AUTO) 219 K/uL (140-450); RED BLOOD CELL COUNT(AUTO) 3.92 MIL/uL (4.20-6.10); RED CELL DISTRIBUTION WIDTH 15.9 % (11.6-13.7); WHITE BLOOD COUNT (AUTO) 11.2 K/uL (4.8-10.8)
[2021-12-09 10:20] LABS: ALBUMIN 2.3 g/dL (3.4-5.0); ANION GAP 22.8 (8-16); MAGNESIUM 2.3 mg/dL (1.8-2.4); POTASSIUM 4.8 mmol/L (3.5-5.1); TOTAL BILIRUBIN 0.5 mg/dL (0.0-1.0)
[2021-12-09 10:25] LABS: CREATININE 11.5 mg/dL (0.6-1.3)
[2021-12-09 11:02] LABS: LYMPHOCYTES % (AUTO) 1.4 % (20.5-51.1); NEUTROPHILS % (AUTO) 97.4 % (42.2-75.2)
[2021-12-09 11:03] LABS: MONOCYTES % (AUTO) 1.1 % (1.7-9.3)
--- NOTE | 2021-12-09 12:00 | NUR ---
# 20 FR Rice catheter with 30 ml utilizing sterile technique. Immediate return of 20 ml of pus noted. Bedside drainage bag placed below level of bladder. Pt tolerated procedure well.
--- NOTE | 2021-12-09 12:30 | NUR ---
LATE ENTRY: MORHPINE GIVEN IVP 2 MG, PT C/O OF 10/10 PAIN.
[2021-12-09] MEDS ORDERED: DIGOXIN 0.25 MG/ML AMP IV SCH (14:34)
--- NOTE | 2021-12-09 14:34 | NUR ---
IRRIGATED BLADDER WITH 1200 ML. URINE OUTPUT IS 1300 ML.
[2021-12-09] MEDS: NACL 0.9% 1,000 ML IV SCH (16:02)
--- NOTE | 2021-12-09 17:10 | NUR ---
Patient has eyes closed resting in bed. Vital Signs within normal limits. Respirations even and unlabored. On 2 L Nasal Cannula. Will continue to monitor.
--- NOTE | 2021-12-09 17:46 | NUR ---
[facility] DIALYSIS NURSE AT BEDSIDE
[2021-12-09] MEDS ORDERED: ALBUMIN HUMAN 25% 100 ML IV ONE (18:15)
[2021-12-09] MEDS ORDERED: ALBUMIN HUMAN 25% 100 ML IV PRN (18:20)
--- NOTE | 2021-12-09 18:58 | NUR ---
PAGED DR CONTRERAS, MADE AWARE BP DURING DIALYSIS IS 70/49. ORDERS TO GIVEN 1 ALBUMIN AND IF BP DOES NOT IMPROVE, STOP DIALYSIS.
--- NOTE | 2021-12-09 19:32 | NUR ---
Pt report given to ANA VIEYRA. Transfer of care at this time.
--- NOTE | 2021-12-09 19:32 | NUR ---
PT REPORT RECEIVED FROM AZALIA MAIN FOR CONTINUITY OF PT CARE AT THIS TIME.
--- NOTE | 2021-12-09 19:37 | NUR ---
PT LAYING SUPINE IN BED LOCKED IN LOWEST POSITION W X2 SIDERAILS UP FOR PT SAFETY. PT AWAKE AOX3, GCS 15. PT DENIES PAIN AT THE TIME. PT ACOSTA DARINING TO GRAVITY W 25CC OF URINE OUTPUT. PT CONNECTED TO MONITOR VSS. PT RECEIVING DYALISYS W BP AT 96/53, SPOKE W DIALYSIS NURSE FABIAN TO STOP DIALYSIS IF BP CONTINUES TO LOWER. PT ON 2L NC W BREATHING EVEN AND UNLABORED. NAD NOTED, WILL CONTINUE TO MONITOR.
--- NOTE | 2021-12-09 19:37 | NUR ---
10,000 UNITS OF HEPRAIN HANDED TO DIALYSIS AZALIA FABIAN FOR ADMIN.
--- NOTE | 2021-12-09 20:20 | NUR ---
PT DIALYSIS DONE AT THIS TIME. PER DIALYSIS NURSE NO OUTPUT VOLUME REMOVED D/T PT BP. PT BP 84/57 PLACED IN MILD [place] POSITION. WILL CONTINUE TO MONITOR.
--- NOTE | 2021-12-09 22:33 | NUR ---
PT PROVIDED W BLANKET AT THIS TIME.
--- NOTE | 2021-12-09 23:15 | NUR ---
PT APPEARS TO BE RESTING W EYES CLOSED IN SUPINE POSITION W HOB SLIGHTLY ELEVATED. BED LOCKED IN LOWEST POSITION W X2 SIDERAILS UP FOR PT SAFETY. PT TACHYCARDIC BUT OTHERWISE VSS. BREATHING EVEN AND UNLABORED. NAD NOTED, WILL CONTINUE TO MONITOR.
--- NOTE | 2021-12-10 00:50 | NUR ---
IRRIGATED BLADDER WITH 1000 NS ML. URINE OUTPUT IS 1600 ML. PINKISH/BROWN URINE OUTPUT W SEDIMENTS.
[2021-12-10] MEDS: ACETAMINOPHEN 325 MG TAB PO PRN (02:21)
--- NOTE | 2021-12-10 04:20 | NUR ---
PT URINE OUTPUT 400CC PINKISH/BROWN COLOR W SEDIMENT.
--- NOTE | 2021-12-10 04:23 | NUR ---
IRRIGATED BLADDER WITH 800NS ML. URINE OUTPUT IS 1000 ML. PINKISH/BROWN URINE OUTPUT W SEDIMENTS FOLLOWED BY CLEAR PINKISH URINE.
--- NOTE | 2021-12-10 06:13 | NUR ---
PT APPEARS TO BE RESTING W EYES CLOSED IN SUPINE POSITION W HOB SLIGHTLY ELEVATED. BED LOCKED IN LOWEST POSITION W X2 SIDERAILS UP FOR PT SAFETY. PT TACHYCARDIC BUT OTHERWISE VSS. BREATHING EVEN AND UNLABORED. PT CONNECTED TO MONITOR. NAD NOTED, WILL CONTINUE TO MONITOR.
--- NOTE | 2021-12-10 07:23 | NUR ---
Pt report given to AZALIA Dean. Transfer of care at this time.
[2021-12-10] MEDS: BLOOD GLUCOSE MONITORING 1 DEV DEV FS SCH ×4 (07:30→21:00)
--- NOTE | 2021-12-10 07:30 | NUR ---
RECEIVED PT IN GURNEY ALERT ORIENTED. STACH ON MONITOR. F/C TO GRAVITY WITH LARGE AMOUNT OF PURULENT DRAINAGE REQUIRING FREQEUNT MANUAL IRRIGATION. PT CLEANED AND REPOSITIONED. ABRQASIONS NOTED TO RIGHT POSTERIOR SHOULDER WELL LEFT ABDOMEN REDNESS TO COCCYX AND BUTTOCKS. REPOSITIONED FOR COMFORT. ON 2L NC SATURATION 96% AUDIBLE WHEEZING NOTED. WILL CONTINUE TO MONITOR.
[2021-12-10 07:41] LABS: HEMATOCRIT 27.5 % (36-52); HEMOGLOBIN 9.2 g/dL (12.0-18.0); MEAN CORPUSCULAR HEMOGLOBIN 28 pg (27-31); MEAN CORPUSCULAR HGB CONC 34 g/dL (33-37); MEAN CORPUSCULAR VOLUME 83.1 fL (80-94); PLATELET COUNT (AUTO) 161 K/uL (140-450); RED BLOOD CELL COUNT(AUTO) 3.31 MIL/uL (4.20-6.10); RED CELL DISTRIBUTION WIDTH 15.7 % (11.6-13.7); WHITE BLOOD COUNT (AUTO) 24.4 K/uL (4.8-10.8)
[2021-12-10 07:58] LABS: ALBUMIN 2.4 g/dL (3.4-5.0); ANION GAP 17.9 (8-16); CARBON DIOXIDE 22.2 mmol/L (21-32); POTASSIUM 4.1 mmol/L (3.5-5.1); TOTAL BILIRUBIN 0.5 mg/dL (0.0-1.0)
[2021-12-10 07:59] LABS: CREATININE 7.7 mg/dL (0.6-1.3)
[2021-12-10 08:06] LABS: LYMPHOCYTES % (MANUAL) 3 % (20-46); MONOCYTES % (MANUAL) 3 % (5-12)
[2021-12-10] MEDS: DEXAMETHASONE 4 MG/ML VIAL IVP SCH (09:00)
[2021-12-10] MEDS: LEVOFLOXACIN 250 MG/D5 PREMIX 50 ML IV SCH (09:00)
--- NOTE | 2021-12-10 11:44 | NUR ---
PAGED DR COBB REGARDING ELEVATED WBC AND POSSIBLE DOWNGRADE. PENDING FURTHER ORDERS.
[2021-12-10] MEDS ORDERED: DIGOXIN 0.25 MG/ML AMP IV SCH ×2 (12:05→18:00)
--- NOTE | 2021-12-10 12:30 | NUR ---
UROLOGIST AT BEDSIDE PERFORMED MANUAL BLADDER IRRIGATION.
--- NOTE | 2021-12-10 15:32 | NUR ---
PT RESTING IN [place] NO CHANGES NOTED. SAFETY MAINTAINED.
--- NOTE | 2021-12-10 16:28 | NUR ---
PATIENT HAS BEEN SCREENED AND CATEGORIZED MODERATE NUTRITION RISK. PATIENT WILL BE SEEN WITHIN 3-5 DAYS OF ADMISSION. [address]
--- NOTE | 2021-12-10 19:26 | NUR ---
patient eating dinner at bedside, patient on 4L nc, aaox4. no signs of distress noted. 10cc flushed on bilateral fa extremities. Attached to the monitor, safety measures are in place, and will continue to monitor patient.
--- NOTE | 2021-12-10 20:26 | NUR ---
Patient will be admitted to care of Robert VIEYRA. Admited to telemetry. Will go to room 126b. Belongings list completed. Report to Brea VIEYRA.
[2021-12-10] MEDS ORDERED: CLINDAMYCIN 600 MG/4 ML VIAL ONE (21:58)
[2021-12-10 22:30] VITALS: BP 120/65
--- NOTE | 2021-12-10 22:30 | NUR ---
PT LYING IN BED HE IS AOX2-3 HE IS ON 4 LITERS VIA N/C. PT BREATHING IS LABORED WITH COARSE RHONCHI AND WHEEZING. PT HAS 2 IV SITES 22G ON LEFT HAND AND 22G ON RIGHT F/A. REPORT GIVEN FROM ER NURSE OVER THE PHONE. NORMAL SALINE STARTED AT 10MLS/HR TO KVO. PT ALSO HAS A ACOSTA CATHETER IN PLACE WITH BLOOD TINGED AND CLOUDY URINE. MRSA SWAB DONE. ADMISSION QUESTIONS ASKED AND V/S FOLLOWS; t 97.2 p 76 r 22 b/p 120/65 02 91% on 4 liters n/c. PT FINGERSTICK IS 143. NO HUMALOG COVERAGE NEEDED. ALL ORDERED PRECAUTIONS IN PLACE.
--- NOTE | 2021-12-10 23:00 | NUR ---
PT WAS GIVEN ORDERED CLINDAMYCIN IVPB. PT CONFUSED AND REMINDED TO KEEP N/C ON. SPOKE WITH DAUGHTER LUKASZ, SHE IS UNSURE OF PT VACCINATION STATUS. PT MOVED TO 127B, DUE TO TV NOT WORKING. ALL REQUESTED NEEDS ATTENDED BY STAFF. PT ALSO GIVEN MORPHINE FOR 7/10 PAIN IN BACK AND HEADACHE. WILL MONITOR FOR EFFECT. AND ALL ORDERED PRECAUTIONS IN PLACE.
[2021-12-10] MEDS: MORPHINE SULFATE 2 MG/ML SYR IVP PRN (23:04)
--- NOTE | 2021-12-11 | NUR ---
NEW ORDERS NOTED, DIGOXIN IVP X1, LOPRESSOR BID AND ROCEPHIN 1 GM Q 24HRS. FORTH FROM 85-93. PT IS IN CONTROLLED A FIB. PT HAS NO S/S OF DISTRESS . DIGOXIN ACKNOWLEDGED BUT NOT GIVEN DUE TO PT HEART RATE AND B/P. LOPRESSOR ALSO HELD DUE TO PT B/P V/S FOLLOWS: T 97.4 P 96 R 20 B/P 93/61 02 100%. ROCEPHIN HUNG AND RUNNING AT 100MLS ORDERED. PT EDUCATION PROVIDED REGARDING HEART RHYTHMS AND ORDERED MEDICATION. PT VERBALIZED UNDERSTANDING. Addendum: 12/12/21 at 0103 by Brea Delgadillo RN WRONG DATE 12/12/21
--- NOTE | 2021-12-11 | NUR ---
PT IN BED ALL REQUESTED NEEDS ATTENDED BY STAFF. TEACHING FOR DM AND HD DONE AT BEDSIDE. SPOKE TO CAREN, WHO WILL DO THE HD THIS AM. V/S FOLLOWS: T 98.0 P 115 R 22 B/P 102/70 02 99% ON 4 LITERS VIA N/C. ALL ORDERED PRECAUTIONS IN PLACE.
[2021-12-11] MEDS: NACL 0.9% 1,000 ML IV SCH ×2 (00:56→16:01)
[2021-12-11] MEDS: CLINDAMYCIN 600 MG in DEXTROSE 5% 50 ML IV SCH ×4 (00:57→20:48)
[2021-12-11 04:00] VITALS: BP 100/60
[2021-12-11] MEDS ORDERED: CLINDAMYCIN 600 MG/4 ML VIAL ONE (06:28)
[2021-12-11 06:30] LABS: BASOPHILS % (AUTO) 0.1 % (0.0-2.0); EOSINOPHILS # (AUTO) 0.1 K/uL (0-0.4); EOSINOPHILS % (AUTO) 0.8 % (0.0-4.0); HEMATOCRIT 28.8 % (36-52); HEMOGLOBIN 9.8 g/dL (12.0-18.0); LYMPHOCYTES # (AUTO) 0.3 K/uL (2.0-11.5); LYMPHOCYTES % (AUTO) 2.6 % (20.5-51.1); MEAN CORPUSCULAR HEMOGLOBIN 29 pg (27-31); MEAN CORPUSCULAR HGB CONC 34 g/dL (33-37); MEAN CORPUSCULAR VOLUME 84.5 fL (80-94); MONOCYTES # (AUTO) 0.5 K/uL (0.8-1.0); MONOCYTES % (AUTO) 3.9 % (1.7-9.3); NEUTROPHILS # (AUTO) 11.6 K/uL (1.8-7.7); NEUTROPHILS % (AUTO) 92.6 % (42.2-75.2); PLATELET COUNT (AUTO) 176 K/uL (140-450); RED BLOOD CELL COUNT(AUTO) 3.41 MIL/uL (4.20-6.10); RED CELL DISTRIBUTION WIDTH 15.6 % (11.6-13.7); WHITE BLOOD COUNT (AUTO) 12.6 K/uL (4.8-10.8)
--- NOTE | 2021-12-11 06:30 | NUR ---
PT WAS TURNED, CHANGED AND REPOSITIONED IN BED. ACOSTA CATHETER IN PLACE. DRAINED PINK CLOUDY URINE DRAINED. FINGERSTICK IS 86 NO COVERAGE NEEDED. ALL ORDERED PRECAUTIONS IN PLACE.
[2021-12-11] MEDS: MORPHINE SULFATE 2 MG/ML SYR IVP PRN (06:41)
[2021-12-11] MEDS: BLOOD GLUCOSE MONITORING 1 DEV DEV FS SCH ×4 (06:50→21:36)
--- NOTE | 2021-12-11 07:35 | NUR ---
RECEIVED BEDSIDE REPORT FROM BREAKFAST MANAGER NURSE FOR CONTINUITY OF CARE. PT IS AWAKE, CONFUSED. ON 4L O2 NC WITH BREATHING UNLABORED. ACOSTA CATH IN PLACE DRAINING URINE. SKIN IS WARM AND DRY. INCONTINENT DERMATITIS PRESENT. RIGHT IJ HD CATH IN PLACE. RIGHT WRIST 22 GAUGE RUNNING NS AT 10 ML PER HOUR PER ORDER. PT IS STABLE. PLAN OF CARE DISCUSSED.
[2021-12-11 08:00] VITALS: BP 107/73
--- NOTE | 2021-12-11 08:28 | NUR ---
CALLED [facility] DIALYSIS NURSE AND INQUIRED ABOUT THE MISSED DIALYSIS YESTERDAY. SHE STATED NOBODY CALLED HER YESTERDAY. SHE STATED SHE WOULD BE HERE TODAY TO PROVIDE HD. WILL WAIT FOR HER ARRIVAL.
[2021-12-11] MEDS: DEXAMETHASONE 4 MG/ML VIAL IVP SCH (10:09)
[2021-12-11] MEDS: AMIODARONE 200 MG TAB PO SCH ×2 (10:09→20:41)
[2021-12-11 10:13] LABS: ALBUMIN 2.4 g/dL (3.4-5.0); ANION GAP 17.7 (8-16); CARBON DIOXIDE 22.6 mmol/L (21-32); POTASSIUM 4.3 mmol/L (3.5-5.1); TOTAL BILIRUBIN 0.4 mg/dL (0.0-1.0)
[2021-12-11] MEDS: APIXABAN 2.5 MG TAB PO SCH ×2 (10:22→20:37)
--- NOTE | 2021-12-11 10:24 | NUR ---
DIALYSIS WAS STARTED BY HD NURSE. PT IS STABLE AT THIS TIME. SPEAKING APPROPRIATELY. DENIES PAIN. WILL CONTINUE TO MONITOR.
--- NOTE | 2021-12-11 10:41 | NUR ---
BP IS 92/54, PT IS ASYMPTOMATIC. HD IN PROGRESS. HD NURSE SPOKE TO DR. ARTEAGA IN PERSON AND HE ORDERED ALBUMIN 25% 200 ML IVPB. HEPARIN 5,000 UNITS HD CATH X 2. WILL ADMINISTER ONCE VERIFIED.
[2021-12-11] MEDS ORDERED: ALBUMIN HUMAN 25% 200 ML IV SCH (10:44)
[2021-12-11 10:59] LABS: MAGNESIUM 2.3 mg/dL (1.8-2.4)
[2021-12-11 12:00] VITALS: BP 88/50
[2021-12-11] MEDS: INSULIN LISPRO SLIDING SCALE 100 UNITS/ML VIAL SUBQ PRN (12:26)
--- NOTE | 2021-12-11 13:33 | NUR ---
HD NURSE AT BEDSIDE. GAVE REPORT THAT HD IS FINISHED. 700 ML OUT OF FLUID. MOST RECENT BP IS 92/50.
[2021-12-11] MEDS ORDERED: DIGOXIN 0.25 MG TAB PO SCH (14:00)
[2021-12-11 16:00] VITALS: BP 95/55
--- NOTE | 2021-12-11 18:56 | NUR ---
PT WAS STABLE THROUGHOUT SHIFT. PT WAS AWAKE AND ALERT. A&OX3. PERIODS OF CONFUSION NOTED. PT WAS PLEASANT AND COOPERATIVE. PT IS BEDBOUND. ON 4L O2 NC WITH BREATHING UNLABORED. O2 SAT RANGED FROM 96-100%. AFIB ON THE MONITOR. MEDICATIONS PROVIDED ORDERED. CURRENTLY AFIB ON THE MONITOR. ACOSTA CATH IN PLACE, THREE WAY CATH WITH ONE PORT PLUGGED. SKIN IS WARM AND DRY. SKIN TEARS MADE APPARENT ON BUTTOCKS, REDNESS UNDERNEATH AXILLARY, AND SKIN TEAR ON LEFT BACK/SIDE. PICTURES WERE TAKEN OF WOUNDS AND PLACED TO CHART. HD COMPLETED WITH 700 ML OF FLUID OUT. BP REMAIN STABLE AFTER HD. RIGHT IJ IN PLACE AND BOTH IV'S IN PLACE. DENIES PAIN.
--- NOTE | 2021-12-11 19:27 | NUR ---
ENDORSED PT TO FINISHING RANGE FEEDER NURSE FOR CONTINUITY OF CARE. PT IS STABLE. PLAN OF CARE DISCUSSED.
--- NOTE | 2021-12-11 19:30 | NUR ---
RECEIVED REPORT FROM AZALIA BEDOYA AT BEDSIDE FOR CONTINUITY OF CARE. PT IS LYING IN BED NO C/O VOICED. HE IS ON 4 LITERS VIA N/C FOR SUPPLEMENTAL 02, LUNG SOUND WHEEZING, DIMINISHED AND RHONCHI. PT ALSO HAS ACOSTA CATHETER INTACT AND DRAINING YELLOW CLOUDY URINE WITH SEDIMENT. HE HAS 2 IV SITE ONE IN THE LEFT HAND 22G AND ONE IN THE RIGHT WRIST 22 GUAGE RUNNING NORMAL SALINE AT 10MLS/HR TO KVO. NO S/S OF PAIN OR DISTRESS NOTED. ALL ORDERED PRECAUTIONS IN PLACE.
[2021-12-11 20:00] VITALS: BP 103/68
--- NOTE | 2021-12-11 20:00 | NUR ---
PT IN BED V/S FOLLOWS: T 97.8 P 122 R 20 B/P %203/68 02 100% ON 4 LITERS VIA N/C. FINGERSTICK IS 115 NO HUMALOG INSULIN COVERAGE NEEDED.
--- NOTE | 2021-12-11 20:45 | NUR ---
PT GIVEN ORDERED CLEOCIN IV ABT, PO AMIODARONE AND ELIQUIS ORDERED. EDUCATION REGARDING PURPOSE OF MEDICATION PROVIDED AT BEDSIDE, PT VERBALIZED UNDERSTANDING.
--- NOTE | 2021-12-11 21:11 | NUR ---
PT HEART RATE IS IN THE 150'S CALLED [facility] [employer] MD JACOBS WHO REFEREED ME TO CARDIO TEXTED MD GARCIA FOR ANY NEW ORDERS.
--- NOTE | 2021-12-11 21:30 | NUR ---
MD GARCIA RESPONDED THAT HE WILL LOOK AT CHART AND PLACE ORDERS SHORTLY.
[2021-12-11] MEDS: METOPROLOL 25 MG TAB PO SCH (21:45)
[2021-12-11] MEDS ORDERED: DIGOXIN 0.25 MG/ML AMP IV SCH (21:45)
--- NOTE | 2021-12-11 22:30 | NUR ---
PT HEART RATE NOW ELIF ON TELE GOING BETWEEN 56-59. WILL CONTINUE TO MONITOR PT HEAR RATE AND RHYTHMS ON TELE.
[2021-12-12] VITALS: BP 93/61
--- NOTE | 2021-12-12 | NUR ---
NEW ORDERS NOTED, DIGOXIN IVP X1, LOPRESSOR BID AND ROCEPHIN 1 GM Q 24HRS. FORTH FROM 85-93. PT IS IN CONTROLLED A FIB. PT HAS NO S/S OF DISTRESS . DIGOXIN ACKNOWLEDGED BUT NOT GIVEN DUE TO PT HEART RATE AND B/P. LOPRESSOR ALSO HELD DUE TO PT B/P V/S FOLLOWS: T 97.4 P 96 R 20 B/P 93/61 02 100%. ROCEPHIN HUNG AND RUNNING AT 100MLS ORDERED. PT EDUCATION PROVIDED REGARDING HEART RHYTHMS AND ORDERED MEDICATION. PT VERBALIZED UNDERSTANDING. ALL ORDERED PRECAUTIONS IN PLACE.
[2021-12-12] MEDS ORDERED: cefTRIAXone 1,000 MG VIAL ONE (00:18)
[2021-12-12 04:00] VITALS: BP 96/63
[2021-12-12] MEDS: DOCUSATE SODIUM 100 MG GELCAP PO PRN ×2 (05:37→08:46)
[2021-12-12 06:14] LABS: EOSINOPHILS % (AUTO) 0.2 % (0.0-4.0); HEMATOCRIT 25.5 % (36-52); HEMOGLOBIN 8.5 g/dL (12.0-18.0); LYMPHOCYTES # (AUTO) 0.7 K/uL (2.0-11.5); LYMPHOCYTES % (AUTO) 3.8 % (20.5-51.1); MEAN CORPUSCULAR HEMOGLOBIN 28 pg (27-31); MEAN CORPUSCULAR HGB CONC 33 g/dL (33-37); MEAN CORPUSCULAR VOLUME 84.6 fL (80-94); MONOCYTES # (AUTO) 1.1 K/uL (0.8-1.0); MONOCYTES % (AUTO) 5.7 % (1.7-9.3); NEUTROPHILS # (AUTO) 17.4 K/uL (1.8-7.7); NEUTROPHILS % (AUTO) 90.3 % (42.2-75.2); PLATELET COUNT (AUTO) 126 K/uL (140-450); RED BLOOD CELL COUNT(AUTO) 3.02 MIL/uL (4.20-6.10); RED CELL DISTRIBUTION WIDTH 15.2 % (11.6-13.7); WHITE BLOOD COUNT (AUTO) 19.3 K/uL (4.8-10.8)
--- NOTE | 2021-12-12 06:30 | NUR ---
PT IN BED NO C/O VOICED. ALL ORDERED PRECAUTIONS IN PLACE. PT FINGERSTICK IS 99 NO HUMALOG COVERAGE NEEDED. PT DENIES PAIN HE REMAINS ON 4 LITERS VIA N/C. ALL REQUESTED NEEDS ATTENDED BY STAFF.
[2021-12-12] MEDS: BLOOD GLUCOSE MONITORING 1 DEV DEV FS SCH ×4 (06:41→21:23)
[2021-12-12 06:48] LABS: ALBUMIN 2.6 g/dL (3.4-5.0); ANION GAP 11.5 (8-16); CARBON DIOXIDE 28.6 mmol/L (21-32); MAGNESIUM 1.7 mg/dL (1.8-2.4); POTASSIUM 4.1 mmol/L (3.5-5.1); TOTAL BILIRUBIN 0.4 mg/dL (0.0-1.0)
--- NOTE | 2021-12-12 07:44 | NUR ---
RECEIVED BEDSIDE REPORT FROM MANAGER ACQUISITION NURSE FOR CONTINUITY OF CARE. PT IS AWAKE, A&OX2. PERIODS OF CONFUSION. ON 4L O2 NC WITH BREATHING UNLABORED. ACOSTA CATH IN PLACE. SKIN IS WARM AND DRY. SKIN TEARS ON BUTTOCKS. RIGHT IJ IN PLACE FOR HD. RIGHT WRIST 22 GAUGE RUNNING NS TKO. PT IS STABLE. PLAN OF CARE DISCUSSED. NURSING OUT OF RATIO.
[2021-12-12 08:00] VITALS: BP 100/45
[2021-12-12] MEDS: APIXABAN 2.5 MG TAB PO SCH ×2 (08:44→21:25)
[2021-12-12] MEDS: AMIODARONE 200 MG TAB PO SCH ×2 (08:47→21:00)
[2021-12-12] MEDS: DEXAMETHASONE 4 MG/ML VIAL IVP SCH (08:47)
[2021-12-12] MEDS: DIGOXIN 0.25 MG TAB PO SCH (08:48)
[2021-12-12] MEDS: METOPROLOL 25 MG TAB PO SCH (08:48)
--- NOTE | 2021-12-12 08:48 | NUR ---
METOPROLOL WAS HELD FOR BP OF 105/85. OTHER MEDICATIONS FOR HR WERE GIVEN FOR ELEVATED HR OF 125. COLACE WAS GIVEN FOR CONSTIPATION STATED BY PT.
[2021-12-12 09:06] LABS: CREATININE 4.2 mg/dL (0.6-1.3)
[2021-12-12 09:06] LABS: HEPATITIS A ANTIBODY IGM Negative (Negative); HEPATITIS B CORE AB TOTAL Negative (Negative); HEPATITIS B SURFACE ANTIBODY Non Reactive (.); HEPATITIS B SURFACE ANTIGEN Negative (Negative)
--- NOTE | 2021-12-12 09:33 | NUR ---
WOUND CARE EVALUATION NOTE: SKIN ASSESSMENT DONE WITH THIS 66 Y/O PT. PT. ADMITTED WITH MOISTURE ASSOCIATED DERMATITIS TO BUTTOCKS WITH MULTIPLE SUPERFICIAL EROSIONS AND MULTIPLE SCRATCH GALO, AREA RED AND MOIST. INTERTRIGO TO BILATERAL ARMPITS, LOWER ABDOMEN FOLDS AND LEFT LATERAL TRUNK OF BODY, SKIN RED WITH SUPERFICIAL EROSIONS. POC DISCUSSED WITH PT. PT. VERBALIZES UNDERSTANDING. RECOMMENDATIONS -CLEANSE BILATERAL ARMPITS, LOWER ABDOMEN FOLDS AND LEFT LATERAL TRUNK OF BODY WITH MILD SOAP AND WATER, PAT DRY DUST NYSTATIN POWDER BID AND PRN IF SOILING -CLEANSE RIGHT AND LEFT BUTTOCKS WITH MILD SOAP AND WATER, PAT DRY APPLY Z GUARD BID AND PRN IF SOILING -TURNING AND/OR REPOSITIONING EVERY 1-2 HRS. -PROTECT/FLOAT HEELS -BY PLACING PILLOWS UNDER CALVES AT ALL TIMES, UNLESS OTHERWISE CONTRAINDICATE. APPLY HEEL PROTECTORS -MANAGE FRICTION AND SHEAR BY USING LIFT SHEET TO REPOSITION THE PATIENT. -MANAGE MOISTURE, FRICTION, AND SHEAR. KEEP SKIN DRY AND PROTECT FROM FRICTION. -INSPECT UNDER AND AROUND MEDICAL DEVICES. -ASSESS AND MONITOR SKIN CONDITION DURING POSITION CHANGE -PRESSURE REDISTRIBUTION SURFACE AND OFFLOADING SACRALCOCCYX -HOB 30 DEGREES, TOLERATED -PLEASE FOLLOW RD RECOMMENDATIONS Addendum: 12/12/21 at 1252 by Teodoro Almonte RN (Grace) Z GUARD IS OUT OF STOCK WILL REPLACE WITH CALMOSEPTINE CR.
[2021-12-12 12:00] VITALS: BP 83/55
[2021-12-12] MEDS: INSULIN LISPRO SLIDING SCALE 100 UNITS/ML VIAL SUBQ PRN ×2 (12:23→21:36)
--- NOTE | 2021-12-12 13:30 | NUR ---
12/12/21 RD INITIAL ASSESSMENT COMPLETED PLEASE REFER TO NUTRITION ASSESSMENT UNDER CARE ACTIVITY FOR ESTIMATED NUTRITIONAL NEEDS. 1. RECOMMEND CARDIAC + RENAL DIET TOLERATED 2. RD TO FOLLOW-UP 3-5 DAYS, MODERATE RISK UMU ARTEAGA RD
[2021-12-12] MEDS: MENTHOL/ZINC OXIDE 113 GM TUBE TP SCH (13:39)
[2021-12-12] MEDS: NYSTATIN POW 100 MU/GM 15 GM BTL TP SCH (13:40)
--- NOTE | 2021-12-12 14:29 | NUR ---
RECHECKED BP AND IT WAS 83/55. CONTACTED DR. JACOBS AND INFORMED HER ABOUT THE BP OF 83/55 AND HR IS 111. ALSO REMINDED HER THAT THE PT IS A DIALYSIS PT, RECEIVED DIALYSIS YESTERDAY. SHE ORDERED 250 ML OF NS BOLUS. WILL ADMIN ONCE VERIFIED.
[2021-12-12] MEDS ORDERED: NACL 0.9% 250 ML IV SCH (14:35)
--- NOTE | 2021-12-12 14:41 | NUR ---
DC PLANNING: PATIENT IS A POTENTIAL NEW HD, PER DR LARSON NOTES HD WILL BE HELD AND LABS WILL BE MONITORED. CM WILL HOLD OFF ON SETTING UP HD UNTIL DIRECTED BY NEPHRO. CM WILL FOLLOW. Addendum: 12/19/21 at 1438 by Roxanna Funk CM DC PLANNING: CM FOLLOWED UP WITH [facility] AT [phone], UNABLE TO ACCEPT ICU PATIENTS AT THIS TIME. CM WILL FOLLOW. Addendum: 12/25/21 at 1234 by Roxanna Funk DC PLANNING: VENUS SPOKE WITH FLACO AT [facility], PATIENT REMAINS ON APRV MODE FOR VENTILATOR, FIO2 100%, RT PLANS TO START PRONING AGAIN, MIDODRINE GTT BEING TITRATED DOWN. PATIENT DECLINED BY [facility], PER PRASHANTH DOESN'T MEET CRITERIA. FLACO SPOKE WITH DR RYAN, HE RECOMMENDED LTAC, FLACO WILL SPEAK WITH PRASHANTH TO SEE IF HE CAN ACCEPT THE PATIENTS VENT SETTINGS. VENUS WILL FOLLOW. Addendum: 12/26/21 at 1218 by Roxanna Funk CM DC PLANNING: VENUS SPOKE WITH THE PATIENTS DAUGHTER LUKASZ, CONFIRMED THE PATIENTS ADDRESS WHICH IS A MOBILE HOME. PATIENT LIVES WITH HIS DAUGHTER AND GRANDSON AND HAS DME OF O2, WC, FWW AND 3 IN 1 COMMODE. PATIENT IS ON SERVICE WITH [facility], PHONE [phone], AGENCY WAS PROVIDING WOUND CARE. DC ORDER FOR TODAY, VENUS SPOKE WITH THE PATIENT AT BEDSIDE AND HE IS AGREEABLE TO SNF PLACEMENT, REFERRAL SENT TO [facility]. VENUS WILL FOLLOW. Addendum: 12/26/21 at 1322 by Roxanna Funk CM DC PLANNING: PER SHON AT [facility] PATIENTS MEDICARE DAYS WAS EXHAUSTED AT [facility] AND HE IS NOW STRAIGHT M/MARTA. VENUS FAXED REFERRAL TO [facility] AND WILL FOLLOW UP. Addendum: 12/26/21 at 1409 by Roxanna Funk CM DC PLANNING: PER ASHOK AT [facility] THE FACILITY IS NOT M/[facility]ARTA CONTRACTED, SPOKE WITH THIEN AT [facility] THEY ARE. NO NON-COVID BEDS TODAY, REFERRAL FAXED IN CASE OF DISCHARGES. VENUS SPOKE AGAIN WITH SHON AT [facility] TO ASK IF THEY CAN ACCEPT PATIENT UNDER M/CARE B FOR 2 WEEKS, SHON WILL SPEAK WITH HER BUSINESS OFFICE. VENUS WILL FOLLOW. Addendum: 12/26/21 at 1432 by Roxanna Funk CM DC PLANNING: PATIENT ACCEPTED TO [facility] ROOM [address] COBB, VENUS IS TRYING TO ARRANGE TRANSPORT, [facility] UNABLE, WAITING TO SPEAK WITH [facility] DONOVAN WILL FOLLOW. Addendum: 12/26/21 at 1510 by Roxanna Funk CM DC PLANNIN REGRADER ARRANGED WITH [facility] TRANSPORT, PATIENTS RN NOTIFIED. CM WILL FOLLOW. Addendum: 12/26/21 at 1541 by Roxanna Funk CM DC PLANNING: CORRECTED REGRADER TIME, PATIENT WILL BE PICKED UP BETWEEN 6:30 AND 7:00 PM BY [facility], TRANSPORT ARRANGED B [facility]. CM WILL FOLLOW.
--- NOTE | 2021-12-12 15:30 | NUR ---
REASSESSED BP AND IT WAS 95/58 AND HR IS 115. PT IS NOW STABLE AFTER THE BOLUS OF 250 ML NS. WILL CONTINUE TO MONITOR.
[2021-12-12] MEDS: NACL 0.9% 1,000 ML IV SCH (15:41)
[2021-12-12 16:00] VITALS: BP 95/55
--- NOTE | 2021-12-12 18:50 | NUR ---
PT WAS STABLE THROUGHOUT SHIFT. AWAKE AND ALERT AT TIMES. CONFUSION NOTED. ON 4L O2 NC WITH BREATHING LABORED. O2 SAT IS 100% THROUGHOUT SHIFT. NO COUGHING NOTED. ACOSTA CATH IN PLACE, IRRIGATED PER ORDER. ACOSTA CATH IS PATENT AND INTACT. RIGHT IJ HD CATH IN PLACE. PT CHANGED AND REPOSITIONED NEEDED. WOUND CARE PROVIDED. [facility] NOTIFIED FOR HD TOMORROW. PT DENIED PAIN. WILL CONTINUE TO MONITOR TILL END OF SHIFT.
--- NOTE | 2021-12-12 19:37 | NUR ---
ENDORSED PT TO ELECTRIC METER REPAIRER NURSE FOR CONTINUITY OF CARE. PT IS STABLE. PLAN OF CARE DISCUSSED.
[2021-12-12 20:00] VITALS: BP 75/34
--- NOTE | 2021-12-12 21:23 | NUR ---
PT WAS SEEN AND ASSESSED. PT WAS ON 4L NC WITH SPO2 OF 99%. PT WAS TITRATED TO 3L NC WITH A SPO2 OF 96%. PT IS IN NO RESPIRATORY DISTRESS AT THIS TIME. WILL CONTINUE TO MONITOR.
--- NOTE | 2021-12-12 23:15 | NUR ---
RECEIVED REPORT.PT IS ON BED AWAKE,ALERT AND ORIENTED X 2-3.RESP.UNLABORED W/O AT 3L/NC.LUNGS DIMINISHED.F/C PATENT.NO C/O PAIN CALL LIGHT IN REACH.SLX2 PATENT.HR IS UNCON.A-FIB.BP=75/34.CALLED DR JACOBS.SHE ORDERED TO TRANSFER TO ICU AND START LEVOPHED.WILL TRANSFER PT TO ICU.
[2021-12-13] VITALS (27 sets, daily range): BP systolic 59–141; BP diastolic 14–81
--- NOTE | 2021-12-13 00:15 | NUR ---
RECEIVED PT FROM [employer] FOR LOW BP, BP AT THIS TIME 107/53. PT AWAKE,PERIODS OF CONFUSION NOTED.AFIB NOTED ON MONITOR.ON 02NC AT 3LPM.NO SLIGHT SOB NOTED ON EXERTION.W/RT IJ CHANA CATHETER, INTACT W/DRY DRESSING.W/PERIPHERAL IV TO RT WRIST G22 NOTED INFUSING NS AT 5ML/HR.AND SALINE LOCK TO LT F/A.PT ON CARDIAC DIET.ABDOMEN SOFT.LARGE.W/ACOSTA CATHETER TO BSD DRAINING CLOUDY URINE WITH SEDIMENTS, ADEQUATE AMT.W/GENERALIZED WEAKNESS TO ALL EXTREMITIES.DENIES PAIN AT THIS TIME.WILL CONTINUE TO CLOSELY MONITOR PT
--- NOTE | 2021-12-13 00:17 | NUR ---
TRANSFERRED PT TI ICU IN STABLE CONDITION.
[2021-12-13] MEDS: ZOLPIDEM 5 MG TAB PO PRN (00:30)
--- NOTE | 2021-12-13 00:30 | NUR ---
PT REQUESTED SLEEPING PILLS; GIVEN AMBIEN ORDERED. PT STILL C/O OF NOT HAVING TV IN THE ROOM,SPOKE WITH AMI VIEYRA BAND SAWYER.
[2021-12-13] MEDS: ONDANSETRON 4 MG/2 ML VIAL IVP PRN (01:30)
--- NOTE | 2021-12-13 01:30 | NUR ---
PT VERBALIZED NAUSEA; ZOFRAN ADMIN ORDERED.WILL CONTINUE TO MONITOR PT.
[2021-12-13] MEDS: NYSTATIN POW 100 MU/GM 15 GM BTL TP SCH ×2 (01:53→13:00)
[2021-12-13] MEDS: MENTHOL/ZINC OXIDE 113 GM TUBE TP SCH ×2 (01:54→13:00)
[2021-12-13] MEDS: NOREPINEPHRINE 4 MG in DEXTROSE 5% 250 ML IV PRN ×2 (03:00→21:10)
--- NOTE | 2021-12-13 03:00 | NUR ---
MEDICAL SECRETARY TEACHER CALLED TO BEDSIDE PATIENT C/O SOB PMHX: ASTHMA ASSESSMENT DONE BREATH SOUNDS WHEEZE WITH DIFFUSED RALES BILATERAL RR 24 SATURATION 100% ON SUPPLEMENTAL OXYGEN AT 2 LPM VIA NC MEDICAL SECRETARY TEACHER TO PLACE ORDER FOR HHN DUONEB Q4 PRN FOR SOB/WHEEZE
--- NOTE | 2021-12-13 03:00 | NUR ---
BP 62/14 RECHECKED 72/51, LEVOPHED STARTED ORDERED PER PROTOCOL
[2021-12-13] MEDS ORDERED: NOREPINEPHRINE 4 MG/4 ML VIAL IV ONE (03:04)
[2021-12-13] MEDS ORDERED: ALBUTEROL SULFATE/IPRATROPIU 3 ML SOL IH PRN (03:05)
[2021-12-13] MEDS ORDERED: ALBUTEROL SULFATE/IPRATROPIU 3 ML SOL IH ONE (03:06)
[2021-12-13] MEDS: LORazepam 2 MG/ML VIAL IM/IVP PRN (04:37)
--- NOTE | 2021-12-13 04:37 | NUR ---
PT VERY RESTLESS/ANXIOUS; ATIVAN GIVEN ORDERED.WILL CONTINUE TO CLOSELY MONITOR PT
--- NOTE | 2021-12-13 05:00 | NUR ---
PT APPEARS SLEEPING COMFORTABLY.STILL ON LEVOPHED DRIP.ON 02NC AT 3LPM.NO PAIN NOTED AT THIS TIME
[2021-12-13 06:24] LABS: BASOPHILS % (AUTO) 0.1 % (0.0-2.0); EOSINOPHILS % (AUTO) 0.1 % (0.0-4.0); HEMATOCRIT 20.3 % (36-52); LYMPHOCYTES # (AUTO) 1.2 K/uL (2.0-11.5); LYMPHOCYTES % (AUTO) 3.5 % (20.5-51.1); MEAN CORPUSCULAR HEMOGLOBIN 28 pg (27-31); MEAN CORPUSCULAR HGB CONC 32 g/dL (33-37); MEAN CORPUSCULAR VOLUME 86.7 fL (80-94); MONOCYTES # (AUTO) 1.3 K/uL (0.8-1.0); NEUTROPHILS # (AUTO) 30.4 K/uL (1.8-7.7); NEUTROPHILS % (AUTO) 92.3 % (42.2-75.2); PLATELET COUNT (AUTO) 143 K/uL (140-450); RED BLOOD CELL COUNT(AUTO) 2.34 MIL/uL (4.20-6.10); RED CELL DISTRIBUTION WIDTH 15.4 % (11.6-13.7)
[2021-12-13 06:35] LABS: HEMOGLOBIN 6.5 g/dL (12.0-18.0); WHITE BLOOD COUNT (AUTO) 32.9 K/uL (4.8-10.8)
[2021-12-13 06:49] LABS: ALBUMIN 2.5 g/dL (3.4-5.0); ANION GAP 18.8 (8-16); CARBON DIOXIDE 21.2 mmol/L (21-32); MAGNESIUM 1.6 mg/dL (1.8-2.4); TOTAL BILIRUBIN 0.4 mg/dL (0.0-1.0)
[2021-12-13 07:10] LABS: CREATININE 4.1 mg/dL (0.6-1.3)
--- NOTE | 2021-12-13 07:30 | NUR ---
RECEIVED REPORT FROM LUZ MCBRIDE. IN BED O2 2L NC, IV ON RT ARM LEVOPHED IN FUSSING AT 10 MCG.. PT IS CONFUSED AT THE TIME.
--- NOTE | 2021-12-13 08:00 | NUR ---
PT LAB RESULT HGB IS 6.5 DR COBB WAS CALLED..
[2021-12-13] MEDS: AMIODARONE 200 MG TAB PO SCH ×2 (09:00→21:46)
[2021-12-13] MEDS: BLOOD GLUCOSE MONITORING 1 DEV DEV FS SCH ×4 (09:00→21:00)
[2021-12-13] MEDS: DEXAMETHASONE 4 MG/ML VIAL IVP SCH (09:00)
[2021-12-13] MEDS: DIGOXIN 0.25 MG TAB PO SCH (09:00)
[2021-12-13] MEDS ORDERED: EPOETIN ALFA-EPBX 4,000 UNITS/ML VIAL IV SCH (09:15)
--- NOTE | 2021-12-13 09:20 | NUR ---
SEEN BY DR COBB AT BED SIDE , NEW ORDER RECEIVED
--- NOTE | 2021-12-13 09:30 | NUR ---
SEEN BY AUGIE KIM ORDER RECEIVED.
[2021-12-13] MEDS ORDERED: ALBUMIN HUMAN 5 % 250 ML IV PRN (09:55)
--- NOTE | 2021-12-13 10:30 | NUR ---
SEEN BY DR. ARTEAGA PT. WILL HAVE HD. TODAY.
--- NOTE | 2021-12-13 12:20 | NUR ---
HD STARTED PT IS SLIGHTLY HYPOTENSIVE , LEVOPHED UP TO SUPPORT HIS BLOOD PRESSURE.
--- NOTE | 2021-12-13 12:45 | NUR ---
ALBUMIN 5% 250 GIVEN DURING HD, TO SUPPORT BP.
[2021-12-13] MEDS: PHENYLEPHRINE 10 MG in NACL 0.9% 250 ML IV PRN ×2 (12:55→21:15)
--- NOTE | 2021-12-13 13:35 | NUR ---
1UNIT OF PRBC GIVE DURING HD NO REACTION NOTE.
--- NOTE | 2021-12-13 14:08 | NUR ---
PHYSICAL THERAPY CO-SIGN The Physical Therapy Progress Notes documented by Platform Supervisor have been reviewed. Reviewed/Co-Signed by: Renate Gandara Documentation Done by: MARIANNE SALINAS PTA Addendum: 12/13/21 at 1408 by Renate Gandara PT Amended: Links added.
--- NOTE | 2021-12-13 14:08 | NUR ---
PHYSICAL THERAPY CO-SIGN The Physical Therapy Progress Notes documented by Asbestos Abatement Worker have been reviewed. Reviewed/Co-Signed by: Renate Gandara Documentation Done by: MARIANNE SALINAS PTA Addendum: 12/13/21 at 1408 by Renate Gandara PT Amended: Links added.
--- NOTE | 2021-12-13 14:45 | NUR ---
HD COMPLETED , 500 FLUID REMOVED.
--- NOTE | 2021-12-13 15:42 | NUR ---
PHYSICAL THERAPY NOTE: PHYSICAL THERAPY HOLD TODAY, PER TV HOST. PATIENT IS ON DIALYSIS AND CONTINUES TO EXPRESS LOW BLOOD PRESSURE. ATTEMPT TOMORROW, 12/14/21, PER RN. RN WILL CONTACT MD TO SEE IF FURTHER PHYSICAL THERAPY IS NEEDED PT IS BED BOUND AND AT BASELINE
[2021-12-13] MEDS: NACL 0.9% 1,000 ML IV SCH (16:00)
[2021-12-13] MEDS: INSULIN LISPRO SLIDING SCALE 100 UNITS/ML VIAL SUBQ PRN ×2 (17:43→21:45)
--- NOTE | 2021-12-13 18:00 | NUR ---
ACOSTA CATH HAS NO URINE .
--- NOTE | 2021-12-13 19:30 | NUR ---
RECEIVED REPORT FROM DAY SHIFT NURSE, ASSUMED CARE. PATIENT OBSERVED IN STABLE CONDITION, VSS, AWAKE AOX2. BREATHING EVENLY AND UNLABORED ON NON-REBREATHER AT 15 L/MIN. DRIPS RUNNING INCLUDE BECKY-SYNEPHRINE AT 70 MCG/MIN AND LEVOPHED AT 25 MCG/MIN VIA RIGHT WRIST IV GAUGE 20. ACOSTA CATHETER IN PLACE WITH NO URINE OUTPUT. HEMODIALYSIS ACCESS CATHETER ON R IJ. ALL SAFETY MEASURES IN PLACE, WILL CONTINUE TO CLOSELY MONITOR AND FOLLOW POC.
--- NOTE | 2021-12-13 19:30 | NUR ---
PT SLEEPING , REPORT GIVE TO RACQUEL VIEYRA.
--- NOTE | 2021-12-13 19:40 | NUR ---
PICC LINE NURSE AT BEDSIDE INSERTING PICC LINE ON PATIENT. PATIENT IN NO ACUTE DISTRESS. ON NON-REBREATHER MASK O2 SAT 100%. WILL CONTINUE TO CLOSELY MONITOR.
--- NOTE | 2021-12-13 20:00 | NUR ---
PICC LINE NURSE UNABLE TO INSERT PICC LINE ON EITHER ARM, MIDLINE PLACED ON MOE. BOTH PORTS FLUSHED AND PATENT. PATIENT TOLERATED PROCEDURE WELL. WILL CONTINUE TO MONITOR.
[2021-12-13 20:46] LABS: MEAN CORPUSCULAR HEMOGLOBIN 28 pg (27-31); MEAN CORPUSCULAR HGB CONC 32 g/dL (33-37); MEAN CORPUSCULAR VOLUME 87.4 fL (80-94); PLATELET COUNT (AUTO) 101 K/uL (140-450); RED CELL DISTRIBUTION WIDTH 15.2 % (11.6-13.7)
[2021-12-13 21:02] LABS: WHITE BLOOD COUNT (AUTO) 41.7 K/uL (4.8-10.8)
[2021-12-13 21:03] LABS: HEMATOCRIT 18.4 % (36-52)
[2021-12-13 21:04] LABS: CARBON DIOXIDE 27.1 mmol/L (21-32); CREATININE 3.5 mg/dL (0.6-1.3); POTASSIUM 5.1 mmol/L (3.5-5.1)
--- NOTE | 2021-12-13 21:15 | NUR ---
LAB CALLED REGARDING CRITICAL WBC AND HEMOGLOBIN 6.[address] COBB NOTIFIED AND MADE AWARE PATIENT IS NOT CURRENTLY ACTIVELY BLEEDING. DR COBB VERBALLY PUT IN NEW ORDERS FOR 1 UNIT OF PRBC AND OCCULT BLOOD STOOL LAB. ORDERS PUT IN. WILL FOLLOW UP WITH LAB.
--- NOTE | 2021-12-13 22:00 | NUR ---
SUMEET FROM LAB CALLED TO NOTIFY THERE IS NO PRBC IN STANDBY FOR PATIENT AND HAVE TO ORDER FROM OUTSIDE BLOOD BANK. WILL CALL AND NOTIFY WHEN BLOOD IS READY AND AVAILABLE. PATIENT IS NOT ACTIVELY BLEEDING, VSS, IN STABLE CONDITION.
[2021-12-13 22:16] LABS: LYMPHOCYTES % (MANUAL) 4 % (20-46)
[2021-12-13] MEDS ORDERED: VANCOMYCIN PER PHARMACY MC PRN (23:45)
[2021-12-14] VITALS (23 sets, daily range): BP systolic 80–135; BP diastolic 37–70
[2021-12-14] MEDS: ONDANSETRON 4 MG/2 ML VIAL IVP PRN ×2 (00:20→10:50)
[2021-12-14] MEDS: PHENYLEPHRINE 10 MG in NACL 0.9% 250 ML IV PRN ×8 (00:30→23:07)
[2021-12-14] MEDS: NOREPINEPHRINE 4 MG in DEXTROSE 5% 250 ML IV PRN ×5 (00:38→22:48)
[2021-12-14] MEDS: NYSTATIN POW 100 MU/GM 15 GM BTL TP SCH ×2 (01:00→12:53)
[2021-12-14] MEDS: MENTHOL/ZINC OXIDE 113 GM TUBE TP SCH ×2 (01:00→12:53)
--- NOTE | 2021-12-14 02:15 | NUR ---
PATIENT OBSERVED SLEEPING WITH EYES CLOSED IN NO ACUTE DISTRESS, VSS. WILL CONTINUE TO CLOSELY MONITOR AND FOLLOW POC.
[2021-12-14] MEDS ORDERED: MEROPENEM 1,000 MG VIAL IV ONE (02:29)
[2021-12-14] MEDS: MEROPENEM 1,000 MG in NACL 0.9% 50 ML IV SCH (02:42)
[2021-12-14] MEDS ORDERED: VANCOMYCIN 1GM/DEXT 5% PREMIX 200 ML IV SCH (03:30)
--- NOTE | 2021-12-14 03:30 | NUR ---
PATIENT HAD BM, PATIENT CHANGED AND REPOSITIONED. COLLECTED STOOL SAMPLE AND SENT TO LAB FOR OCCULT BLOOD ORDER. PATIENT IN NO ACUTE DISTRESS, VSS, DECREASED LEVOPHED TO 23 MCG/MIN, CONTINUES ON BECKY SYNEPHRINE DRIP AT 70 MCG/MIN. WILL CONTINUE TO MONITOR AND FOLLOW POC.
[2021-12-14] MEDS ORDERED: PHENYLEPHRINE 10 MG/ML VIAL ONE ×4 (05:39→22:29)
[2021-12-14] MEDS ORDERED: NOREPINEPHRINE 4 MG/4 ML VIAL IV ONE ×2 (05:39→22:28)
[2021-12-14] MEDS: BLOOD GLUCOSE MONITORING 1 DEV DEV FS SCH ×4 (06:49→20:03)
--- NOTE | 2021-12-14 06:50 | NUR ---
REPOSITIONED AND PROVIDED ORAL CARE. PATIENT IN NO APPARENT ACUTE DISTRESS, CONTINUES AWAKE AOX2. BS CHECK 111 WITH NO INSULIN COVERAGE. VSS, CONTINUES ON NON REBREATHER O2 SAT 100%. ALL SAFETY MEASURES IN PLACE, WILL CONTINUE TO MONITOR AND FOLLOW POC.
--- NOTE | 2021-12-14 07:18 | NUR ---
RECEIVED REPORT FROM RACQUEL VIEYRA FOR CONTINUITY OF CARE. PT SUPINE IN THE BED, AAOX4. ON NRB 15L. SR ON MONITOR. MOE MIDLINE INFUSING LEVOPHED AT 20 MCG/MIN, BECKY-SYNEPHRINE AT 70 MCG/MIN, AND NS TKO AT 5 ML/HR. F/C IN PLACE DRAINING TO GRAVITY. DROPLET PRECAUTIONS IN PLACE FOR PUI. SAFETY PRECAUTIONS MET. CALL LIGHT WITHIN REACH. INITIAL ASSESSMENT COMPLETED. WILL CONTINUE TO MONITOR.
--- NOTE | 2021-12-14 07:18 | NUR ---
GAVE REPORT TO DAY SHIFT NURSE, ENDORSED CARE.
--- NOTE | 2021-12-14 08:00 | NUR ---
SEEN AND EXAMINED BY ANGELINA TERAN.
--- NOTE | 2021-12-14 08:55 | NUR ---
SEEN AND EXAMINED BY DR COBB. ORDERS CARRIED OUT.
--- NOTE | 2021-12-14 08:55 | NUR ---
SEEN AND EXAMINED BY DR GHOSH. ORDERS CARRIED OUT.
[2021-12-14] MEDS ORDERED: VANCOMYCIN 2,000 MG in DEXTROSE 5% 500 ML IV SCH (09:00)
[2021-12-14] MEDS: DEXAMETHASONE 4 MG/ML VIAL IVP SCH (09:14)
[2021-12-14] MEDS: AMIODARONE 200 MG TAB PO SCH ×2 (09:14→21:00)
[2021-12-14] MEDS: DIGOXIN 0.25 MG TAB PO SCH (09:15)
--- NOTE | 2021-12-14 09:15 | NUR ---
RT AT BEDSIDE CHANGE NRB TO HIGH FLOW AT 25L FIO2 40% PER DR GHOSH ORDER.
--- NOTE | 2021-12-14 09:25 | NUR ---
SEEN AND EXAMINED BY DR ARTEAGA. DIALYSIS HELD FOR TODAY.
[2021-12-14] MEDS: MORPHINE SULFATE 2 MG/ML SYR IVP PRN (09:45)
--- NOTE | 2021-12-14 09:45 | NUR ---
PT COMPLAINS OF 10/10 LEG PAIN, MEDICATED WITH MORPHINE PRN PER MD ORDER. WILL CONTINUE TO MONITOR.
[2021-12-14] MEDS ORDERED: SODIUM FERRIC GLUCONATE 125 MG in NACL 0.9% 100 ML IV SCH (10:00)
[2021-12-14] MEDS: OCTREOTIDE ACETATE 1.25 MG in NACL 0.9% 250 ML IV SCH (10:24)
--- NOTE | 2021-12-14 10:25 | NUR ---
ADMINISTERED SANDOSTATIN DRIP PER DR ORDER, INFUSING MOE MIDLINE AT 10 ML/HR.
--- NOTE | 2021-12-14 10:50 | NUR ---
1 EPISODE OF COFFEE GROUND EMESIS AND NAUSEA. MEDICATED WITH ZOFRAN PRN PER MD ORDER.
[2021-12-14] MEDS: INSULIN LISPRO SLIDING SCALE 100 UNITS/ML VIAL SUBQ PRN ×2 (11:50→20:04)
--- NOTE | 2021-12-14 12:30 | NUR ---
SPOKE WITH DR BARRON REGARDING PT CONDITION VIA TELEPHONE. TELEPHONE ORDERS CARRIED OUT.
[2021-12-14] MEDS ORDERED: PANTOPRAZOLE 40 MG INJ VIAL IVP SCH ×2 (12:36→21:00)
[2021-12-14] MEDS ORDERED: NOREPINEPHRINE 8 MG in DEXTROSE 5% 250 ML IV PRN (14:45)
--- NOTE | 2021-12-14 15:50 | NUR ---
SEEN AND EXAMINED BY DR BARRON. ORDERS CARRIED OUT.
[2021-12-14] MEDS: NACL 0.9% 1,000 ML IV SCH (16:00)
[2021-12-14] MEDS: SUCRALFATE 1 GM TAB PO SCH ×2 (17:00→21:00)
[2021-12-14] MEDS ORDERED: MIDAZOLAM 2 MG/2 ML VIAL ONE (17:56)
[2021-12-14] MEDS ORDERED: fentaNYL citrate 0.05 MG/ML VIAL ONE (17:56)
--- NOTE | 2021-12-14 18:00 | NUR ---
DR BARRON AND AJ AT BEDSIDE FOR EGD PROCEDURE. ORDERS CARRIED OUT.
--- NOTE | 2021-12-14 18:45 | NUR ---
EGD COMPLETE. FENTANYL TOTAL OF 75MCG, AND VERSED TOTAL OF 2.5MG, GIVEN VIA IVP PER DR BARRON ORDER FOR SEDATION DURING EGD PROCEDURE. PT TOLERATED WELL. WILL CONTINUE TO MONITOR.
[2021-12-14] MEDS: MIDODRINE 5 MG TAB PO SCH (18:55)
--- NOTE | 2021-12-14 19:25 | NUR ---
ENDORSED BEDSIDE REPORT TO RACQUEL VIEYRA FOR CONTINUITY OF CARE.
--- NOTE | 2021-12-14 19:25 | NUR ---
RECEIVED REPORT FROM ROBBIE LR AM RN, FOR CONTINUITY OF CARE
[2021-12-14] MEDS: LACTULOSE 20 GM/30 ML UDC PO SCH (21:00)
[2021-12-15] VITALS (23 sets, daily range): BP systolic 69–152; BP diastolic 38–100
[2021-12-15] MEDS ORDERED: NOREPINEPHRINE 4 MG/4 ML VIAL IV ONE ×2 (01:23→04:53)
[2021-12-15] MEDS ORDERED: PHENYLEPHRINE 10 MG/ML VIAL ONE ×2 (01:33→02:56)
[2021-12-15] MEDS: NYSTATIN POW 100 MU/GM 15 GM BTL TP SCH ×2 (01:44→12:43)
[2021-12-15] MEDS: MENTHOL/ZINC OXIDE 113 GM TUBE TP SCH ×2 (01:44→12:43)
[2021-12-15] MEDS: MORPHINE SULFATE 2 MG/ML SYR IVP PRN (01:46)
--- NOTE | 2021-12-15 01:46 | NUR ---
PATIENT REPORTS SEVERE 10/10 PAIN IN BACK. MORPHINE 2MG/1ML PRN GIVEN PER MD ORDERS
--- NOTE | 2021-12-15 02:00 | NUR ---
CALLED LAB TO FOLLOW UP ON PENDING UNIT OR PRBC, PER LAB PERSONNEL, THERE IS A BLOOD SHORTAGE AND BLOOD IS STILL NOT AVAILABLE. WILL NOTIFY ONCE BLOOD IS AVAILABLE.
[2021-12-15] MEDS ORDERED: PHENYLEPHRINE 20 MG in NACL 0.9% 250 ML IV PRN (02:55)
[2021-12-15] MEDS: MEROPENEM 1,000 MG in NACL 0.9% 50 ML IV SCH (03:00)
[2021-12-15] MEDS: HYDROcodone/APAP 5/325 MG 1 TAB TAB PO PRN (03:00)
[2021-12-15] MEDS: ZOLPIDEM 5 MG TAB PO PRN (03:00)
[2021-12-15] MEDS: ONDANSETRON 4 MG/2 ML VIAL IVP PRN (03:30)
[2021-12-15] MEDS ORDERED: NOREPINEPHRINE 8 MG in DEXTROSE 5% 250 ML IV PRN (05:10)
[2021-12-15 06:08] LABS: LYMPHOCYTES # (AUTO) 0.5 K/uL (2.0-11.5); LYMPHOCYTES % (AUTO) 2.4 % (20.5-51.1); MEAN CORPUSCULAR HEMOGLOBIN 28 pg (27-31); MEAN CORPUSCULAR HGB CONC 32 g/dL (33-37); MEAN CORPUSCULAR VOLUME 87.7 fL (80-94); MONOCYTES # (AUTO) 0.8 K/uL (0.8-1.0); MONOCYTES % (AUTO) 3.8 % (1.7-9.3); NEUTROPHILS # (AUTO) 20.7 K/uL (1.8-7.7); NEUTROPHILS % (AUTO) 93.8 % (42.2-75.2); PLATELET COUNT (AUTO) 165 K/uL (140-450); RED BLOOD CELL COUNT(AUTO) 1.15 MIL/uL (4.20-6.10); RED CELL DISTRIBUTION WIDTH 15.4 % (11.6-13.7); WHITE BLOOD COUNT (AUTO) 22.1 K/uL (4.8-10.8)
[2021-12-15] MEDS: BLOOD GLUCOSE MONITORING 1 DEV DEV FS SCH ×4 (06:22→21:00)
[2021-12-15] MEDS: MIDODRINE 5 MG TAB PO SCH ×3 (06:33→18:16)
[2021-12-15 06:42] LABS: CARBON DIOXIDE 21.2 mmol/L (21-32)
[2021-12-15 07:02] LABS: ANION GAP 16.9 (8-16)
[2021-12-15 07:07] LABS: HEMATOCRIT 10.1 % (36-52); HEMOGLOBIN 3.3 g/dL (12.0-18.0)
--- NOTE | 2021-12-15 07:15 | NUR ---
RECEIVED CALL FROM SREEDHAR AT LAB REGARDING CRITICAL LAB VALUES HGB 3.[address] COBB FOR REPORTING, RECEIVED NEW ORDERS. DOCUMENTED AND CARRIED OUT.
[2021-12-15 07:20] LABS: POTASSIUM 6.1 mmol/L (3.5-5.1)
[2021-12-15 07:21] LABS: CREATININE 4.6 mg/dL (0.6-1.3)
[2021-12-15] MEDS ORDERED: SODIUM FERRIC GLUCONATE 125 MG in NACL 0.9% 100 ML IV SCH (07:25)
--- NOTE | 2021-12-15 07:25 | NUR ---
RECEIVED CALL FROM LAB, SPOKE WITH SREEDHAR WHO STATED THE [facility] WILL BE DELIVERING THE ORDERED BLOOD WITHIN THE NEXT 2-3 HOURS. CONFIRMED HE WILL FOLLOW UP AND CALL SOON IT IS AVAILABLE.
--- NOTE | 2021-12-15 07:32 | NUR ---
RECEIVED REPORT FROM PROFESSIONAL ATHLETE NURSE FOR CONTINUITY OF CARE. PT SUPINE IN THE BED, AAOX4. ON HI FLOW 25L FIO2 40%. NO RESPIRATORY DISTRESS NOTED. SR ON MONITOR. HAS MOE MIDLINE INFUSING LEVOPHED AT 24 MCG/MIN, BECKY-SYNEPHRINE AT 70 MCG/MIN, AND SANDOSTATIN AT 10 ML/HR. HAS F/C IN PLACE DRAINING TO GRAVITY PLAN OF CARE DISCUSSED. SAFETY PRECAUTIONS MET. CALL LIGHT WITHIN REACH. INITIAL ASSESSMENT COMPLETED. WILL CONTINUE TO MONITOR.
[2021-12-15] MEDS ORDERED: OCTREOTIDE ACETATE 1.25 MG in NACL 0.9% 250 ML IV SCH ×2 (08:00→15:10)
[2021-12-15] MEDS ORDERED: EPOETIN ALFA-EPBX 10,000 UNITS/ML VIAL IV SCH (08:00)
[2021-12-15] MEDS: SUCRALFATE 1 GM TAB PO SCH ×4 (09:00→21:00)
[2021-12-15] MEDS: AMIODARONE 200 MG TAB PO SCH ×2 (09:00→21:00)
[2021-12-15] MEDS: DIGOXIN 0.25 MG TAB PO SCH (09:00)
[2021-12-15] MEDS: LACTULOSE 20 GM/30 ML UDC PO SCH ×2 (09:00→21:00)
[2021-12-15 09:35] LABS: MAGNESIUM 1.5 mg/dL (1.8-2.4)
--- NOTE | 2021-12-15 09:35 | NUR ---
RT AT BEDSIDE.
[2021-12-15] MEDS: DEXAMETHASONE 4 MG/ML VIAL IVP SCH (09:37)
--- NOTE | 2021-12-15 09:40 | NUR ---
HIGH FLOW SETTINGS ADJUSTED DUE TO LOW SPO2. SETTINGS NOW 30LPM 50% FIO2, NURSE AWARE OF CHANGE. WILL CONTINUE TO MONITOR.
--- NOTE | 2021-12-15 09:55 | NUR ---
FIBER WORKER WORKING WITH DR. BEE AT BEDSIDE REPLACING ACOSTA CATH.
--- NOTE | 2021-12-15 10:00 | NUR ---
ALL SCHEDULED MEDS GIVEN. PT IS STABLE. NO DISTRESS NOTED. WILL CONTINUE TO MONITOR
[2021-12-15] MEDS: SODIUM FERRIC GLUCONATE 125 MG in NACL 0.9% 100 ML IV SCH (10:02)
[2021-12-15] MEDS: OCTREOTIDE ACETATE 1.25 MG in NACL 0.9% 250 ML IV SCH (10:44)
[2021-12-15] MEDS: PANTOPRAZOLE 80 MG in NACL 0.9% 100 ML IVP SCH ×2 (10:44→17:44)
[2021-12-15] MEDS: PHENYLEPHRINE 40 MG in NACL 0.9% 250 ML IV PRN (10:44)
--- NOTE | 2021-12-15 10:45 | NUR ---
HD ON HOLD DUE TO LOW H&H. Addendum: 12/15/21 at 1836 by Tommy Loza RN RN WILL INFORM FUEL PILOT ENGINEER REGARDING HD TREATMENT TODAY.
[2021-12-15] MEDS: NOREPINEPHRINE 16 MG in DEXTROSE 5% 250 ML IV PRN ×2 (10:57→22:30)
--- NOTE | 2021-12-15 11:30 | NUR ---
INFORMED DR. ARTEAGA REGARDING HD TREATMENT TODAY. WILL DO HD AFTER BLOOD TRANSFUSION.
--- NOTE | 2021-12-15 13:55 | NUR ---
INITIATED BLOOD TRANSFUSION. PRE-VITAL SIGNS STABLE. WILL CONTINUE TO MONITOR.
[2021-12-15] MEDS: NACL 0.9% 1,000 ML IV SCH (16:37)
--- NOTE | 2021-12-15 17:00 | NUR ---
1 UNIT OF PRBC COMPLETED. POST VS STABLE. WILL INFORM LEAD RELAY TESTER COMPLETION OF TRANSFUSION
--- NOTE | 2021-12-15 17:15 | NUR ---
SPOKE TO DR. BAUTISTA REGARDING HD TREATMENT. WILL HOLD OFF HD FOR NOW AND WAIT UNTIL THE NEW LAB RESULTS ARE POSTED THIS EVENING.
[2021-12-15] MEDS: MAG SULF 2000 MG/WATER PREMIX 50 ML IV PRN (18:13)
[2021-12-15 19:21] LABS: BASOPHILS # (AUTO) 0.1 K/uL (0.00-0.22); BASOPHILS % (AUTO) 0.4 % (0.0-2.0); LYMPHOCYTES # (AUTO) 0.2 K/uL (2.0-11.5); MEAN CORPUSCULAR HEMOGLOBIN 29 pg (27-31); MEAN CORPUSCULAR HGB CONC 32 g/dL (33-37); MEAN CORPUSCULAR VOLUME 89.6 fL (80-94); MONOCYTES # (AUTO) 0.6 K/uL (0.8-1.0); MONOCYTES % (AUTO) 3.6 % (1.7-9.3); PLATELET COUNT (AUTO) 206 K/uL (140-450); RED BLOOD CELL COUNT(AUTO) 1.49 MIL/uL (4.20-6.10); RED CELL DISTRIBUTION WIDTH 14.7 % (11.6-13.7); WHITE BLOOD COUNT (AUTO) 17.9 K/uL (4.8-10.8)
[2021-12-15 19:26] LABS: HEMATOCRIT 13.3 % (36-52); HEMOGLOBIN 4.3 g/dL (12.0-18.0)
--- NOTE | 2021-12-15 19:30 | NUR ---
RECEIVED REPORT FROM DAY SHIFT NURSE FOR CONTINUITY OF CARE. PT IS AAOX4. ON HI FLOW 25L/MIN, FIO2 50%. NO RESPIRATORY DISTRESS NOTED. SR ON MONITOR. HAS MOE MIDLINE INFUSING LEVOPHED AT 30 MCG/MIN, AND PROTONIX AT 10 ML/HR. F/C IN PLACE DRAINING TO GRAVITY. PLAN OF CARE DISCUSSED, SAFETY PRECAUTIONS MET. CALL LIGHT WITHIN REACH. WILL CONTINUE TO MONITOR.
[2021-12-15 19:40] LABS: ALBUMIN 2.5 g/dL (3.4-5.0); ANION GAP 17.9 (8-16); CARBON DIOXIDE 20.2 mmol/L (21-32); TOTAL BILIRUBIN 0.3 mg/dL (0.0-1.0)
[2021-12-15 19:44] LABS: CREATININE 4.9 mg/dL (0.6-1.3); POTASSIUM 6.1 mmol/L (3.5-5.1)
[2021-12-15 19:59] LABS: PROTHROMBIN TIME 13.4 secs (10.8-13.4)
--- NOTE | 2021-12-15 20:45 | NUR ---
CALLED [facility] FOR PT TO HAVE DIALYSIS TONIGHT. [facility] STATED THAT [facility] REFUSED TO DO DIALYSIS UNLESS PT HAS BLOOD AND H/H IS WNL. WILL LET DR BAUTISTA KNOW
--- NOTE | 2021-12-15 21:12 | NUR ---
DR BAUTISTA CALLED, ORDERED KAYEXALETE 60GM X1, CaCl 1 AMP X1, REG INSULIN 5 UNITS X1, D50 1 AMP X1, ALL FOR K 6.1. TOLD DR BAUTISTA THAT [facility] DOES NOT WANT TO DO DIALYSIS UNTIL PT RECEIVED BLOOD AND H/H IS WNL
[2021-12-15] MEDS ORDERED: CALCIUM CHLORIDE 10% 100 MG/ML SYR IVP SCH (21:15)
[2021-12-15] MEDS ORDERED: DEXTROSE 50% 50 ML SYR IVP SCH (21:15)
[2021-12-15] MEDS ORDERED: INSULIN REGULAR, HUMAN 100 UNIT/ML VIAL SUBQ SCH (21:15)
[2021-12-15] MEDS ORDERED: SODIUM POLYSTYRENE 15 GM/60 ML UDBTL PO SCH (21:15)
[2021-12-16] VITALS (24 sets, daily range): BP systolic 116–155; BP diastolic 53–103
[2021-12-16] MEDS: NYSTATIN POW 100 MU/GM 15 GM BTL TP SCH ×2 (00:22→12:22)
[2021-12-16] MEDS: MENTHOL/ZINC OXIDE 113 GM TUBE TP SCH ×2 (00:22→12:22)
[2021-12-16] MEDS: MEROPENEM 1,000 MG in NACL 0.9% 50 ML IV SCH (03:00)
[2021-12-16] MEDS: PANTOPRAZOLE 80 MG in NACL 0.9% 100 ML IVP SCH ×2 (04:30→14:19)
[2021-12-16] MEDS: NACL 0.9% 1,000 ML IV SCH ×2 (06:12→20:13)
[2021-12-16] MEDS: MIDODRINE 5 MG TAB PO SCH ×3 (06:17→18:26)
[2021-12-16 07:13] LABS: ANION GAP 17.4 (8-16); BASOPHILS % (AUTO) 0.1 % (0.0-2.0); CARBON DIOXIDE 20.2 mmol/L (21-32); LYMPHOCYTES # (AUTO) 0.3 K/uL (2.0-11.5); LYMPHOCYTES % (AUTO) 1.8 % (20.5-51.1); MEAN CORPUSCULAR HEMOGLOBIN 30 pg (27-31); MEAN CORPUSCULAR HGB CONC 34 g/dL (33-37); MEAN CORPUSCULAR VOLUME 88.4 fL (80-94); MONOCYTES % (AUTO) 5.9 % (1.7-9.3); NEUTROPHILS # (AUTO) 15.2 K/uL (1.8-7.7); NEUTROPHILS % (AUTO) 92.2 % (42.2-75.2); PLATELET COUNT (AUTO) 196 K/uL (140-450); POTASSIUM 5.6 mmol/L (3.5-5.1); RED BLOOD CELL COUNT(AUTO) 1.23 MIL/uL (4.20-6.10); RED CELL DISTRIBUTION WIDTH 14.6 % (11.6-13.7); WHITE BLOOD COUNT (AUTO) 16.4 K/uL (4.8-10.8)
[2021-12-16 07:22] LABS: HEMATOCRIT 10.8 % (36-52); HEMOGLOBIN 3.6 g/dL (12.0-18.0)
[2021-12-16] MEDS: BLOOD GLUCOSE MONITORING 1 DEV DEV FS SCH ×4 (08:19→21:29)
[2021-12-16] MEDS: DEXAMETHASONE 4 MG/ML VIAL IVP SCH (08:58)
[2021-12-16] MEDS: AMIODARONE 200 MG TAB PO SCH ×2 (08:58→21:30)
[2021-12-16] MEDS: SUCRALFATE 1 GM TAB PO SCH ×4 (08:58→21:29)
[2021-12-16] MEDS: LACTULOSE 20 GM/30 ML UDC PO SCH ×2 (08:58→21:29)
[2021-12-16] MEDS: DIGOXIN 0.25 MG TAB PO SCH (08:59)
[2021-12-16] MEDS: SODIUM FERRIC GLUCONATE 125 MG in NACL 0.9% 100 ML IV SCH (09:00)
[2021-12-16] MEDS: NOREPINEPHRINE 16 MG in DEXTROSE 5% 250 ML IV PRN (09:36)
[2021-12-16] MEDS: MORPHINE SULFATE 2 MG/ML SYR IVP PRN (13:00)
--- NOTE | 2021-12-16 13:07 | NUR ---
RT AT BEDSIDE. PLACED PATIENT ON 4L NC. O2 SATURATION AT 98%
--- NOTE | 2021-12-16 13:36 | NUR ---
DR. CHAPIN AT BEDSIDE INSERTING NG-TUBE.
--- NOTE | 2021-12-16 14:19 | NUR ---
XR TECHS AT BEDSIDE
--- NOTE | 2021-12-16 14:51 | NUR ---
12/16/21 RD FOLLOW UP COMPLETED PLEASE REFER TO NUTRITION PROGRESS NOTE UNDER CARE ACTIVITY FOR ESTIMATED NUTRITION NEEDS. RD RECOMMENDATIONS: 1. IF/WHEN PT IS MEDICALLY STABLE TO START TUBE FEEDING, RECOMMEND [facility] AT GOAL RATE OF 55 ML/HR. -START AT 25 ML/HR AND ADVANCE 10 ML Q4H TO GOAL RATE -AT GOAL RATE, [facility] WILL PROVIDE 2375 KCAL AND 107 GM OF PROTEIN (ADEQUATE TO MEET NUTRITIONAL NEEDS) -FREE WATER FLUSH PER MD D/T DIALYSIS 2. IF PT IS MEDICALLY APPROPRIATE FOR ORAL INTAKE, CONSIDER RENAL, CCHO 60 GM DIET WITH TEXTURE MODIFCATIONS PER PROPERTY DEVELOPER/MD 3. RD TO FOLLOW-UP 2-3 DAYS, HIGH RISK HARRY HARMAN, RD
--- NOTE | 2021-12-16 15:37 | NUR ---
XR TECHS AT BEDSIDE
[2021-12-16] MEDS: ERYTHROMYCIN 500 MG in NACL 0.9% 100 ML IV SCH (18:22)
--- NOTE | 2021-12-16 18:45 | NUR ---
ALL SCHEDULED MEDS GIVEN. PT IS STABLE. WILL CONTINUE TO MONITOR.
[2021-12-16] MEDS: PHENYLEPHRINE 40 MG in NACL 0.9% 250 ML IV PRN (19:36)
--- NOTE | 2021-12-16 19:45 | NUR ---
ENDORSED TO INDUSTRIAL ENGINEERING INTERN NURSE FOR CONTINUE OF CARE. PT IS STABLE.
[2021-12-17] VITALS (24 sets, daily range): BP systolic 105–157; BP diastolic 42–84
[2021-12-17] MEDS ORDERED: NOREPINEPHRINE 4 MG/4 ML VIAL IV ONE (00:56)
[2021-12-17] MEDS: NYSTATIN POW 100 MU/GM 15 GM BTL TP SCH ×2 (01:09→13:24)
[2021-12-17] MEDS: MENTHOL/ZINC OXIDE 113 GM TUBE TP SCH ×2 (01:09→13:24)
[2021-12-17] MEDS: PANTOPRAZOLE 80 MG in NACL 0.9% 100 ML IVP SCH ×2 (01:10→11:20)
[2021-12-17] MEDS: MEROPENEM 1,000 MG in NACL 0.9% 50 ML IV SCH (03:29)
[2021-12-17] MEDS ORDERED: PHENYLEPHRINE 10 MG/ML VIAL ONE ×2 (04:49→04:50)
[2021-12-17] MEDS: ERYTHROMYCIN 500 MG in NACL 0.9% 100 ML IV SCH ×4 (06:09→12:50)
[2021-12-17] MEDS: MIDODRINE 5 MG TAB PO SCH ×3 (06:33→19:00)
[2021-12-17 06:40] LABS: ANION GAP 20.2 (8-16); CARBON DIOXIDE 17.7 mmol/L (21-32); POTASSIUM 4.9 mmol/L (3.5-5.1)
[2021-12-17 06:44] LABS: CREATININE 5.4 mg/dL (0.6-1.3)
--- NOTE | 2021-12-17 07:15 | NUR ---
RECEIVED REPORT FROM SAFETY INSTRUCTOR NURSE FOR CONTINUITY OF CARE. PT WAS IN BED RESTING. RIGHT IJ DC AND RIGHT UA PICC 2 LUMEN RUNNING NS 70 ML/H, BECKY SYNEPHRINE, LEVOPHED 10MCG/MIN, AND PROTONIX AT 8 ML/H. PT HAS A NC OXYMIZER RUNNING AT 10 L/MIN. PT IS NPO BESIDES MEDS. ACOSTA IN PLACE. REDNESS IN SACRAL AREA. ALL SAFETY PRECAUTIONS IN PLACE AND WILL CONTINUE TO MONITOR.
[2021-12-17] MEDS: BLOOD GLUCOSE MONITORING 1 DEV DEV FS SCH ×4 (08:45→21:00)
[2021-12-17] MEDS ORDERED: VANCOMYCIN 750 MG in DEXTROSE 5% 250 ML IV SCH (09:00)
[2021-12-17] MEDS ORDERED: VANCOMYCIN 500 MG in DEXTROSE 5% 100 ML IV SCH (09:00)
--- NOTE | 2021-12-17 09:00 | NUR ---
ALL MEDICATIONS GIVEN AND PT TOLERATED WELL.
[2021-12-17] MEDS: SUCRALFATE 1 GM TAB PO SCH ×4 (09:31→21:00)
[2021-12-17] MEDS: LACTULOSE 20 GM/30 ML UDC PO SCH ×3 (09:31→17:00)
[2021-12-17] MEDS: AMIODARONE 200 MG TAB PO SCH ×2 (09:31→21:00)
[2021-12-17] MEDS: DIGOXIN 0.25 MG TAB PO SCH (09:32)
[2021-12-17] MEDS: SODIUM FERRIC GLUCONATE 125 MG in NACL 0.9% 100 ML IV SCH (10:50)
[2021-12-17] MEDS: NACL 0.9% 1,000 ML IV SCH (10:54)
[2021-12-17] MEDS ORDERED: MAGNESIUM CITRATE 300 ML BTL PO SCH (12:06)
[2021-12-17 12:16] LABS: BASOPHILS % (AUTO) 0.1 % (0.0-2.0); EOSINOPHILS % (AUTO) 0.4 % (0.0-4.0); LYMPHOCYTES # (AUTO) 0.2 K/uL (2.0-11.5); LYMPHOCYTES % (AUTO) 2.4 % (20.5-51.1); MEAN CORPUSCULAR HEMOGLOBIN 31 pg (27-31); MEAN CORPUSCULAR HGB CONC 34 g/dL (33-37); MEAN CORPUSCULAR VOLUME 90.9 fL (80-94); MONOCYTES # (AUTO) 0.7 K/uL (0.8-1.0); MONOCYTES % (AUTO) 7.5 % (1.7-9.3); NEUTROPHILS # (AUTO) 8.2 K/uL (1.8-7.7); NEUTROPHILS % (AUTO) 89.6 % (42.2-75.2); PLATELET COUNT (AUTO) 199 K/uL (140-450); RED BLOOD CELL COUNT(AUTO) 1.11 MIL/uL (4.20-6.10); RED CELL DISTRIBUTION WIDTH 14.9 % (11.6-13.7); WHITE BLOOD COUNT (AUTO) 9.2 K/uL (4.8-10.8)
[2021-12-17 13:21] LABS: HEMATOCRIT 10.1 % (36-52); HEMOGLOBIN 3.4 g/dL (12.0-18.0)
[2021-12-17] MEDS ORDERED: diphenhydrAMINE 50 MG/ML VIAL ONE (15:40)
[2021-12-17] MEDS ORDERED: fentaNYL citrate 0.05 MG/ML VIAL ONE (15:40)
[2021-12-17] MEDS ORDERED: MIDAZOLAM 5 MG/5 ML VIAL ONE (15:40)
--- NOTE | 2021-12-17 15:42 | NUR ---
Discharge Planning: Order for higher level of care for PRBC. Pt's information has been sent to [facility] ([phone] f.[phone]) and [facility] ([phone] [phone]). Addendum: 12/24/21 at 1248 by Crys Woodard CM Order for [facility]. Faxed to [facility]. Spoke with pt at bedside & explained [facility]. Agreeable with [facility] but wants stefan Whaley updated first if is accepted. Discussed dc planning if [facility] not accepting then plan for SNF when stable, is agreeable but wants stefan Whaley to be informed of any place he is to go to. States ok to discuss dc planning with stefan Whaley. Pt states lives at home with mark, 1 adult & 2 minors. Pt normally able to ambulate short distances only using fww, usually in bed.
--- NOTE | 2021-12-17 15:55 | NUR ---
PHYSICAL THERAPY CO-SIGN The Physical Therapy Progress Notes documented by Postal Delivery Officer have been reviewed. Reviewed/Co-Signed by: Renate Gandara Documentation Done by: MARIANNE SALINAS PTA Addendum: 12/17/21 at 1555 by Renate Gandara PT Amended: Links added.
--- NOTE | 2021-12-17 16:30 | NUR ---
EGD CONDUCTED AND PT AND TOLERATED WELL PROCEDURE.
[2021-12-17] MEDS: SENNA 8.6 MG TAB PO SCH (17:00)
--- NOTE | 2021-12-17 17:40 | NUR ---
STARTED INFUSING ONE UNIT OF BLOOD PER MD ORDERS. WILL CONTINUE TO MONITOR.
[2021-12-17] MEDS: ERYTHROMYCIN 100 MG in NACL 0.9% 100 ML IV SCH (18:50)
--- NOTE | 2021-12-17 19:25 | NUR ---
1 UNIT OF PR[facility] GIVEN AND PT TOLERATED WELL.
--- NOTE | 2021-12-17 19:27 | NUR ---
ENDORSED CARE TO AVIATION SAFETY TECHNICIAN NURSE FOR CONTINUITY OF CARE.
--- NOTE | 2021-12-17 19:30 | NUR ---
RECEIVED PATIENT ON BED SLEEPING. ON 10 LITERS 02/OXYMIZER; SO2 100%. CARDIACSCOPE SHOWS ON SINUS RHYTHM HR 65/MIN. COMMENCING ON IV LEVOPHED AT 5 MCG/MIN VIA PICC LINE TO RIGHT UPPER ARM AND ON IVF NORMAL SALINE AT 70 ML/HR; PATENT AND INTACT. HD ACCESS CHANA CATH TO RIGHT INTERNAL JUGULAR; INTACT. ABDOMEN IS SOFT, ACTIVE BOWEL SOUNDS. ACOSTA CATH IN SITU, ANURIC.
[2021-12-17] MEDS: PANTOPRAZOLE 40 MG INJ VIAL IVP SCH (21:00)
--- NOTE | 2021-12-17 21:15 | NUR ---
ACCUCHECK DONE, NO INSULIN GIVEN PER SLIDING SCALE. PATIENT WAS ABLE TO SWALLOW HIS ORAL MEDICATIONS.
[2021-12-18] VITALS (24 sets, daily range): BP systolic 103–161; BP diastolic 32–82
[2021-12-18] MEDS: ERYTHROMYCIN 100 MG in NACL 0.9% 100 ML IV SCH ×4 (00:13→18:31)
[2021-12-18] MEDS: NYSTATIN POW 100 MU/GM 15 GM BTL TP SCH ×2 (01:00→13:02)
[2021-12-18] MEDS: MENTHOL/ZINC OXIDE 113 GM TUBE TP SCH ×2 (01:00→13:03)
[2021-12-18] MEDS: MEROPENEM 1,000 MG in NACL 0.9% 50 ML IV SCH (02:45)
--- NOTE | 2021-12-18 04:30 | NUR ---
REFUSED MORNING BED BATH; PREFERS TO SLEEP.
[2021-12-18] MEDS: MIDODRINE 5 MG TAB PO SCH ×3 (06:21→18:51)
[2021-12-18 06:22] LABS: BASOPHILS % (AUTO) 0.1 % (0.0-2.0); EOSINOPHILS # (AUTO) 0.1 K/uL (0-0.4); EOSINOPHILS % (AUTO) 1.6 % (0.0-4.0); LYMPHOCYTES # (AUTO) 0.3 K/uL (2.0-11.5); LYMPHOCYTES % (AUTO) 4.8 % (20.5-51.1); MEAN CORPUSCULAR HEMOGLOBIN 30 pg (27-31); MEAN CORPUSCULAR HGB CONC 34 g/dL (33-37); MEAN CORPUSCULAR VOLUME 87.9 fL (80-94); MONOCYTES # (AUTO) 0.6 K/uL (0.8-1.0); MONOCYTES % (AUTO) 8.4 % (1.7-9.3); NEUTROPHILS # (AUTO) 5.8 K/uL (1.8-7.7); NEUTROPHILS % (AUTO) 85.1 % (42.2-75.2); PLATELET COUNT (AUTO) 176 K/uL (140-450); RED BLOOD CELL COUNT(AUTO) 1.48 MIL/uL (4.20-6.10); RED CELL DISTRIBUTION WIDTH 17.2 % (11.6-13.7); WHITE BLOOD COUNT (AUTO) 6.9 K/uL (4.8-10.8)
[2021-12-18 06:46] LABS: CARBON DIOXIDE 20.3 mmol/L (21-32); POTASSIUM 4.3 mmol/L (3.5-5.1)
[2021-12-18 06:48] LABS: CREATININE 5.7 mg/dL (0.6-1.3)
[2021-12-18 07:04] LABS: MAGNESIUM 2.1 mg/dL (1.8-2.4); PHOSPHORUS 6.8 mg/dL (2.5-4.9)
--- NOTE | 2021-12-18 07:15 | NUR ---
RECEIVED REPORT FROM TRANSPORTATION TECHNICIAN NURSE FOR CONTINUITY OF CARE. PT WAS IN BED RESTING. RIGHT IJ HD AND RIGHT UA PICC 2 LUMEN RUNNING NS 70 ML/H. PT HAS A NC OXYMIZER RUNNING AT 5 L/MIN. PT IS ON A CARDIAC DIET. ACOSTA IN PLACE. REDNESS IN SACRAL AREA. ALL SAFETY PRECAUTIONS IN PLACE AND WILL CONTINUE TO MONITOR.
--- NOTE | 2021-12-18 07:20 | NUR ---
ENDORSED CARE TO FOOD SERVICE NURSE FOR CONTINUITY OF CARE. Addendum: 12/19/21 at 0712 by Aditya Bates RN RN WRONG TIME
[2021-12-18] MEDS: BLOOD GLUCOSE MONITORING 1 DEV DEV FS SCH ×4 (07:30→21:00)
--- NOTE | 2021-12-18 07:44 | NUR ---
PHYSICAL THERAPY CO-SIGN The Physical Therapy Progress Notes documented by [employer] have been reviewed. Reviewed/Co-Signed by: Renate Gandara Documentation Done by: MARIANNE SALINAS PTA Addendum: 12/18/21 at 0744 by Renate Gandara PT Amended: Links added.
[2021-12-18] MEDS: PANTOPRAZOLE 40 MG INJ VIAL IVP SCH ×2 (08:33→20:44)
[2021-12-18] MEDS: SUCRALFATE 1 GM TAB PO SCH ×4 (08:33→20:45)
[2021-12-18] MEDS: LACTULOSE 20 GM/30 ML UDC PO SCH ×3 (08:33→17:50)
[2021-12-18] MEDS: AMIODARONE 200 MG TAB PO SCH ×2 (08:33→20:45)
[2021-12-18] MEDS: SENNA 8.6 MG TAB PO SCH ×3 (08:34→17:50)
[2021-12-18] MEDS: DIGOXIN 0.25 MG TAB PO SCH (08:34)
[2021-12-18 08:53] LABS: HEMOGLOBIN 4.4 g/dL (12.0-18.0)
--- NOTE | 2021-12-18 09:10 | NUR ---
DR. GARCIA AT BEDSIDE.
--- NOTE | 2021-12-18 09:15 | NUR ---
DR. ARTEAGA AT BEDSIDE.
[2021-12-18] MEDS: SODIUM FERRIC GLUCONATE 125 MG in NACL 0.9% 100 ML IV SCH (10:53)
--- NOTE | 2021-12-18 12:40 | NUR ---
DISCHARGE PLANNING F/U on transfer to [facility] for blood transfusion. Per nurse pt received 1 unit last noc, still requiring blood & none avail. Called & lt msg with [facility], Called & spoke with Andrey at [facility] & pt declined, called & spoke with Alize at [facility], ph [phone], cannot accept pt due to at capacity, called & lt msg with [facility] [place], ph [phone]. Addendum: 12/24/21 at 1251 by Crys Woodard CM Order for [facility]. Faxed to Mk at [place]. Spoke with pt at bedside & explained [facility]. Agreeable with [facility] but wants stefan Whaley updated first if is accepted. Discussed dc planning if [facility] not accepting then plan for SNF when stable, is agreeable but wants stefan Whaley to be informed of any place he is to go to. States ok to discuss dc planning with stefan Whaley. Pt states lives at home with stefan & suzy, 1 adult & 2 minors. Pt normally able to ambulate short distances only using fww, usually in bed.
[2021-12-18] MEDS: MORPHINE SULFATE 2 MG/ML SYR IVP PRN (12:57)
--- NOTE | 2021-12-18 13:04 | NUR ---
PER MD ORDERS, INSERTED A 20F ACOSTA CATHETER. 500 ML OF CLOUDY YELLOW URINE CAME OUT. PER PROTOCOL, ADMINISTER PAIN MEDICATION AND PT TOLERATED WELL.
[2021-12-18] MEDS: NACL 0.9% 1,000 ML IV SCH ×2 (14:50→15:30)
--- NOTE | 2021-12-18 19:20 | NUR ---
ENDORSED CARE TO SEARCH ENGINE OPTIMIZATION CONSULTANT NURSE FOR CONTINUITY OF CARE.
--- NOTE | 2021-12-18 19:25 | NUR ---
RECEIVED PATIENT AWAKE EATING HIS DINNER FOOD. ON 3 LITERS 02/OXYMIZER, SO2 94%. NOTED WITH SOB ON EXERTION. CARDIACSCOPE SHOWS ON SINUS RHYTHM TO SINUS TACHY, ARRHYTHMIAS SEEN. COMMENCING ON IV NORMAL SALINE AT 70 ML/HR VIA MIDLINE TO RIGHT UPPER ARM, PATENT AND INTACT. ABDOMEN IS SOFT , VERY OBESE. ACOSTA CATH IN SITU.
--- NOTE | 2021-12-18 20:30 | NUR ---
ACCUCHECK DONE, NO INSULIN GIVEN PER SLIDING SCALE.
[2021-12-19] VITALS (24 sets, daily range): BP systolic 98–183; BP diastolic 53–95
[2021-12-19] MEDS: ERYTHROMYCIN 100 MG in NACL 0.9% 100 ML IV SCH ×5 (00:04→23:50)
[2021-12-19] MEDS: NACL 0.9% 1,000 ML IV SCH (01:00)
[2021-12-19] MEDS: NYSTATIN POW 100 MU/GM 15 GM BTL TP SCH ×2 (01:00→13:36)
[2021-12-19] MEDS: MENTHOL/ZINC OXIDE 113 GM TUBE TP SCH ×2 (01:00→13:36)
[2021-12-19] MEDS: MEROPENEM 1,000 MG in NACL 0.9% 50 ML IV SCH (03:00)
--- NOTE | 2021-12-19 06:00 | NUR ---
AWAKE; REFUSED BED BATH NOW, PREFERS TO WATCH TV.
[2021-12-19] MEDS: MIDODRINE 5 MG TAB PO SCH ×3 (06:46→18:28)
[2021-12-19 07:09] LABS: EOSINOPHILS # (AUTO) 0.3 K/uL (0-0.4); EOSINOPHILS % (AUTO) 4.1 % (0.0-4.0); LYMPHOCYTES # (AUTO) 0.5 K/uL (2.0-11.5); LYMPHOCYTES % (AUTO) 6.3 % (20.5-51.1); MEAN CORPUSCULAR HEMOGLOBIN 30 pg (27-31); MEAN CORPUSCULAR HGB CONC 34 g/dL (33-37); MEAN CORPUSCULAR VOLUME 88.7 fL (80-94); MONOCYTES # (AUTO) 0.6 K/uL (0.8-1.0); MONOCYTES % (AUTO) 7.8 % (1.7-9.3); NEUTROPHILS # (AUTO) 6.4 K/uL (1.8-7.7); NEUTROPHILS % (AUTO) 81.8 % (42.2-75.2); PLATELET COUNT (AUTO) 182 K/uL (140-450); RED BLOOD CELL COUNT(AUTO) 1.49 MIL/uL (4.20-6.10); RED CELL DISTRIBUTION WIDTH 17.3 % (11.6-13.7); WHITE BLOOD COUNT (AUTO) 7.9 K/uL (4.8-10.8)
--- NOTE | 2021-12-19 07:15 | NUR ---
RECEIVED REPORT FROM MANAGER REVIEW NURSE FOR CONTINUITY OF CARE. PT WAS IN BED RESTING. RIGHT IJ HD AND RIGHT UA PICC 2 LUMEN RUNNING NS 70 ML/H. PT HAS A NC OXYMIZER RUNNING AT 3 L/MIN. PT IS ON A CARDIAC DIET. ACOSTA IN PLACE. REDNESS IN SACRAL AREA. ALL SAFETY PRECAUTIONS IN PLACE AND WILL CONTINUE TO MONITOR.
[2021-12-19 07:29] LABS: ANION GAP 16.3 (8-16); CARBON DIOXIDE 19.9 mmol/L (21-32); POTASSIUM 4.2 mmol/L (3.5-5.1)
[2021-12-19 07:34] LABS: PHOSPHORUS 5.8 mg/dL (2.5-4.9)
[2021-12-19] MEDS: BLOOD GLUCOSE MONITORING 1 DEV DEV FS SCH ×4 (07:43→21:06)
[2021-12-19 07:49] LABS: HEMATOCRIT 13.2 % (36-52); HEMOGLOBIN 4.5 g/dL (12.0-18.0)
[2021-12-19] MEDS: SUCRALFATE 1 GM TAB PO SCH ×4 (08:18→17:40)
[2021-12-19] MEDS: LACTULOSE 20 GM/30 ML UDC PO SCH ×3 (08:18→17:40)
[2021-12-19] MEDS: AMIODARONE 200 MG TAB PO SCH ×2 (08:18→20:27)
[2021-12-19] MEDS: PANTOPRAZOLE 40 MG INJ VIAL IVP SCH ×2 (08:18→20:10)
[2021-12-19] MEDS: DIGOXIN 0.25 MG TAB PO SCH (08:19)
[2021-12-19] MEDS: SENNA 8.6 MG TAB PO SCH ×4 (08:19→20:10)
[2021-12-19 08:51] LABS: CREATININE 5.6 mg/dL (0.6-1.3)
--- NOTE | 2021-12-19 09:50 | NUR ---
DR. ARTEAGA AT BEDSIDE.
[2021-12-19] MEDS: SODIUM FERRIC GLUCONATE 125 MG in NACL 0.9% 100 ML IV SCH (10:24)
--- NOTE | 2021-12-19 10:45 | NUR ---
12/19/21 RD FOLLOW UP COMPLETED PLEASE REFER TO NUTRITION ASSESSMENT UNDER CARE ACTIVITY FOR ESTIMATED NUTRITIONAL NEEDS. 1. RECOMMEND CARDIAC + RENAL DIET TOLERATED -RECOMMEND NEPRO BID IF PO INTAKE IS < 75% 2. MONITOR NUTRITION-RELATED LABS 3. RD TO FOLLOW-UP 3-5 DAYS, MODERATE RISK (DOWNGRADED D/T PT EATING WELL WITHOUT GI SYMPTOMS) UMU ARTEAGA, RD
--- NOTE | 2021-12-19 14:45 | NUR ---
PHYSICAL THERAPY CO-SIGN The Physical Therapy Progress Notes documented by Tube Heater have been reviewed. Reviewed/Co-Signed by: Renate Gandara Documentation Done by: MARIANNE SALINAS PTA Addendum: 12/19/21 at 1445 by Renate Gandara PT Amended: Links added.
[2021-12-19] MEDS: HYDROcodone/APAP 5/325 MG 1 TAB TAB PO PRN ×2 (16:31→20:26)
--- NOTE | 2021-12-19 16:32 | NUR ---
PT COMPLAINING OF PAIN. PAIN EVALUATION CONDUCTED. NORCO ADMINISTERED AND WILL REASSESS PAIN.
--- NOTE | 2021-12-19 19:24 | NUR ---
ENDORSED REPORT TO NEUROLOGY MANAGER NURSE FOR CONTINUITY OF CARE.
--- NOTE | 2021-12-19 20:13 | NUR ---
REPORT RECEIVED FROM LOWELL, ER NIGHT NURSE, FOR CONTINUITY OF CARE.
[2021-12-20] VITALS (14 sets, daily range): BP systolic 103–167; BP diastolic 14–128
[2021-12-20] MEDS: MENTHOL/ZINC OXIDE 113 GM TUBE TP SCH ×2 (01:02→13:00)
[2021-12-20] MEDS: NYSTATIN POW 100 MU/GM 15 GM BTL TP SCH (01:02)
[2021-12-20] MEDS: NACL 0.9% 1,000 ML IV SCH (01:05)
[2021-12-20] MEDS: MEROPENEM 1,000 MG in NACL 0.9% 50 ML IV SCH (02:54)
[2021-12-20] MEDS: HYDROcodone/APAP 5/325 MG 1 TAB TAB PO PRN ×2 (03:34→10:34)
[2021-12-20] MEDS: ERYTHROMYCIN 100 MG in NACL 0.9% 100 ML IV SCH ×2 (05:01→12:45)
[2021-12-20] MEDS: MIDODRINE 5 MG TAB PO SCH (06:02)
[2021-12-20 06:38] LABS: BASOPHILS % (AUTO) 0.1 % (0.0-2.0); EOSINOPHILS # (AUTO) 0.5 K/uL (0-0.4); EOSINOPHILS % (AUTO) 6.1 % (0.0-4.0); LYMPHOCYTES # (AUTO) 0.6 K/uL (2.0-11.5); LYMPHOCYTES % (AUTO) 7.3 % (20.5-51.1); MEAN CORPUSCULAR HEMOGLOBIN 29 pg (27-31); MEAN CORPUSCULAR HGB CONC 33 g/dL (33-37); MEAN CORPUSCULAR VOLUME 90.5 fL (80-94); MONOCYTES # (AUTO) 0.4 K/uL (0.8-1.0); MONOCYTES % (AUTO) 5.9 % (1.7-9.3); NEUTROPHILS # (AUTO) 6.1 K/uL (1.8-7.7); NEUTROPHILS % (AUTO) 80.6 % (42.2-75.2); PLATELET COUNT (AUTO) 182 K/uL (140-450); RED BLOOD CELL COUNT(AUTO) 1.69 MIL/uL (4.20-6.10); RED CELL DISTRIBUTION WIDTH 17.2 % (11.6-13.7); WHITE BLOOD COUNT (AUTO) 7.6 K/uL (4.8-10.8)
[2021-12-20 06:54] LABS: HEMATOCRIT 15.3 % (36-52)
--- NOTE | 2021-12-20 07:28 | NUR ---
RECEIVED REPORT FROM AZALIA SCHULTZ. TRANSFER OF CARE AT THIS TIME.
[2021-12-20] MEDS: SUCRALFATE 1 GM TAB PO SCH ×2 (07:48→17:17)
[2021-12-20] MEDS: BLOOD GLUCOSE MONITORING 1 DEV DEV FS SCH ×4 (07:48→20:26)
--- NOTE | 2021-12-20 09:05 | NUR ---
DR. ARTEAGA AT PT BEDSIDE. PER NO DIALYSIS NEEDED TODAY, PT SAFE TO BE DOWNGRADED, DR. LE MADE AWARE. PT TO BE TELE-HOLD, NURSING KIET PHAM MADE AWARE.
--- NOTE | 2021-12-20 09:21 | NUR ---
PHYSICAL THERAPY CO-SIGN The Physical Therapy Progress Notes documented by Financial Reporting Analyst have been reviewed. Reviewed/Co-Signed by: Renate Gandara Documentation Done by: MARIANNE SALINAS PTA Addendum: 12/20/21 at 0921 by Renate Gandara PT Amended: Links added.
[2021-12-20] MEDS ORDERED: VANCOMYCIN 1,000 MG in DEXTROSE 5% 250 ML IV SCH (10:00)
[2021-12-20] MEDS: LACTULOSE 20 GM/30 ML UDC PO SCH (10:13)
[2021-12-20] MEDS: PANTOPRAZOLE 40 MG INJ VIAL IVP SCH ×2 (10:13→20:18)
[2021-12-20] MEDS: AMIODARONE 200 MG TAB PO SCH ×2 (10:14→20:26)
[2021-12-20] MEDS: DIGOXIN 0.25 MG TAB PO SCH (10:15)
[2021-12-20] MEDS: SODIUM FERRIC GLUCONATE 125 MG in NACL 0.9% 100 ML IV SCH (10:17)
--- NOTE | 2021-12-20 12:00 | NUR ---
RECEIVED PATIENT FROM ICU, FOR CONTINUITY OF CARE. PATIENT ALERT AWAKE ORIENTED X4, NOT IN DISTRESS NOTED, ON RA. ASSESSMENT INITIATED. WILL CONTINUE TO MONITOR.
--- NOTE | 2021-12-20 17:30 | NUR ---
PATIENT REPOSITIONED, COMPLAINED OF PAIN. WILL CONTINUE TO MONITOR.
[2021-12-20 19:15] LABS: MAGNESIUM 1.9 mg/dL (1.8-2.4); PHOSPHORUS 5.5 mg/dL (2.5-4.9)
--- NOTE | 2021-12-20 19:26 | NUR ---
REPORT GIVEN TO AZALIA BURNETT FOR CONTINUITY OF CARE. PATIENT IN STABLE CONDITION.
--- NOTE | 2021-12-20 19:30 | NUR ---
RECEIVED PT AWAKE SITTING UP ON BED, AAOX4, ABLE TO MAKE NEEDS KNOWN, DENIES ANY PAIN AND NO SOB NOTED, IVF INFUSING WELL VIA RT UA MIDLINE, DRESSING DRY AND INTACT, WITH RT IJ HD CATH IN PLACE, DRESSING DRY AND INTACT, ACOSTA CATHETER VIA GRAVITY WITH CLOUDY YELLOW URINE, WITH GENERALIZED WEAKNESS, WILL REPOSITION Q2H AND OFFLOAD PRESSURE AREAS, FREQUENT ROUNDS WILL BE MADE, CALL LIGHT WITHIN REACH
[2021-12-20] MEDS: SENNA 8.6 MG TAB PO SCH (20:19)
--- NOTE | 2021-12-20 21:20 | NUR ---
PER RT BECCA PT HAS HX OF SLEEP APNEA AND RECOMMEND WHEN SLEEPING TO PUT ON O2 VIA NC OR NRB MASK DUE TO DESATURATION, WILL FOLLOW UP.
--- NOTE | 2021-12-20 22:00 | NUR ---
PT SLEEPING, PUT ON NRB MASK 12 LPM, TOLERATING WELL, MONITORED CLOSELY.
[2021-12-21] VITALS: BP 113/58
[2021-12-21] MEDS: NACL 0.9% 1,000 ML IV SCH (00:53)
[2021-12-21] MEDS: MENTHOL/ZINC OXIDE 113 GM TUBE TP SCH ×2 (01:11→13:17)
[2021-12-21] MEDS ORDERED: MEROPENEM 1,000 MG VIAL IV ONE (02:10)
[2021-12-21] MEDS: MEROPENEM 1,000 MG in NACL 0.9% 50 ML IV SCH (02:20)
--- NOTE | 2021-12-21 02:30 | NUR ---
SEEN PT SLEEPING, ON HIGH FOWLERS POSITION, NO SOB NOTED, IVF INFUSING WELL, MONITORED CLOSELY.
[2021-12-21 04:00] VITALS: BP 134/56
[2021-12-21] MEDS: HYDROcodone/APAP 5/325 MG 1 TAB TAB PO PRN (04:09)
--- NOTE | 2021-12-21 04:10 | NUR ---
PT AWAKE, COMPLAINING OF SCROTAL PAIN, NO HEMATURIA NOTED ON ACOSTA, VITAL SIGNS STABLE, NO SOB NOTED, NORCO PO GIVEN PRN FOR PAIN, MONITORED CLOSELY.
--- NOTE | 2021-12-21 06:35 | NUR ---
BLOOD SUGAR CHECKED WITH 71 RESULT, APPLE JUICE WITH PACKETS OF SUGAR GIVEN, TOLERATED WELL, AWAITING AVAILABILITY OF 3RD PRBC TODAY, ACOSTA CATH OUTPUT OF 100ML, FOR HD WHEN HGB GOES UP TO 6, MONITORED CLOSELY.
[2021-12-21] MEDS: SUCRALFATE 1 GM TAB PO SCH ×2 (06:36→16:30)
[2021-12-21] MEDS: BLOOD GLUCOSE MONITORING 1 DEV DEV FS SCH ×4 (06:39→21:23)
--- NOTE | 2021-12-21 07:19 | NUR ---
PT SLEEPING, NO SIGNS OF DISTRESS, REPORT GIVEN TO AZALIA WATKINS FOR CONTINUITY OF CARE.
[2021-12-21 07:33] LABS: BASOPHILS % (AUTO) 0.1 % (0.0-2.0); EOSINOPHILS # (AUTO) 0.5 K/uL (0-0.4); EOSINOPHILS % (AUTO) 6.7 % (0.0-4.0); LYMPHOCYTES # (AUTO) 0.4 K/uL (2.0-11.5); LYMPHOCYTES % (AUTO) 5.9 % (20.5-51.1); MEAN CORPUSCULAR HEMOGLOBIN 30 pg (27-31); MEAN CORPUSCULAR HGB CONC 33 g/dL (33-37); MEAN CORPUSCULAR VOLUME 90.7 fL (80-94); MONOCYTES # (AUTO) 0.4 K/uL (0.8-1.0); MONOCYTES % (AUTO) 5.8 % (1.7-9.3); NEUTROPHILS # (AUTO) 5.7 K/uL (1.8-7.7); NEUTROPHILS % (AUTO) 81.5 % (42.2-75.2); PLATELET COUNT (AUTO) 186 K/uL (140-450); RED BLOOD CELL COUNT(AUTO) 1.75 MIL/uL (4.20-6.10); RED CELL DISTRIBUTION WIDTH 17.9 % (11.6-13.7)
[2021-12-21 07:51] LABS: MAGNESIUM 1.7 mg/dL (1.8-2.4); PHOSPHORUS 5.1 mg/dL (2.5-4.9)
[2021-12-21 07:59] LABS: HEMATOCRIT 15.9 % (36-52); HEMOGLOBIN 5.3 g/dL (12.0-18.0)
[2021-12-21 08:00] VITALS: BP 96/65
--- NOTE | 2021-12-21 08:00 | NUR ---
REPORT GIVEN BY THE WEB PRESSMAN FOR CONTINUITY OF CARE. PATIENT ALERT AWAKE ORIENTED X4, NOT IN DISTRESS NOTED. WITH IV MOE MIDLINE WITH FLUIDS @ 30 ML/HR INFUSING WELL. WITH ACOSTA CATHETER DRAINING TO YELLOWISH CLOUDY OUTPUT. WITH BILATERAL PITTING EDEMA NOTED. C/O SCROTAL PAIN. ON MONITOR SHOWS SR. NEEDS ATTENDED. WILL CONTINUE TO MONITOR.
[2021-12-21] MEDS: LACTULOSE 20 GM/30 ML UDC PO SCH (08:31)
[2021-12-21] MEDS: PANTOPRAZOLE 40 MG INJ VIAL IVP SCH ×2 (08:32→21:00)
[2021-12-21] MEDS: AMIODARONE 200 MG TAB PO SCH ×2 (08:32→21:00)
--- NOTE | 2021-12-21 09:10 | NUR ---
WOUND CARE RE-EVALUATION NOTE: MAD AND INTERTRIGO RESPONDING TO TX, WILL CONTINUE SAME INTERVENTIONS -MOISTURE ASSOCIATED DERMATITIS TO BUTTOCKS WITH MULTIPLE SUPERFICIAL EROSIONS AND MULTIPLE SCRATCH GALO, AREA REDNESS IMPROVING, SKIN INTACT AND MOIST. -INTERTRIGO TO BILATERAL ARMPITS, LOWER ABDOMEN FOLDS AND LEFT LATERAL TRUNK OF BODY, SKIN RED WITH SUPERFICIAL EROSIONS IMPROVING
[2021-12-21] MEDS: BUMETANIDE 1 MG/4 ML VIAL IV SCH ×2 (10:48→21:00)
[2021-12-21] MEDS: SODIUM FERRIC GLUCONATE 125 MG in NACL 0.9% 100 ML IV SCH (10:49)
--- NOTE | 2021-12-21 11:03 | NUR ---
BUMEX IVP GIVEN. BP-107/42, MAP 63, HR-69. WILL CONTINUE TO MONITOR.
[2021-12-21 12:00] VITALS: BP 101/47
--- NOTE | 2021-12-21 14:59 | NUR ---
PHYSICAL THERAPY CO-SIGN The Physical Therapy Progress Notes documented by Hop Grower have been reviewed. Reviewed/Co-Signed by: Renate Gandara Documentation Done by: Svitlana downey PTA Addendum: 12/21/21 at 1459 by Renate Gandara PT Amended: Links added.
[2021-12-21 16:00] VITALS: BP 101/49
[2021-12-21 16:18] LABS: ALBUMIN 2.4 g/dL (3.4-5.0); ANION GAP 16.2 (8-16); CARBON DIOXIDE 19.9 mmol/L (21-32); POTASSIUM 4.1 mmol/L (3.5-5.1); TOTAL BILIRUBIN 0.5 mg/dL (0.0-1.0)
[2021-12-21 16:22] LABS: CREATININE 5.2 mg/dL (0.6-1.3)
--- NOTE | 2021-12-21 17:00 | NUR ---
PATIENT REFUSED TO BE REPOSITIONED. WILL CONTINUE TO MONITOR.
--- NOTE | 2021-12-21 19:04 | NUR ---
RESTING IN BED, NO ACUTE DISTRESS NOTED.
--- NOTE | 2021-12-21 19:30 | NUR ---
REPORT GIVEN TO THE GLAZIER APPRENTICE FOR CONTINUITY OF CARE. IN STABLE CONDITION.
--- NOTE | 2021-12-21 19:35 | NUR ---
RECEIVED PT FROM AM NURSE FOR CONTINUITY OF CARE.PATIENT IN BED AWAKE ALERT ,VERBALLY RESPON SIVE. NO SOB NOTED WILL CONTINUE TO MONITOR
[2021-12-21] MEDS: SENNA 8.6 MG TAB PO SCH (21:00)
--- NOTE | 2021-12-21 21:15 | NUR ---
MEDICATIONS GIVEN, TOLERATED WELL .NO S/SX OF DISTRESS NOTED.
[2021-12-22] VITALS: BP 90/49
--- NOTE | 2021-12-22 | NUR ---
PT IN BED SLEEPING.BREAHING EVEN AND UNLABORED. ALL SAFETY MEASURES IN PLACE CALL LIGHT WITHIN REACH.
[2021-12-22] MEDS: NACL 0.9% 1,000 ML IV SCH (00:53)
[2021-12-22] MEDS: MENTHOL/ZINC OXIDE 113 GM TUBE TP SCH ×2 (01:00→12:00)
--- NOTE | 2021-12-22 02:00 | NUR ---
PATIENT CLEANED AND CHANGED. NO SOB NOTED
[2021-12-22] MEDS: MEROPENEM 1,000 MG in NACL 0.9% 50 ML IV SCH (03:00)
--- NOTE | 2021-12-22 03:32 | NUR ---
IV ANTIBIOTIC GIVEN. NO SOB NOTED
[2021-12-22 04:00] VITALS: BP 94/63
--- NOTE | 2021-12-22 04:30 | NUR ---
PATIENT PULLED OUT HIS MIDLINE. INSERTED PERIPHERAL IV LINE ON THE RIGHT FOREARM
[2021-12-22] MEDS: BLOOD GLUCOSE MONITORING 1 DEV DEV FS SCH ×4 (07:05→20:24)
[2021-12-22] MEDS: SUCRALFATE 1 GM TAB PO SCH ×2 (07:05→17:19)
--- NOTE | 2021-12-22 07:40 | NUR ---
RECEIVED REPORT FROM METAL STUD FRAMER FOR CONTINUITY OF CARE. PATIENT ALERT AWAKE ORIENTED X4, NOT IN DISTRESS NOTED. WITH IV RFA 22G INTACT AND PATENT. INFUSING FLUIDS WELL. WITH ACOSTA CATHETER DRAINING TO YELLOWISH CLOUDY OUTPUT. WITH BILATERAL PITTING EDEMA NOTED. PLAN OF CARE DISCUSSED. SAFETY PRECAUTIONS IN PLACE. CALL LIGHT WITHIN REACH. WILL CONTINUE TO MONITOR.
[2021-12-22 08:00] VITALS: BP 102/47
--- NOTE | 2021-12-22 08:00 | NUR ---
ENDORSED PATIENT TO AM NURSE FOR CONTINUITY OF CARE. PT STABLE.
[2021-12-22 08:07] LABS: BASOPHILS % (AUTO) 0.4 % (0.0-2.0); EOSINOPHILS # (AUTO) 0.3 K/uL (0-0.4); EOSINOPHILS % (AUTO) 4.2 % (0.0-4.0); LYMPHOCYTES # (AUTO) 0.6 K/uL (2.0-11.5); LYMPHOCYTES % (AUTO) 7.1 % (20.5-51.1); MEAN CORPUSCULAR HEMOGLOBIN 30 pg (27-31); MEAN CORPUSCULAR HGB CONC 31 g/dL (33-37); MEAN CORPUSCULAR VOLUME 97.6 fL (80-94); MONOCYTES # (AUTO) 0.8 K/uL (0.8-1.0); MONOCYTES % (AUTO) 10.3 % (1.7-9.3); NEUTROPHILS # (AUTO) 6.3 K/uL (1.8-7.7); PLATELET COUNT (AUTO) 170 K/uL (140-450); RED BLOOD CELL COUNT(AUTO) 1.84 MIL/uL (4.20-6.10); RED CELL DISTRIBUTION WIDTH 20.9 % (11.6-13.7); WHITE BLOOD COUNT (AUTO) 8.1 K/uL (4.8-10.8)
[2021-12-22 08:19] LABS: HEMATOCRIT 17.9 % (36-52); HEMOGLOBIN 5.6 g/dL (12.0-18.0)
[2021-12-22] MEDS: LACTULOSE 20 GM/30 ML UDC PO SCH (08:51)
[2021-12-22] MEDS: AMIODARONE 200 MG TAB PO SCH ×2 (08:51→20:50)
[2021-12-22] MEDS: BUMETANIDE 1 MG/4 ML VIAL IV SCH ×2 (08:53→20:48)
[2021-12-22] MEDS: PANTOPRAZOLE 40 MG INJ VIAL IVP SCH ×2 (08:53→20:49)
[2021-12-22] MEDS: HYDROcodone/APAP 5/325 MG 1 TAB TAB PO PRN (08:55)
--- NOTE | 2021-12-22 09:05 | NUR ---
ALL SCHEDULED MEDS GIVEN. PT IS STABLE. NO DISTRESS NOTED. WILL CONTINUE TO MONITOR.
[2021-12-22] MEDS: SODIUM FERRIC GLUCONATE 125 MG in NACL 0.9% 100 ML IV SCH (10:50)
[2021-12-22 12:00] VITALS: BP 100/51
--- NOTE | 2021-12-22 12:04 | NUR ---
BLOOD GLUCOSE CHECK WAS 90. NO INSULIN COVERAGE NEEDED
[2021-12-22 12:46] LABS: MAGNESIUM 1.7 mg/dL (1.8-2.4)
[2021-12-22 12:48] LABS: ALBUMIN 2.5 g/dL (3.4-5.0); ANION GAP 19.2 (8-16); CARBON DIOXIDE 18.1 mmol/L (21-32); POTASSIUM 4.3 mmol/L (3.5-5.1); TOTAL BILIRUBIN 0.6 mg/dL (0.0-1.0)
[2021-12-22 13:45] LABS: CREATININE 5.3 mg/dL (0.6-1.3)
--- NOTE | 2021-12-22 15:45 | NUR ---
CHECKED ON PATIENT. PT IS STABLE. NO DISTRESS NOTED. WILL CONTINUE TO MONITOR.
[2021-12-22 16:00] VITALS: BP 106/48
--- NOTE | 2021-12-22 17:29 | NUR ---
BLOOD GLUCOSE CHECK WAS 91. NO INSULIN COVERAGE NEEDED.
--- NOTE | 2021-12-22 19:33 | NUR ---
ENDORSED TO LEAD GENERATION MARKETING MANAGER NURSE FOR CONTINUITY OF CARE. PT IS STABLE.
--- NOTE | 2021-12-22 19:35 | NUR ---
RECEIVED REPORT FROM AM NURSE. PATIENT IS AWAKE RESTING COMFORTABLY IN BED. ON ROOM AIR. NO S/S OF RESPIRATORY DISTRESS. BREATHING REGULAR NON LABORED. ALL SAFETY MEASURES ARE IN PLACE. CALL LIGHT WITHIN REACH. NO COMPLAINTS OF PAIN AT THIS TIME.
[2021-12-22 20:00] VITALS: BP 100/54
--- NOTE | 2021-12-22 20:24 | NUR ---
BLOOD SUGAR WAS 81. NO INSULIN COVERAGE NEEDED.
--- NOTE | 2021-12-22 20:48 | NUR ---
ALL SCHEDULED 2100 MEDICATIONS GIVEN. TOLERATED WELL.
[2021-12-22] MEDS: SENNA 8.6 MG TAB PO SCH (20:50)
[2021-12-23] VITALS: BP 107/51
[2021-12-23] MEDS: MENTHOL/ZINC OXIDE 113 GM TUBE TP SCH ×2 (01:00→12:00)
--- NOTE | 2021-12-23 03:00 | NUR ---
PATIENT IS ASLEEP. NO S/S OF RESPIRATORY DISTRESS. CALL LIGHT WITHIN REACH.
[2021-12-23] MEDS: MEROPENEM 1,000 MG in NACL 0.9% 50 ML IV SCH (03:17)
[2021-12-23 04:00] VITALS: BP 92/52
[2021-12-23] MEDS: SUCRALFATE 1 GM TAB PO SCH ×2 (06:46→16:25)
[2021-12-23] MEDS: BLOOD GLUCOSE MONITORING 1 DEV DEV FS SCH ×4 (06:49→21:00)
--- NOTE | 2021-12-23 06:50 | NUR ---
BLOOD SUGAR WAS 97, NO INSULIN COVERAGE NEEDED.
--- NOTE | 2021-12-23 07:33 | NUR ---
ENDORSED PATIENT TO AM NURSE FOR CONTINUITY OF CARE. PATIENT IS STABLE.
--- NOTE | 2021-12-23 07:34 | NUR ---
RECEIVED REPORT FROM YARD CLERK FOR CONTINUITY OF CARE. PATIENT ALERT AWAKE ORIENTED X4, NOT IN DISTRESS NOTED. WITH IV RFA 22G INTACT AND PATENT. INFUSING FLUIDS WELL. WITH ACOSTA CATHETER DRAINING TO CLEAR YELLOW OUTPUT. WITH BILATERAL EXTREMITIES PITTING EDEMA NOTED. PLAN OF CARE DISCUSSED. SAFETY PRECAUTIONS IN PLACE. CALL LIGHT WITHIN REACH. WILL CONTINUE TO MONITOR.
[2021-12-23 08:00] VITALS: BP_SYST 107; BP_SYST 98; BP_DIAS 47; BP_DIAS 67
[2021-12-23] MEDS: AMIODARONE 200 MG TAB PO SCH ×2 (09:00→21:00)
[2021-12-23] MEDS: PANTOPRAZOLE 40 MG INJ VIAL IVP SCH ×2 (09:27→23:14)
[2021-12-23] MEDS: LACTULOSE 20 GM/30 ML UDC PO SCH (09:27)
[2021-12-23] MEDS: BUMETANIDE 1 MG/4 ML VIAL IV SCH ×2 (09:27→23:15)
[2021-12-23] MEDS: metOLazone 5 MG TAB PO SCH (09:27)
--- NOTE | 2021-12-23 09:30 | NUR ---
ALL SCHEDULED MEDS GIVEN. PT IS STABLE. NO DISTRESS NOTED. WILL CONTINUE TO MONITOR.
[2021-12-23] MEDS ORDERED: BUMETANIDE 1 MG/4 ML VIAL ONE (09:45)
[2021-12-23] MEDS: SODIUM FERRIC GLUCONATE 125 MG in NACL 0.9% 100 ML IV SCH (10:21)
[2021-12-23 12:00] VITALS: BP 111/79
--- NOTE | 2021-12-23 12:03 | NUR ---
BLOOD SUGAR CHECK WAS 108. NO INSULIN COVERAGE NEEDED
[2021-12-23 16:00] VITALS: BP 103/49
--- NOTE | 2021-12-23 16:30 | NUR ---
ALL SCHEDULED MEDS GIVEN. PT IS STABLE. NO DISTRESS NOTED. WILL CONTINUE TO MONITOR.
[2021-12-23 16:43] LABS: BASOPHILS % (AUTO) 0.7 % (0.0-2.0); EOSINOPHILS # (AUTO) 0.5 K/uL (0-0.4); EOSINOPHILS % (AUTO) 6.6 % (0.0-4.0); LYMPHOCYTES # (AUTO) 0.5 K/uL (2.0-11.5); LYMPHOCYTES % (AUTO) 7.5 % (20.5-51.1); MEAN CORPUSCULAR HEMOGLOBIN 30 pg (27-31); MEAN CORPUSCULAR HGB CONC 33 g/dL (33-37); MEAN CORPUSCULAR VOLUME 92.5 fL (80-94); MONOCYTES # (AUTO) 0.7 K/uL (0.8-1.0); MONOCYTES % (AUTO) 9.9 % (1.7-9.3); NEUTROPHILS # (AUTO) 5.3 K/uL (1.8-7.7); NEUTROPHILS % (AUTO) 75.3 % (42.2-75.2); PLATELET COUNT (AUTO) 175 K/uL (140-450); RED BLOOD CELL COUNT(AUTO) 1.93 MIL/uL (4.20-6.10); RED CELL DISTRIBUTION WIDTH 23.4 % (11.6-13.7); WHITE BLOOD COUNT (AUTO) 7.1 K/uL (4.8-10.8)
[2021-12-23 16:49] LABS: HEMATOCRIT 17.8 % (36-52); HEMOGLOBIN 5.8 g/dL (12.0-18.0)
[2021-12-23 16:58] LABS: ALBUMIN 2.5 g/dL (3.4-5.0); ANION GAP 20.8 (8-16); CARBON DIOXIDE 17.5 mmol/L (21-32); POTASSIUM 3.3 mmol/L (3.5-5.1); TOTAL BILIRUBIN 0.6 mg/dL (0.0-1.0)
[2021-12-23 17:08] LABS: CREATININE 5.2 mg/dL (0.6-1.3)
--- NOTE | 2021-12-23 17:30 | NUR ---
BLOOD SUGAR CHECK WAS 82. NO INSULIN COVERAGE NEEDED
--- NOTE | 2021-12-23 19:45 | NUR ---
ENDORSED TO CONING MACHINE OPERATOR NURSE FOR CONTINUITY OF CARE.
[2021-12-23 20:00] VITALS: BP 101/49
[2021-12-23] MEDS: SENNA 8.6 MG TAB PO SCH (23:16)
[2021-12-24] MEDS: MENTHOL/ZINC OXIDE 113 GM TUBE TP SCH ×2 (01:00→13:57)
[2021-12-24] MEDS: SUCRALFATE 1 GM TAB PO SCH ×2 (07:04→17:09)
--- NOTE | 2021-12-24 07:30 | NUR ---
RECEIVED REPORT FROM RESEARCH HYDROLOGIST NURSE FOR CONTINUITY OF CARE, POC DISCUSSED. PT IS RESTING IN BED WITH NO ACUTE S/S OF DISTRESS. PT IS ON 15L NONREBREATHER. ALL SAFETY MEASURES IN PLACE, CALL LIGHT WITHIN REACH. WILL CONTINUE TO MONITOR.
[2021-12-24 08:00] VITALS: BP 97/53
[2021-12-24] MEDS: BLOOD GLUCOSE MONITORING 1 DEV DEV FS SCH ×4 (08:23→21:11)
[2021-12-24] MEDS: AMIODARONE 200 MG TAB PO SCH ×3 (09:00→20:34)
[2021-12-24] MEDS: metOLazone 5 MG TAB PO SCH (09:36)
[2021-12-24] MEDS: PANTOPRAZOLE 40 MG INJ VIAL IVP SCH ×2 (09:36→20:27)
[2021-12-24] MEDS: LACTULOSE 20 GM/30 ML UDC PO SCH (09:39)
[2021-12-24] MEDS: BUMETANIDE 1 MG/4 ML VIAL IV SCH ×3 (09:39→17:00)
[2021-12-24] MEDS: SODIUM FERRIC GLUCONATE 125 MG in NACL 0.9% 100 ML IV SCH (09:41)
[2021-12-24 12:00] VITALS: BP 107/47
[2021-12-24] MEDS: MIDODRINE 5 MG TAB PO SCH ×2 (13:57→18:41)
--- NOTE | 2021-12-24 14:30 | NUR ---
BLOOD TRANSFUSION HAS STARTED.
--- NOTE | 2021-12-24 14:59 | NUR ---
PHYSICAL THERAPY CO-SIGN The Physical Therapy Progress Notes documented by Yarder Engineer have been reviewed. Reviewed/Co-Signed by: Renate Gandara Documentation Done by: MARIANNE SALINAS PTA Addendum: 12/24/21 at 1459 by Renate Gandara PT Amended: Links added.
[2021-12-24 16:00] VITALS: BP 101/42
--- NOTE | 2021-12-24 17:00 | NUR ---
12/24/21 RD FOLLOW UP COMPLETED PLEASE REFER TO NUTRITION ASSESSMENT UNDER CARE ACTIVITY FOR ESTIMATED NUTRITIONAL NEEDS. 1. CONTINUE CARDIAC + RENAL DIET TOLERATED 2. RECOMMEND NEPRO BID PER PROTOCOL 3. MONITOR NUTRITION-RELATED LABS 4. RD TO FOLLOW-UP 3-5 DAYS, MODERATE RISK UMU ARTEAGA RD
--- NOTE | 2021-12-24 17:25 | NUR ---
ALEJANDRO MEDICATION ADMINISTERED PER MD ORDER. PT TOLERATED ADMINISTRATION. PT BLOOD GLUCOSE IS 114. NO INSULIN NEEDED. ALL SAFETY MEASURES IN PLACE, CALL LIGHT WITHIN REACH. WILL CONTINUE TO MONITOR.
--- NOTE | 2021-12-24 17:40 | NUR ---
BLOOD TRANSFUSION COMPLETED AT 1740, NO ADVERSE REACTIONS NOTED. PT IS STABLE WITH NO ACUTE S/S OF DISTRESS. WILL CONTINUE TO MONITOR.
--- NOTE | 2021-12-24 18:04 | NUR ---
PT STATES HE DOES NOT WANT TO BE CLEANED. ASKED MULTIPLE TIMES AND EDUCATED ON IMPORTANCE STAYING CLEAN. PT STATES HE HAS NOT HAS A BOWEL MOVEMENT AND DOES NOT WANT TO GET CLEANED. STATES HE WILL LET US KNOW WHEN HE HAS A BOWEL MOVEMENT.
--- NOTE | 2021-12-24 18:30 | NUR ---
PT WILL BE ENDORSED TO EDGING MACHINE FEEDER NURSE IN STABLE CONDITION.
--- NOTE | 2021-12-24 19:20 | NUR ---
RECEIVED PT SLEEPING, EASILY AROUSABLE BUT DROWSY, AAOX3, ABLE TO MAKE NEEDS KNOWN, ON O2 VIA OXIMIZER, NO SIGNS OF PAIN OR SOB NOTED, RT IJ HD CATH IN PLACE WITH DRESSING DRY AND INTACT, ACOSTA CATHETER TO GRAVITY WITH SMALL AMOUNT OF URINE OUTPUT, BEDBOUND, WILL REPOSITION Q2H AND OFFLOAD PRESSURE AREAS, SAFETY MEASURES IN PLACE, CALL LIGHT WITHIN REACH.
[2021-12-24 20:00] VITALS: BP 96/46
[2021-12-24] MEDS: SENNA 8.6 MG TAB PO SCH (20:27)
--- NOTE | 2021-12-24 20:37 | NUR ---
PT LAYING IN BED HOB ELEVATED, BS CLEAR/DIMINISHED THROUGHOUT, NO SIGNS OF RESPIRATORY DISTRESS NOTED AT THIS TIME. PT IS CURRENTLY SATING 98% ON 3L OXYMIZER. WILL CONTINUE TO MONITOR.
[2021-12-25] VITALS: BP 105/51
[2021-12-25] MEDS: MENTHOL/ZINC OXIDE 113 GM TUBE TP SCH ×3 (02:01→14:41)
--- NOTE | 2021-12-25 02:05 | NUR ---
PT REFUSED CALMOSEPTINE OINTMENT TO BE APPLIED, WILL TRY AGAIN LATER, NO RESP DISTRESS NOTED.
[2021-12-25 04:00] VITALS: BP 91/57
--- NOTE | 2021-12-25 05:15 | NUR ---
PT HAD LARGE LOOSE GREENISH BLACK STOOL, PERINEAL CARE DONE, CALMOSEPTINE OINTMENT APPLIED TO BUTTOCKS AND PERINEAL AREA, LINEN CHANGED, REPOSITIONED AND OFFLOAD PRESSURE AREAS, 250 ML ACOSTA CATHETER OUTPUT NOTED, MONITORED CLOSELY.
[2021-12-25] MEDS: SUCRALFATE 1 GM TAB PO SCH ×2 (06:31→10:14)
[2021-12-25] MEDS: MIDODRINE 5 MG TAB PO SCH ×4 (06:31→19:04)
[2021-12-25] MEDS: BLOOD GLUCOSE MONITORING 1 DEV DEV FS SCH ×4 (06:38→21:00)
--- NOTE | 2021-12-25 07:40 | NUR ---
PT SLEEPING, NO SIGNS OF DISTRESS, REPORT GIVEN TO AZALIA MONTANO FOR CONTINUITY OF CARE.
--- NOTE | 2021-12-25 07:45 | NUR ---
RECEIVED PT FROM NIGHT RN, PT IS ASLEEP AND LYING ON THE BED WITH SIDE RAILS UP AND CALL LIGHT WITHIN REACH, PT IS AROUSABLE WHEN CALLED BY NAME, OPENS EYES, IV LINE NOTED ON THE RIGHT HAND G.22 ON SALINE LOCK, PT IS ON O2 3L VIA OXYMIZER, FALL AND SAFETY PRECAUTION ENFORCED, PT HAS A ACOSTA CATHETER IN PLACE FOR RETENTION AND A RECTAL TUBE INTACT, NO SIGN OF DISTRESS NOTED AND WILL CONTINUE TO MONITOR PT.
--- NOTE | 2021-12-25 07:46 | NUR ---
PT HAS A RT IJ IN PLACE AND INTACT.
--- NOTE | 2021-12-25 07:47 | NUR ---
PHYSICAL THERAPY CO-SIGN The Physical Therapy Progress Notes documented by Underground Mining Section Foreman have been reviewed. Reviewed/Co-Signed by: Renate Gandara Documentation Done by: MARIANNE SALINAS PTA Addendum: 12/25/21 at 0747 by Renate Gandara PT Amended: Links added.
[2021-12-25 08:00] VITALS: BP 97/47
[2021-12-25] MEDS: BUMETANIDE 1 MG/4 ML VIAL IV SCH (09:00)
[2021-12-25] MEDS: metOLazone 5 MG TAB PO SCH (09:00)
[2021-12-25] MEDS: AMIODARONE 200 MG TAB PO SCH ×2 (09:00→22:24)
[2021-12-25] MEDS: PANTOPRAZOLE 40 MG INJ VIAL IVP SCH ×2 (10:15→22:20)
[2021-12-25] MEDS: SODIUM FERRIC GLUCONATE 125 MG in NACL 0.9% 100 ML IV SCH (10:16)
[2021-12-25] MEDS: LACTULOSE 20 GM/30 ML UDC PO SCH (10:18)
--- NOTE | 2021-12-25 11:30 | NUR ---
PT REFUSED TO BE TURNED AND REPOSITIONED NOW.
[2021-12-25 12:00] VITALS: BP 95/50
[2021-12-25] MEDS ORDERED: BUMETANIDE 1 MG/4 ML VIAL IV SCH (13:25)
--- NOTE | 2021-12-25 14:41 | NUR ---
PT WAS GIVEN MIDODRINE NOW.
[2021-12-25] MEDS: BUMETANIDE IV SCH ×2 (15:05→22:13)
[2021-12-25] MEDS: NACL 0.9% IV SCH ×2 (15:05→22:13)
--- NOTE | 2021-12-25 15:05 | NUR ---
PT WAS GIVEN BUMEX 4MG IV NOW BP IS 106/63, MAP IS 73, PULSE IS 68. WILL MONITOR PT.
[2021-12-25 16:00] VITALS: BP 95/46
--- NOTE | 2021-12-25 17:15 | NUR ---
PT REFUSED TO BE MOVED, CLEAN OR REPOSITIONED NOW, AND VERBALIZED THAT HE DOES NOT FEEL THAT HE IS DIRTY AND SAID THAT HE WANTS TO JUST REST AND NOT BE BOTHERED.
[2021-12-25 17:16] LABS: BASOPHILS # (AUTO) 0.1 K/uL (0.00-0.22); BASOPHILS % (AUTO) 0.8 % (0.0-2.0); EOSINOPHILS # (AUTO) 0.6 K/uL (0-0.4); EOSINOPHILS % (AUTO) 6.9 % (0.0-4.0); HEMATOCRIT 22.1 % (36-52); HEMOGLOBIN 7.1 g/dL (12.0-18.0); LYMPHOCYTES # (AUTO) 0.7 K/uL (2.0-11.5); LYMPHOCYTES % (AUTO) 7.8 % (20.5-51.1); MEAN CORPUSCULAR HEMOGLOBIN 30 pg (27-31); MEAN CORPUSCULAR HGB CONC 32 g/dL (33-37); MEAN CORPUSCULAR VOLUME 92.1 fL (80-94); MONOCYTES % (AUTO) 11.5 % (1.7-9.3); NEUTROPHILS # (AUTO) 6.4 K/uL (1.8-7.7); PLATELET COUNT (AUTO) 146 K/uL (140-450); RED CELL DISTRIBUTION WIDTH 20.8 % (11.6-13.7); WHITE BLOOD COUNT (AUTO) 8.8 K/uL (4.8-10.8)
--- NOTE | 2021-12-25 18:31 | NUR ---
DC PLANNING PATIENT IS A 66 YEAR OLD MALE ADMITTED TO THE [facility]/ED DUE TO UTI, SEPSIS, AND CARDIAC DISORDER. PATIENT TESTED COVID POSITIVE ABOUT 2 WEEKS AGO. SW MEET WITH PATIENT AT BEDSIDE TO DISCUS AND GATHER PATIENT'S COLLATERAL INFORMATION. PATIENT WAS AWAKE AND ALERT, ABLE TO PROVIDE HIS INFORMATION. PATIENT REPORTED LIVING AT HOME IN HIS MOBILE HOME WITH HIS ADULT DAUGHTER LUKASZ REYNOLDS IN [place] AND HIS GRANDCHILDREN AGES 16 AND 5 YEARS OLD. PER PATIENT HE HAS NO ADVANCE DIRECTIVES. PATIENT DECLINED A. D. INFORMATION PROVIDED BY GERALD AND REPORTED THAT HIS DAUGHTER LUKASZ IS HIS MEDICAL EMERGENCY AND MEDICAL DECISION MAKER. PATIENT REPORTED HAVING A PCP BUT NOT GOING TO APPOINTMENTS IN A WHILE. PATIENT STATED THAT HE HAS NO ISSUES GETTING OR TAKING HIS MEDICATIONS AND HIS DAUGHTER GET THEM FROM THE PHARMACY NEAR HIS HOME. PATIENT STATED THAT HE HAS DME A WALKER, WHEELCHAIR AND O2. PATIENT REPORTED WANTING TO GO HOME AFTER DISCHARGE. HOWEVER; HE WILL TAKE DOCTOR'S RECOMMENDATIONS AND WILL GO TO SNF OR [facility] IF MD RECOMMENDS HIS NEXT LEVEL OF CARE. PER PATIENT HE IS ALREADY GETTING HOME HEALTH AND IS HAPPY WITH THEIR SERVICES, BUT UNDERSTANDS THAT IF HE IS IN NEED OF A HIGHER LEVEL OF CARE HE IS ON AGREEMENT. PER PATIENT HE DO NOT DRIVE AND NEIHER HIS DAUGHTER LUKASZ THEREFORE; HE WILL NEED TRANSPORTATION AFTER HIS DC FROM [facility]. GERALD THANKED HIM HIS INFORMATION AND WILL FOLLOW UP WITH PT. NEEDED.
[2021-12-25] MEDS: ACETAMINOPHEN 325 MG TAB PO PRN (19:04)
--- NOTE | 2021-12-25 19:30 | NUR ---
ENDORSED PT TO NIGHT RN FOR CONTINUITY OF CARE.
[2021-12-25 20:00] VITALS: BP 118/51
--- NOTE | 2021-12-25 20:15 | NUR ---
RECEIVED REPORT FROM RELIEVING RN AT BEDSIDE FOR CONTINUITY OF CARE. PT IS AWAKE AND ALERT HOB UP 45%. HE IS AOX3 WITH OXYMIZER RUNNING AT 3 LITERS. PT HAS A RIGHT F/A 22G INTACT AND SALINE LOCKED. HE ALSO HAS A ACOSTA CATHETER INTACT WITH VERY MINIMAL URINE. PT IS NOTED WITH NON PITTING EDEMA OF ALL FOUR EXTREMITIES. PT ALSO HAS A YUDY CATHETER INTACT AND COVERED WITH DRY DRESSING FOR HD. HE HAS NO C/O VOICED AT THIS TIME HE IS SITTING IN BED WATCHING TV. ALL ORDERED PRECAUTIONS IN PLACE.
--- NOTE | 2021-12-25 21:30 | NUR ---
PT SITTING UP IN BED V/S FOLLOWS: T 97.6 P 68 R 18 B/P 118/51 02 100% WITH 3 LITERS VIA OXYMIZER. B/P RETAKEN DUE TO PT RECEIVING BUMEX IVPB. RETAKE WAS 94/44 WITH MAP OF 68. BUMEX IV PB WAS GIVEN DUE TO IT FALLING IN THE PARAMETERS TO GIVE. (SBP ABOVE 90% AND MAP OF 65 OR HIGHER). PT FINGERSTICK IS 100 NO HUMALOG COVERAGE NEEDED. PT ALSO GIVEN ORDERED PROTONIX IVP AND PO AMIODARONE AND 2 TABS OF SENOKOT. PT EDUCATED REGARDING MEDICATIONS AND HE VERBALIZED UNDERSTANDING WITH REINFORCEMENT. ALL ORDERED PRECAUTIONS IN PLACE.
[2021-12-25] MEDS: SENNA 8.6 MG TAB PO SCH (22:25)
--- NOTE | 2021-12-25 22:30 | NUR ---
ROUNDS DONE, PT ASLEEP IN BED BUMEX FINISHED. OXYMIZER REMAINS AT 3 LITERS VIA N/C. NO S/S OF PAIN OR DISTRESS NOTED. ACOSTA CATHETER HAS NO ADDITION OUT. DR ARTEAGA MADE AWARE OF PT RECENT LABS O FOR NOW BUT POSSIBLE HD TOMORROW. ALL ORDERED PRECAUTIONS IN PLACE.
[2021-12-26] VITALS: BP 95/53
--- NOTE | 2021-12-26 00:30 | NUR ---
PT IN BED, HE DECLINES TO BE TURNED AT THIS TIME. OXYMIZER CONTINUES AT 3 LITERS V/S FOLLOWS: T 97.0 P 65 R 18 B/P 95/53 02 99%. ALL ORDERED PRECAUTIONS IN PLACE.
[2021-12-26] MEDS: MENTHOL/ZINC OXIDE 113 GM TUBE TP SCH ×2 (01:00→12:48)
--- NOTE | 2021-12-26 03:56 | NUR ---
PT LAYING IN BED HOB ELEVATED, BS CLEAR/DIMINISHED THROUGHOUT, NO SIGNS OF RESPIRATORY DISTRESS NOTED AT THIS TIME. PT IS CURRENTLY SATING 93% ON 3L OXIMIZER. WILL CONTINUE TO MONITOR.
[2021-12-26 04:00] VITALS: BP 95/45
--- NOTE | 2021-12-26 05:30 | NUR ---
PT WAS TURNED, CLEANED, CHANGED AND REPOSITIONED IN BED CENTRAL LINE DRESSING CHANGED.
--- NOTE | 2021-12-26 06:35 | NUR ---
FINGERSTICK IS 88 NO COVERAGE NEEDED.
[2021-12-26] MEDS: MIDODRINE 5 MG TAB PO SCH ×2 (06:43→12:47)
[2021-12-26] MEDS: BLOOD GLUCOSE MONITORING 1 DEV DEV FS SCH ×3 (06:43→17:10)
[2021-12-26] MEDS: SUCRALFATE 1 GM TAB PO SCH ×2 (06:43→17:37)
--- NOTE | 2021-12-26 07:35 | NUR ---
RECEIVED PT FROM NIGHT RN, PT IS ASLEEP AND LYING ON THE BED WITH SIDE RAILS UP AND CALL LIGHT WITHIN REACH, PT IS AROUSABLE WHEN TOUCHED AND AND CALLED BY NAME, OPENS EYES, IV LINE NOTED ON THE RIGHT HAND G.18 ON SALINE LOCK, PT IS ON O2 3L VIA OXYMIZER, FALL AND SAFETY PRECAUTION ENFORCED, PT HAS A ACOSTA CATHETER IN PLACE FOR RETENTION, INTACT, NO SIGN OF DISTRESS NOTED AND WILL CONTINUE TO MONITOR PT.
--- NOTE | 2021-12-26 07:36 | NUR ---
PT HAS A RT IJ IN PLACE REINFORCED WITH DRESSING, INTACT.
--- NOTE | 2021-12-26 07:37 | NUR ---
PHYSICAL THERAPY CO-SIGN The Physical Therapy Progress Notes documented by Employee Development Manager have been reviewed. Reviewed/Co-Signed by: Renate Gandara Documentation Done by: MARIANNE SALINAS PTA Addendum: 12/26/21 at 0737 by Renate Gandara PT Amended: Links added.
[2021-12-26 08:00] VITALS: BP 105/49
[2021-12-26 08:34] LABS: MAGNESIUM 1.6 mg/dL (1.8-2.4); PHOSPHORUS 4.6 mg/dL (2.5-4.9)
[2021-12-26] MEDS: metOLazone 5 MG TAB PO SCH ×2 (09:00→09:36)
[2021-12-26] MEDS: AMIODARONE 200 MG TAB PO SCH ×2 (09:00→09:36)
[2021-12-26 09:21] LABS: BASOPHILS # (AUTO) 0.1 K/uL (0.00-0.22); EOSINOPHILS # (AUTO) 0.6 K/uL (0-0.4); EOSINOPHILS % (AUTO) 5.9 % (0.0-4.0); HEMATOCRIT 21.7 % (36-52); HEMOGLOBIN 7.2 g/dL (12.0-18.0); LYMPHOCYTES # (AUTO) 0.6 K/uL (2.0-11.5); LYMPHOCYTES % (AUTO) 6.8 % (20.5-51.1); MEAN CORPUSCULAR HEMOGLOBIN 31 pg (27-31); MEAN CORPUSCULAR HGB CONC 33 g/dL (33-37); MEAN CORPUSCULAR VOLUME 91.5 fL (80-94); MONOCYTES # (AUTO) 0.9 K/uL (0.8-1.0); MONOCYTES % (AUTO) 9.7 % (1.7-9.3); NEUTROPHILS # (AUTO) 7.2 K/uL (1.8-7.7); NEUTROPHILS % (AUTO) 76.6 % (42.2-75.2); PLATELET COUNT (AUTO) 161 K/uL (140-450); RED BLOOD CELL COUNT(AUTO) 2.37 MIL/uL (4.20-6.10); RED CELL DISTRIBUTION WIDTH 20.8 % (11.6-13.7); WHITE BLOOD COUNT (AUTO) 9.4 K/uL (4.8-10.8)
[2021-12-26] MEDS: PANTOPRAZOLE 40 MG INJ VIAL IVP SCH (09:35)
[2021-12-26] MEDS: LACTULOSE 20 GM/30 ML UDC PO SCH (09:36)
[2021-12-26] MEDS: NACL 0.9% IV SCH (09:43)
[2021-12-26] MEDS: BUMETANIDE IV SCH (09:43)
--- NOTE | 2021-12-26 09:43 | NUR ---
PT WAS GIVEN THE SCHEDULED AM MEDICATIONS NOW, VIA ORAL AND IV AND IVP. BP MEDS WERE HELD DUE TO BP IS LOW.
[2021-12-26] MEDS ORDERED: ZAR2.5 PO (10:59)
[2021-12-26] MEDS ORDERED: PRO5 PO (10:59)
--- NOTE | 2021-12-26 11:00 | NUR ---
PT WAS CLEANED AND REPOSITIONED, WOUND CLEANING AND REINFORCEMENT DONE WELL.
[2021-12-26] MEDS: SODIUM FERRIC GLUCONATE 125 MG in NACL 0.9% 100 ML IV SCH (11:32)
--- NOTE | 2021-12-26 11:49 | NUR ---
BLOOD GLUCOSE CHECK DONE NOW AND IS 104.
--- NOTE | 2021-12-26 11:50 | NUR ---
CM PAT IS TALKING TO PT NOW REGARDING A SNF PLACEMENT AND PT AGREED TO GO TO A SNF.
[2021-12-26 12:00] VITALS: BP 101/41
--- NOTE | 2021-12-26 12:30 | NUR ---
DIALYSIS WAS STARTED NOW.
[2021-12-26] MEDS: MAG SULF 2000 MG/WATER PREMIX 50 ML IV PRN (13:06)
[2021-12-26] MEDS: ACETAMINOPHEN 325 MG TAB PO PRN (14:15)
[2021-12-26 16:00] VITALS: BP 96/50
--- NOTE | 2021-12-26 16:00 | NUR ---
DIALYSIS WAS FINISHED NOW.
--- NOTE | 2021-12-26 18:41 | NUR ---
DISCHARGED PT TO [facility] ACCOMPANIED BY TRANSPORT PERSONNEL, IV LINE AND ACOSTA CATHETER IN PLACE, PT IS ON O2 3L OXYMIZER, PT IS STABLE FOR DISCHARGE, DISCHARGED INSTRUCTIONS GIVEN TO TP AND VERBALIZED UNDERSTANDING.
[2021-12-26 18:44] LABS: ALBUMIN 2.2 g/dL (3.4-5.0); ANION GAP 22.2 (8-16); CARBON DIOXIDE 14.2 mmol/L (21-32); POTASSIUM 3.4 mmol/L (3.5-5.1); TOTAL BILIRUBIN 0.4 mg/dL (0.0-1.0)
[2021-12-26 18:49] LABS: CREATININE 6.8 mg/dL (0.6-1.3)
== END 2021-12-26 18:38 | DRG 871 ==
LOC: MED 12:52 → MTU 15:59 → MMU 12-10 20:07 → MIC 12-13 00:10 → MTU 12-20 12:11
PROVIDERS: ADMIT Family Medicine; ATTEND Family Medicine
PROC: 02HV33Z Insertion of Infusion Device into Superior Vena Cava, Percutaneous Approach (ICD-10-PCS; 2021-12-08)
PROC: B548ZZA Ultrasonography of Superior Vena Cava, Guidance (ICD-10-PCS; 2021-12-08)
PROC: 5A1D80Z Performance of Urinary Filtration, Prolonged Intermittent, 6-18 hours Per Day (ICD-10-PCS; 2021-12-09)
PROC: 5A1D70Z Performance of Urinary Filtration, Intermittent, Less than 6 Hours Per Day (ICD-10-PCS; 2021-12-11)
PROC: 5A1D70Z Performance of Urinary Filtration, Intermittent, Less than 6 Hours Per Day (ICD-10-PCS; 2021-12-13)
PROC: 0W3P8ZZ Control Bleeding in Gastrointestinal Tract, Via Natural or Artificial Opening Endoscopic (ICD-10-PCS; principal; 2021-12-14)
PROC: 30233K1 Transfusion of Nonautologous Frozen Plasma into Peripheral Vein, Percutaneous Approach (ICD-10-PCS; 2021-12-16)
PROC: 0DJ08ZZ Inspection of Upper Intestinal Tract, Via Natural or Artificial Opening Endoscopic (ICD-10-PCS; 2021-12-17)
PROC: 30233N1 Transfusion of Nonautologous Red Blood Cells into Peripheral Vein, Percutaneous Approach (ICD-10-PCS; 2021-12-17)
PROC: 5A1D70Z Performance of Urinary Filtration, Intermittent, Less than 6 Hours Per Day (ICD-10-PCS; 2021-12-26)
DX: A41.89 Other specified sepsis (principal); J96.01 Acute respiratory failure with hypoxia; U07.1 COVID-19; N17.0 Acute kidney failure with tubular necrosis; E43 Unspecified severe protein-calorie malnutrition; J12.82 Pneumonia due to coronavirus disease 2019; K29.01 Acute gastritis with bleeding; K29.81 Duodenitis with bleeding; R65.21 Severe sepsis with septic shock; I50.33 Acute on chronic diastolic (congestive) heart failure; I13.0 Hypertensive heart and chronic kidney disease with heart failure and stage 1 through stage 4 chronic kidney disease, or unspecified chronic kidney disease; N13.6 Pyonephrosis; E87.1 Hypo-osmolality and hyponatremia; T83.091A Other mechanical complication of indwelling urethral catheter, initial encounter; E11.22 Type 2 diabetes mellitus with diabetic chronic kidney disease; E87.5 Hyperkalemia; K44.9 Diaphragmatic hernia without obstruction or gangrene; M19.90 Unspecified osteoarthritis, unspecified site; K59.09 Other constipation; M47.816 Spondylosis without myelopathy or radiculopathy, lumbar region; M16.11 Unilateral primary osteoarthritis, right hip; Y83.8 Other surgical procedures as the cause of abnormal reaction of the patient, or of later complication, without mention of misadventure at the time of the procedure; N26.1 Atrophy of kidney (terminal); I25.10 Atherosclerotic heart disease of native coronary artery without angina pectoris; I48.91 Unspecified atrial fibrillation; D64.9 Anemia, unspecified; E66.01 Morbid (severe) obesity due to excess calories; J43.9 Emphysema, unspecified; N34.2 Other urethritis; N18.30 Chronic kidney disease, stage 3 unspecified; Z88.1 Allergy status to other antibiotic agents; Z88.0 Allergy status to penicillin; Z79.899 Other long term (current) drug therapy; Z79.01 Long term (current) use of anticoagulants; Z68.37 Body mass index [BMI] 37.0-37.9, adult; Y92.89 Other specified places as the place of occurrence of the external cause; Z72.0 Tobacco use; Z74.01 Bed confinement status
CPT/HCPCS: 36415; 71045; 74018; 76770; 78278; 80048; 80053; 80076; 80162; 80202; 82150; 82272; 82948; 83036; 83605; 83690; 83735; 84100; 84443; 84484; 85025; 85610; 85730; 86704; 86706; 86708; 86709; 86803; 86886; 86900; 86901; 86920; 87040; 87070; 87081; 87340; 93005; 94640; 96365; 96375; 97110; 97112; 97530; 99291; C9113; J0610; J0696; J1100; J1160; J1200; J1364; J1644; J1815; J1956; J2060; J2185; J2250; J2270; J2354; J2370; J2405; J2916; J2930; J3010; J3370; J3475; J3490; J7030; J7060; J7613; P9016; P9017; P9041; P9046; Q0092; Q5106

== ENCOUNTER 2021-12-29 09:51 | Inpatient (IN) | payer OTHER, MEDICAID, SELFPAY ==
[~2021-12-29] VITALS: Ht 177.8 cm; Wt 127.0 kg
[~2021-12-29 09:51] MED LIST changes: -APIX2.5 PO; -CEFE1SOL IV; -METR500T1 PO; +PRO5 PO; +ZAR2.5 PO
[2021-12-29 09:55] VITALS: BP 96/45
--- NOTE | 2021-12-29 09:55 | NUR ---
PT TRANSFERRED TO BED 09 BY EMS
--- NOTE | 2021-12-29 09:55 | NUR ---
66 Y/O MALE BIBA FROM [facility] FOR C/O OF SOB AND ABNORMAL LABS. AOX4, ABLE TO MAKE NEEDS KNOWN. RESP EVEN AND LABORED, RHONCHI NOTED UPON AUSCULATION BILATERALLY. AFIB NOTED ON THE MONITOR, EDEMA NOTED BLE/BUE +3 WITH WEEPING NOTED ON ALL EXTREMITIES. ABD IS SOFT/NON TENDER AND ROUNDED. + BS NOTED X 4 QUAD. LAST BM PER PT WAS ON 12/29/21. F/C FOR RETENTION NOTED WITH YELLOW URINE AND SEDIMENT. WEAK PEDAL PULSES BLUE. DENIES N/V/D/CP AT THIS TIME. PMHX: PNA, COVID, CHF, RENAL FAILURE, AFIB, DM ASTHMA, HTN, SEPSIS ALLERGIES: PCN HOME MEDS: SEE LIST
--- NOTE | 2021-12-29 10:10 | NUR ---
DR YBARRA AT BEDSIDE FOR ASSESSMENT
--- NOTE | 2021-12-29 10:40 | NUR ---
LAB AT BEDSIDE FOR SPECIMEN COLLECTION. HANDED TECH COVID SWAB FOR PROCESSING.
[2021-12-29 11:27] LABS: BASOPHILS # (AUTO) 0.1 K/uL (0.00-0.22); MEAN CORPUSCULAR VOLUME 91.3 fL (80-94); NEUTROPHILS # (AUTO) 14.6 K/uL (1.8-7.7); RED BLOOD CELL COUNT(AUTO) 2.52 MIL/uL (4.20-6.10); WHITE BLOOD COUNT (AUTO) 16.2 K/uL (4.8-10.8)
[2021-12-29 11:43] LABS: BASOPHILS % (AUTO) 0.7 % (0.0-2.0); EOSINOPHILS # (AUTO) 0.4 K/uL (0-0.4); EOSINOPHILS % (AUTO) 2.5 % (0.0-4.0); LYMPHOCYTES # (AUTO) 0.4 K/uL (2.0-11.5); LYMPHOCYTES % (AUTO) 2.6 % (20.5-51.1); MEAN CORPUSCULAR HEMOGLOBIN 29 pg (27-31); MEAN CORPUSCULAR HGB CONC 32 g/dL (33-37); MONOCYTES # (AUTO) 0.7 K/uL (0.8-1.0); MONOCYTES % (AUTO) 4.1 % (1.7-9.3); NEUTROPHILS % (AUTO) 90.1 % (42.2-75.2); PLATELET COUNT (AUTO) 146 K/uL (140-450)
[2021-12-29 11:51] LABS: HEMOGLOBIN 7.4 g/dL (12.0-18.0)
--- NOTE | 2021-12-29 11:53 | NUR ---
URINE COLLECTED AND DIPPED. RESULTS SHOWN TO ALEXI YBARRA
--- NOTE | 2021-12-29 12:06 | NUR ---
CRITICAL LACTIC 2.8 RECEIVED AND REPORTED TO ALEXI YBARRA
[2021-12-29 12:28] LABS: ALBUMIN 1.9 g/dL (3.4-5.0); ANION GAP 15.4 (8-16); CARBON DIOXIDE 24.2 mmol/L (21-32); POTASSIUM 3.6 mmol/L (3.5-5.1); TOTAL BILIRUBIN 0.5 mg/dL (0.0-1.0)
[2021-12-29 12:41] LABS: CREATININE 5.2 mg/dL (0.6-1.3)
--- NOTE | 2021-12-29 12:41 | NUR ---
BUN/Water Quality Analyst: 74/5.2 received. Reported to ALEXI Rascon.
[2021-12-29] MEDS ORDERED: LEVOFLOXACIN 750 MG/D5W PREMIX 150 ML IV ONE (12:55)
--- NOTE | 2021-12-29 13:47 | NUR ---
Patient appears to be resting comfortably in bed. Vital Signs within normal limits. Respirations even and unlabored. All safety measures in place. Call light in reach.
[2021-12-29] MEDS ORDERED: HYDROcodone/APAP 5/325 MG 1 TAB TAB PO PRN ×2 (13:50→14:35)
[2021-12-29] MEDS ORDERED: DOCUSATE SODIUM 100 MG GELCAP PO PRN (13:50)
[2021-12-29] MEDS ORDERED: ZOLPIDEM 5 MG TAB PO PRN ×2 (13:50→14:35)
[2021-12-29] MEDS ORDERED: ONDANSETRON 4 MG/2 ML VIAL IVP PRN (13:50)
[2021-12-29] MEDS ORDERED: MORPHINE SULFATE 2 MG/ML SYR IVP PRN (13:50)
[2021-12-29] MEDS ORDERED: LORazepam 2 MG/ML VIAL IM/IVP PRN (13:50)
[2021-12-29] MEDS ORDERED: NACL 0.9% 1,000 ML IV SCH (13:50)
[2021-12-29] MEDS ORDERED: SODIUM PHOS / POTASSIUM PHOS 1 PKT PDR PO PRN (13:50)
[2021-12-29] MEDS ORDERED: ACETAMINOPHEN 325 MG TAB PO PRN (13:50)
--- NOTE | 2021-12-29 14:45 | NUR ---
Patient will be admitted to care of Dr Jones . Admited to tele. Will go to room 111 A. Belongings list completed. Report to MARCH RN at bedside.
[2021-12-29 14:47] VITALS: BP 112/63
--- NOTE | 2021-12-29 14:47 | NUR ---
RECEIVED PT FROM ER NURSE, PT IS ALERT AND ORIENTED ON O2 3L NC, BEDREST, ACOSTA CATHETER IN PLACE, IV LINE NOTED ON THE LEFT WRIST G, 22 ON SALINE LOCK, PT HAS A RT IJ INTACT, NO SIGN OF DISTRESS NOTED AND WILL CONTINUE TO MONITOR PT
[2021-12-29 14:57] LABS: PROTHROMBIN TIME 11.8 secs (10.8-13.4)
--- NOTE | 2021-12-29 15:00 | NUR ---
WOUND ASSESSMENT AND REINFORCEMENT WAS DONE TO PT NOW.
[2021-12-29 15:06] LABS: PHOSPHORUS 3.8 mg/dL (2.5-4.9)
[2021-12-29 15:43] LABS: APPEARANCE,URINE CLOUDY (CLEAR); COLOR,URINE AMBER (YELLOW)
[2021-12-29 15:45] LABS: BILIRUBIN,URINE 1+ (NEGATIVE); UGLUCOSE NEGATIVE (NEGATIVE)
[2021-12-29 15:46] LABS: BLOOD, URINE NEGATIVE (NEGATIVE); PH,URINE 7.5 (5.0-9.0)
[2021-12-29 15:47] LABS: NITRITE, URINE NEGATIVE (NEGATIVE)
[2021-12-29 15:48] LABS: LEUKOCYTE ESTERASE ,URINE 4+ (NEGATIVE)
[2021-12-29 16:00] VITALS: BP 97/45
[2021-12-29] MEDS ORDERED: DEXTROSE 50% 50 ML SYR IVP PRN (16:25)
[2021-12-29] MEDS ORDERED: INSULIN LISPRO SLIDING SCALE 100 UNITS/ML VIAL SUBQ PRN (16:25)
[2021-12-29] MEDS: BLOOD GLUCOSE MONITORING 1 DEV DEV FS SCH ×2 (16:48→21:04)
[2021-12-29] MEDS ORDERED: VANCOMYCIN PER PHARMACY MC PRN (17:15)
[2021-12-29] MEDS ORDERED: VANCOMYCIN 1,000 MG in DEXTROSE 5% 250 ML IV ONE (19:00)
--- NOTE | 2021-12-29 19:00 | NUR ---
MRSA SWAB DONE TO PT .
[2021-12-29] MEDS ORDERED: VANCOMYCIN 1,000 MG VIAL ONE (19:02)
[2021-12-29] MEDS ORDERED: CEFEPIME 1,000 MG VIAL ONE (19:02)
--- NOTE | 2021-12-29 19:45 | NUR ---
ENDORSED PT TO NIGHT RN FOR CONTINUITY OF CARE. PT IS STABLE AT THIS TIME.
[2021-12-29 20:00] VITALS: BP 98/60
[2021-12-29] MEDS: CEFEPIME 1,000 MG in DEXTROSE 5% 50 ML IV SCH (20:20)
[2021-12-29 20:21] LABS: FREE T4 (FREE THYROXINE) 0.64 ng/dL (0.76-1.46)
[2021-12-29 20:23] LABS: CHOL/HDL RATIO 2.6 (1-4.5)
[2021-12-29] MEDS: MIDODRINE 5 MG TAB PO SCH (20:31)
[2021-12-29] MEDS: AMIODARONE 200 MG TAB PO SCH (20:31)
[2021-12-29] MEDS ORDERED: ALBUMIN HUMAN 25% 100 ML IV ONE ×2 (22:30→22:33)
[2021-12-30] VITALS: BP 86/45
[2021-12-30 04:00] VITALS: BP 96/45
[2021-12-30] MEDS: MIDODRINE 5 MG TAB PO SCH ×3 (04:52→22:52)
[2021-12-30] MEDS: BLOOD GLUCOSE MONITORING 1 DEV DEV FS SCH ×4 (05:47→21:33)
--- NOTE | 2021-12-30 06:57 | NUR ---
PATIENT HAS BEEN SCREENED AND CATEGORIZED MODERATE NUTRITION RISK. PATIENT WILL BE SEEN WITHIN 3-5 DAYS OF ADMISSION. 01/01/22-01/03/22 CHRISTIE GUAJARDO MS, RDN
[2021-12-30 07:22] LABS: BASOPHILS # (AUTO) 0.1 K/uL (0.00-0.22); BASOPHILS % (AUTO) 0.7 % (0.0-2.0); EOSINOPHILS # (AUTO) 0.4 K/uL (0-0.4); EOSINOPHILS % (AUTO) 3.3 % (0.0-4.0); LYMPHOCYTES # (AUTO) 0.5 K/uL (2.0-11.5); LYMPHOCYTES % (AUTO) 4.8 % (20.5-51.1); MEAN CORPUSCULAR HEMOGLOBIN 30 pg (27-31); MEAN CORPUSCULAR HGB CONC 33 g/dL (33-37); MEAN CORPUSCULAR VOLUME 89.5 fL (80-94); MONOCYTES # (AUTO) 0.6 K/uL (0.8-1.0); MONOCYTES % (AUTO) 5.7 % (1.7-9.3); NEUTROPHILS # (AUTO) 9.5 K/uL (1.8-7.7); NEUTROPHILS % (AUTO) 85.5 % (42.2-75.2); PLATELET COUNT (AUTO) 90 K/uL (140-450); RED BLOOD CELL COUNT(AUTO) 2.13 MIL/uL (4.20-6.10); RED CELL DISTRIBUTION WIDTH 17.8 % (11.6-13.7); WHITE BLOOD COUNT (AUTO) 11.1 K/uL (4.8-10.8)
--- NOTE | 2021-12-30 07:30 | NUR ---
OPENING NOTES: PATIENT IS RESTING IN BED QUIETLY. AAOX4 EPISODE OF FORGETFULNESS. EXPLAINED POC AND PATIENT VERBALIZED UNDERSTANDING HOWEVER, NEED EDUCATIONAL REINFORCEMENT. FC DRAINING TO GRAVITY. L THUMB 22G, C/D/I, TKO AT THIS TIME. PATIENT CAN FEED SELF. ENCOURAGE PATIENT TO TURN BUT REFUSED. REQUESTED FOR A BIG BOY BED DUE TO HT AND WIDTH. WILL CONSULT WOUND CARE NURSE. PER CAFE HELPER, THERE ARE NO BIG BOY BED AVAILABLE. NO ADDITIONAL DISTRESS NOTED. BED IN LOW AND LOCK POSITION. BED ALARM ON. CALL LIGHT WITHIN REACH. WILL CONT TO MONITOR.
[2021-12-30 07:42] LABS: ALBUMIN 2.1 g/dL (3.4-5.0); ANION GAP 13.3 (8-16); CREATININE 3.6 mg/dL (0.6-1.3); MAGNESIUM 1.3 mg/dL (1.8-2.4); POTASSIUM 3.3 mmol/L (3.5-5.1); TOTAL BILIRUBIN 0.5 mg/dL (0.0-1.0)
[2021-12-30 08:00] VITALS: BP 94/43
[2021-12-30] MEDS: AMIODARONE 200 MG TAB PO SCH ×2 (09:00→21:00)
[2021-12-30] MEDS: metOLazone 5 MG TAB PO SCH (09:00)
[2021-12-30 09:05] LABS: HEMATOCRIT 19.1 % (36-52); HEMOGLOBIN 6.3 g/dL (12.0-18.0)
[2021-12-30] MEDS: POTASSIUM CHLORIDE 10 MEQ TABER PO PRN (10:18)
[2021-12-30] MEDS: MAG SULF 2000 MG/WATER PREMIX 50 ML IV PRN (10:19)
[2021-12-30 12:00] VITALS: BP 90/50
--- NOTE | 2021-12-30 15:07 | NUR ---
1 U PRBC [id number]: 1438: PRE-BLOOD TRANSFUSION V/S- 88/35 (66) BP MARIN, 98 T, 72 HR, 17 RESP, 0/10 PAIN, 02 SAT 99% 3L NC. NO DISTRESS NOTED AT THIS TIME. EXPLAINED SE/AR OF BLOOD TRANSFUSION AND PATIENT VERBALIZED UNDERSTANDING. 1453: INITIATE 1 U PRBC-V/S- 91/47 (57) BP MARIN, 98 T, 74 HR, 17 RESP, 0/10 PAIN, 02 SAT 99% 3L NC. NO DISTRESS NOTED AT THIS TIME. RN AT THE BEDSIDE FOR 15 MINUTE MONITOR. 1507: NO SE/AR V/S- 95/41 (57) BP MARIN, 98 T, 71 HR, 17 RESP, 0/10 PAIN, 02 SAT 99% 3L NC. NO DISTRESS NOTED AT THIS TIME. PATIENT IS RESTING IN BED QUIETLY. WILL CONT TO MONITOR.
[2021-12-30 16:00] VITALS: BP 107/53
--- NOTE | 2021-12-30 18:00 | NUR ---
BLOOD TRANSFUSION [id number]: 1522: NO ASE/AR V/S- 100/44 (66) BP MARIN, 98.1 T, 80 HR, 18 RESP, 0/10 PAIN, 02 SAT 99% 3L NC. NO DISTRESS NOTED AT THIS TIME. PATIENT IS RESTING IN BED QUIETLY, ASLEEP. WILL CONT TO MONITOR. 1537: NO ASE/AR V/S- 92/41 (56) BP MARIN, 98.1 T, 80 HR, 18 RESP, 0/10 PAIN, 02 SAT 99% 3L NC. NO DISTRESS NOTED AT THIS TIME. NO CHANGE FROM PREVIOUS ASSESSMENT. WILL CONT TO MONITOR. 1607: NO ASE/AR V/S- 89/42 (49) BP MARIN, 98.2 T, 73 HR, 18 RESP, 0/10 PAIN, 02 SAT 99% 3L NC. NO CHANGE FROM PREVIOUS ASSESSMENT. WILL CONT TO MONITOR. 1637: NO ASE/AR V/S- 89/34 (50) BP MARIN, 98.2 T, 72 HR, 18 RESP, 0/10 PAIN, 02 SAT 99% 3L NC. NO CHANGE FROM PREVIOUS ASSESSMENT. WILL CONT TO MONITOR. 1737: NO ASE/AR V/S- 94/41 (54) BP MARIN, 98.4 T, 73 HR, 18 RESP, 0/10 PAIN, 02 SAT 99% 3L NC. NO CHANGE FROM PREVIOUS ASSESSMENT. PATIENT IS AWAKE AT THIS TIME. WILL CONT TO MONITOR. 1745: NO ASE/AR V/S- 95/41 (57) BP MARIN, 98.4 T, 77 HR, 18 RESP, 0/10 PAIN, 02 SAT 99% 3L NC. NO CHANGE FROM PREVIOUS ASSESSMENT. PATIENT IS AWAKE AT THIS TIME. END OF BLOOD TRANSFUSION. WILL CONT TO MONITOR. 1800: POST BLOOD TRANSFUSION V/S- NO ASE/AR V/S- 94/42 (54) BP MARIN, 98.4 T, 74 HR, 18 RESP, 0/10 PAIN, 02 SAT 99% 3L NC. NO CHANGE FROM PREVIOUS ASSESSMENT. PATIENT IS ASLEEP. WILL CONT TO MONITOR.
--- NOTE | 2021-12-30 18:30 | NUR ---
MAXIFIME IV DUE AFTER HD: HD NURSE AT THE BEDSIDE. HD IS ABOUT TO SET UP SOON. WILL ENDORSE TO NEXT SHIFT TO GIVE ABT IV AFTER HD.
--- NOTE | 2021-12-30 18:42 | NUR ---
CLOSING NOTES: PATIENT IS RESTING IN BED QUIETLY, ASLEEP. NO ADDITIONAL DISTRESS NOTED. PATIENT HAS MOSTLY BEEN SLEEPING THROUGHOUT THE DAY. NO ASE/AR FROM POST BLOOD TRANSFUSION. HP NURSE AT THE BEDSIDE GETTING READY FOR HD TO TRANSFUSE THE PATIENT. STABLE CONDITION AT THIS TIME. ALL NEEDS MEET. WILL CONT TO MONITOR.
[2021-12-30 20:00] VITALS: BP 103/44
[2021-12-30] MEDS ORDERED: ALBUMIN HUMAN 25% 100 ML IV ONE (20:05)
[2021-12-30] MEDS: CEFEPIME 1,000 MG in DEXTROSE 5% 50 ML IV SCH (22:52)
[2021-12-31 00:17] VITALS: BP 101/48
[2021-12-31 04:00] VITALS: BP 119/62
[2021-12-31] MEDS: MIDODRINE 5 MG TAB PO SCH ×3 (05:29→23:41)
[2021-12-31] MEDS: BLOOD GLUCOSE MONITORING 1 DEV DEV FS SCH ×4 (05:36→21:55)
[2021-12-31 07:15] LABS: BASOPHILS # (AUTO) 0.1 K/uL (0.00-0.22); BASOPHILS % (AUTO) 1.3 % (0.0-2.0); EOSINOPHILS # (AUTO) 0.3 K/uL (0-0.4); EOSINOPHILS % (AUTO) 3.5 % (0.0-4.0); HEMATOCRIT 21.4 % (36-52); HEMOGLOBIN 7.1 g/dL (12.0-18.0); LYMPHOCYTES # (AUTO) 0.5 K/uL (2.0-11.5); LYMPHOCYTES % (AUTO) 4.9 % (20.5-51.1); MEAN CORPUSCULAR HEMOGLOBIN 30 pg (27-31); MEAN CORPUSCULAR HGB CONC 33 g/dL (33-37); MEAN CORPUSCULAR VOLUME 89.9 fL (80-94); MONOCYTES # (AUTO) 0.6 K/uL (0.8-1.0); MONOCYTES % (AUTO) 6.6 % (1.7-9.3); NEUTROPHILS # (AUTO) 8.1 K/uL (1.8-7.7); NEUTROPHILS % (AUTO) 83.7 % (42.2-75.2); PLATELET COUNT (AUTO) 80 K/uL (140-450); RED BLOOD CELL COUNT(AUTO) 2.38 MIL/uL (4.20-6.10); RED CELL DISTRIBUTION WIDTH 17.4 % (11.6-13.7); WHITE BLOOD COUNT (AUTO) 9.7 K/uL (4.8-10.8)
--- NOTE | 2021-12-31 07:25 | NUR ---
OPENING NOTES: PATIENT IS RESTING IN BED QUIETLY. AAOX4 EPISODE OF FORGETFULNESS. EXPLAINED POC AND PATIENT VERBALIZED UNDERSTANDING HOWEVER, NEED EDUCATIONAL REINFORCEMENT. FC DRAINING TO GRAVITY. RFA 20G, C/D/I, TKO AT THIS TIME. PATIENT CAN FEED SELF. ENCOURAGE PATIENT TO TURN BUT REFUSED. NO ADDITIONAL DISTRESS NOTED. BED IN LOW AND LOCK POSITION. BED ALARM ON. CALL LIGHT WITHIN REACH. WILL CONT TO MONITOR.
[2021-12-31 07:28] LABS: ALBUMIN 2.2 g/dL (3.4-5.0); ANION GAP 9.1 (8-16); CARBON DIOXIDE 30.5 mmol/L (21-32); CREATININE 2.4 mg/dL (0.6-1.3); MAGNESIUM 1.5 mg/dL (1.8-2.4); POTASSIUM 3.6 mmol/L (3.5-5.1); TOTAL BILIRUBIN 0.5 mg/dL (0.0-1.0)
[2021-12-31 08:00] VITALS: BP 98/42
[2021-12-31] MEDS: metOLazone 5 MG TAB PO SCH (08:50)
[2021-12-31] MEDS: AMIODARONE 200 MG TAB PO SCH ×2 (08:50→23:42)
[2021-12-31] MEDS ORDERED: VANCOMYCIN 1,000 MG in DEXTROSE 5% 250 ML IV SCH (09:00)
--- NOTE | 2021-12-31 09:05 | NUR ---
WOUND CARE NOTE: PT. ADMITTED WITH MOISTURE ASSOCIATED DERMATITIS, SKIN RED, MOIST WITH MULTIPLE EROSIONS TO GROINS, MEDIAL THIGHS AND BUTTOCKS, PT. WITH LOW FELIPE SCALE AT RISK, CONTINUE TO FOLLOW PRESSURE INJURY PREVENTION INTERVENTIONS. -CLEANSE GROINS, MEDIAL THIGHS AND BUTTOCKS, WITH SOAP AND WATER, PAT DRY, APPLY CALMOSEPTINE CR. BID AND PRN IF SOILING -TURN AND REPOSITION PATIENT Q 2H -INSPECT SKIN UNDER AND AROUND MEDICAL DEVICES. -ASSESS AND MONITOR SKIN CONDITION DURING POSITION CHANGE -OFFLOAD BILATERAL HEELS BY PLACING PILLOWS UNDER CALVES AT ALL TIMES, UNLESS OTHERWISE CONTRAINDICATED -APPLY HEEL PROTECTORS -PRESSURE REDISTRIBUTION SURFACE AND OFFLOADING SACRALCOCCYX -MANAGE MOISTURE, FRICTION AND SHEAR BY KEEP SKIN CLEAN AND DRY. -MANAGE FRICTION AND SHEAR BY USING LIFT SHEET TO REPOSITION PATIENT -HOB 30 DEGREE TOLERATE -PLEASE FOLLOW RD RECOMMENDATIONS
[2021-12-31] MEDS: MAG SULF 2000 MG/WATER PREMIX 50 ML IV PRN (09:53)
[2021-12-31 12:00] VITALS: BP 88/48
--- NOTE | 2021-12-31 12:01 | NUR ---
DC PLANNING: PATIENT RE-ADMITTED FROM [facility] THROUGH THE ED WITH LOW HGB AND FATIGUE. PATIENT DC'D TO [facility] ON LAST ADMISSION FOR P.T. AND LABS, PATIENT KNOW TO VENUS FROM LAST ADMISSION. ATTENDING MD FOR LAST ADMISSION DID NOT WANT PATIENT SET UP FOR OUTPATIENT DIALYSIS AND WANTED TO MONITOR HIS LABS TO SEE IF HE NEEDED TO CONTINUE DIALYSIS THAT WAS ARRANGED HERE. PATIENTS WAS AT [facility] UNTIL OCTOBER WHEN HE WENT HOME AND THEN SHORTLY AFTER ADMITTED TO THE HOSPITAL WITH ANEMIA. HE IS NORMALLY MORE WC/BEDBOUND AT HOME AND REQUIRES ASSISTANCE WITH ADL'S ALTHOUGH HIS DAUGHTER HAS STATED THAT HE IS SOMETIMES ABLE TO CHANGE HIS OWN DIAPERS. HAS DME AT HOME OF O2, WC, FWW AND 3 IN 1 COMMODE. HAS BEEN ON SERVICE WITH [facility] [employer], . MESSAGE LEFT FOR DR ARTEAGA ASKING WHICH HD CENTER HE WOULD LIKE PATIENT TO BE REFERRED TO, VENUS WILL FOLLOW. Addendum: 01/02/22 at 1243 by Roxanna Funk CM DC PLANNING: VENUS SPOKE WITH DR ARTEAGA WHO ASKED THAT THE PATIENT BE REFERRED TO [facility], CLINICAL PACKET FAXED. VENUS ALSO SPOKE WITH HIS DAUGHTER REGARDING TO LET HER KNOW THAT THE PATIENT HAS NO MEDICARE DAYS FOR [facility] ADMINISTRATOR SNF PLACEMENT, SHE STATES THAT [facility] ALSO TOLD HER THAT SHE HAS UNTIL THE END OF DECEMBER TO MAKE ARRANGEMENTS FOR HIM TO RETURN HOME. VENUS SPOKE WITH THE PATIENT AT BEDSIDE TO ENDOSE THE ARRANGEMENTS BEING MADE FOR DIALYSIS, AND WILL FOLLOW FOR NEEDS. Addendum: 01/03/22 at 1214 by Roxanna Funk CM DC PLANNING: VENUS HAS CALLED [facility] TWICE TO CONFIRM CHAIR TIME, STILL UNDER REVIEW. VENUS ENDORSED DC ORDER FOR TODAY, DIALYSIS CENTER WILL CALL BACK WHEN ASSIGNMENT IS MADE. DC PACKET FAXED TO [facility] DC ORDER HAS BEEN RECEIVED, VENUS WILL FOLLOW. Addendum: 01/03/22 at 1611 by Roxanna Funk CM DC PLANNING: VENUS SPOKE WITH LUKASZ AT [facility], PATIENT SCHEDULED FOR , SAT AT 9:30 AM. VENUS SPOKE WITH LUIZ AT [facility], STATES THAT FOR PATIENT TO POTENTIALLY BE COVERED FOR THEIR GURNEY TRANSPORT TO DIALYSIS [facility] COMES ON SITE TO EVALUATE THE PATIENT WHICH TAKES 7 DAYS ALONG WITH AN MD ORDER AND OTHER PAPERWORK. [facility] UNWILLING TO ACCEPT PATIENT BACK UNTIL TRANSPORT IS ARRANGED, SW AT DIALYSIS CENTER GONE FOR THE DAY. VENUS WILL SPEAK WITH SW TO ASK ABOUT COVERAGE FOR TRANSPORT AND/OR LOW COST TRANSPORT AND WILL SEE IF [facility] CAN EVALUATE PATIENT AT [facility] FOR TRANSPORT. MD NOTIFIED OF REASON FOR DELAY IN DISCHARGE. CM WILL FOLLOW. Addendum: 01/04/22 at 0908 by Roxanna Funk CM DC PLANNING: DIALYSIS TRANSPORT ARRANGED WITH RIGHT ON TIME, TRANSPORT TO START IN AM FROM [facility]. PATIENT BEING DIALYZED TODAY, SHON AT [facility] INFORMED OF TRANSPORT ARRANGEMENT, WAITING FOR BED ASSIGNMENT TO ARRANGE DC TRANSPORT. CM WILL FOLLOW. Addendum: 01/04/22 at 1130 by Roxanna Funk CM DC PLANNING: CM SPOKE WITH [facility] TWICE TO CONFIRM CHAIR TIME OF 9:30. PATIENT WILL BE TRANSPORTED IN A WC PROVIDED BY [facility], PER [facility] THEY HAVE A NI LIFT SO [facility] NEEDS TO HAVE THE NI LIFT SLING UNDER THE PATIENT WHEN HE LEAVES TO MAKE IT EASY TO TRANSFER HIM ONTO THE DIALYSIS BED. PATIENT ACCEPTED TO ROOM 37, DR COBB TO FOLLOW, WAITING FOR THE RN TO CONFIRM DIALYSIS TIME TODAY WITH [facility] SO TRANSPORT CAN BE ARRANGED. VENUS WILL FOLLOW. Addendum: 01/04/22 at 1336 by Roxanna Funk CM DC PLANNING: DIALYSIS CANCELLED, TRANSPORT ARRANGED WITH [facility] ([phone]) FOR 3:00 PM SENIOR SITE MANAGER. INFORMATION GIVEN TO THE PATIENTS RN JUSTIN TO CALL REPORT, VENUS WILL FOLLOW. Addendum: 01/04/22 at 1358 by Roxanna Funk CM DC PLANNING: VENUS SPOKE THE PATIENT AT BEDSIDE AND EXPLAINED THE DIALYSIS ARRANGEMENTS AND THAT HE'S GOING BACK TO [facility] TODAY. THE PATIENT STATES HE'S IN AGREEMENT WITH GOING TO [facility] TODAY AND UNDERSTANDS THE DIALYSIS ARRANGEMENTS. VENUS ALSO SPOKE WITH THE PATIENTS DAUGHTER LUKASZ TO LET HER KNOW THAT THE PATIENT IS GOING BACK TO [facility] AND TO EXPLAIN THE DIALYSIS AND DIALYSIS TRANSPORT ARRANGEMENTS. LUKASZ IS IN AGREEMENT WITH THE DC PLAN, CM WILL FOLLOW.
[2021-12-31 16:00] VITALS: BP 98/41
[2021-12-31] MEDS: MENTHOL/ZINC OXIDE 113 GM TUBE TP SCH (17:05)
[2021-12-31] MEDS: CEFEPIME 1,000 MG in DEXTROSE 5% 50 ML IV SCH (17:42)
--- NOTE | 2021-12-31 18:55 | NUR ---
CLOSING NOTES: PATIENT IS RESTING IN BED QUIETLY WATCHING TV. NO ADDITIONAL DISTRESS NOTED. PATIENT HAS MOSTLY BEEN SLEEPING ON AND OFF THROUGHOUT THE DAY. APPLIED CALMOSEPTINE TO PERIANAL/GROIN AREA. ELEVATED RLE WITH 1 PILLOW. APPLIED OPTIFOAM TO B HEELS. STABLE CONDITION AT THIS TIME. ALL NEEDS MEET. WILL CONT TO MONITOR.
[2021-12-31 20:00] VITALS: BP 86/46
--- NOTE | 2021-12-31 23:45 | NUR ---
TO/RB FROM DR EVERETT: NPO POST MN, CONSENT FOR TUNNELED CATHETER PLACEMENT. CONSENT IN CHART - SIGNED BY DTR. PT INFORMED OF NPO POST MN
[2022-01-01] MEDS: MENTHOL/ZINC OXIDE 113 GM TUBE TP SCH ×5 (01:00→18:41)
[2022-01-01 04:00] VITALS: BP 81/39
[2022-01-01] MEDS: MIDODRINE 5 MG TAB PO SCH ×3 (05:58→21:00)
[2022-01-01] MEDS: BLOOD GLUCOSE MONITORING 1 DEV DEV FS SCH ×4 (07:22→21:00)
--- NOTE | 2022-01-01 07:30 | NUR ---
OPENING NOTES: PATIENT IS RESTING IN BED QUIETLY. AAOX4 EPISODE OF FORGETFULNESS. EXPLAINED POC AND PATIENT VERBALIZED UNDERSTANDING HOWEVER, NEED EDUCATIONAL REINFORCEMENT. FC DRAINING TO GRAVITY. RFA 20G, C/D/I, TKO AT THIS TIME. PATIENT NPO TODAY FOR TUNNELED CATH HD. ENCOURAGE PATIENT TO TURN BUT REFUSED. NO ADDITIONAL DISTRESS NOTED. BED IN LOW AND LOCK POSITION. BED ALARM ON. CALL LIGHT WITHIN REACH. WILL CONT TO MONITOR.
[2022-01-01 08:00] VITALS: BP 90/54
[2022-01-01 08:19] LABS: BASOPHILS # (AUTO) 0.1 K/uL (0.00-0.22); BASOPHILS % (AUTO) 1.1 % (0.0-2.0); EOSINOPHILS # (AUTO) 0.3 K/uL (0-0.4); EOSINOPHILS % (AUTO) 3.7 % (0.0-4.0); HEMATOCRIT 22.3 % (36-52); HEMOGLOBIN 7.4 g/dL (12.0-18.0); LYMPHOCYTES # (AUTO) 0.7 K/uL (2.0-11.5); LYMPHOCYTES % (AUTO) 8.7 % (20.5-51.1); MEAN CORPUSCULAR HEMOGLOBIN 30 pg (27-31); MEAN CORPUSCULAR HGB CONC 33 g/dL (33-37); MEAN CORPUSCULAR VOLUME 90.7 fL (80-94); MONOCYTES # (AUTO) 0.6 K/uL (0.8-1.0); NEUTROPHILS # (AUTO) 6.5 K/uL (1.8-7.7); NEUTROPHILS % (AUTO) 79.5 % (42.2-75.2); PLATELET COUNT (AUTO) 100 K/uL (140-450); RED BLOOD CELL COUNT(AUTO) 2.46 MIL/uL (4.20-6.10); RED CELL DISTRIBUTION WIDTH 17.5 % (11.6-13.7); WHITE BLOOD COUNT (AUTO) 8.2 K/uL (4.8-10.8)
[2022-01-01] MEDS: metOLazone 5 MG TAB PO SCH (09:00)
[2022-01-01] MEDS: AMIODARONE 200 MG TAB PO SCH ×2 (09:00→21:00)
[2022-01-01 09:40] LABS: ALBUMIN 2.1 g/dL (3.4-5.0); CARBON DIOXIDE 30.5 mmol/L (21-32); CREATININE 2.8 mg/dL (0.6-1.3); MAGNESIUM 1.8 mg/dL (1.8-2.4); POTASSIUM 3.5 mmol/L (3.5-5.1); TOTAL BILIRUBIN 0.3 mg/dL (0.0-1.0)
[2022-01-01 12:00] VITALS: BP 110/44
--- NOTE | 2022-01-01 15:15 | NUR ---
TUNNEL CATH LEFT THE UNIT IN A STABLE CONDITION. PICKED UP BY OR NURSE FOR TUNNEL CATH HD.
[2022-01-01] MEDS ORDERED: fentaNYL citrate 0.05 MG/ML VIAL ONE (15:39)
[2022-01-01] MEDS ORDERED: PROPOFOL 200 MG/20 ML VIAL IV ONE (15:40)
[2022-01-01] MEDS ORDERED: KETAMINE 500 MG/5 ML VIAL ONE (15:41)
[2022-01-01] MEDS ORDERED: BUPIVACAINE-MPF/EPI 0.25% 10 ML VIAL INJ ONE (15:44)
[2022-01-01] MEDS ORDERED: LIDOCAINE 1% 500 MG/50 ML VIAL ONE (15:44)
--- NOTE | 2022-01-01 16:00 | NUR ---
EGD COMPLETED. EGD [id number] ESOPHAITIS AND AVM STOMACH. NEW GT IN PLACED AND CLAMPED. WILL START NEW FEEDING VIA GT WITH GLUCERNA 1.2 AT 20CC/HR (GOAL). FLUSH 150 ML Q4HR. WILL MONITOR GT TOLERANCE. WELL , CONT WITH PPN TONIGHT. Addendum: 01/01/22 at 1999 by Agency Araseli VIEYRA RN WRONG PATIENT
[2022-01-01] MEDS ORDERED: ePHEDrine 50 MG/ML VIAL ONE ×2 (16:16→16:17)
[2022-01-01 17:30] VITALS: BP 105/50
--- NOTE | 2022-01-01 17:30 | NUR ---
RETURNED FROM OR: RETURNED BACK FROM PACU. PATIENT STABLE AT THIS TIME. AAOX4, ABLE TO MAKE NEEDS KNOWN. NO C/O PAIN OR DISTRESS AT THIS TIME. R CHEST TUNNEL CATH IN PLACE. C/D/I. RIJ DRESSING C/D/I. CALL LIGHT WITHIN REACH. WILL CONT TO MONITOR.
[2022-01-01] MEDS: CEFEPIME 1,000 MG in DEXTROSE 5% 50 ML IV SCH (18:41)
--- NOTE | 2022-01-01 18:50 | NUR ---
CLOSING NOTES: PATIENT IS RESTING IN BED QUIETLY EATING HIS DINNER. NO ADDITIONAL DISTRESS NOTED. ELEVATED RLE WITH 1 PILLOW WITH FOAM BOTH TO BILAT HEELS. STABLE CONDITION AT THIS TIME. ALL NEEDS MEET. WILL CONT TO MONITOR.
[2022-01-02] MEDS: MENTHOL/ZINC OXIDE 113 GM TUBE TP SCH ×2 (01:00→12:55)
[2022-01-02] MEDS: MIDODRINE 5 MG TAB PO SCH ×3 (05:00→20:22)
[2022-01-02 07:27] LABS: BASOPHILS % (AUTO) 0.9 % (0.0-2.0); EOSINOPHILS # (AUTO) 0.2 K/uL (0-0.4); EOSINOPHILS % (AUTO) 3.6 % (0.0-4.0); LYMPHOCYTES # (AUTO) 0.7 K/uL (2.0-11.5); LYMPHOCYTES % (AUTO) 12.8 % (20.5-51.1); MEAN CORPUSCULAR HEMOGLOBIN 30 pg (27-31); MEAN CORPUSCULAR HGB CONC 33 g/dL (33-37); MEAN CORPUSCULAR VOLUME 91.3 fL (80-94); MONOCYTES # (AUTO) 0.5 K/uL (0.8-1.0); MONOCYTES % (AUTO) 8.8 % (1.7-9.3); NEUTROPHILS # (AUTO) 4.2 K/uL (1.8-7.7); NEUTROPHILS % (AUTO) 73.9 % (42.2-75.2); PLATELET COUNT (AUTO) 100 K/uL (140-450); RED CELL DISTRIBUTION WIDTH 17.3 % (11.6-13.7); WHITE BLOOD COUNT (AUTO) 5.6 K/uL (4.8-10.8)
[2022-01-02] MEDS: BLOOD GLUCOSE MONITORING 1 DEV DEV FS SCH ×4 (07:30→20:27)
[2022-01-02 07:46] LABS: HEMOGLOBIN 6.9 g/dL (12.0-18.0)
[2022-01-02 08:00] VITALS: BP 95/49
--- NOTE | 2022-01-02 08:04 | NUR ---
RECEIVED REPORT FROM MANAGEMENT TECH NURSE FOR CONTINUITY OF CARE, POC DISCUSSED. PT IS RESTING IN BED WITH NO ACUTE S/S OF DISTRESS. ALL SAFETY MEASURES IN PLACE, CALL LIGHT WITHIN REACH. WILL CONTINUE TO MONITOR.
[2022-01-02] MEDS: AMIODARONE 200 MG TAB PO SCH ×2 (08:09→20:21)
[2022-01-02] MEDS: metOLazone 5 MG TAB PO SCH (08:10)
--- NOTE | 2022-01-02 08:20 | NUR ---
CALLED LAB ASKING IF THERE IS AN AVAILABLE BLOOD FOR PT PER MD REQUEST STATED THERE IS AVAILABLE BLOOD.
[2022-01-02 08:21] LABS: ANION GAP 9.9 (8-16); CARBON DIOXIDE 28.8 mmol/L (21-32); CREATININE 2.8 mg/dL (0.6-1.3); POTASSIUM 3.7 mmol/L (3.5-5.1); TOTAL BILIRUBIN 0.3 mg/dL (0.0-1.0)
[2022-01-02] MEDS: EPOETIN ALFA-EPBX 10,000 UNITS/ML VIAL IV SCH (09:55)
--- NOTE | 2022-01-02 10:04 | NUR ---
PEE ANGULO IN REGARD TO ORDER FOR CLARIFICATION
--- NOTE | 2022-01-02 10:05 | NUR ---
HEMODIALYSIS NURSE AT BEDSIDE
[2022-01-02] MEDS ORDERED: ALBUMIN HUMAN 25% 100 ML IV SCH (11:00)
--- NOTE | 2022-01-02 11:00 | NUR ---
BP LOW, NEPHRO ORDERED ALBUMIN WITH DIALYSIS. WILL FULFILL ORDER WITH HEMODIALYSIS NURSE. PT SHOWS NO S/S OF DISTRESS
--- NOTE | 2022-01-02 11:05 | NUR ---
DC PLANNING PATIENT IS A 66 YEAR OLD MALE RE-ADMITTED AT THE [facility]/ED ON 12/29/2021 DUE TO SHORTNESS OF BREATH AND COUGH, PATIENT HAS A PAST HISTORY OF DIABETES, HYPERTENSION, CHF, AND ASTHMA. GERALD MET WITH PATIENT AT BEDSIDE TO DISCUS AND GATHER PATIENT'S COLLATERAL INFORMATION. PATIENT WAS AWAKE AND ALERT, ABLE TO PROVIDE HIS INFORMATION. PATIENT REPORTED THAT BEFORE HIS PREVIOUS ADMISSION HE WAS LIVING AT HIS MOBILE HOME WITH HIS ADULT DAUGHTER LUKASZ REYNOLDS AND HIS GRANDKIDS AGES 16 AND 5 YEARS OLD. PER PATIENT HE HAS NO ADVANCE DIRECTIVES. PATIENT DECLINED A. D. INFORMATION PROVIDED BY GERALD AND REPORTED THAT HIS DAUGHTER LUKASZ IS HIS MEDICAL EMERGENCY AND MEDICAL DECISION MAKER. PATIENT REPORTED HAVING A PCP BUT NOT GOING TO APPOINTMENTS IN A WHILE. PATIENT STATED THAT HE HAS NO ISSUES GETTING OR TAKING HIS MEDICATIONS, PER PATIENT HIS DAUGHTER LUKASZ GETS THEM FROM THE PHARMACY NEAR HIS HOME. PATIENT STATED THAT HE HAS DME A WALKER, WHEELCHAIR AND O2. PATIENT REPORTED WANTING TO GO HOME AFTER HIS DISCHARGE. HOWEVER; HE WILL TAKE DOCTOR'S RECOMMENDATIONS AND WILL GO BACK TO A SNF WHEN HE IS STABLE FOR DISCHARGE. SW THANKED HIM FOR ALL HIS INFORMATION AND WILL FOLLOW UP WITH PATIENT NEEDED.
--- NOTE | 2022-01-02 11:30 | NUR ---
CALLED LAB TO VERIFY ORDERS FOR BLOOD TRANSFUSION AND STATUS. WAITING ON LAB TACH TO DRAW BLOOD, STATES THEY ARE DOING STATS FIRST AND WILL GET TO PT ONCE FINISHED.
[2022-01-02 12:00] VITALS: BP 97/52
--- NOTE | 2022-01-02 12:00 | NUR ---
BLOOD GLUCOSE IS 87- NO INSULIN NEEDED PER SLIDING SCALE
--- NOTE | 2022-01-02 12:30 | NUR ---
HEALTHCARE APPLICATIONS ANALYST AT BEDSIDE DRAWING BLOOD
--- NOTE | 2022-01-02 13:11 | NUR ---
ALEJANDRO MEDICATION ADMINISTERED PER MD ORDER, PT TOLERATED ADMINISTRATION. PT EDUCATION PROVIDED. PT PROVIDED WITH ALL NEEDS. PT ON 3L NC WITH NO ACUTE S/S OF SOB. CALL LIGHT WITHIN REACH. WILL CONTINUE TO MONITOR.
--- NOTE | 2022-01-02 14:00 | NUR ---
HEMODIALYSIS WAS REMOVED AND REMOVED 1300L. PT REMAINED STABLE
[2022-01-02 16:00] VITALS: BP 98/49
--- NOTE | 2022-01-02 16:46 | NUR ---
01/02/22 RD INITIAL ASSESSMENT COMPLETED PLEASE REFER TO NUTRITION ASSESSMENT UNDER CARE ACTIVITY FOR ESTIMATED NUTRITIONAL NEEDS. 1. CONTINUE RENAL DIET TOLERATED 2. MONITOR NUTRITION-RELATED LAB VALUES 3. RD TO FOLLOW-UP 3-5 DAYS, MODERATE RISK [facility] ARTEAGA RD
[2022-01-02] MEDS: CEFEPIME 1,000 MG in DEXTROSE 5% 50 ML IV SCH (18:31)
--- NOTE | 2022-01-02 18:52 | NUR ---
ALEJANDRO ABX ADMINISTERED PER MD ORDER. PT TOLERATED ADMINISTRATION. ALL SAFETY MEASURES IN PLACE. CALL LIGHT WITHIN REACH AND WILL CONTINUE TO MONITOR.
--- NOTE | 2022-01-02 19:02 | NUR ---
PT HAS BEEN REMAINED STABLE THROUGHOUT THE SHIFT, WILL BE ENDORSED TO MAIL DELIVERER NURSE
--- NOTE | 2022-01-02 19:30 | NUR ---
RECEIVED REPORT FROM DAY SHIFT NURSE FOR CONTINUITY OF CARE. PT IS RESTING IN BED WITH NO ACUTE S/S OF DISTRESS. ALL SAFETY MEASURES IN PLACE, CALL LIGHT WITHIN REACH. WILL CONTINUE TO MONITOR.
[2022-01-02 20:00] VITALS: BP 100/57
--- NOTE | 2022-01-02 21:00 | NUR ---
SCHEDULED MEDICATION ADMINISTERED.PT TOLERATED WELL. PT ON 3L NC WITH NO ACUTE S/S OF SOB. CALL LIGHT WITHIN REACH. WILL CONTINUE TO MONITOR.
[2022-01-02 21:50] LABS: MAGNESIUM 1.7 mg/dL (1.8-2.4)
--- NOTE | 2022-01-02 22:30 | NUR ---
BLOOD TRANSFUSION STARTED. PT TOLERATING WELL. NO BLOOD TRANSFUSION REACTION NOTED. WILL CONTINUE TO MONITOR.
--- NOTE | 2022-01-03 | NUR ---
PT ASLEEP. BLOOD TRANSFUSION ONGOING. NO S/SX OF DISTRESS NOTED. WILL CONTINUE TO MONITOR.
--- NOTE | 2022-01-03 | NUR ---
PATIENT ASLEEP BIPAB IS ON TOLERATING WELL .NO DISTRESS NOTED.WILL CONTINUE TO MONITOR.
--- NOTE | 2022-01-03 | NUR ---
PATIENT SLEEPING AT THIS TIME,BIPAP IS ON,NO SIGNS OF DISTRESS NOTED .WILL CONTINUE TO MONITOR
--- NOTE | 2022-01-03 01:30 | NUR ---
PT ASLEEP. NO S/SX DISTRESS NOTED. BREATHING EQUAL AND UNLABORED. CALL LIGHT WITHIN REACH. WILL CONTINUE TO MONITOR.
[2022-01-03] MEDS: MENTHOL/ZINC OXIDE 113 GM TUBE TP SCH ×2 (01:37→11:52)
--- NOTE | 2022-01-03 03:30 | NUR ---
PT ASLEEP. NO S/SX DISTRESS NOTED. BREATHING EQUAL AND UNLABORED. CALL LIGHT WITHIN REACH. WILL CONTINUE TO MONITOR.
[2022-01-03 04:00] VITALS: BP 98/49
[2022-01-03] MEDS: MIDODRINE 5 MG TAB PO SCH ×3 (04:25→20:06)
[2022-01-03] MEDS: BLOOD GLUCOSE MONITORING 1 DEV DEV FS SCH ×4 (06:43→20:04)
--- NOTE | 2022-01-03 06:52 | NUR ---
PT IS STABLE.NO ACUTE EVENTS THROUGHOUT THE NIGHT. NO S/SX OF DISTRESS. ALL NEEDS ATTENDED. ALL SAFETY PRECAUTIONS IN PLACE. CALL LIGHT WITHIN REACH. WILL ENDORSE TO AM SHIFT NURSE.
--- NOTE | 2022-01-03 07:15 | NUR ---
RECEIVED BEDSIDE REPORT FROM SONOGRAM TECHNICIAN NURSE FOR CONTINUITY OF CARE. PT IS AWAKE AND ALERT. A&OX4. ON 3L O2 NC WITH BREATHING UNLABORED. ACOSTA CATH IN PLACE. DIAPER IS DRY AND INTACT. EXCORIATION ON PERINEAL REGION. NO OTHER WOUNDS NOTED. SKIN DRY AND INTACT. IV IS IN THE RIGHT AC 22 GAUGE SALINE LOCKED. RIGHT IJ TUNNEL CATH IN PLACE. PT IS STABLE. PLAN OF CARE DISCUSSED.
[2022-01-03 07:34] LABS: BASOPHILS # (AUTO) 0.1 K/uL (0.00-0.22); BASOPHILS % (AUTO) 1.5 % (0.0-2.0); EOSINOPHILS # (AUTO) 0.3 K/uL (0-0.4); EOSINOPHILS % (AUTO) 4.8 % (0.0-4.0); HEMATOCRIT 24.5 % (36-52); HEMOGLOBIN 8.1 g/dL (12.0-18.0); LYMPHOCYTES # (AUTO) 0.9 K/uL (2.0-11.5); LYMPHOCYTES % (AUTO) 17.1 % (20.5-51.1); MEAN CORPUSCULAR HEMOGLOBIN 30 pg (27-31); MEAN CORPUSCULAR HGB CONC 33 g/dL (33-37); MEAN CORPUSCULAR VOLUME 91.6 fL (80-94); MONOCYTES # (AUTO) 0.6 K/uL (0.8-1.0); MONOCYTES % (AUTO) 10.9 % (1.7-9.3); NEUTROPHILS # (AUTO) 3.5 K/uL (1.8-7.7); NEUTROPHILS % (AUTO) 65.7 % (42.2-75.2); PLATELET COUNT (AUTO) 89 K/uL (140-450); RED BLOOD CELL COUNT(AUTO) 2.67 MIL/uL (4.20-6.10); RED CELL DISTRIBUTION WIDTH 15.9 % (11.6-13.7); WHITE BLOOD COUNT (AUTO) 5.3 K/uL (4.8-10.8)
[2022-01-03 07:59] LABS: ALBUMIN 2.3 g/dL (3.4-5.0); ANION GAP 7.4 (8-16); CARBON DIOXIDE 31.2 mmol/L (21-32); CREATININE 1.9 mg/dL (0.6-1.3); MAGNESIUM 1.5 mg/dL (1.8-2.4); POTASSIUM 3.6 mmol/L (3.5-5.1); TOTAL BILIRUBIN 0.4 mg/dL (0.0-1.0)
[2022-01-03 08:00] VITALS: BP 86/44
--- NOTE | 2022-01-03 08:36 | NUR ---
TWO MEDICATIONS WERE HELD THIS MORNING FOR LOW BP. BP IS 86/44. PT IS ASYMPTOMATIC. WILL NOTIFY DOCTOR AND CONTINUE TO MONITOR.
[2022-01-03] MEDS: AMIODARONE 200 MG TAB PO SCH ×2 (08:39→20:05)
[2022-01-03] MEDS: metOLazone 5 MG TAB PO SCH (08:40)
--- NOTE | 2022-01-03 09:49 | NUR ---
SENT MESSAGE TO DR. LE AND INFORMED HIM THAT I HELD THE MORNING MEDS DUE TO LOW BP. INFORMED HIM THAT THE BP IS 86/44 AND HR 75. ALSO REMINDED HIM THAT HE IS A DIALYSIS PT. WILL WAIT FOR ORDERS.
--- NOTE | 2022-01-03 10:05 | NUR ---
RECEIVED ORDER FROM DR. LE TO GIVE MIDODRINE EARLIER THAN WHEN IT IS SCHEDULED AT 1300. WILL ADMINISTER SHORTLY.
[2022-01-03] MEDS: MAG SULF 2000 MG/WATER PREMIX 50 ML IV PRN (10:31)
--- NOTE | 2022-01-03 10:34 | NUR ---
PT WAS GIVEN PRN MAGNESIUM IVP FOR LOW MAGNESIUM LEVEL OF 1.5. WILL MONITOR PT.
[2022-01-03] MEDS ORDERED: DOCU-299 PO (11:47)
[2022-01-03] MEDS ORDERED: MENT1OIN22 TP (11:47)
--- NOTE | 2022-01-03 11:53 | NUR ---
RECHECKED BP AND IT WAS 95/45. HR WAS 79. BP HAS IMPROVED SINCE BEING GIVEN MIDODRINE. WILL CONTINUE TO MONITOR.
--- NOTE | 2022-01-03 13:51 | NUR ---
PT IS ASLEEP. NO DISTRESS NOTED ON 3L O2 NC. CHEST RISE AND FALL SYMMETRICAL. CALL LIGHT WITHIN REACH. WILL CONTINUE TO MONITOR.
[2022-01-03 16:00] VITALS: BP 95/44
--- NOTE | 2022-01-03 16:00 | NUR ---
PT IS AWAKE. BREATHING UNLABORED ON 3L O2 NC. NO DISTRESS AT THIS TIME. PT STATES HE IS OKAY. NEEDS HAVE BEEN MET.
[2022-01-03] MEDS: CEFEPIME 1,000 MG in DEXTROSE 5% 50 ML IV SCH (17:41)
--- NOTE | 2022-01-03 17:53 | NUR ---
CALLED PT'S DAUGHTER LUKASZ REQUESTED BY PT. GAVE THE PHONE TO THE PT TO TALK TO FAMILY MEMBER. PT IS STABLE.
--- NOTE | 2022-01-03 19:18 | NUR ---
ENDORSED PT TO DOBBY LOOM FIXER NURSE FOR CONTINUITY OF CARE. PT IS STABLE AT THIS TIME. PLAN OF CARE DISCUSSED.
--- NOTE | 2022-01-03 19:35 | NUR ---
RECEIVED PATIENT FRO M AM SHIFT NURSE,PT IS STABLE. WILL CONTINUE WITH POC
--- NOTE | 2022-01-03 21:30 | NUR ---
MEDICATIONS GIVEN,TOLERATED WELL,NO SIGNS OF DISTRESS NOTED.
[2022-01-04] MEDS: MENTHOL/ZINC OXIDE 113 GM TUBE TP SCH ×2 (01:00→12:41)
--- NOTE | 2022-01-04 02:00 | NUR ---
PPATIENT STILL SLEEPING, NO DISTRESS NOTED
[2022-01-04 04:00] VITALS: BP 100/55
--- NOTE | 2022-01-04 04:40 | NUR ---
PATIENT IN BED ,BREATHING UNLABORED,O2 SAT WNL,2L NC IS ON,NO SIGNS OF DISTRESS.
[2022-01-04] MEDS: MIDODRINE 5 MG TAB PO SCH ×2 (05:00→12:41)
[2022-01-04] MEDS: BLOOD GLUCOSE MONITORING 1 DEV DEV FS SCH ×2 (06:50→11:40)
--- NOTE | 2022-01-04 07:41 | NUR ---
REPORT GIVEN TO JUSTIN VIEYRA, PT HAS NO ORDER FOR HD CONTACTED MD BAUTISTA BY TEXT FOR HD ORDER ENDORSED TO JUSTIN VIEYRA FOR F/U.
--- NOTE | 2022-01-04 07:45 | NUR ---
MD BAUTISTA SENT MESSAGE TO PLEASE HAVE PT RECEIVED HD TODAY. PLACED ORDER AND WILL CALL [facility] FOR HD SERVICES.
[2022-01-04 08:04] LABS: MAGNESIUM 1.7 mg/dL (1.8-2.4); PHOSPHORUS 2.1 mg/dL (2.5-4.9)
[2022-01-04 08:08] LABS: ANION GAP 7.8 (8-16); CARBON DIOXIDE 31.1 mmol/L (21-32); CREATININE 2.1 mg/dL (0.6-1.3)
[2022-01-04 08:17] LABS: BASOPHILS # (AUTO) 0.1 K/uL (0.00-0.22); BASOPHILS % (AUTO) 1.5 % (0.0-2.0); EOSINOPHILS # (AUTO) 0.3 K/uL (0-0.4); EOSINOPHILS % (AUTO) 5.1 % (0.0-4.0); HEMOGLOBIN 8.4 g/dL (12.0-18.0); LYMPHOCYTES # (AUTO) 0.9 K/uL (2.0-11.5); MEAN CORPUSCULAR HEMOGLOBIN 30 pg (27-31); MEAN CORPUSCULAR HGB CONC 33 g/dL (33-37); MEAN CORPUSCULAR VOLUME 91.7 fL (80-94); MONOCYTES # (AUTO) 0.4 K/uL (0.8-1.0); MONOCYTES % (AUTO) 8.8 % (1.7-9.3); NEUTROPHILS # (AUTO) 3.4 K/uL (1.8-7.7); NEUTROPHILS % (AUTO) 66.6 % (42.2-75.2); PLATELET COUNT (AUTO) 122 K/uL (140-450); RED BLOOD CELL COUNT(AUTO) 2.84 MIL/uL (4.20-6.10); RED CELL DISTRIBUTION WIDTH 16.4 % (11.6-13.7)
[2022-01-04 08:39] LABS: POTASSIUM 2.9 mmol/L (3.5-5.1)
[2022-01-04 09:04] VITALS: BP 101/55
[2022-01-04] MEDS: metOLazone 5 MG TAB PO SCH (09:15)
[2022-01-04] MEDS: AMIODARONE 200 MG TAB PO SCH (09:15)
[2022-01-04] MEDS: EPOETIN ALFA-EPBX 10,000 UNITS/ML VIAL IV SCH (09:15)
[2022-01-04] MEDS: POTASSIUM CHLORIDE 10 MEQ TABER PO PRN (09:46)
--- NOTE | 2022-01-04 10:22 | NUR ---
PT AOX4, DENIES PAIN, TOOK 40MEQ KDUR FOR POTASSIUM LVL. PT IN STABLE CONDITION, PT GIVEN BED BATH, MEDICATIONS TAKEN.
--- NOTE | 2022-01-04 11:52 | NUR ---
PER DR. BAUTISTA, WE WILL DC HD FOR TODAY, HE IS ATTEMPTING TO REACH DR. Serrano DUE TO MAGEE NO BEING ABLE TO ACCOMMODATE.
[2022-01-04 13:38] VITALS: BP 102/60
[2022-01-04 13:52] VITALS: BP 102/60
--- NOTE | 2022-01-04 14:30 | NUR ---
PER CM PATIENT WILL BE PICKED UP VIA TRANSPORT VAN ABOUT 3. PT DISCHARGED INFO SIGNED, IV DCED, REPORT CALLED INTO ALONDRA AT RECEIVING FACILITY. PT IN STABLE CONDITION.
--- NOTE | 2022-01-04 14:53 | NUR ---
PT PICKED UP BY TRANSPORTERS, PT TRANSPORTED WITH DIALYSIS CATHETER AND ACOSTA CATH. PT IN STABLE CONDITION.
== END 2022-01-04 15:35 | DRG 871 ==
LOC: MED 09:51 → MTU 14:24
PROVIDERS: ADMIT Family Medicine; ATTEND Family Medicine
PROC: 5A1D70Z Performance of Urinary Filtration, Intermittent, Less than 6 Hours Per Day (ICD-10-PCS; 2021-12-29)
PROC: 30233N1 Transfusion of Nonautologous Red Blood Cells into Peripheral Vein, Percutaneous Approach (ICD-10-PCS; principal; 2021-12-30)
PROC: 5A1D70Z Performance of Urinary Filtration, Intermittent, Less than 6 Hours Per Day (ICD-10-PCS; 2021-12-30)
PROC: B5181ZA Fluoroscopy of Superior Vena Cava using Low Osmolar Contrast, Guidance (ICD-10-PCS; 2022-01-01)
PROC: 02PYX3Z Removal of Infusion Device from Great Vessel, External Approach (ICD-10-PCS; 2022-01-01)
PROC: 0JH63XZ Insertion of Tunneled Vascular Access Device into Chest Subcutaneous Tissue and Fascia, Percutaneous Approach (ICD-10-PCS; 2022-01-01)
PROC: 02H633Z Insertion of Infusion Device into Right Atrium, Percutaneous Approach (ICD-10-PCS; 2022-01-01)
PROC: 5A1D70Z Performance of Urinary Filtration, Intermittent, Less than 6 Hours Per Day (ICD-10-PCS; 2022-01-02)
DX: A41.9 Sepsis, unspecified organism (principal); E43 Unspecified severe protein-calorie malnutrition; N17.0 Acute kidney failure with tubular necrosis; J18.9 Pneumonia, unspecified organism; J96.01 Acute respiratory failure with hypoxia; N18.6 End stage renal disease; N39.0 Urinary tract infection, site not specified; Z68.41 Body mass index [BMI] 40.0-44.9, adult; I13.2 Hypertensive heart and chronic kidney disease with heart failure and with stage 5 chronic kidney disease, or end stage renal disease; J44.0 Chronic obstructive pulmonary disease with (acute) lower respiratory infection; E11.22 Type 2 diabetes mellitus with diabetic chronic kidney disease; E66.9 Obesity, unspecified; E87.8 Other disorders of electrolyte and fluid balance, not elsewhere classified; F17.210 Nicotine dependence, cigarettes, uncomplicated; D63.1 Anemia in chronic kidney disease; E87.6 Hypokalemia; E83.42 Hypomagnesemia; J45.909 Unspecified asthma, uncomplicated; Z20.822 Contact with and (suspected) exposure to COVID-19; I48.91 Unspecified atrial fibrillation; I50.9 Heart failure, unspecified; M19.90 Unspecified osteoarthritis, unspecified site; Z86.16 Personal history of COVID-19; Z88.0 Allergy status to penicillin; Z88.1 Allergy status to other antibiotic agents; Z79.899 Other long term (current) drug therapy; Z82.49 Family history of ischemic heart disease and other diseases of the circulatory system; Z99.2 Dependence on renal dialysis; Z74.01 Bed confinement status
CPT/HCPCS: 36415; 36430; 71045; 80048; 80053; 80202; 82150; 82272; 82948; 83036; 83605; 83690; 83735; 83880; 84100; 84439; 84443; 84484; 85025; 85610; 85730; 86886; 86900; 86901; 86920; 87040; 87081; 87086; 93005; 93970; 96365; 97163-GP; 97530; 99291; J0692; J1644; J1956; J2001; J2704; J3010; J3370; J3475; J3490; J7060; P9016; P9046; Q0092; Q0163; Q5106